=== PATIENT | male | born 1935 ===

== ENCOUNTER 2020-03-21 11:40 | Outpatient (REF) | payer MEDICARE, SELFPAY | END 2020-03-21 11:41 | disposition home or self-care (01) | LOC: HO.HMGCLDS 11:40 | PROVIDERS: PCP Internal Medicine; Visit Provider Internal Medicine | DX: Z20.828 Contact with and (suspected) exposure to other viral communicable diseases (principal) | CPT/HCPCS: 87635 ==

== ENCOUNTER 2020-06-22 03:15 | Emergency (ER) | payer MEDICARE, SELFPAY ==
[2020-06-22 03:22] VITALS: BP 193/87; PULSE 69; RESP 16; TEMP 37.1; O2SAT 98; BMI 27.1
--- NOTE | 2020-06-22 03:47 | ED.HA ---
HPI - Headache General Chief Complaint: Headache Stated Complaint: High Blood Pressure Time Seen by Provider: 06/22/20 03:28 Source: patient Mode of arrival: ambulatory Limitations: no limitations History of Present Illness HPI Narrative: 84 yo male with hx of HTN on linsinopril 40mg, metoprolol 50mg just saw his PCP for headaches due to BP being > 180 over the past week, the patient notes he tried 100mg metoprolol for a couple of days but it didn't work, comes in tonight with c/o headache - he is on eliquis for afib elicited complaint: headache Pertinent past history: hypertension Onset (ago): week(s) (last week or so) Onset description: gradually Location: diffuse Severity: similar to previous episodes Quality & Timing: aching Exacerbating factors: none Relieving factors: nothing Context: occurred at rest Associated symptoms: none Treatments prior to arrival: acetaminophen and other (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) Related Data Home Medications Medication Instructions Recorded Confirmed betamethasone dipropionate 0.05 % 1 applic TOPICAL BID PRN 05/08/20 topical cream acetaminophen 500 mg capsule 500 mg PO Q6H PRN 06/18/20 06/18/20 Previous Rx's Medication Instructions Recorded pantoprazole 40 mg tablet,delayed 40 mg PO DAILY 90 Days #90 tab 03/21/20 release atorvastatin 20 mg tablet 20 mg PO BEDTIME #90 tab 05/08/20 betamethasone dipropionate 0.05 % 1 applic TOPICAL BID PRN #15 g 05/08/20 topical cream glipizide 2.5 mg tablet, extended 2.5 mg PO QAM #90 cap 05/08/20 release 24 hr lisinopril 40 mg tablet 40 mg PO DAILY #90 tab 05/08/20 metformin 500 mg tablet 500 mg PO BID #180 tab 05/08/20 pantoprazole 40 mg tablet,delayed 40 mg PO DAILY #90 tab 05/08/20 release metoprolol succinate 50 mg 50 mg PO DAILY 90 Days #90 tab 05/28/20 tablet,extended release 24 hr amlodipine 5 mg PO DAILY #30 tab 06/22/20 Allergies Allergy/AdvReac Type Severity Reaction Status Date / Time pravastatin Allergy Unknown LEG RASH Verified 06/21/20 13:36 Review of Systems Review of Systems: Constitutional : No Fever, No Chills, No Fatigue ENT/Mouth : No sore throat, No Rhinorrhea Eyes: No Eye Pain, No Swelling, No Redness Cardiovascular : No Chest Pain, No SOB, No Dyspnea on Exertion Respiratory : No Cough, No Sputum Gastrointestinal : No Nausea, No Vomiting, No Diarrhea, No abdominal Pain Genitourinary : No Dysuria, No Urinary Frequency, No Hematuria, Musculoskeletal : No joint pain, No Myalgias, No Joint Swelling Skin : No Skin Lesions, No rash Neuro : No Weakness, No Numbness, No Dizziness, positive Headache Psych : No Anxiety/Panic, No Depression Heme/Lymph: No Bruising, No Bleeding,No Lymphadenopathy Endocrine : No Polyuria, No Polydipsia All other systems reviewed and are negative [facility] Past Medical History Attestation statement: The following information was validated with the patient. Medical History Afib Essential (primary) hypertension Hypertension Normally functioning cardiac pacemaker present Surgical History History of pacemaker Total knee replacement status Family History Family History Father No problems noted. Mother No problems noted. Daughter In good health Social History Social History Alcohol intake: current Alcohol intake frequency: holidays/special occasions only Smoking Status: Never smoker Advance Directives: No Physical Exam Vital Signs: Vital Signs: Last Vital Signs Temp 98.7 F 06/22/20 03:22 Pulse 73 06/22/20 04:27 Resp 18 06/22/20 04:27 BP 177/64 H 06/22/20 04:27 Pulse Ox 97 06/22/20 04:27 Body Mass Index 27.1 Appearance: Alert. Oriented X3. No acute distress. Eyes: Pupils equal, round and reactive to light. ENT: Pharynx normal. Neck: Normal inspection. Neck supple. CVS: Normal heart rate and rhythm. Pulses normal. Respiratory: No respiratory distress. Breath sounds normal. Abdomen: Soft and non-tender. Skin: Skin warm and dry. Normal skin color. Normal skin turgor. Extremities: No lower extremity edema. No calf ttp Neuro: Oriented X 3. No motor deficit. No sensory deficit. Course Course Course Narrative: patient with negative workup, BP stable will start on amlodipine 5mg MDM - Headache MDM Narrative Medical decision making narrative: 84 yo male with increased BP already on CARLOS and metoprolol he c/o some headaches - BP has been up to 180s, will need labs to check Cr and CT head given eliquis use, will attempt pain control but may need to add on 3rd BP medication to his regimen Lab Data Result diagrams: 06/22/20 04:24 Labs: Lab Results 06/22/20 06/22/20 Range/Units 04:24 04:24 WBC 7.6 (4.8-10.8) X10*3/uL RBC 4.29 L (4.60-5.80) X10*6/uL Hgb 13.0 L (14.0-18.0) g/dl Hct 38.2 L (42-52) % MCV 89.0 (80-98) fL MCH 30.3 (27.0-33.0) pg MCHC 34.0 (31.0-36.0) g/dl RDW 12.7 (11.0-16.0) % Plt Count 148 L (160-400) X10*3/uL MPV 9.3 L (9.4-12.4) fL Immature Gran % (Auto) 0.1 (0.0-0.4) % Neut % (Auto) 52.3 (45-73) % Lymph % (Auto) 36.9 (20-40) % [place] % (Auto) 8.0 (2-11) % Eos % (Auto) 2.2 (0-4) % Baso % (Auto) 0.5 (0-2) % Lymph # (Auto) 2.8 (1.2-4.9) X10*3/uL [place] # (Auto) 0.6 (0.1-1.2) X10*3/uL Eos # (Auto) 0.2 (0.0-0.4) X10*3/uL Baso # (Auto) 0.0 (0.0-0.2) X10*3/uL Abs Immat Gran (auto) 0.01 (0.00-0.03) X10*3/uL Absolute Neuts (auto) 4.0 (2.0-8.3) X10*3/uL Absolute Nucleated RBC 0.000 (0.0-0.012) X10*3/uL Nucleated RBC % (auto) 0.0 (0.0-0.2) /100WBC PT 15.2 H (10.8-13.0) SEC INR 1.3 H (0.9-1.1) APTT 40.2 H (24.1-38.0) SEC Discharge Plan Discharge Clinical Impression: Essential (primary) hypertension Headache Qualifiers: Headache type: tension-type Headache chronicity pattern: episodic headache Intractability: not intractable Qualified Code(s): G44.219 - Episodic tension-type headache, not intractable Patient Disposition: Home, Self-Care Instructions: Chronic Hypertension (ED) Additional Instructions: return to ED for any worsening symptoms or concerns continue your lisinopril and metoprolol Prescriptions: New amlodipine 5 mg tablet 5 mg PO DAILY Qty: 30 RF: 0 No Action betamethasone dipropionate 0.05 % cream 1 applic topical BID PRNRF: 0 lisinopril 40 mg tablet 40 mg PO DAILY Qty: 90 RF: 1 glipizide 2.5 mg tablet extended release 24hr 2.5 mg PO QAM Qty: 90 RF: 1 metformin 500 mg tablet 500 mg PO BID Qty: 180 RF: 1 pantoprazole 40 mg tablet,delayed release (DR/EC) 40 mg PO DAILY Qty: 90 RF: 1 betamethasone dipropionate 0.05 % cream 1 applic topical BID PRN (Reason: rash) Qty: 15 RF: 1 atorvastatin 20 mg tablet 20 mg PO BEDTIME Qty: 90 RF: 1 metoprolol succinate 50 mg tablet extended release 24 hr 50 mg PO DAILY 90 Days Qty: 90 RF: 1 acetaminophen 500 mg capsule 500 mg PO Q6H PRNRF: 0 Referrals: Darrius Garcia MD [Primary Care Provider] - 2 days (if not better)
--- NOTE | 2020-06-22 03:56 | CT_ITS ---
EXAMINATION: CT HEAD WITHOUT CONTRAST CLINICAL INFORMATION: Headache, on Eliquis. COMPARISON: None. TECHNIQUE: Contiguous axial imaging was performed from the skull base to vertex without intravenous contrast. This CT examination was performed using dose optimization techniques as appropriate, variously including the following: * Automated exposure control * Adjustment of mA and/or kV according to patient size (this includes techniques or standardized protocols for targeted exams where dose is matched to indication/reason for exam; i.e. extremities or head) Use of iterative reconstruction technique DLP: 664 mGy-cm. FINDINGS: There is no evidence of acute intracranial hemorrhage or territorial infarction. No abnormal mass effect or midline shift is seen. [place] to white matter differentiation is well preserved. No extra-axial fluid collections are identified. No hydrocephalus. Proportional prominence of the ventricles and sulcal spaces is consistent with mild volume loss. Patchy periventricular and deep white matter hypoattenuation is consistent with mild small vessel ischemic changes. The osseous structures and soft tissues are normal. The mastoid air cells and visualized portions of the paranasal sinuses are well aerated. CT/CT head/brain wo con IMPRESSION: No acute intracranial pathology.
--- NOTE | 2020-06-22 04:00 | PC.NURSE ---
pt ambulates to ed room #19 with c/o high b/p and a headache. in room for eval. Pt chg into gown. HL placed to Left AC labs drawn to lab. Pt refused pain meds. aware. Pt awaiting for Ct.
[2020-06-22 04:27] VITALS: BP 177/64; PULSE 73; RESP 18; O2SAT 97
[2020-06-22 04:30] LABS: Basophils Percent Auto 0.5 % (0-2); Eosinophils Absolute Auto 0.2 X10*3/uL (0.0-0.4); Eosinophils Percent Auto 2.2 % (0-4); Hematocrit 38.2 % (42-52); Imm Gran Abs Auto 0.01 X10*3/uL (0.00-0.03); Imm Gran Pct Auto 0.1 % (0.0-0.4); Lymphocytes Absolute Auto 2.8 X10*3/uL (1.2-4.9); Lymphocytes Percent Auto 36.9 % (20-40); MANUAL DIFF FLAG NO; Mean Corpuscular Hemoglobin 30.3 pg (27.0-33.0); Mean Platelet Volume 9.3 fL (9.4-12.4); Monocytes Absolute Auto 0.6 X10*3/uL (0.1-1.2); Neutrophils Percent Auto 52.3 % (45-73); Platelet Count 148 X10*3/uL (160-400); Red Blood Count 4.29 X10*6/uL (4.60-5.80); Red Cell Distribution Width 12.7 % (11.0-16.0); White Blood Count 7.6 X10*3/uL (4.8-10.8)
[2020-06-22 04:37] LABS: INTERNATIONAL NORM RATIO 1.3 (0.9-1.1); Prothrombin Time 15.2 SEC (10.8-13.0)
[2020-06-22 04:40] LABS: Partial Thromboplastin Time 40.2 SEC (24.1-38.0)
== END 2020-06-22 05:00 | disposition home or self-care (01) ==
PROVIDERS: Emergency Provider Emergency Medicine; PCP Internal Medicine
DX: G44.219 Episodic tension-type headache, not intractable (principal); I10 Essential (primary) hypertension; Z79.899 Other long term (current) drug therapy
CPT/HCPCS: 36415; 70450; 85025; 85610; 85730; 96374; 99284

== ENCOUNTER → 2020-08-06 13:19 | Outpatient (BNVA) | payer MEDICARE, SELFPAY | PROVIDERS: PCP Internal Medicine; Visit Provider Internal Medicine | DX: Z45.018 Encounter for adjustment and management of other part of cardiac pacemaker (principal); I48.0 Paroxysmal atrial fibrillation; I35.0 Nonrheumatic aortic (valve) stenosis; I42.8 Other cardiomyopathies; I10 Essential (primary) hypertension | CPT/HCPCS: 99212 ==

== ENCOUNTER 2021-02-01 07:31 | Outpatient (REF) | payer MEDICARE, SELFPAY ==
[2021-02-01 08:18] LABS: Glucose Urine UA NEG (NEG); Leukocyte Esterase Urine NEG (NEG); Nitrite Urine NEG (NEG); Specific Gravity - Urine 1.025 (1.005-1.025); Urine Blood TRACE (NEG); Urine Ketones NEG (NEG); Urine Protein NEG (NEG-TRACE)
[2021-02-01 08:19] LABS: Appearance Urine CLEAR; Color Urine YELLOW
[2021-02-01 08:27] LABS: Hematocrit 39.7 % (42-52); Hemoglobin 13.5 g/dl (14.0-18.0); Mean Corpuscular Hemoglobin 30.1 pg (27.0-33.0); Mean Corpuscular Volume 88.6 fL (80-98); Mean Platelet Volume 9.8 fL (9.4-12.4); Platelet Count 169 X10*3/uL (160-400); Red Blood Count 4.48 X10*6/uL (4.60-5.80); Red Cell Distribution Width 12.8 % (11.0-16.0); White Blood Count 6.2 X10*3/uL (4.8-10.8)
[2021-02-01 08:36] LABS: Calcium Phosphate Crystals Ur TRACE /LPF; Squamous Epithelial Cell Urine TRACE /LPF
[2021-02-01 08:57] LABS: Alanine Aminotransferase 21 U/L (0-40); Albumin Level 4.2 g/dL (3.5-5.0); Alkaline Phosphatase 67 U/L (39-117); Anion Gap 14 (12-20); Aspartate Amino Transferase 12 U/L (5-37); Bilirubin Direct 0.2 mg/dL (0.0-0.5); Bilirubin Total 0.5 mg/dL (0.0-1.0); Blood Urea Nitrogen 17 mg/dL (9-16); Calcium 9.2 mg/dL (8.4-10.2); Carbon Dioxide 23 mmol/L (22-29); Chloride 108 mmol/L (96-108); Cholesterol 159 mg/dL; Estimated Glomerular Filt Rate 59; Glucose Random 139 mg/dL (60-115); HDL Cholesterol 42 mg/dL; LDL Cholesterol Calculated 94 mg/dl; Potassium 4.5 mmol/L (3.3-5.1); Sodium 140 mmol/L (135-145); Total Protein 6.9 g/dL (6.5-8.0); Triglycerides 116 mg/dL
[2021-02-01 09:07] LABS: Thyroid Stimulating Hormone 1.31 uIU/mL (0.32-4.0)
== END 2021-02-01 07:32 | disposition home or self-care (01) ==
LOC: HO.LAB 07:31
PROVIDERS: PCP Internal Medicine; Visit Provider Internal Medicine
DX: L30.8 Other specified dermatitis (principal); I48.0 Paroxysmal atrial fibrillation; I42.9 Cardiomyopathy, unspecified; I10 Essential (primary) hypertension
CPT/HCPCS: 36415; 80048; 80061; 80076; 81001; 84443; 85027

== ENCOUNTER → 2021-07-10 14:45 | Outpatient (REF) | payer MEDICARE, SELFPAY ==
--- NOTE | 2021-07-10 14:50 | CA_ITS ---
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 Mildly reduced LV systolic function with LVEF of 45-50% with elevated filling pressures 2. Mild aortic stenosis 3. Normal RV systolic pressure 4. No gross pericardial effusion Findings Left Ventricle Normal left ventricular cavity size. There is normal left ventricular wall thickness. The left ventricular systolic function is mildly decreased. The visually estimated ejection fraction is between 45-50%. Spectral Doppler is indicative of an impaired relaxation filling pattern. Elevated filling pressures. E/E prime ratio is >15, consistent with elevated filling pressures. Wall Motion Rest Echo Findings The mid inferoseptal segment is hypokinetic. The inferior wall and apical septum segment are akinetic. All other scored wall segments showed normal motion. Right Ventricle Normal right ventricular cavity size and systolic function. There is a pacemaker wire seen in the right ventricle. Atria The left atrium is mildly dilated. The right atrium is normal in size. A pacemaker wire is identified in the right atrium. Aortic Valve There is moderate calcification of the aortic valve. There is moderate thickening of the aortic valve. There is mild aortic valve stenosis. There is no aortic valve regurgitation. Mitral Valve There is mild anterior and moderate posterior mitral leaflet thickening. There is mild mitral valve regurgitation. There is no mitral valve stenosis. Pulmonic Valve The pulmonic valve was not well visualized. Tricuspid Valve Likely normal tricuspid valve structure and function. There is mild tricuspid valve regurgitation. The right ventricular systolic pressure is normal. Normal right atrial pressure. There is no evidence of pulmonary hypertension. Great Vessels All visible segments of the aorta are normal in size. The pulmonary artery was not well visualized. Venous The inferior vena cava is normal in size and collapses greater than 50% with inspiration. Pericardium/Pleural There is no evidence of pericardial effusion. Prior Study Comparison No significant change compared to prior study dated: 07/27/2019. Measurements 2D Linear Measurements IVSd: 0.99 0.6-0.9/0.6-1.0 cm LVIDd: 5.20 3.9-5.3/4.2-5.9 cm LVIDd Index: 2.52 2.4-3.2/2.2-3.1 cm/m2 LVIDs: 3.90 2.0-3.6 cm LVPWd: 1.11 0.7-1.1 cm Ao Root: 3.30 2.1-3.5 cm LA Diam: 3.30 2.7-3.8/3.0-4.0 cm LAIDs Index: 1.60 1.5-2.3 cm/m2 LV Mass: 258.51 67-162/88-224 g LV Mass Index: 125.49 43-95/49-115 g/m2 LVOT Diam: 2.00 3.0+(-)1.3 cm 2D Systolic Function EF 4C: 45.30 >55% EF 2C: 51.90 >55% EF BiP: 48.80 >55% Mitral Valve MV Pk E: 0.78 MV PK A: 1.00 MV Decel Time: 252.00 E/A: 0.80 E'Lateral: 5.98 E'Medial: 3.59 E/E' Med: 21.60 E/E' Lat: 13.00 PHT: 74.00 MVA PHT: 2.97 Decel [place]: 3.08 Aortic Valve AoV Pk John: 1.98 AoV Mn John: 1.45 AoV VTI: 0.38 AoV Pk Grad: 16.00 Aov Mn Grad: 9.00 HEAVEN Cont.VTI: 1.68 LVOT LVOT Pk John: 0.97 LVOT Mn John: 0.71 LVOT VTI: 0.20 LVOT Pk Grad: 4.00 LVOT Mn Grad: 2.00 LVOT Diam: 2.00 LVOT Area: 3.14 Diastolic Function MV Pk E: 0.78 MV Pk A: 1.00 E/A: 0.80 E'Medial: 3.59 E/E' Med: 21.60 E' Laterial: 5.98 E/E' Lat: 13.00 Right Ventricle TAPSE (mm): 2.49 TVS' John: 12.30 Tricuspid Valve TR Pk John: 2.73 TR Pk Grad: 30.00 RA Press: 3.00 RVSP: 33.00 Great Vessels Aorta Ao Root-2D: 3.30 2.0-3.7 cm Ao Asc: 3.30 2.1-3.4 cm Ao Arch: 2.80 Updated in Other Vendor System with Status of Final Abhishek Bernard MD electronically signed on 07/11/2021 8:53:27 AM with status of Final
== END ==
LOC: HO.CARD 14:45
PROVIDERS: Visit Provider Internal Medicine
DX: I42.8 Other cardiomyopathies (principal)
CPT/HCPCS: 93306

== ENCOUNTER → 2021-08-12 12:43 | Outpatient (BNVA) | payer MEDICARE, SELFPAY | PROVIDERS: PCP Internal Medicine; Referring Provider Internal Medicine; Visit Provider Internal Medicine | DX: I48.0 Paroxysmal atrial fibrillation (principal); I35.0 Nonrheumatic aortic (valve) stenosis; I42.8 Other cardiomyopathies; I10 Essential (primary) hypertension; Z95.0 Presence of cardiac pacemaker | CPT/HCPCS: 99212 ==

== ENCOUNTER → 2021-09-09 13:27 | Outpatient (BNVA) | payer MEDICARE, SELFPAY | PROVIDERS: PCP Internal Medicine; Referring Provider Internal Medicine; Visit Provider Internal Medicine | DX: Z13.89 Encounter for screening for other disorder (principal) ==

== ENCOUNTER 2022-04-22 07:34 | Outpatient (REF) | payer MEDICARE, SELFPAY ==
[2022-04-22 10:44] LABS: Hematocrit 38.7 % (42.0-52.0); Mean Corpuscular HGB Conc 33.6 g/dl (31.0-36.0); Mean Corpuscular Volume 89.2 fL (80.0-98.0); Mean Platelet Volume 10.3 fL (9.4-12.4); Platelet Count 196 X10*3/uL (160-400); Red Blood Count 4.34 X10*6/uL (4.60-5.80); Red Cell Distribution Width 12.9 % (11.0-16.0); White Blood Count 6.2 X10*3/uL (4.8-10.8)
[2022-04-22 11:19] LABS: Alanine Aminotransferase 20 U/L (0-40); Albumin Level 4.3 g/dL (3.5-5.0); Alkaline Phosphatase 68 U/L (39-117); Anion Gap 14 (12-20); Aspartate Amino Transferase 12 U/L (5-37); Bilirubin Direct 0.2 mg/dL (0.0-0.5); Bilirubin Total 0.6 mg/dL (0.0-1.0); Blood Urea Nitrogen 25 mg/dL (9-16); Calcium 9.1 mg/dL (8.4-10.2); Carbon Dioxide 23 mmol/L (22-29); Chloride 104 mmol/L (96-108); Cholesterol 159 mg/dL; Estimated Average Glucose 117 mg/dL; Estimated Glomerular Filt Rate 48; Glucose Random 195 mg/dL (60-115); HDL Cholesterol 42 mg/dL; Hemoglobin A1c % 5.7 %; LDL Cholesterol Calculated 91 mg/dl; Potassium 4.2 mmol/L (3.3-5.1); Sodium 137 mmol/L (135-145); Total Protein 7.1 g/dL (6.5-8.0); Triglycerides 131 mg/dL
== END 2022-04-22 07:35 | disposition home or self-care (01) ==
LOC: HO.10HDL 07:34
PROVIDERS: Visit Provider Internal Medicine
DX: I42.9 Cardiomyopathy, unspecified (principal); I48.0 Paroxysmal atrial fibrillation; E11.9 Type 2 diabetes mellitus without complications
CPT/HCPCS: 36415; 80048; 80061; 80076; 83036; 85027

== ENCOUNTER 2022-07-20 16:29 | Emergency (ER) | payer MEDICARE, SELFPAY ==
--- NOTE | ~2022-07-20 | CT_ITS ---
EXAMINATION: CT ABDOMEN AND PELVIS WITHOUT CONTRAST CLINICAL INFORMATION: Hematuria COMPARISON: None TECHNIQUE: Multidetector volumetric imaging was performed from the superior aspect of the liver through the pubic symphysis. Sagittal and coronal reformatted images were obtained on the technologist's workstation. This CT examination was performed using dose optimization techniques as appropriate, variously including the following: *Automated exposure control *Adjustment of mA and/or kV according to patient size (this includes techniques or standardized protocols for targeted exams where dose is matched to indication/reason for exam; i.e. extremities or head) *Use of iterative reconstruction technique DLP: 579 mGy-cm FINDINGS: LUNG BASES: Pacemaker lead in right ventricle. Lung bases normally aerated. No pleural effusion. LIVER, GALLBLADDER, AND BILIARY TREE: The liver is normal in size, shape, and attenuation. No focal hepatic lesion or biliary ductal dilatation is present. The gallbladder is unremarkable with no evidence of radiopaque gallstones, gallbladder wall thickening, or obvious pericholecystic inflammatory changes. PANCREAS: Unremarkable. SPLEEN: Unremarkable. ADRENAL GLANDS: Unremarkable. KIDNEYS AND URETERS: There are lobulations in the kidney bilaterally. No renal mass. Renal cortical thickness maintained. There is no calculus or hydronephrosis. No ureteral stone or hydroureter. There are 3 cortical cyst at the upper pole of the right kidney. No follow-up imaging is recommended for simple renal cyst. BLADDER: Lobulated bladder mass at the posterior left abdominal the liver suspicious for neoplasm. This measures about 4 cm in size. GASTROINTESTINAL TRACT: The small and large bowel are unremarkable. The appendix is unremarkable. ABDOMINAL WALL: No significant hernia is appreciated. LYMPH NODES: Normal. VASCULAR: Scattered vascular calcifications of the abdominal aorta. No aneurysm. PELVIC VISCERA: Prostate enlarged impressing into the bladder base. Prostate measures 5 cm transverse. OSSEOUS STRUCTURES: Multilevel degenerative spondylosis spine. CT/CT abdomen pelvis wo IV con IMPRESSION: 1. Lobulated bladder mass suspicious for neoplasm. 2. Enlarged prostate impressing into the bladder base. Fleischner guidelines were followed.
--- NOTE | 2022-07-20 16:50 | ED_ITS ---
HPI - General Adult General Chief complaint: Urogenital-Male <ZORA Kate - Last Filed: 07/20/22 16:54> Stated complaint: blood in urine <ZORA Kate - Last Filed: 07/20/22 16:54> Time Seen by Provider: 07/20/22 19:58 <ZORA Kate - Last Filed: 07/20/22 16:54> Source: patient <Rossy Ledesma NP - Last Filed: 07/21/22 00:54> Mode of arrival: ambulatory <Rossy Ledesma NP - Last Filed: 07/21/22 00:54> Limitations: no limitations <Rossy Ledesma NP - Last Filed: 07/21/22 00:54> History of Present Illness HPI narrative: 86-year-old male presents with 1 day of bright red hematuria. Does not describe any difficulty voiding, denies fevers, chills, fatigue and weakness. <Rossy Ledesma NP - Last Filed: 07/21/22 00:54> Onset (ago): day(s) (1) <Rossy Ledesma NP - Last Filed: 07/21/22 00:54> Radiation: non-radiation <Rossy Ledesma NP - Last Filed: 07/21/22 00:54> Severity: moderate <Rossy Ledesma NP - Last Filed: 07/21/22 00:54> Associated symptoms: denies other symptoms <SANJAY Epps Last Filed: 07/21/22 00:54> Treatments prior to arrival: none <SANJAY Epps Last Filed: 07/21/22 00:54> Related Data Home medications: Home Medications Medication Instructions Recorded Confirmed acetaminophen 500 mg capsule 500 mg PO Q6H PRN 06/18/20 09/25/21 Previous Rx's Medication Instructions Recorded pantoprazole 40 mg tablet,delayed 40 mg PO DAILY #90 tabs 10/11/21 release apixaban 5 mg tablet (Eliquis) 5 mg PO BID #180 tabs 12/06/21 lisinopril 40 mg tablet 40 mg PO DAILY #90 tabs 03/25/22 metformin 500 mg tablet 500 mg PO BID #180 tabs 03/25/22 betamethasone dipropionate 0.05 % 2 appl topical BID rash #45 grams 04/21/22 topical cream meclizine 12.5 mg tablet 12.5 mg PO DAILY #30 tabs 04/21/22 metoprolol succinate 50 mg 100 mg PO DAILY 90 days #180 tabs 05/01/22 tablet,extended release 24 hr blood sugar diagnostic (FreeStyle #100 ea 06/24/22 Test strips) lancets 28 gauge (FreeStyle #100 ea 06/24/22 Lancets) atorvastatin 20 mg tablet 20 mg PO BEDTIME #90 tabs 07/02/22 <ZORA Kate - Last Filed: 07/20/22 16:54> Allergies/adverse reactions: Allergies Allergy/AdvReac Type Severity Reaction Status Date / Time pravastatin Allergy Unknown LEG RASH Verified 07/20/22 16:52 <ZORA Kate - Last Filed: 07/20/22 16:54> Review of Systems Review of Systems: Constitutional: No Fever, No Chills Cardiovascular: No Chest Pain, No SOB Respiratory: No Cough, No Dyspnea Gastrointestinal: No Nausea, No Vomiting, No Diarrhea, No abdominal Pain Genitourinary: No Dysuria, Positive,Hematuria Musculoskeletal: no joint pain, No Myalgias, No Joint Swelling Skin: No Skin lacerations, No rash Neuro: No Weakness, No Dizziness, No Headache <Rossy Ledesma NP - Last Filed: 07/21/22 00:54> Yes all other systems are reviewed and are negative <Rossy Ledesma NP - Last Filed: 07/21/22 00:54> [facility] Past Medical History Attestation statement: The following information was validated with the patient. <Rossy Ledesma NP - Last Filed: 07/21/22 00:54> Source: old records reviewed <Rossy Ledesma NP - Last Filed: 07/21/22 00:54> Medical History: Medical History Afib Cardiomyopathy Eczema craquele Essential (primary) hypertension Hypertension Non-rheumatic aortic stenosis Normally functioning cardiac pacemaker present PAF (paroxysmal atrial fibrillation) <ZORA Kate - Last Filed: 07/20/22 16:54> Surgical History: Surgical History History of pacemaker Total knee replacement status <ZORA Kate - Last Filed: 07/20/22 16:54> Family History Family History: Family History Father No problems noted. Mother No problems noted. Daughter In good health <ZORA Kate - Last Filed: 07/20/22 16:54> Social History Social History: Social History Housing: Apartment Alcohol intake: never Patient Tobacco Use Status: Never used Tobacco e-Cigarette/Vaping Use: Never Used Second Hand Smoke Exposure: No Advance Directives: No Advance Directives Information Provided: Yes service: No Current occupational status: employed and retired Cognitive needs: No Hearing needs: No Vision needs: Yes (glasses) <ZORA Kate - Last Filed: 07/20/22 16:54> Physical Exam ED Vital Signs: Vital Signs - 24 hr 07/20/22 16:52 07/20/22 20:00 Temperature 98.4 F 98.8 F Pulse Rate 72 93 Respiratory Rate 16 19 Blood Pressure 166/77 H 106/67 Pulse Oximetry 98 100 Oxygen Delivery Method Room Air Room Air BMI result Body Mass Index 25.7 <ZORA Kate - Last Filed: 07/20/22 16:54> Vital Signs - 24 hr 07/20/22 16:52 07/20/22 20:00 Temperature 98.4 F 98.8 F Pulse Rate 72 93 Respiratory Rate 16 19 Blood Pressure 166/77 H 106/67 Pulse Oximetry 98 100 Oxygen Delivery Method Room Air Room Air BMI result Body Mass Index 25.7 <Rossy Ledesma NP - Last Filed: 07/21/22 00:54> Appearance: Alert. Oriented X3. No acute distress. Eyes: Pupils equal, round and reactive to light. ENT: Pharynx normal. Neck: Normal inspection. Neck supple. CVS: Normal heart rate and rhythm. Pulses normal. Respiratory: No respiratory distress. Breath sounds normal. Abdomen: Soft and nontender. Skin: Skin warm and dry. Normal skin color. Normal skin turgor. Extremities: No lower extremity edema. gait well-balanced well coordinated. Neuro: No motor deficit. No sensory deficit. Cranial nerves 2-12 intact. <Rossy Ledesma NP - Last Filed: 07/21/22 00:54> Course Course Course Narrative: RME--86yo M w/PMHx A.fib on Eliquis, HTN, pacemaker, c/o gross hematuria since yesterday w/mild dysuria. Admits started dark/brown and progressed to bright red, denies clots. Denies fever, abdominal pain, N/V, flank pain VSS, NAD Labs, UA ordered in triage <ZORA Kate - Last Filed: 07/20/22 16:54> RME--86yo M w/PMHx A.fib on Eliquis, HTN, pacemaker, c/o gross hematuria since yesterday w/mild dysuria. Admits started dark/brown and progressed to bright red, denies clots. Denies fever, abdominal pain, N/V, flank pain VSS, NAD Labs, UA ordered in triage 86-year-old male presents with 1 day of hematuria. Does not have any other reportable symptoms. Is on Eliquis for AFib, history of hypertension and diabetes. Gross hematuria noted. Order for CT scan of abdomen pelvis. 00:30 CT scan positive for mass in the bladder and enlarged prostate, most concerning for bladder cancer. Will have patient follow-up with Dr. Barrett. Patient does understand that has worsening symptoms, or inability to urine that he must present to the emergency department for evaluation. I did discuss these findings in detail with patient's daughter. Patient verbalized understanding of and agrees to plan of care discharge home. Verbalizes that understanding of signs and symptoms indicating need for emergent intervention. <Rossy Ledesma NP - Last Filed: 07/21/22 00:54> Medications Administered Discontinued Medications Generic Name Dose Route Start Last Admin Trade Name Freq PRN Reason Stop Dose Admin Sodium Chloride 1,000 mls @ 999 mls/hr 07/20/22 20:15 07/20/22 21:31 Ns IVCONT 07/20/22 21:15 Infused .Q1H1M UDAY Infusion <ZORA Kate - Last Filed: 07/20/22 16:54> Medications Administered Discontinued Medications Generic Name Dose Route Start Last Admin Trade Name Lynda PRN Reason Stop Dose Admin Sodium Chloride 1,000 mls @ 999 mls/hr 07/20/22 20:15 07/20/22 21:31 Ns IVCONT 07/20/22 21:15 Infused .Q1H1M UDAY Infusion <Rossy Ledesma NP - Last Filed: 07/21/22 00:54> Medical Decision Making Differential Diagnosis Differential Diagnoses: The differential diagnosis associated with the presentation includes <Rossy Ledesma NP - Last Filed: 07/21/22 00:54> UTI, kidney stone, bladder CA, kidney Ca <Rossy Ledesma NP - Last Filed: 07/21/22 00:54> Consult Healthcare Provider Management of the patient was discussed with: Electric Motor Mechanic <Rossy Ledesma NP - Last Filed: 07/21/22 00:54> Barrett <Rossy Ledesma NP - Last Filed: 07/21/22 00:54> Lab Data MDM Lab Attestation statement: I reviewed the patient's lab results. <Rossy Ledesma NP - Last Filed: 07/21/22 00:54> Result Diagrams: 07/20/22 17:22 07/20/22 17:22 <ZORA Kate - Last Filed: 07/20/22 16:54> Labs: Lab Results 07/20/22 07/20/22 07/20/22 Range/Units 17:22 17:22 17:22 WBC 6.8 (4.8-10.8) X10*3/uL RBC 4.48 L (4.60-5.80) X10*6/uL Hgb 13.2 L (14.0-18.0) g/dl Hct 38.5 L (42.0-52.0) % MCV 85.9 (80.0-98.0) fL MCH 29.5 (27.0-33.0) pg MCHC 34.3 (31.0-36.0) g/dl RDW 12.7 (11.0-16.0) % Plt Count 169 (160-400) X10*3/uL MPV 9.6 (9.4-12.4) fL Immature Gran % (Auto) 0.1 (0.0-0.4) % Neut % (Auto) 44.1 L (45-73) % Lymph % (Auto) 44.3 H (20-40) % [place] % (Auto) 8.5 (2-11) % Eos % (Auto) 2.4 (0-4) % Baso % (Auto) 0.6 (0-2) % Lymph # (Auto) 3.0 (1.2-4.9) X10*3/uL [place] # (Auto) 0.6 (0.1-1.2) X10*3/uL Eos # (Auto) 0.2 (0.0-0.4) X10*3/uL Baso # (Auto) 0.0 (0.0-0.2) X10*3/uL Abs Immat Gran (auto) 0.01 (0.00-0.03) X10*3/uL Absolute Neuts (auto) 3.0 (2.0-8.3) x10*3/uL Absolute Nucleated RBC 0.000 (0.0-0.012) X10*3/uL Nucleated RBC % (auto) 0.0 (0.0-0.2) /100WBC PT 15.1 H (10.0-13.1) SEC INR 1.3 H (0.9-1.1) Sodium 141 (135-145) mmol/L Potassium 5.4 H D (3.3-5.1) mmol/L Chloride 107 (96-108) mmol/L Carbon Dioxide 25 (22-29) mmol/L Anion Gap 14 (12-20) BUN 21 H (9-16) mg/dL Creatinine 1.52 H (0.5-1.4) mg/dL Estim Creat Clear Calc 36.4 Estimated GFR 44 Random Glucose 108 (60-115) mg/dL Calcium 9.6 (8.4-10.2) mg/dL Total Bilirubin 0.6 (0.0-1.0) mg/dL Direct Bilirubin < 0.2 (0.0-0.5) mg/dL AST 12 (5-37) U/L ALT 16 (0-40) U/L Alkaline Phosphatase 64 (39-117) U/L Total Creatine Kinase 122 (38-174) U/L Total Protein 6.7 (6.5-8.0) g/dL Albumin 4.2 (3.5-5.0) g/dL Urine Color Urine Appearance Urine pH (5.0-9.0) Ur Specific [place] (1.005-1.025) Urine Protein (Neg-Trace) mg/dL Urine Glucose (UA) (Negative) mg/dL Urine Ketones (Negative) mg/dL Urine Blood (Negative) Urine Nitrite (Negative) Ur Leukocyte Esterase (Negative) Urine RBC (0-2) /HPF Urine WBC (0-5) /HPF Ur Squamous Epith Cells (0-2) /HPF Urine Bacteria (None Seen) Hyaline Casts (0-2) /LPF 07/20/22 Range/Units 17:22 WBC (4.8-10.8) X10*3/uL RBC (4.60-5.80) X10*6/uL Hgb (14.0-18.0) g/dl Hct (42.0-52.0) % MCV (80.0-98.0) fL MCH (27.0-33.0) pg MCHC (31.0-36.0) g/dl RDW (11.0-16.0) % Plt Count (160-400) X10*3/uL MPV (9.4-12.4) fL Immature Gran % (Auto) (0.0-0.4) % Neut % (Auto) (45-73) % Lymph % (Auto) (20-40) % [place] % (Auto) (2-11) % Eos % (Auto) (0-4) % Baso % (Auto) (0-2) % Lymph # (Auto) (1.2-4.9) X10*3/uL [place] # (Auto) (0.1-1.2) X10*3/uL Eos # (Auto) (0.0-0.4) X10*3/uL Baso # (Auto) (0.0-0.2) X10*3/uL Abs Immat Gran (auto) (0.00-0.03) X10*3/uL Absolute Neuts (auto) (2.0-8.3) x10*3/uL Absolute Nucleated RBC (0.0-0.012) X10*3/uL Nucleated RBC % (auto) (0.0-0.2) /100WBC PT (10.0-13.1) SEC INR (0.9-1.1) Sodium (135-145) mmol/L Potassium (3.3-5.1) mmol/L Chloride (96-108) mmol/L Carbon Dioxide (22-29) mmol/L Anion Gap (12-20) BUN (9-16) mg/dL Creatinine (0.5-1.4) mg/dL Estim Creat Clear Calc Estimated GFR Random Glucose (60-115) mg/dL Calcium (8.4-10.2) mg/dL Total Bilirubin (0.0-1.0) mg/dL Direct Bilirubin (0.0-0.5) mg/dL AST (5-37) U/L ALT (0-40) U/L Alkaline Phosphatase (39-117) U/L Total Creatine Kinase (38-174) U/L Total Protein (6.5-8.0) g/dL Albumin (3.5-5.0) g/dL Urine Color Dark Yellow Urine Appearance Turbid Urine pH 5.5 (5.0-9.0) Ur Specific [place] 1.015 (1.005-1.025) Urine Protein 300 (3+) H (Neg-Trace) mg/dL Urine Glucose (UA) 250 H (Negative) mg/dL Urine Ketones Negative (Negative) mg/dL Urine Blood Large (3+) H (Negative) Urine Nitrite Negative (Negative) Ur Leukocyte Esterase Small (1+) H (Negative) Urine RBC >20 H (0-2) /HPF Urine WBC 21-50 H (0-5) /HPF Ur Squamous Epith Cells >20 (0-2) /HPF Urine Bacteria None Seen (None Seen) Hyaline Casts 0-2 (0-2) /LPF <ZORA Kate - Last Filed: 07/20/22 16:54> Lab Results 07/20/22 07/20/22 07/20/22 Range/Units 17:22 17:22 17:22 WBC 6.8 (4.8-10.8) X10*3/uL RBC 4.48 L (4.60-5.80) X10*6/uL Hgb 13.2 L (14.0-18.0) g/dl Hct 38.5 L (42.0-52.0) % MCV 85.9 (80.0-98.0) fL MCH 29.5 (27.0-33.0) pg MCHC 34.3 (31.0-36.0) g/dl RDW 12.7 (11.0-16.0) % Plt Count 169 (160-400) X10*3/uL MPV 9.6 (9.4-12.4) fL Immature Gran % (Auto) 0.1 (0.0-0.4) % Neut % (Auto) 44.1 L (45-73) % Lymph % (Auto) 44.3 H (20-40) % [place] % (Auto) 8.5 (2-11) % Eos % (Auto) 2.4 (0-4) % Baso % (Auto) 0.6 (0-2) % Lymph # (Auto) 3.0 (1.2-4.9) X10*3/uL [place] # (Auto) 0.6 (0.1-1.2) X10*3/uL Eos # (Auto) 0.2 (0.0-0.4) X10*3/uL Baso # (Auto) 0.0 (0.0-0.2) X10*3/uL Abs Immat Gran (auto) 0.01 (0.00-0.03) X10*3/uL Absolute Neuts (auto) 3.0 (2.0-8.3) x10*3/uL Absolute Nucleated RBC 0.000 (0.0-0.012) X10*3/uL Nucleated RBC % (auto) 0.0 (0.0-0.2) /100WBC PT 15.1 H (10.0-13.1) SEC INR 1.3 H (0.9-1.1) Sodium 141 (135-145) mmol/L Potassium 5.4 H D (3.3-5.1) mmol/L Chloride 107 (96-108) mmol/L Carbon Dioxide 25 (22-29) mmol/L Anion Gap 14 (12-20) BUN 21 H (9-16) mg/dL Creatinine 1.52 H (0.5-1.4) mg/dL Estim Creat Clear Calc 36.4 Estimated GFR 44 Random Glucose 108 (60-115) mg/dL Calcium 9.6 (8.4-10.2) mg/dL Total Bilirubin 0.6 (0.0-1.0) mg/dL Direct Bilirubin < 0.2 (0.0-0.5) mg/dL AST 12 (5-37) U/L ALT 16 (0-40) U/L Alkaline Phosphatase 64 (39-117) U/L Total Creatine Kinase 122 (38-174) U/L Total Protein 6.7 (6.5-8.0) g/dL Albumin 4.2 (3.5-5.0) g/dL Urine Color Urine Appearance Urine pH (5.0-9.0) Ur Specific [place] (1.005-1.025) Urine Protein (Neg-Trace) mg/dL Urine Glucose (UA) (Negative) mg/dL Urine Ketones (Negative) mg/dL Urine Blood (Negative) Urine Nitrite (Negative) Ur Leukocyte Esterase (Negative) Urine RBC (0-2) /HPF Urine WBC (0-5) /HPF Ur Squamous Epith Cells (0-2) /HPF Urine Bacteria (None Seen) Hyaline Casts (0-2) /LPF 07/20/22 Range/Units 17:22 WBC (4.8-10.8) X10*3/uL RBC (4.60-5.80) X10*6/uL Hgb (14.0-18.0) g/dl Hct (42.0-52.0) % MCV (80.0-98.0) fL MCH (27.0-33.0) pg MCHC (31.0-36.0) g/dl RDW (11.0-16.0) % Plt Count (160-400) X10*3/uL MPV (9.4-12.4) fL Immature Gran % (Auto) (0.0-0.4) % Neut % (Auto) (45-73) % Lymph % (Auto) (20-40) % [place] % (Auto) (2-11) % Eos % (Auto) (0-4) % Baso % (Auto) (0-2) % Lymph # (Auto) (1.2-4.9) X10*3/uL [place] # (Auto) (0.1-1.2) X10*3/uL Eos # (Auto) (0.0-0.4) X10*3/uL Baso # (Auto) (0.0-0.2) X10*3/uL Abs Immat Gran (auto) (0.00-0.03) X10*3/uL Absolute Neuts (auto) (2.0-8.3) x10*3/uL Absolute Nucleated RBC (0.0-0.012) X10*3/uL Nucleated RBC % (auto) (0.0-0.2) /100WBC PT (10.0-13.1) SEC INR (0.9-1.1) Sodium (135-145) mmol/L Potassium (3.3-5.1) mmol/L Chloride (96-108) mmol/L Carbon Dioxide (22-29) mmol/L Anion Gap (12-20) BUN (9-16) mg/dL Creatinine (0.5-1.4) mg/dL Estim Creat Clear Calc Estimated GFR Random Glucose (60-115) mg/dL Calcium (8.4-10.2) mg/dL Total Bilirubin (0.0-1.0) mg/dL Direct Bilirubin (0.0-0.5) mg/dL AST (5-37) U/L ALT (0-40) U/L Alkaline Phosphatase (39-117) U/L Total Creatine Kinase (38-174) U/L Total Protein (6.5-8.0) g/dL Albumin (3.5-5.0) g/dL Urine Color Dark Yellow Urine Appearance Turbid Urine pH 5.5 (5.0-9.0) Ur Specific [place] 1.015 (1.005-1.025) Urine Protein 300 (3+) H (Neg-Trace) mg/dL Urine Glucose (UA) 250 H (Negative) mg/dL Urine Ketones Negative (Negative) mg/dL Urine Blood Large (3+) H (Negative) Urine Nitrite Negative (Negative) Ur Leukocyte Esterase Small (1+) H (Negative) Urine RBC >20 H (0-2) /HPF Urine WBC 21-50 H (0-5) /HPF Ur Squamous Epith Cells >20 (0-2) /HPF Urine Bacteria None Seen (None Seen) Hyaline Casts 0-2 (0-2) /LPF <Rossy Ledesma NP - Last Filed: 07/21/22 00:54> Independent Interpretation I performed an independent interpretation of an: CT Scan <Rossy Ledesma NP - Last Filed: 07/21/22 00:54> Radiology Impression Discussion of test interpretation with radiology: I have reviewed the radiologist's reading. <Rossy Ledesma NP - Last Filed: 07/21/22 00:54> Radiologist Impression: FINDINGS: LUNG BASES: Pacemaker lead in right ventricle. Lung bases normally aerated. No pleural effusion.? LIVER, GALLBLADDER, AND BILIARY TREE: The liver is normal in size, shape, and attenuation. No focal hepatic lesion or biliary ductal dilatation is present. The gallbladder is unremarkable with no evidence of radiopaque gallstones, gallbladder wall thickening, or obvious pericholecystic inflammatory changes.? PANCREAS: Unremarkable.? SPLEEN: Unremarkable.? ADRENAL GLANDS: Unremarkable.? KIDNEYS AND URETERS: There are lobulations in the kidney bilaterally. No renal mass. Renal cortical thickness maintained. There is no calculus or hydronephrosis. No ureteral stone or hydroureter. There are 3 cortical cyst at the upper pole of the right kidney. No follow-up imaging is recommended for simple renal cyst. BLADDER: Lobulated bladder mass at the posterior left abdominal the liver suspicious for neoplasm. This measures about 4 cm in size.? GASTROINTESTINAL TRACT: The small and large bowel are unremarkable. The appendix is unremarkable.? ABDOMINAL WALL: No significant hernia is appreciated.? LYMPH NODES: Normal. VASCULAR: Scattered vascular calcifications of the abdominal aorta. No aneurysm. PELVIC VISCERA: Prostate enlarged impressing into the bladder base. Prostate measures 5 cm transverse.? OSSEOUS STRUCTURES: Multilevel degenerative spondylosis spine.? CT/CT abdomen pelvis wo IV con IMPRESSION: 1.? Lobulated bladder mass suspicious for neoplasm. 2.? Enlarged prostate impressing into the bladder base. ? Fleischner guidelines were followed. <SANJAY Epps Last Filed: 07/21/22 00:54> Independent Historian Clinical information obtained from an independent historian. History obtained from or confirmed by: Spouse and Other ( daughter) <Rossy Ledesma NP - Last Filed: 07/21/22 00:54> External Record Review External record reviewed: Outpatient record and Prior outpatient labs <Rossy Ledesma NP - Last Filed: 07/21/22 00:54> Chronic Conditions Patient?s care impacted by: Diabetes and Hypertension <Rossy Ledesma NP - Last Filed: 07/21/22 00:54> Discharge Plan Discharge Clinical Impression: Bladder mass, Enlarged prostate, Hematuria <ZORA Kate - Last Filed: 07/20/22 16:54> Patient Disposition: Home, Self-Care <ZORA Kate - Last Filed: 07/20/22 16:54> Instructions: Enlarged Prostate (BPH) (ED), Hematuria (ED) <ZORA Kate - Last Filed: 07/20/22 16:54> Additional Instructions: you were evaluated for hematuria. Your CT scan of abdomen and pelvis indicates a lobulated bladder mass suspicious for neoplasm. This mass measures about 4 cm in diameter. Your prostate is also enlarged, measuring approximately 5 cm transversely. Please follow-up with urologist, Dr. Barrett. Please call and request an appointment for evaluation. Drink plenty of fluids. if you have difficulty emptying Your bladder, or you have not voided in several hours please return to the emergency department for obstruction. Thank you for choosing this emergency department for evaluation. Please follow-up with primary care physician as needed. Return to the emergency department for any new, concerning, or worsening symptoms. <ZORA Kate - Last Filed: 07/20/22 16:54> Prescriptions: No Action pantoprazole 40 mg tablet,delayed release (DR/EC) 40 mg PO DAILY Qty: 90 1RF Eliquis 5 mg tablet 5 mg PO BID Qty: 180 3RF metformin 500 mg tablet 500 mg PO BID Qty: 180 1RF lisinopril 40 mg tablet 40 mg PO DAILY Qty: 90 1RF metoprolol succinate 50 mg tablet extended release 24 hr 100 mg PO DAILY 90 Days Qty: 180 3RF (DME) lancets [FreeStyle Lancets] 28 gauge misc See Rx Instructions .Route Qty: 100 0RF Rx Instructions: Test 2 times daily (DME) FreeStyle Test Strip See Rx Instructions .Route Qty: 100 0RF Rx Instructions: Test 2 times daily atorvastatin 20 mg tablet 20 mg PO BEDTIME Qty: 90 1RF acetaminophen 500 mg capsule 500 mg PO Q6H PRN betamethasone dipropionate 0.05 % cream 2 appl topical BID Qty: 45 0RF meclizine 12.5 mg tablet 12.5 mg PO DAILY Qty: 30 0RF <ZORA Kate - Last Filed: 07/20/22 16:54> Referrals: Adalid Barrett MD [Physician] - 1 day ( bladder mass and large prostate with hematuria) Darrius Garcia MD [Primary Care Provider] - 1 week ( suspicion of bladder cancer) <ZORA Kate - Last Filed: 07/20/22 16:54> Interventions: ED Discharge Assessment Last Done: 07/21/22 00:44 <ZORA Kate - Last Filed: 07/20/22 16:54> Discharge Date/Time: 07/21/22 00:44 <ZORA Kate - Last Filed: 07/20/22 16:54>
[2022-07-20 16:52] VITALS: BP 166/77; PULSE 72; RESP 16; TEMP 36.9; O2SAT 98; BMI 25.7
[2022-07-20 17:31] LABS: MANUAL DIFF FLAG NO
[2022-07-20 17:32] LABS: Basophils Percent Auto 0.6 % (0-2); Eosinophils Absolute Auto 0.2 X10*3/uL (0.0-0.4); Eosinophils Percent Auto 2.4 % (0-4); Hematocrit 38.5 % (42.0-52.0); Hemoglobin 13.2 g/dl (14.0-18.0); Imm Gran Abs Auto 0.01 X10*3/uL (0.00-0.03); Imm Gran Pct Auto 0.1 % (0.0-0.4); Lymphocytes Percent Auto 44.3 % (20-40); Mean Corpuscular HGB Conc 34.3 g/dl (31.0-36.0); Mean Corpuscular Hemoglobin 29.5 pg (27.0-33.0); Mean Corpuscular Volume 85.9 fL (80.0-98.0); Mean Platelet Volume 9.6 fL (9.4-12.4); Monocytes Absolute Auto 0.6 X10*3/uL (0.1-1.2); Monocytes Percent Auto 8.5 % (2-11); Neutrophils Percent Auto 44.1 % (45-73); Platelet Count 169 X10*3/uL (160-400); Red Blood Count 4.48 X10*6/uL (4.60-5.80); Red Cell Distribution Width 12.7 % (11.0-16.0); White Blood Count 6.8 X10*3/uL (4.8-10.8)
[2022-07-20 17:43] LABS: INTERNATIONAL NORM RATIO 1.3 (0.9-1.1); Prothrombin Time 15.1 SEC (10.0-13.1)
[2022-07-20 17:47] LABS: Alanine Aminotransferase 16 U/L (0-40); Albumin Level 4.2 g/dL (3.5-5.0); Alkaline Phosphatase 64 U/L (39-117); Anion Gap 14 (12-20); Aspartate Amino Transferase 12 U/L (5-37); Bilirubin Direct < 0.2 mg/dL (0.0-0.5); Bilirubin Total 0.6 mg/dL (0.0-1.0); Blood Urea Nitrogen 21 mg/dL (9-16); Calcium 9.6 mg/dL (8.4-10.2); Carbon Dioxide 25 mmol/L (22-29); Chloride 107 mmol/L (96-108); Creatinine Clr Calc Pharmacy 36.4; Estimated Glomerular Filt Rate 44; Glucose Random 108 mg/dL (60-115); Potassium 5.4 mmol/L (3.3-5.1); Sodium 141 mmol/L (135-145); Total Protein 6.7 g/dL (6.5-8.0)
[2022-07-20 18:00] LABS: Appearance Urine Turbid; Color Urine Dark Yellow; Glucose Urine UA 250 mg/dL (Negative); Leukocyte Esterase Urine Small (1+) (Negative); Nitrite Urine Negative (Negative); PH 5.5 (5.0-9.0); Specific Gravity - Urine 1.015 (1.005-1.025); UMIC TRIGGER UACC YES; Urine Blood Large (3+) (Negative); Urine Ketones Negative (Negative); Urine Protein 300 (3+) mg/dL (Neg-Trace)
[2022-07-20 18:02] LABS: Bacteria Urine None Seen (None Seen); Hyaline Casts Urine 0-2 /LPF (0-2); RBC Urine >20 /HPF (0-2); Squamous Epithelial Cell Urine >20 /HPF (0-2); UACC Culture Trigger YES; WBC Urine 21-50 /HPF (0-5)
[2022-07-20 20:00] VITALS: BP 106/67; PULSE 93; RESP 19; TEMP 37.1; O2SAT 100
[2022-07-20] MEDS: 0.9 % Sodium Chloride 1,000 ML 999 ML IVCONT (20:29)
== END 2022-07-21 00:44 | disposition home or self-care (01) ==
PROVIDERS: Physician Assistant; Emergency Provider Internal Medicine; PCP Internal Medicine
DX: R31.9 Hematuria, unspecified (principal); N40.0 Benign prostatic hyperplasia without lower urinary tract symptoms; Z79.899 Other long term (current) drug therapy
CPT/HCPCS: 36415; 51798; 74176; 80048; 80076; 81001; 82550; 85025; 85610; 87086; 99284

== ENCOUNTER 2022-07-24 10:37 | Outpatient (REF) | payer MEDICARE, SELFPAY ==
[2022-07-24 16:54] LABS: Urine Cytology See Pathology rpt
== END 2022-07-24 10:38 | disposition home or self-care (01) ==
LOC: HO.LAB 10:37
PROVIDERS: PCP Internal Medicine; Visit Provider Urology
DX: C67.9 Malignant neoplasm of bladder, unspecified (principal); N39.0 Urinary tract infection, site not specified; R31.0 Gross hematuria; Z79.899 Other long term (current) drug therapy; Z79.01 Long term (current) use of anticoagulants; Z79.84 Long term (current) use of oral hypoglycemic drugs
CPT/HCPCS: 52000; 87086; 88112; 99202

== ENCOUNTER 2022-08-11 11:45 | Day surgery (SDC) | payer MEDICARE, SELFPAY ==
[2022-08-07 14:22] VITALS: BMI 26.3
[2022-08-11] VITALS (17 sets, daily range): BP systolic 144–199; BP diastolic 48–101; PULSE 58–84; RESP 15–20; TEMP 36.1–37; O2SAT 95–100; BMI 26.0
[2022-08-11 12:51] LABS: Anion Gap 12 (12-20); Carbon Dioxide 27 mmol/L (22-29); Chloride 107 mmol/L (96-108); Potassium 3.9 mmol/L (3.3-5.1); Sodium 142 mmol/L (135-145)
[2022-08-11] MEDS: Lactated Ringers 1,000 ML 50 ML IVCONT ×2 (12:58→20:04)
[2022-08-11 13:09] LABS: COVID-19 Test Negative (Negative); IDNOW Serial# 9DD0AD1C
[2022-08-11 13:14] LABS: Glucose, Whole Blood 136 mg/dL (60-115)
--- NOTE | 2022-08-11 14:02 | HO.ANESPROP2 ---
[facility] Active Problems Active Problems: All Active Problems (Updated 08/07/22 @ 11:47 by Roxana Méndez RN) Tick bite of forearm (Acute) Diabetes mellitus (Acute) Bladder cancer (Acute) Recurrent UTI (Acute) Hypertension (Acute) Eczema craquele (Acute) Cardiomyopathy (Acute) Non-rheumatic aortic stenosis (Acute) PAF (paroxysmal atrial fibrillation) (Acute) Essential (primary) hypertension (Acute) Normally functioning cardiac pacemaker present (Acute) Past Medical History Medical History (Updated 08/07/22 @ 11:47 by Roxana Méndez RN) Afib Cardiomyopathy Eczema craquele Essential (primary) hypertension History of COVID-19 Hypertension Non-rheumatic aortic stenosis Normally functioning cardiac pacemaker present PAF (paroxysmal atrial fibrillation) Family History Family History Father No problems noted. Mother No problems noted. Daughter In good health Family history of problems with anesthesia: No Surgical History Surgical History (Updated 08/07/22 @ 11:46 by Roxana Méndez RN) History of pacemaker Hx of right inguinal hernia repair Total knee replacement status History of Problems with Anesthesia: No Social History Social History Housing: Apartment Alcohol intake: never Patient Tobacco Use Status: Never used Tobacco e-Cigarette/Vaping Use: Never Used Second Hand Smoke Exposure: No Are you DNR?: No Advance Directives: No Advance Directives Information Provided: Yes Nutrition Risks: No Nutritional Risk service: No Current occupational status: employed and retired Cognitive needs: No Hearing needs: No Vision needs: Yes (glasses) Meds Allergies Allergy/AdvReac Type Severity Reaction Status Date / Time pravastatin Allergy Unknown LEG RASH Verified 07/20/22 16:52 Active Medications: Current Medications Lactated Ringer's (Lr) 1,000 mls @ 50 mls/hr IVCONT .Q20H UDAY Last Admin: 08/11/22 12:58 Dose: 50 mls/hr Gemcitabine HCl 1,000 mg/ (Sodium Chloride) 50 mls @ 50 mls/hr INTRAVESIC ONCE UDAY Stop: 08/11/22 23:59 Gemcitabine HCl 1,000 mg/ (Sodium Chloride) 50 mls @ 50 mls/hr INTRAVESIC ONCE UDAY Stop: 08/11/22 23:59 Levofloxacin (Levaquin) 500 mg in 100 mls @ 100 mls/hr IV PREOP ONE Stop: 08/11/22 14:02 Lidocaine HCl (Lidocaine Hcl 2 % Urojet 10 Ml Jel.Pf.Edilma) 10 ml TOPICAL ONCE UDAY Stop: 08/11/22 23:59 Home Medications Medication Instructions Recorded Confirmed Last Taken Type acetaminophen 500 mg capsule 500 mg PO Q6H PRN Pain 06/18/20 08/07/22 08/11/22 History fluticasone propionate 50 2 spray intranasal BID 08/11/22 08/11/22 08/11/22 History mcg/actuation nasal spray,suspension Exam Exam Date and Time: August 11, 2022 1402 Height,Weight and Vital Signs: Height 5 ft 11 in Weight 84.822 kg Last Vital Signs Temp 98.4 F 08/11/22 12:25 Pulse 84 08/11/22 12:25 Resp 20 08/11/22 12:25 BP 163/92 H 08/11/22 12:25 Pulse Ox 98 08/11/22 12:25 O2 Del Method 08/11/22 12:25 Pertinent Lab Results Pertinent Lab Results: Laboratory Tests 08/11/22 08/11/22 08/11/22 12:18 12:30 12:38 Sodium 142 Potassium 3.9 D Chloride 107 Carbon Dioxide 27 Anion Gap 12 POC Glucose 136 H COVID-19 (LENNY) Negative COVID-19 Clin Com See Note Airway Mallampati Class: II (No teeth on bottom) TM Dist: >3cm Neck ROM: Full Denture: Upper Heart: rrr Lungs: cta Assessment and Plan Assessment Anesthesia Assessment: Anesthesia Plan Discussed and Chart Reviewed Final Anesthetic Review Family History of Problems with Anesthesia: No History of Problems with Anesthesia: No NPO: Yes ASA Class: III Final Preanesthetic Review: No Changes in Pt Med Stat, Meds/Allgs Chart Reviewed and Consent Obtained/Reviewed Patient Risk: Intermediate Procedure Risk: Intermediate Anesthetic Plan Anesthetic Plan: GA Disposition: Standard PACU
--- NOTE | 2022-08-11 14:33 | MHC.SHP ---
Pre-Procedural Eval Section A Date of Service: 08/11/22 The patient is an INPATIENT: No Changes since office visit: No Cold of Flu in the past 2 weeks, No New Medical Problems, No Changes in Medication and No Patient answered all questions The History & Physical has been completed within 30 days and I have reviewed it.: Yes Section B Chief Complaint: Malignant neoplasm of bladder, unspecified Allergies: Allergies Allergy/AdvReac Type Severity Reaction Status Date / Time pravastatin Allergy Unknown LEG RASH Verified 07/20/22 16:52 Plan Diagnosis/Plan: Unchanged ( TURBT - with gemcitabine) I have reviewed the history and physical and performed a pertinent physical examination on my patient. No changes have occurred unless specified. Time Spent With Patient Time: Total time managing care of this patient today ____ minutes.
--- NOTE | 2022-08-11 16:00 | W.PM.OPN ---
Operative Note Operative Note Date of Service: 08/11/22 Narrative: PreOperative Diagnosis: large bladder cancer Post Operative Diagnosis: large bladder cancer Procedure: large TURBT- Modifier 22 and Gemcitabine installation - Left stent placement Surgeon: Dr Adalid Barrett Anesthesia: general Indications for procedure: hematuria seen in emergency room [address] scan recommend resection with gemcitabine Procedure: After informed consent was verified the patient was brought to the operating room and placed in a supine position. Anesthesia was administered per protocol. The patient was placed in a modified dorsal lithotomy position and prepped and draped in a sterile fashion. Safety pause time-out was performed. Antibiotics were confirmed. A 26 Greenlandic continuous flow resectoscope was inserted per urethra. The visual obturator was used in order to minimize potential for urethral damage. there were multiple lesions with inside the bladder. The main lesion 4 cm coming off the left sidewall. There were multiple diverticula. There were multiple superficial lesions within diverticula. There was extensive changes throughout the left upper sidewall and the right upper sidewall. Approximately 1/3 of the total area of the bladder appeared to be covered with superficial bladder cancer. There was also superficial bladder cancer extending down over the left ureteric orifice. there were changes within proximity of the right ureteric orifice. extensive superficial resection was performed. Bladder was irrigated. This took approximately 150% longer than typical - approximately 75 minutes. Resection was performed over left ureteric orifice. Left ureteric orifice within located and using a 22 Greenlandic cystoscope a 6 Greenlandic by 28 cm double-J stent was placed. This remain for approximately 4 weeks. At the completion of the procedure the bladder was irrigated. The cystoscope was removed. A [address] Moses catheter was inserted into the bladder. 10 cc was placed in the balloon. 2 g of gemcitabine in 100 cc of normal saline was instilled into the bladder. The flow from the catheter was left clamped. The inflow to the catheter was attached to a 3 L normal saline bag. The patient tolerated the procedure well. They were extubated in the operating room and transferred in stable condition to the recovery area. Gemcitabine will remain in the bladder for 1 hour. At the completion of 1 hour the clamp will be removed. The gemcitabine will be allowed to egress to the urine collection bag. The 3 L bag of normal saline will be run at maximum rate through the bladder in order to dilute any residual gemcitabine. Based on the extensive nature of the changes within the bladder and dissection was performed to the Moses catheter will remain in place. Pathology: bladder cancer Drains: Moses catheter with left stent placement
[2022-08-11] MEDS: fentaNYL citrate/PF 100 MCG/2 ML VIAL 50 MCG IVPUSH (17:50)
[2022-08-11] MEDS: traMADoL HCL 50 MG TABLET PO (18:22)
--- NOTE | 2022-08-11 19:05 | PC.NURSE ---
CBI #2 bag empted 1700 ml. draining pink tinged urine patent. patient eating a muffin, awake conversing. resp easy regular. patient reports pain has subsided tolerable at this time.
[2022-08-11] MEDS: Atorvastatin Calcium 20 MG TABLET PO (19:59)
[2022-08-11] MEDS: Acetaminophen 325 MG TABLET 975 MG PO (19:59)
[2022-08-11] MEDS: lisinopriL 40 MG TABLET PO (19:59)
[2022-08-11] MEDS: Fluticasone Propionate Nasal 16 GM SPRAY 2 SPRAY NOSTRIL-B (20:03)
[2022-08-11] MEDS: oxyCODONE HCl Immed Release 5 MG TABLET PO (21:52)
[2022-08-12 03:18] VITALS: BP 146/63; PULSE 61; RESP 17; TEMP 36.4; O2SAT 96
[2022-08-12 07:57] VITALS: BP 164/70; PULSE 70; RESP 18; TEMP 37.1; O2SAT 95
--- NOTE | 2022-08-12 09:00 | PM.UROPN ---
Subjective Subjective Date of Service: 08/12/22 Interval history: Significant improvement hematuria overnight Will be able to discharge after lunch today with catheter and bag Discussed findings again with patient Will need repeat TURBT in 4 weeks Physical Exam Vital Signs: Vital Signs: Last Vital Signs Temp 98.8 F 08/12/22 07:57 Pulse 70 08/12/22 07:57 Resp 18 08/12/22 07:57 BP 164/70 H 08/12/22 07:57 Pulse Ox 95 08/12/22 07:57 O2 Del Method 08/12/22 07:57 BMI result Body Mass Index 26.0 Const: General: cooperative, healthy appearing, comfortable and no acute distress Orientation/consciousness: patient oriented x3 HEENT: Face and sinus: Yes normal facial exam Mouth: moist mucous membranes Neck: Neck: Yes normal visual inspection, Yes full ROM and Yes trachea midline Chest: Chest palpation & inspection: normal inspection of the chest Resp: Effort & Inspection: normal respiratory effort, able to speak in complete sentences and no respiratory distress GI: Inspection: Yes normal to inspection Back/Spine/Pelvis: Cervical Spine: normal cervical lordosis Thoracic/Lumbar Spine: thoracic and lumbar spine normal to inspection Skin: General skin exam: no rashes or lesions noted Neuro: General: patient oriented x3, tone normal and moves all extremities Extrem: General: Yes normal to inspection and Yes capillary refill normal Urology Results Labs 08/11/22 12:30 Labs: Laboratory Results - last 24 hr 08/11/22 08/11/22 08/11/22 12:18 12:30 12:38 Sodium 142 Potassium 3.9 D Chloride 107 Carbon Dioxide 27 Anion Gap 12 POC Glucose 136 H COVID-19 (LENNY) Negative COVID-19 Clin Com See Note Progress Note: A&P Assessment and plan (1) Bladder cancer: Status: Acute (2) Gross hematuria: Status: Acute Plan Discharge after lunch Time Spent With Patient Time: Total time managing care of this patient today ____ minutes.
--- NOTE | 2022-08-12 09:06 | MHC.CM.PN ---
Patient is here under EXTENDED STAY. CM met with Patient at bedside. Patient lives in an apartment with his /HCP and he required no services nor DME TRAVEL GUIDE. Home/self care is the goal and CM has initiated and will follow for dc planning. Patient has received Covid/vax 5 and his PCP is Dr. Garcia.
[2022-08-12] MEDS: Meclizine HCl 12.5 MG TABLET PO (09:24)
[2022-08-12] MEDS: Acetaminophen 325 MG TABLET 975 MG PO (09:24)
[2022-08-12] MEDS: lisinopriL 40 MG TABLET PO (09:25)
[2022-08-12] MEDS: Fluticasone Propionate Nasal 16 GM SPRAY 2 SPRAY NOSTRIL-B (09:25)
[2022-08-12] MEDS: Metoprolol Succinate ER 100 MG TAB.ER.24H PO (09:25)
--- NOTE | 2022-08-12 12:18 | MHC.CM.PN ---
Patient has been medically cleared for dc to home today, self care. CM has confirmed with Dr. Barrett, who has indicated that he will not be ordering VNA.
--- NOTE | 2022-08-12 13:28 | HO.POSTANES ---
Post Anesthesia Evaluation Post Anesthesia Evaluation Vital Signs: Vital Signs Temp Pulse Resp BP Pulse Ox O2 Del Method 08/12/22 07:57 98.8 F 70 18 164/70 H 95 Room Air 08/12/22 03:18 97.5 F 61 17 146/63 H 96 Room Air Anesthesia: General Mental Status: Awake Pain Control: Satisfactory Nausea/Vomiting: None Hydration: Adequate Anesthesia-Related Issues: No Anes. Related Issues
== END 2022-08-12 14:14 | disposition home or self-care (01) ==
LOC: HO.SSS 16:06 → HO.SSSA 20:11 → HO.S3 20:11
PROVIDERS: Anesthesiology; PCP Internal Medicine; Visit Provider Urology
PROC: 0TBB8ZZ Excision of Bladder, Via Natural or Artificial Opening Endoscopic (ICD-10-PCS; CPT 52240; principal; 2022-08-11 14:00)
DX: C67.9 Malignant neoplasm of bladder, unspecified (principal); R31.0 Gross hematuria; I10 Essential (primary) hypertension; I35.0 Nonrheumatic aortic (valve) stenosis; I42.9 Cardiomyopathy, unspecified; I48.0 Paroxysmal atrial fibrillation; Z95.0 Presence of cardiac pacemaker; N39.0 Urinary tract infection, site not specified; E11.9 Type 2 diabetes mellitus without complications; Z20.822 Contact with and (suspected) exposure to COVID-19; Z79.84 Long term (current) use of oral hypoglycemic drugs; Z79.01 Long term (current) use of anticoagulants; Z79.899 Other long term (current) drug therapy; Z88.8 Allergy status to other drugs, medicaments and biological substances
CPT/HCPCS: 52240; 52332; 51720; 36415; 80051; 82947; 87635; 88307; C1758; C1769; C2617; J0131; J1956; J2250; J2405; J3010; J9201

== ENCOUNTER → 2022-08-14 11:19 | Outpatient (BNVA) | payer MEDICARE, SELFPAY | PROVIDERS: PCP Internal Medicine; Visit Provider Urology | DX: Z13.89 Encounter for screening for other disorder (principal) ==

== ENCOUNTER 2022-08-26 11:06 | Outpatient (REF) | payer MEDICARE, SELFPAY ==
[2022-08-26 16:48] LABS: Urine Cytology See Pathology rpt
== END 2022-08-26 11:07 | disposition home or self-care (01) ==
LOC: HO.LAB 11:06
PROVIDERS: PCP Internal Medicine; Visit Provider Urology
DX: C67.9 Malignant neoplasm of bladder, unspecified (principal); I48.91 Unspecified atrial fibrillation; Z79.01 Long term (current) use of anticoagulants
CPT/HCPCS: 88112; 99212

== ENCOUNTER → 2022-09-04 14:00 | Outpatient (BNVA) | payer MEDICARE, SELFPAY | PROVIDERS: PCP Internal Medicine; Visit Provider Urology | DX: C67.9 Malignant neoplasm of bladder, unspecified (principal) | CPT/HCPCS: 51798 ==

== ENCOUNTER → 2022-09-08 13:21 | Outpatient (BNVA) | payer MEDICARE, SELFPAY | PROVIDERS: PCP Internal Medicine; Visit Provider Internal Medicine | DX: Z45.018 Encounter for adjustment and management of other part of cardiac pacemaker (principal); Z01.810 Encounter for preprocedural cardiovascular examination; I48.0 Paroxysmal atrial fibrillation; I42.8 Other cardiomyopathies; I35.0 Nonrheumatic aortic (valve) stenosis; I10 Essential (primary) hypertension | CPT/HCPCS: 93005; 93280; 99212 ==

== ENCOUNTER → 2022-09-11 07:44 | Outpatient (REF) | payer MEDICARE, SELFPAY ==
--- NOTE | ~2022-09-11 | NM_ITS ---
Lexiscan Myocardial perfusion study Indication: Preoperative cardiovascular evaluation, coronary artery disease Technique: The patient was brought in for a Lexiscan perfusion study on 09/11/2022 and was injected 0.4 mg of Lexiscan intravenously. Within a minute of this injection 30 mCi of sestamibi was given intravenously. Images were obtained using the SPECT gamma camera interlaced with the gating device. Images were obtained in supine position. Resting perfusion study was performed on 09/12/2022. Patient was administered 30 mCi of sestamibi intravenously at rest. Images were then obtained in supine position. Images were processed with the software and compared side to side in short axis, horizontal long axis and vertical long axis views. Total DLP 83mGy-cm. Findings: Raw acquisition reviewed. The stress perfusion study showed diminished tracer uptake along the inferior wall, inferior septum. There is also adjacent GI tracer uptake. With CT attenuation correction, there is more prominent GI tracer uptake. Possibly some improvement in inferior wall uptake but difficult to comment. The gated study shows low normal LV systolic function with calculated LVEF of 51%. LV cavity is normal in size. The gated study shows diminished contractility along the inferior wall/septum. Resting study shows diminished tracer uptake along the inferior wall and parts of inferior septum. There is adjacent tracer uptake. There is overall improved uptake of the myocardium and this could be from or correction. Gating at rest with ejection fraction at 49%. Some suggestion of inferior/septal hypokinesis. The findings are consistent with no clear reversible defects. Fixed defect along the inferior wall, basal inferior septum. NM/NM joselin perf SPECT rest & str Impression: 1. Myocardial perfusion imaging study shows no clear evidence of ischemia. 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 2. Gated LVEF is 51% during stress and 50% during rest. 3. Transient ischemic dilatation not present. EKG component of the test reported separately.
--- NOTE | 2022-09-11 07:49 | CA_ITS ---
Acquisition Time: 2022-09-11 08:03:07 Total Exercise Time: 00:02:00 Test Indications: Pre-Op Evaluation CARDIOMYOPATHY Medications: Protocol: LEXISCAN Max HR: 125 BPM 94% of Pred: 132 BPM Max BP: 160/074 mmHG Max Work Load: 1.0 METS Pharmacological stress test with Lexiscan injection, while sitting and Not moving achieving 94% MPHR, without anginal symptoms, with isolated PVCs, normotensive response to injection, with non-diagnostic EKG for ischemia. In recovery heart rate remained elevated and was treated with Aminophylline 75mg IVP to reverse Lexiscan with gradual improvment in heart rate. Nuclear images pending. Test reviewed with Dr. Manriquez. Referred By: Mat Manriquez Overread By: JUAN ANTONIO SMITH
== END ==
LOC: HO.CARD 07:44
PROVIDERS: PCP Internal Medicine; Visit Provider Internal Medicine
DX: Z01.810 Encounter for preprocedural cardiovascular examination (principal)
CPT/HCPCS: 78452; 93017; A9500; J0280; J2785

== ENCOUNTER 2022-09-15 08:45 | Day surgery (SDC) | payer MEDICARE, SELFPAY ==
[2022-09-09 14:25] VITALS: BMI 25.0
--- NOTE | 2022-09-12 10:12 | P.CONAN_ITS ---
Documented by User: Joan Sinclair NP 09/12/22 13:31 HPI - Anesthesia Eval Consult details Narrative: 87yo M for TUR Bladder Tumor Cardiac cleared Eliquis for afib PMFSH Active Problems Active Problems: All Active Problems (Updated 09/09/22 @ 14:01 by Tracy Hercules, RN) Tick bite of forearm (Acute) Diabetes mellitus (Acute) Recurrent UTI (Acute) Preoperative cardiovascular examination (Acute) Bladder cancer (Acute) Hypertension (Acute) Eczema craquele (Acute) Cardiomyopathy (Acute) Non-rheumatic aortic stenosis (Acute) PAF (paroxysmal atrial fibrillation) (Acute) Essential (primary) hypertension (Acute) Normally functioning cardiac pacemaker present (Acute) Past Medical History Medical History (Updated 09/15/22 @ 09:07 by Jennifer Castro RN) Afib Bladder cancer Cardiomyopathy Diabetes Eczema craquele Enlarged prostate Essential (primary) hypertension History of COVID-19 Hypertension Non-rheumatic aortic stenosis Normally functioning cardiac pacemaker present On anticoagulant therapy On beta cierra at home PAF (paroxysmal atrial fibrillation) Psoriasis Family History Family History Father No problems noted. Mother No problems noted. Daughter In good health Family history of problems with anesthesia: No Surgical History Surgical History History of bladder surgery History of pacemaker History of transurethral resection of bladder tumor (TURBT) Hx of right inguinal hernia repair Total knee replacement status History of Problems with Anesthesia: No Social History Social History Household Members: Spouse Housing: Apartment Do you presently have visiting nurse or other home services: No Alcohol intake: never Patient Tobacco Use Status: Never used Tobacco e-Cigarette/Vaping Use: Never Used Second Hand Smoke Exposure: No Have you been hit, kicked, punched, or otherwise hurt by someone within the past year? If so, by whom?: No Are you DNR?: No Advance Directives: No Advance Directives Information Provided: Yes Advance Directives on File: No Recently lost weight without trying: No Eating poorly because of decreased appetite: No Nutrition Risks: No Nutritional Risk service: No Current occupational status: retired Cognitive needs: No Hearing needs: No Vision needs: Yes (glasses) Meds Allergies Allergy/AdvReac Type Severity Reaction Status Date / Time pravastatin Allergy Unknown LEG RASH Verified 09/09/22 10:46 Home Medications Medication Instructions Recorded Confirmed Last Taken Type acetaminophen 500 mg capsule 500 mg PO Q6H PRN Pain 06/18/20 09/09/22 08/11/22 History fluticasone propionate 50 2 spray intranasal BID 08/11/22 09/09/22 08/11/22 History mcg/actuation nasal spray,suspension meclizine 12.5 mg tablet 12.5 mg PO DAILY PRN Dizziness 09/08/22 09/09/22 Unknown History Exam Exam Date and Time: September 12, 2022 1012 Height,Weight and Vital Signs: Height 5 ft 11 in Weight 81.465 kg Pertinent Lab Results Pertinent Lab Results: Laboratory Tests 04/21/22 07/20/22 07/20/22 09:36 17:22 17:22 WBC 6.8 Hgb 13.2 L Hct 38.5 L Plt Count 169 PT 15.1 H INR 1.3 H Sodium Potassium Chloride Carbon Dioxide Hgb A1c (Clinic) 5.9 08/11/22 12:30 WBC Hgb Hct Plt Count PT INR Sodium 142 Potassium 3.9 D Chloride 107 Carbon Dioxide 27 Hgb A1c (Clinic) Narrative Narrative: NM joselin perf SPECT rest & str 08/2022 Impression: ? 1.? Myocardial perfusion imaging study shows no clear evidence of ischemia. 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 2.? Gated LVEF is 51% during stress and 50% during rest. 3. Transient ischemic dilatation not present. ? EKG component of the test reported separately. Cardiac Device Check 08/2022 Details: Pacemaker interrogated today.? Dual-chamber device, programmed DDDR mode.? Battery status at least 6 years.? Normal lead parameters.? Atrial pacing 37%.? Ventricular pacing 62%.? He had only 1 episode of atrial fibrillation lasting about a minute or so.? Overall, normal device function. [id number] Cardiac Device Check, pacemaker dual lead Procedure code (CPT) selection complete EKG 08/2022 Details: EKG with sinus rhythm at 63/Min; AR prolongation to 260 millisecond; left bundle-branch block pattern.? Downsloping STs in the inferior leads the T inversions.? That change seems to be new compared to prior EKG. Assessment and Plan Assessment Anesthesia Assessment: Chart Reviewed Final Anesthetic Review Family History of Problems with Anesthesia: No History of Problems with Anesthesia: No Documented by User: Bahman Sarkar MD 09/15/22 10:01 [facility] Past Medical History Medical History (Updated 09/15/22 @ 09:07 by Jennifer Castro, RN) Afib Bladder cancer Cardiomyopathy Diabetes Eczema craquele Enlarged prostate Essential (primary) hypertension History of COVID-19 Hypertension Non-rheumatic aortic stenosis Normally functioning cardiac pacemaker present On anticoagulant therapy On beta cierra at home PAF (paroxysmal atrial fibrillation) Psoriasis Family History Family History Father No problems noted. Mother No problems noted. Daughter In good health Surgical History Surgical History History of bladder surgery History of pacemaker History of transurethral resection of bladder tumor (TURBT) Hx of right inguinal hernia repair Total knee replacement status Social History Social History Household Members: Spouse Housing: Apartment Do you presently have visiting nurse or other home services: No Alcohol intake: never Patient Tobacco Use Status: Never used Tobacco e-Cigarette/Vaping Use: Never Used Second Hand Smoke Exposure: No Have you been hit, kicked, punched, or otherwise hurt by someone within the past year? If so, by whom?: No Are you DNR?: No Advance Directives: No Advance Directives Information Provided: Yes Advance Directives on File: No Recently lost weight without trying: No Eating poorly because of decreased appetite: No Nutrition Risks: No Nutritional Risk service: No Current occupational status: retired Cognitive needs: No Hearing needs: No Vision needs: Yes (glasses) Meds Allergies Allergy/AdvReac Type Severity Reaction Status Date / Time pravastatin Allergy Unknown LEG RASH Verified 09/09/22 10:46 Home Medications Medication Instructions Recorded Confirmed Last Taken Type acetaminophen 500 mg capsule 500 mg PO Q6H PRN Pain 06/18/20 09/09/22 08/11/22 History fluticasone propionate 50 2 spray intranasal BID 08/11/22 09/09/22 08/11/22 History mcg/actuation nasal spray,suspension meclizine 12.5 mg tablet 12.5 mg PO DAILY PRN Dizziness 09/08/22 09/09/22 Unknown History Exam Airway Mallampati Class: II TM Dist: >3cm Neck ROM: Limited Heart: rrr Lungs: cta Assessment and Plan Final Anesthetic Review NPO: Yes ASA Class: III and IV Final Preanesthetic Review: No Changes in Pt Med Stat, Meds/Allgs Chart Reviewed, Consent Obtained/Reviewed and Anes Risks/Benef Reviewed Patient Risk: Intermediate Procedure Risk: Intermediate Anesthetic Plan Anesthetic Plan: Agree w/ Assess. and Plan Disposition: Standard PACU
[2022-09-15] VITALS (8 sets, daily range): BP systolic 145–175; BP diastolic 60–69; PULSE 60–68; RESP 16–18; TEMP 36.1–36.8; O2SAT 96–100
[2022-09-15] MEDS: Lactated Ringers 1,000 ML 50 ML IVCONT (09:30)
[2022-09-15 09:39] LABS: Glucose, Whole Blood 123 mg/dL (60-115)
[2022-09-15 09:54] LABS: COVID-19 Test Negative (Negative); IDNOW Serial# 9DB6401D
--- NOTE | 2022-09-15 11:55 | MHC.SHP ---
Pre-Procedural Eval Section A Date of Service: 09/15/22 The patient is an INPATIENT: No Changes since office visit: No Cold of Flu in the past 2 weeks, No New Medical Problems, No Changes in Medication and No Patient answered all questions The History & Physical has been completed within 30 days and I have reviewed it.: No Section B Chief Complaint: Malignant neoplasm of bladder, unspecified Details of Present Illness: repeat TURBT for high-grade bladder cancer Medical History: No relevant PMH History of Previous Operations: Relevant previous surgery/procedure and date(s) Allergies: Allergies Allergy/AdvReac Type Severity Reaction Status Date / Time pravastatin Allergy Unknown LEG RASH Verified 09/09/22 10:46 Review of Systems Sugical H&P ROS: Negative: Constitution, Cardiovascular, Respiratory, Neurological, Psychiatric, Hem-Onc, Allergic/Immunologic, Gastrointestinal, Genitourinary, Musculoskeletal, Integumentary, Endocrine and Eyes/Ears/Nose/Throat Exam Surgical H&P Exam: Normal: HEENT, Normal: Heart, Normal: Lungs, Normal: Extremities, Normal: Abdomen, Normal: Skin and Normal: Neurological Plan Diagnosis/Plan: Unchanged ( repeat TURBT for high-grade bladder cancer) I have reviewed the history and physical and performed a pertinent physical examination on my patient. No changes have occurred unless specified. Time Spent With Patient Time: Total time managing care of this patient today ____ minutes.
[2022-09-15] MEDS: Phenazopyridine HCL 100 MG TABLET PO (13:41)
[2022-09-15] MEDS: Acetaminophen 325 MG TABLET 650 MG PO (13:42)
--- NOTE | 2022-09-15 13:56 | W.PM.OPN ---
Operative Note Operative Note Date of Service: 09/15/22 Narrative: PreOperative Diagnosis: bladder cancer with stent removal Post Operative Diagnosis: bladder cancer with stent removal Procedure: cystoscopy - TURBT medium, left stent removal Surgeon: Dr Adalid Barrett Anesthesia: general Indications for procedure: prior procedure with extensive resection and left stent placement Procedure: After informed consent was verified the patient was brought to the operating room and placed in a supine position. Anesthesia was administered per protocol. The patient was placed in a modified dorsal lithotomy position and prepped and draped in a sterile fashion. Safety pause time-out was performed. Antibiotics were confirmed. A 26 Pashto continuous flow resectoscope was inserted per urethra. The visual obturator was used in order to minimize potential for urethral damage. left stent in place healing areas from prior resection with eschar resection of eschar from multiple areas around the bladder. Fulguration of superficial change around prior resection areas. Re-examination of bladder with no other discrete lesions seen. 30 degree and 70 degree scope used. Left indwelling stent removed Pathology: bladder cancer Drains: none
--- NOTE | 2022-09-16 15:25 | MHC.HEMONC ---
Pt scheduled for Gemcitabine bladder treatment on 10/03/22, 10/10/22, 10/17/22, 10/24/22, 10/31/22, 11/07/22 at 1000-pt called and notified
== END 2022-09-15 14:20 | disposition home or self-care (01) ==
PROVIDERS: PCP Internal Medicine; Visit Provider Urology
PROC: 0TBB8ZZ Excision of Bladder, Via Natural or Artificial Opening Endoscopic (ICD-10-PCS; CPT 52235; principal; 2022-09-15 10:40)
DX: C67.9 Malignant neoplasm of bladder, unspecified (principal); Z46.6 Encounter for fitting and adjustment of urinary device; I42.9 Cardiomyopathy, unspecified; I48.0 Paroxysmal atrial fibrillation; I35.0 Nonrheumatic aortic (valve) stenosis; Z95.0 Presence of cardiac pacemaker; I10 Essential (primary) hypertension; L30.8 Other specified dermatitis; L40.9 Psoriasis, unspecified; E11.9 Type 2 diabetes mellitus without complications; Z79.01 Long term (current) use of anticoagulants; Z86.16 Personal history of COVID-19; Z88.8 Allergy status to other drugs, medicaments and biological substances; Z79.51 Long term (current) use of inhaled steroids; Z20.822 Contact with and (suspected) exposure to COVID-19
CPT/HCPCS: 52235; 82947; 87635; J1100; J1956; J2405; J3010

== ENCOUNTER 2022-09-30 11:13 | Outpatient (REF) | payer MEDICARE, SELFPAY ==
[2022-09-30 16:52] LABS: Urine Cytology See Pathology rpt
== END 2022-09-30 11:14 | disposition home or self-care (01) ==
LOC: HO.LAB 11:13
PROVIDERS: PCP Internal Medicine; Visit Provider Urology
DX: C67.9 Malignant neoplasm of bladder, unspecified (principal)
CPT/HCPCS: 88112; 99212

== ENCOUNTER 2022-12-08 11:17 | Day surgery (SDC) | payer MEDICARE, SELFPAY ==
--- NOTE | 2022-12-05 09:40 | HO.ANESPROP2 ---
Documented by User: Joan Sinclair NP 12/05/22 09:42 HPI - Anesthesia Eval Consult details Narrative: 87yo M for Cystoscopy & Bladder Biopsy Eliquis for afib s/p TURBT 09/2022 with GA-LMA 5. Cardiac optimized prior. COUNTS INCLUDE 234 BEDS AT THE [facility] Active Problems Active Problems: All Active Problems (Updated 09/15/22 @ 09:07 by Jennifer Castro, RN) Tick bite of forearm (Acute) Diabetes mellitus (Acute) Recurrent UTI (Acute) Preoperative cardiovascular examination (Acute) Bladder cancer (Acute) Hypertension (Acute) Eczema craquele (Acute) Cardiomyopathy (Acute) Non-rheumatic aortic stenosis (Acute) PAF (paroxysmal atrial fibrillation) (Acute) Essential (primary) hypertension (Acute) Normally functioning cardiac pacemaker present (Acute) Past Medical History Medical History Afib Bladder cancer Cardiomyopathy Diabetes Eczema craquele Enlarged prostate Essential (primary) hypertension History of COVID-19 Hypertension Non-rheumatic aortic stenosis Normally functioning cardiac pacemaker present On anticoagulant therapy On beta cierra at home PAF (paroxysmal atrial fibrillation) Psoriasis Family History Family History Father No problems noted. Mother No problems noted. Daughter In good health Family history of problems with anesthesia: No Surgical History Surgical History History of bladder surgery History of pacemaker History of transurethral resection of bladder tumor (TURBT) Hx of right inguinal hernia repair Total knee replacement status History of Problems with Anesthesia: No Social History Social History Household Members: Spouse Housing: Apartment Do you presently have visiting nurse or other home services: No Alcohol intake: never Patient Tobacco Use Status: Never used Tobacco e-Cigarette/Vaping Use: Never Used Second Hand Smoke Exposure: No Are you DNR?: No Advance Directives: No Advance Directives Information Provided: Yes Nutrition Risks: No Nutritional Risk service: No Current occupational status: retired Cognitive needs: No Hearing needs: No Vision needs: Yes (glasses) Meds Allergies Allergy/AdvReac Type Severity Reaction Status Date / Time pravastatin Allergy Unknown LEG RASH Verified 12/08/22 11:35 Home Medications Medication Instructions Recorded Confirmed Last Taken Type acetaminophen 500 mg capsule 500 mg PO Q6H PRN Pain 06/18/20 12/05/22 08/11/22 History meclizine 12.5 mg tablet 12.5 mg PO DAILY PRN Dizziness 09/08/22 12/05/22 Unknown History apixaban 5 mg tablet (Eliquis) 5 mg PO BID 09/15/22 12/05/22 09/07/22 History Exam Exam Date and Time: December 05, 2022 0940 Pertinent Lab Results Pertinent Lab Results: Laboratory Tests 04/21/22 07/20/22 07/20/22 09:36 17:22 17:22 WBC 6.8 Hgb 13.2 L Hct 38.5 L Plt Count 169 PT 15.1 H INR 1.3 H Sodium Potassium Chloride Carbon Dioxide Hgb A1c (Clinic) 5.9 08/11/22 12:30 WBC Hgb Hct Plt Count PT INR Sodium 142 Potassium 3.9 D Chloride 107 Carbon Dioxide 27 Hgb A1c (Clinic) Narrative Narrative: NM joselin perf SPECT rest & str 08/2022 Impression: ? 1.? Myocardial perfusion imaging study shows no clear evidence of ischemia. 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 2.? Gated LVEF is 51% during stress and 50% during rest. 3. Transient ischemic dilatation not present. ? EKG component of the test reported separately. Cardiac Device Check 08/2022 Details: Pacemaker interrogated today.? Dual-chamber device, programmed DDDR mode.? Battery status at least 6 years.? Normal lead parameters.? Atrial pacing 37%.? Ventricular pacing 62%.? He had only 1 episode of atrial fibrillation lasting about a minute or so.? Overall, normal device function. [id number] Cardiac Device Check, pacemaker dual lead Procedure code (CPT) selection complete EKG 08/2022 Details: EKG with sinus rhythm at 63/Min; OK prolongation to 260 millisecond; left bundle-branch block pattern.? Downsloping STs in the inferior leads the T inversions.? That change seems to be new compared to prior EKG. Assessment and Plan Assessment Anesthesia Assessment: Chart Reviewed Final Anesthetic Review Family History of Problems with Anesthesia: No History of Problems with Anesthesia: No Documented by User: Manju Florence MD 12/08/22 14:14 COUNTS INCLUDE 234 BEDS AT THE [facility] Past Medical History Medical History Afib Bladder cancer Cardiomyopathy Diabetes Eczema craquele Enlarged prostate Essential (primary) hypertension History of COVID-19 Hypertension Non-rheumatic aortic stenosis Normally functioning cardiac pacemaker present On anticoagulant therapy On beta cierra at home PAF (paroxysmal atrial fibrillation) Psoriasis Family History Family History Father No problems noted. Mother No problems noted. Daughter In good health Surgical History Surgical History History of bladder surgery History of pacemaker History of transurethral resection of bladder tumor (TURBT) Hx of right inguinal hernia repair Total knee replacement status Social History Social History Household Members: Spouse Housing: Apartment Do you presently have visiting nurse or other home services: No Alcohol intake: never Patient Tobacco Use Status: Never used Tobacco e-Cigarette/Vaping Use: Never Used Second Hand Smoke Exposure: No Are you DNR?: No Advance Directives: No Advance Directives Information Provided: Yes Nutrition Risks: No Nutritional Risk service: No Current occupational status: retired Cognitive needs: No Hearing needs: No Vision needs: Yes (glasses) Meds Allergies Allergy/AdvReac Type Severity Reaction Status Date / Time pravastatin Allergy Unknown LEG RASH Verified 12/08/22 11:35 Home Medications Medication Instructions Recorded Confirmed Last Taken Type acetaminophen 500 mg capsule 500 mg PO Q6H PRN Pain 06/18/20 12/05/22 08/11/22 History meclizine 12.5 mg tablet 12.5 mg PO DAILY PRN Dizziness 09/08/22 12/05/22 Unknown History apixaban 5 mg tablet (Eliquis) 5 mg PO BID 09/15/22 12/05/22 09/07/22 History Exam Airway Mallampati Class: II TM Dist: >3cm Neck ROM: Full Denture: Upper Heart: rr Lungs: cta Assessment and Plan Final Anesthetic Review NPO: Yes ASA Class: II Final Preanesthetic Review: No Changes in Pt Med Stat, Meds/Allgs Chart Reviewed, Consent Obtained/Reviewed and Anes Risks/Benef Reviewed Patient Risk: Low Procedure Risk: Low Anesthetic Plan Anesthetic Plan: GA Disposition: Standard PACU
[2022-12-08] VITALS (7 sets, daily range): BP systolic 155–214; BP diastolic 65–94; PULSE 60–69; RESP 16–18; TEMP 36.2–36.8; O2SAT 95–97; BMI 25.0
[2022-12-08] MEDS: Lactated Ringers 1,000 ML 50 ML IVCONT (11:38)
[2022-12-08 11:55] LABS: Glucose, Whole Blood 146 mg/dL (60-115)
--- NOTE | 2022-12-08 11:59 | PC.NURSE ---
Dr. kohler updated regarding first bp result. also aware of second bp result. patient had brought morning metoprolol and lisinopril with him. dr. kohler had patient take them both in sss. dr. kohler aware of last Eliquis dose which patient states was over two months ago per dr. oconnor and procedures that he has been having. 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
--- NOTE | 2022-12-08 14:11 | MHC.SHP ---
Pre-Procedural Eval Section A Date of Service: 12/08/22 The patient is an INPATIENT: No Changes since office visit: No Cold of Flu in the past 2 weeks, No New Medical Problems, No Changes in Medication and No Patient answered all questions The History & Physical has been completed within 30 days and I have reviewed it.: Yes Section B Chief Complaint: Malignant neoplasm of bladder, unspecified Details of Present Illness: high-grade superficial bladder cancer 3 month initial follow-up Relevant Social History: None Present Medications: None Medical History: Significant History History of Previous Operations: Relevant previous surgery/procedure and date(s) Allergies: Allergies Allergy/AdvReac Type Severity Reaction Status Date / Time pravastatin Allergy Unknown LEG RASH Verified 12/08/22 11:35 Review of Systems Sugical H&P ROS: Negative: Constitution, Cardiovascular, Respiratory, Neurological, Psychiatric, Hem-Onc, Allergic/Immunologic, Gastrointestinal, Genitourinary, Musculoskeletal, Integumentary, Endocrine and Eyes/Ears/Nose/Throat Exam Surgical H&P Exam: Normal: HEENT, Normal: Heart, Normal: Lungs, Normal: Extremities, Normal: Abdomen, Normal: Skin and Normal: Neurological Plan Diagnosis/Plan: Unchanged ( cystoscopy, bladder biopsy, fulguration) I have reviewed the history and physical and performed a pertinent physical examination on my patient. No changes have occurred unless specified. Time Spent With Patient Time: Total time managing care of this patient today ____ minutes.
--- NOTE | 2022-12-08 14:44 | W.PM.OPN ---
Operative Note Operative Note Date of Service: 12/08/22 Narrative: PreOperative Diagnosis: bladder cancer Post Operative Diagnosis: bladder cancer Procedure: cystoscopy, bladder biopsy, fulguration Surgeon: Dr Adalid Barrett Anesthesia: LMA Indications for procedure: Superficial bladder cancer. completed induction immunotherapy.Here for cystoscopy, bladder biopsy. Evaluation. Procedure: After informed consent was verified the patient was brought to the operating room and placed in a supine position. Anesthesia was administered per protocol. The patient was placed in modified dorsal lithotomy position and prepped and draped in a sterile fashion. Safety pause time-out was performed. Antibiotics being given. Cystoscopy was performed. Trabeculation grade 3/4 Areas of slow healing within bladder. Biopsy taken adjacent to Primary area on left posterior wall. Fulguration performed. The patient tolerated the procedure well. They were extubated in operating room and transferred in stable conditions recovery area. Pathology: Bladder biopsies Drains: None
== END 2022-12-08 15:32 | disposition home or self-care (01) ==
PROVIDERS: PCP Internal Medicine; Visit Provider Urology
PROC: (CPT 52234; principal; 2022-12-08 12:10)
DX: C67.9 Malignant neoplasm of bladder, unspecified (principal); N30.80 Other cystitis without hematuria; N32.89 Other specified disorders of bladder; E11.9 Type 2 diabetes mellitus without complications; I48.0 Paroxysmal atrial fibrillation; I10 Essential (primary) hypertension; I42.9 Cardiomyopathy, unspecified; I35.0 Nonrheumatic aortic (valve) stenosis; Z79.01 Long term (current) use of anticoagulants; Z79.51 Long term (current) use of inhaled steroids; Z79.84 Long term (current) use of oral hypoglycemic drugs; Z79.899 Other long term (current) drug therapy; Z88.8 Allergy status to other drugs, medicaments and biological substances; Z86.16 Personal history of COVID-19
CPT/HCPCS: 52234; 52204; 82947; 88305; J1956; J3010

== ENCOUNTER → 2022-12-15 23:59 | Outpatient (BNV) | payer MEDICARE, SELFPAY ==
--- NOTE | 2022-12-24 13:58 | MHC.OFFVIS ---
Intake Intake Visit Reasons: Remote Device Check- Biotronik Allergies pravastatin Allergy (Unknown, Verified 12/23/22 09:52) LEG RASH PFSH Medical History Afib Bladder cancer Cardiomyopathy Diabetes Eczema craquele Enlarged prostate Essential (primary) hypertension History of COVID-19 Hypertension Non-rheumatic aortic stenosis Normally functioning cardiac pacemaker present On anticoagulant therapy On beta cierra at home PAF (paroxysmal atrial fibrillation) Psoriasis Surgical History History of bladder surgery History of pacemaker History of transurethral resection of bladder tumor (TURBT) Hx of right inguinal hernia repair Total knee replacement status Family History Father No problems noted. Mother No problems noted. Daughter In good health Social History Household Members: Spouse Housing: Apartment Do you presently have visiting nurse or other home services: No Alcohol intake: never Patient Tobacco Use Status: Never used Tobacco e-Cigarette/Vaping Use: Never Used Second Hand Smoke Exposure: No service: No Current occupational status: retired Cognitive needs: No Hearing needs: No Vision needs: Yes (glasses) Office Procedures Cardiac Device Check Cardiac Device Check Details: Date of service- 12/15/2022 ; Battery life 60%; normal lead parameters; AP 46%; SUPERVISOR ACCOUNTS RECEIVABLE 63%; no significant arrhythmias. Overall normal device function. [id number] Cardiac Device Interrogation, pacemaker Procedure code (CPT) selection complete Assessment & Plan Assessment & Plan (1) PAF (paroxysmal atrial fibrillation): Code(s): I48.0 - Paroxysmal atrial fibrillation (2) Non-rheumatic aortic stenosis: Code(s): I35.0 - Nonrheumatic aortic (valve) stenosis Coding Level of Care Code Procedure Only Diagnoses PAF (paroxysmal atrial fibrillation) I48.0 Non-rheumatic aortic stenosis I35.0 CPT Codes Cardiac Device Check - Cardiac Device 12: [id number] Cardiac Device Interrogation, pacemaker ([id number])
== END ==
PROVIDERS: PCP Internal Medicine; Visit Provider Internal Medicine
DX: I48.0 Paroxysmal atrial fibrillation (principal); Z95.0 Presence of cardiac pacemaker
CPT/HCPCS: 93294

== ENCOUNTER 2022-12-23 09:50 | Outpatient (AMB) | payer MEDICARE, SELFPAY ==
--- NOTE | 2022-12-23 09:51 | MHC.OFFVIS ---
Intake Intake Visit Reasons: Post op biopsy results Intake Note: Patient is present for Telephone Biopsy results Urology Med: Tamsulosin Antibiotic Allergy: None Blood Thinner: Eliquis Allergies pravastatin Allergy (Unknown, Verified 12/23/22 09:52) LEG RASH HPI HPI Comments History of Present Illness Details Elton is a pleasant male. He is a patient of . 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 Therapeutic Plan - surveillance [facility] Medical History Afib Bladder cancer Cardiomyopathy Diabetes Eczema craquele Enlarged prostate Essential (primary) hypertension History of COVID-19 Hypertension Non-rheumatic aortic stenosis Normally functioning cardiac pacemaker present On anticoagulant therapy On beta cierra at home PAF (paroxysmal atrial fibrillation) Psoriasis Surgical History History of bladder surgery History of pacemaker History of transurethral resection of bladder tumor (TURBT) Hx of right inguinal hernia repair Total knee replacement status Family History Father No problems noted. Mother No problems noted. Daughter In good health Social History Household Members: Spouse Housing: Apartment Do you presently have visiting nurse or other home services: No Alcohol intake: never Patient Tobacco Use Status: Never used Tobacco e-Cigarette/Vaping Use: Never Used Second Hand Smoke Exposure: No service: No Current occupational status: retired Cognitive needs: No Hearing needs: No Vision needs: Yes (glasses) Review of Systems Const Denies chills and Denies fever(s) Card Reports no additional complaints and Denies syncope Resp Denies cough GI Denies abdominal pain and Denies heartburn Reports as per HPI and Denies change in libido Neuro Denies syncope Psych Denies change in libido Endo Denies change in libido Assessment & Plan Assessment & Plan (1) Bladder cancer: Comment: 09/04 - high-grade T1 Code(s): C67.9 - Malignant neoplasm of bladder, unspecified Plan Bladder surveillance Patient Instructions: Imaging studies, laboratory and physical exam results were discussed and reviewed in detail. No major barriers to patient understanding were identified. An opportunity to ask questions regarding the treatment plan was provided. All questions were answered. The patient expressed understanding and agreement with the above treatment plan. The patient is aware they should contact our office by phone for worsening of their current condition or the appearance of new urologic symptoms. Compliance is encouraged with any medications and followup testing that is ordered. It is a privilege to participate in the urologic care of your patient. If you have any questions or concerns regarding treatment for the above conditions, or other urologic issues, please do not hesitate to contact me. The office telephone contact is [phone]. This note is constructed using voice recognition software. While every effort has been made to ensure accuracy associate dean of students errors may have been included. Yours sincerely, Dr Adalid Barrett MD, [facility] - Urology Providers of Expert, Compassionate Care for the Genitourinary System Telehealth Telehealth Location of provider rendering services: practice address Location of patient: address on file Patient Identification confirmed using: Name, : Yes Telehealth method: video Patient verbally consented to treatment: Yes Patient verbally consented to billing insurance company: Yes Patient informed of any privacy concerns related to visit: Yes Coding Level of Care Code Tele Est Pt Level 3 (13802) Diagnoses Bladder cancer C67.9
== END 2022-12-23 11:17 | disposition home or self-care (01) ==
LOC: HO.HUSH 09:50
PROVIDERS: PCP Internal Medicine; Visit Provider Urology
DX: C67.2 Malignant neoplasm of lateral wall of bladder (principal)
CPT/HCPCS: 99213

== ENCOUNTER → 2022-12-23 09:50 | Outpatient (BNVA) | payer MEDICARE, SELFPAY | PROVIDERS: PCP Internal Medicine; Visit Provider Urology | DX: C67.9 Malignant neoplasm of bladder, unspecified (principal) | CPT/HCPCS: Q3014 ==

== ENCOUNTER 2023-03-05 12:39 | Outpatient (AMB) | payer MEDICARE, SELFPAY ==
--- NOTE | 2023-03-05 12:40 | MHC.OFFVIS ---
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: No Accompanied by: Self / Same As Patient Allergies pravastatin Allergy (Unknown, Verified 03/05/23 12:43) LEG RASH Medication List - Last Reconciled 03/05/23 by Mat Manriquez MD apixaban (Eliquis) 5 mg PO BID atorvastatin 20 mg PO BEDTIME betamethasone dipropionate 0.05% 2 appl topical BID blood sugar diagnostic (FreeStyle Test strips) Test 2 times daily lancets (FreeStyle Lancets) Test 2 times daily lisinopril 40 mg PO DAILY meclizine 12.5 mg PO DAILY PRN metformin 500 mg PO BID metoprolol succinate ER 100 mg (2 x 50 mg) PO DAILY 90 days pantoprazole 40 mg PO DAILY tamsulosin 0.4 mg PO DAILY 90 days HPI HPI Comments History of Present Illness Details Neal returns for follow-up. Overall, doing fine. No complaints like angina or shortness of breath or palpitations or in fact anything cardiac sounding. [facility] Medical History Afib Bladder cancer Cardiomyopathy Diabetes Eczema craquele Enlarged prostate Essential (primary) hypertension History of COVID-19 Hypertension Non-rheumatic aortic stenosis Normally functioning cardiac pacemaker present On anticoagulant therapy On beta cierra at home PAF (paroxysmal atrial fibrillation) Psoriasis Surgical History History of transurethral resection of bladder tumor (TURBT) History of bladder surgery Hx of right inguinal hernia repair Total knee replacement status History of pacemaker Family History Father No problems noted. Mother No problems noted. Daughter In good health Social History Household Members: Spouse Housing: Apartment Do you presently have visiting nurse or other home services: No Alcohol intake: never Patient Tobacco Use Status: Never used Tobacco e-Cigarette/Vaping Use: Never Used Second Hand Smoke Exposure: No service: No Current occupational status: retired Cognitive needs: No Hearing needs: No Vision needs: Yes (glasses) Review of Systems Const Denies weakness ENT Denies dizziness Card Denies chest pain, Denies chest pain with activity, Denies syncope, Denies rapid heart rate, Denies pedal edema, Denies edema, Denies leg edema, Denies lightheadedness, Denies palpitations, Denies dyspnea, Denies dyspnea on exertion and Denies orthopnea Resp Denies cough, Denies dyspnea and Denies dyspnea on exertion GI Denies hematochezia and Denies change in stool character Musc Denies abnormal gait, Denies muscle cramps, Denies muscle weakness, Denies numbness, Denies radiating pain into limb and Denies tingling Neuro Denies abnormal gait, Denies dizziness, Denies syncope, Denies numbness, Denies tingling and Denies weakness Endo Denies palpitations Physical Exam Vital Signs: Last Vital Signs Pulse 76 03/05/23 12:41 BP 160/70 H 03/05/23 12:41 BMI result Body Mass Index 26.1 Const General: comfortable and no acute distress Orientation/consciousness: patient oriented x3 HEENT Other: Unremarkable Head: Yes normal to inspection Neck Neck: Yes normal visual inspection Chest Chest palpation & inspection: normal inspection of the chest Resp Auscultation: clear to auscultation bilaterally Cardio Palpation: normal PMI Heart sounds: S1 normal heart sound present, S2 normal heart sound present, no gallops, no murmurs and no rubs GI Palpation (GI): Soft to palpation Back/Spine/Pelvis Other: unremarkable Skin General skin exam: no rashes or lesions noted Neuro General: patient oriented x3 Extrem General: Yes normal to inspection Psych Mental Status: mental status grossly normal Assessment & Plan Assessment & Plan (1) PAF (paroxysmal atrial fibrillation): Code(s): I48.0 - Paroxysmal atrial fibrillation Plan: Continue metoprolol and Eliquis. Check BMP. If creatinine is high, may need to decrease Eliquis dose. (2) Cardiomyopathy: Code(s): I42.9 - Cardiomyopathy, unspecified Qualifiers: Cardiomyopathy type: ischemic Qualified Code(s): I25.5 - Ischemic cardiomyopathy Plan: Echocardiogram with LVEF of 45-50% with inferior akinesis. Myocardial perfusion imaging study shows no ischemia. Infarct in the inferior wall. Clinically, no symptoms or signs of congestive heart failure or coronary disease. Stable on the current meds. (3) Non-rheumatic aortic stenosis: Code(s): I35.0 - Nonrheumatic aortic (valve) stenosis Plan: Mild aortic stenosis on the echocardiogram. Not hemodynamically significant at this time. (4) Essential (primary) hypertension: Code(s): I10 - Essential (primary) hypertension Plan: Blood pressure on the higher side. We can add amlodipine 5 mg daily. Discussed with patient. Orders: Orders Basic Metabolic Panel Today I48.0 - Paroxysmal atrial fibrillation Medications: New amlodipine 5 mg PO DAILY 90 tabs 3RF Coding Level of Care Code Est Pt Level 4 (77895) Diagnoses PAF (paroxysmal atrial fibrillation) I48.0 Ischemic cardiomyopathy I25.5 Cardiomyopathy type: ischemic Non-rheumatic aortic stenosis I35.0 Essential (primary) hypertension I10
[2023-03-05 12:41] VITALS: BP 160/70; PULSE 76; BMI 26.1
== END 2023-03-05 13:01 | disposition home or self-care (01) ==
PROVIDERS: PCP Internal Medicine; Visit Provider Internal Medicine
DX: I48.0 Paroxysmal atrial fibrillation (principal); I25.5 Ischemic cardiomyopathy; I35.0 Nonrheumatic aortic (valve) stenosis; I10 Essential (primary) hypertension
CPT/HCPCS: 99214

== ENCOUNTER → 2023-03-05 12:39 | Outpatient (BNVA) | payer MEDICARE, SELFPAY | PROVIDERS: PCP Internal Medicine; Visit Provider Internal Medicine | DX: I48.0 Paroxysmal atrial fibrillation (principal); I25.5 Ischemic cardiomyopathy; I35.0 Nonrheumatic aortic (valve) stenosis; I10 Essential (primary) hypertension; Z79.01 Long term (current) use of anticoagulants; Z79.899 Other long term (current) drug therapy | CPT/HCPCS: 99212 ==

== ENCOUNTER 2023-03-07 18:57 | Emergency (ER) | payer MEDICARE, SELFPAY ==
--- NOTE | ~2023-03-07 | US_ITS ---
EXAMINATION: US SCROTUM CLINICAL INFORMATION: Right scrotal pain/swelling. COMPARISON: CT abdomen/pelvis 07/20/2022. TECHNIQUE: A sonogram of the scrotum was performed assessing melo-scale appearance and color Doppler flow. Spectral Doppler analysis of the arterial and venous flow were performed in the testes bilaterally. FINDINGS: RIGHT: Right testicle measures 3.8 x 2.8 x 3.2 cm, volume 18 mL. Several sub-2 mm calcifications are noted projecting over the testicular capsule. Spectral Doppler analysis of the arterial and venous flow is normal in the right testis. Right epididymal head is normal in size. There are 2 simple appearing epididymal cysts largest measuring 1 cm. No right hydrocele or varicocele is seen. Right epididymal Doppler flow is normal. LEFT: Left testicle measures 3.8 x 1.5 x 2.9 cm, volume 11 mL. No focal testicular parenchymal lesions are visualized. Spectral Doppler analysis of the arterial and venous flow is normal in the left testis. Left epididymal head is normal in size. There are 2 simple appearing epididymal cysts, largest measuring 0.3 cm. No left hydrocele or varicocele is seen. Left epididymal Doppler flow is normal. ADDITIONAL FINDINGS: Targeted sonographic images in the area of pain as pointed by the patient over the right inguinal region without discrete measurable mass or collection. US/US scrotum doppler IMPRESSION: 1. No evidence of testicular torsion at the moment of this examination. 2. Several sub-2 mm calcifications projecting over the right testicular capsule, nonspecific and of uncertain clinical significance. 3. Simple appearing bilateral epididymal cysts. 4. No discrete measurable mass or collection in the area of pain in the right inguinal region.
--- NOTE | ~2023-03-07 | US_ITS ---
EXAMINATION: US SCROTUM CLINICAL INFORMATION: Right scrotal pain/swelling. COMPARISON: CT abdomen/pelvis 07/20/2022. TECHNIQUE: A sonogram of the scrotum was performed assessing melo-scale appearance and color Doppler flow. Spectral Doppler analysis of the arterial and venous flow were performed in the testes bilaterally. FINDINGS: RIGHT: Right testicle measures 3.8 x 2.8 x 3.2 cm, volume 18 mL. Several sub-2 mm calcifications are noted projecting over the testicular capsule. Spectral Doppler analysis of the arterial and venous flow is normal in the right testis. Right epididymal head is normal in size. There are 2 simple appearing epididymal cysts largest measuring 1 cm. No right hydrocele or varicocele is seen. Right epididymal Doppler flow is normal. LEFT: Left testicle measures 3.8 x 1.5 x 2.9 cm, volume 11 mL. No focal testicular parenchymal lesions are visualized. Spectral Doppler analysis of the arterial and venous flow is normal in the left testis. Left epididymal head is normal in size. There are 2 simple appearing epididymal cysts, largest measuring 0.3 cm. No left hydrocele or varicocele is seen. Left epididymal Doppler flow is normal. ADDITIONAL FINDINGS: Targeted sonographic images in the area of pain as pointed by the patient over the right inguinal region without discrete measurable mass or collection. US/US scrotum IMPRESSION: 1. No evidence of testicular torsion at the moment of this examination. 2. Several sub-2 mm calcifications projecting over the right testicular capsule, nonspecific and of uncertain clinical significance. 3. Simple appearing bilateral epididymal cysts. 4. No discrete measurable mass or collection in the area of pain in the right inguinal region.
[2023-03-07 19:04] VITALS: BP 209/72; PULSE 88; RESP 18; TEMP 36.8; O2SAT 97; BMI 26.1
--- NOTE | 2023-03-07 19:05 | ED_ITS ---
HPI - General Adult General Chief complaint: Extremity Injury, Lower Stated complaint: Fell & twisted leg, leg/groin pain Time Seen by Provider: 03/07/23 21:33 Source: patient, family () and RN notes reviewed Mode of arrival: ambulatory Limitations: no limitations History of Present Illness HPI narrative: 87-year-old male presents for evaluation of pain to his right groin. He [place] that [place] He went to turn around and he accidentally stepped on ?a bottle. ? He states that the bottle slipped out from under him causing his leg to stretch and twist He describes an external rotation of the right lower extremity He has pain to his right groin that is worse with external rotation Patient is able to ambulate without difficulty Denies any testicular pain or swelling Of note, when the patient's leg slipped, he was able to grab hold of a machine so he did not fall to the ground Related Data Home Medications Medication Instructions Recorded Confirmed meclizine 12.5 mg tablet 12.5 mg PO DAILY PRN Dizziness 09/08/22 03/05/23 apixaban 5 mg tablet (Eliquis) 5 mg PO BID 09/15/22 03/05/23 Previous Rx's Medication Instructions Recorded metoprolol succinate 50 mg 100 mg (2 x 50 mg) PO DAILY 90 05/01/22 tablet,extended release 24 hr days #180 tabs blood sugar diagnostic (FreeStyle #100 ea 06/24/22 Test strips) lancets 28 gauge (FreeStyle #100 ea 06/24/22 Lancets) lisinopril 40 mg tablet 40 mg PO DAILY #90 tabs 09/18/22 metformin 500 mg tablet 500 mg PO BID #180 tabs 09/18/22 betamethasone dipropionate 0.05 % 2 appl topical BID rash #45 grams 11/21/22 topical cream atorvastatin 20 mg tablet 20 mg PO BEDTIME #90 tabs 01/02/23 tamsulosin 0.4 mg capsule 0.4 mg PO DAILY 90 days #90 caps 03/02/23 pantoprazole 40 mg tablet,delayed 40 mg PO DAILY #90 tabs 03/03/23 release amlodipine 5 mg tablet 5 mg PO DAILY #90 tabs 03/05/23 baclofen 10 mg tablet 10 mg PO BEDTIME PRN muscle spasm 03/07/23 #7 tabs Allergies Allergy/AdvReac Type Severity Reaction Status Date / Time pravastatin Allergy Unknown LEG RASH Verified 03/05/23 12:43 Review of Systems Constitutional: Constitutional: Reports as per HPI, Denies chills, Denies fatigue, Denies fever(s) and Denies headache(s) ENT: Denies headache(s) Cardiovascular: Cardiovascular: Denies chest pain and Denies dyspnea Respiratory: Respiratory: Denies cough and Denies dyspnea Gastrointestinal: Gastrointestinal: Denies abdominal pain, Denies constipation and Denies vomiting Genitourinary: Genitourinary: Denies difficulty urinating and Denies dysuria Neurologic: Denies headache(s) and Denies focal weakness Endocrine: Endocrine: Denies fatigue PMFSH Past Medical History Medical History Afib Bladder cancer Cardiomyopathy Diabetes Eczema craquele Enlarged prostate Essential (primary) hypertension History of COVID-19 Hypertension Non-rheumatic aortic stenosis Normally functioning cardiac pacemaker present On anticoagulant therapy On beta cierra at home PAF (paroxysmal atrial fibrillation) Psoriasis Surgical History History of transurethral resection of bladder tumor (TURBT) History of bladder surgery Hx of right inguinal hernia repair Total knee replacement status History of pacemaker Family History Family History Father No problems noted. Mother No problems noted. Daughter In good health Social History Social History Household Members: Spouse Housing: Apartment Do you presently have visiting nurse or other home services: No Alcohol intake: never Patient Tobacco Use Status: Never used Tobacco e-Cigarette/Vaping Use: Never Used Second Hand Smoke Exposure: No Advance Directives: No Advance Directives Information Provided: No service: No Current occupational status: retired Cognitive needs: No Hearing needs: No Vision needs: Yes (glasses) Physical Exam ED Vital Signs: Vital Signs - 24 hr 03/07/23 19:04 Temperature 98.2 F Pulse Rate 88 Respiratory Rate 18 Blood Pressure 209/72 H Pulse Oximetry 97 Oxygen Delivery Method Room Air BMI result Body Mass Index 26.1 Const General: healthy appearing, comfortable, no acute distress, alert and awake Nutritional Appearance: well nourished Orientation/consciousness: patient oriented x3 HENMT Head: Yes normocephalic and Yes atraumatic Eyes Eyelids: Yes eyelids normal Conjunctivae: conjunctivae normal Sclerae: sclerae normal Corneas: corneas normal Pupils: Equal, round and reactive pupils present EOM: EOMs intact bilaterally Neck Neck: Yes full ROM Resp Effort & Inspection: normal respiratory effort, able to speak in complete sentences and not labored GI Inspection: No distended Palpation (GI): Soft to palpation, not firm, nontender, no guarding and not rigid Skin General skin exam: elasticity normal Neuro General: patient oriented x3 Cranial nerves: Yes Equal, round and reactive pupils present and Yes Bilaterally intact EOM present Cognition (Neuro): normal cognition Extrem Other: Moving all extremities well without any obvious deformities. No tenderness of the right hip. The patient is able to lift the right lower extremity off the bed without difficulty. He has some pain in the right groin with external rotation of the right lower extremity Course Course Course Narrative: This is an RME: Additional HPI, ROS, PE not included below will be deferred to primary provider. This is a 79-kzdf-lcr-male, with a hx of a. fib on Eliquis, cardiomyopathy, hypertension, aortic stenosis, presenting to the emergency department with a complaint of right testicular pain. Pt states that [place], [place] a [place], he tripped over a beer bottle and twisted his right leg. He states that he strained something in his right testicle and has had pain since. This pain has been constant since 3:30PM this afternoon. Hx of inguinal hernia with surgical mesh performed 2 days ago. BP 209/72 Plan: scrotal US ordered. Medical Decision Making Medical Decision Making [facility] Narrative: 87-year-old male presents for evaluation of right groin pain after a stretching injury. History exam is consistent with a pulled muscle/muscle strain. He has no tenderness to the right hip or knee. There is no scrotal edema or tenderness. No inguinal tenderness or edema. Patient on ultrasound of the scrotum I did not show any traumatic injury. Patient will be treated with conservative management Differential Diagnosis Differential Diagnoses: The differential diagnosis associated with the presentation includes Muscle strain Hip fracture less likely Contusion Scrotal injury Inguinal hernia Radiology Impression Discussion of test interpretation with radiology: I have reviewed the radiologist's reading. (No evidence of testicular torsion. Several sub 2 mm calcifications projecting over the right testicular capsule. Simple appearing bilateral epididymal cyst) Discharge Plan Discharge Clinical Impression: Muscle strain Patient Disposition: Home, Self-Care Instructions: Muscle Strain (ED) Additional Instructions: Your ultrasound did not show any concerning findings. Your pain is most likely related to a pulled muscle You may continue to walk around and weightbear as tolerated I recommend walking around with a cane for the next 1-2 weeks will your healing to prevent falls Use Tylenol as needed for pain. You may also use warm compresses or heating pads Take baclofen as needed for muscle spasms. This may make you sleepy, did not drink alcohol or drive after taking it And may help to take this before bed if you have trouble sleeping because of the pain Prescriptions: New baclofen 10 mg tablet 10 mg PO BEDTIME PRN (Reason: muscle spasm) Qty: 7 0RF No Action metoprolol succinate 50 mg tablet extended release 24 hr 100 mg PO DAILY 90 Days Qty: 180 3RF (DME) lancets [FreeStyle Lancets] 28 gauge misc See Rx Instructions .Route Qty: 100 0RF Rx Instructions: Test 2 times daily (DME) FreeStyle Test Strip See Rx Instructions .Route Qty: 100 0RF Rx Instructions: Test 2 times daily lisinopril 40 mg tablet 40 mg PO DAILY Qty: 90 1RF metformin 500 mg tablet 500 mg PO BID Qty: 180 1RF betamethasone dipropionate 0.05 % cream 2 appl topical BID Qty: 45 3RF atorvastatin 20 mg tablet 20 mg PO BEDTIME Qty: 90 1RF tamsulosin 0.4 mg capsule 0.4 mg PO DAILY 90 Days Qty: 90 1RF pantoprazole 40 mg tablet,delayed release (DR/EC) 40 mg PO DAILY Qty: 90 1RF Eliquis 5 mg tablet 5 mg PO BID meclizine 12.5 mg tablet 12.5 mg PO DAILY PRN (Reason: Dizziness) amlodipine 5 mg tablet 5 mg PO DAILY Qty: 90 3RF
--- NOTE | 2023-03-07 21:54 | PC.NURSE ---
pt oob w/o assistance, ambulating with balanced symmetric gait, no limp noted- pt to be discharged with self care instructions
== END 2023-03-07 22:20 | disposition home or self-care (01) ==
PROVIDERS: Emergency Provider Internal Medicine; PCP Internal Medicine
DX: S39.011A Strain of muscle, fascia and tendon of abdomen, initial encounter (principal); W18.40XA Slipping, tripping and stumbling without falling, unspecified, initial encounter; E11.9 Type 2 diabetes mellitus without complications; I10 Essential (primary) hypertension; I48.0 Paroxysmal atrial fibrillation; Z95.0 Presence of cardiac pacemaker; Z79.01 Long term (current) use of anticoagulants; Z79.84 Long term (current) use of oral hypoglycemic drugs; Z79.899 Other long term (current) drug therapy; Y93.89 Activity, other specified; Y92.59 Other trade areas as the place of occurrence of the external cause; Y99.9 Unspecified external cause status
CPT/HCPCS: 76870; 93975; 99282; 99284

== ENCOUNTER 2023-03-10 11:59 | Outpatient (REF) | payer MEDICARE, SELFPAY ==
[2023-03-10 13:54] LABS: Anion Gap 13 (12-20); Blood Urea Nitrogen 25 mg/dL (9-16); Calcium 9.9 mg/dL (8.4-10.2); Carbon Dioxide 23 mmol/L (22-29); Chloride 106 mmol/L (96-108); Estimated Glomerular Filt Rate 33; Glucose Random 134 mg/dL (60-115); Potassium 4.4 mmol/L (3.3-5.1); Sodium 138 mmol/L (135-145)
== END 2023-03-10 12:00 | disposition home or self-care (01) ==
LOC: HO.LAB 11:59
PROVIDERS: PCP Internal Medicine; Visit Provider Internal Medicine
DX: I48.0 Paroxysmal atrial fibrillation (principal)
CPT/HCPCS: 36415; 80048

== ENCOUNTER → 2023-03-16 23:59 | Outpatient (BNV) | payer MEDICARE, SELFPAY ==
--- NOTE | 2023-03-17 14:11 | MHC.OFFVIS ---
Intake Intake Visit Reasons: Remote Device Check- [employer] Allergies pravastatin Allergy (Unknown, Verified 03/05/23 12:43) LEG RASH PFSH Medical History Afib Bladder cancer Cardiomyopathy Diabetes Eczema craquele Enlarged prostate Essential (primary) hypertension History of COVID-19 Hypertension Non-rheumatic aortic stenosis Normally functioning cardiac pacemaker present On anticoagulant therapy On beta cierra at home PAF (paroxysmal atrial fibrillation) Psoriasis Surgical History History of transurethral resection of bladder tumor (TURBT) History of bladder surgery Hx of right inguinal hernia repair Total knee replacement status History of pacemaker Family History Father No problems noted. Mother No problems noted. Daughter In good health Social History Household Members: Spouse Housing: Apartment Do you presently have visiting nurse or other home services: No Alcohol intake: never Patient Tobacco Use Status: Never used Tobacco e-Cigarette/Vaping Use: Never Used Second Hand Smoke Exposure: No service: No Current occupational status: retired Cognitive needs: No Hearing needs: No Vision needs: Yes (glasses) Office Procedures Cardiac Device Check Cardiac Device Check Details: Date of service- 03/16/2023 ; Battery life 60%; normal lead parameters; AP 47%; [employer] 62%; no significant arrhythmias. Overall normal device function. [id number] Cardiac Device Interrogation, pacemaker Procedure code (CPT) selection complete Assessment & Plan Assessment & Plan (1) PAF (paroxysmal atrial fibrillation): Code(s): I48.0 - Paroxysmal atrial fibrillation Coding Level of Care Code Procedure Only Diagnoses PAF (paroxysmal atrial fibrillation) I48.0 CPT Codes Cardiac Device Check - Cardiac Device 12: [id number]-Netsec Cardiac Device Interrogation, pacemaker ([id number])
== END ==
PROVIDERS: PCP Internal Medicine; Visit Provider Internal Medicine
DX: I48.0 Paroxysmal atrial fibrillation (principal); Z95.0 Presence of cardiac pacemaker
CPT/HCPCS: 93294

== ENCOUNTER 2023-03-23 09:03 | Outpatient (AMB) | payer MEDICARE, SELFPAY ==
--- NOTE | 2023-03-23 09:04 | MHC.OFFWIV ---
Intake Vital Signs 03/23/23 09:08 Weight 187 lb BP 120/68 Blood Pressure Location Lt brachial Position Sitting Pulse 70 Pulse Source Pulse Oximeter Temp 97.5 F Temp Source Temporal Artery Scan Pulse Oximetry (%) 98 Oxygen Delivery Method Room Air Intake Visit Reasons: EP Tick bite Intake Note: Patient here because he had a tick bite that he was unaware of. He noticed it yesterday when he bumped his hand and took out what was left of the tick. Patient Tobacco Use Status: Never used Tobacco Allergies pravastatin Allergy (Unknown, Verified 03/23/23 09:43) LEG RASH Medication List - Last Reconciled 03/23/23 by Darrius Garcia MD amlodipine 5 mg PO DAILY apixaban 2.5 mg PO BID atorvastatin 20 mg PO BEDTIME baclofen 10 mg PO BEDTIME PRN betamethasone dipropionate 0.05% 2 appl topical BID blood sugar diagnostic (FreeStyle Test strips) Test 2 times daily lancets (FreeStyle Lancets) Test 2 times daily lisinopril 40 mg PO DAILY meclizine 12.5 mg PO DAILY PRN metformin 500 mg PO BID metoprolol succinate ER 100 mg (2 x 50 mg) PO DAILY 90 days pantoprazole 40 mg PO DAILY tamsulosin 0.4 mg PO DAILY 90 days Do you need a note to return to daycare/school/sports/work: No HPI EP Tick bite HPI Details 87-year-old male presents to the office for a sick visit. Patient noticed a tick on his left wrist yesterday. He does not recall the duration the tick was on the skin. [facility] Medical History Afib Bladder cancer Cardiomyopathy Diabetes Eczema craquele Enlarged prostate Essential (primary) hypertension History of COVID-19 Hypertension Non-rheumatic aortic stenosis Normally functioning cardiac pacemaker present On anticoagulant therapy On beta cierra at home PAF (paroxysmal atrial fibrillation) Psoriasis Surgical History History of transurethral resection of bladder tumor (TURBT) History of bladder surgery Hx of right inguinal hernia repair Total knee replacement status History of pacemaker Family History Father No problems noted. Mother No problems noted. Daughter In good health Social History Household Members: Spouse Housing: Apartment Do you presently have visiting nurse or other home services: No Alcohol intake: never Patient Tobacco Use Status: Never used Tobacco e-Cigarette/Vaping Use: Never Used Second Hand Smoke Exposure: No service: No Current occupational status: retired Cognitive needs: No Hearing needs: No Vision needs: Yes (glasses) Physical Exam Vital Signs: Last Vital Signs Temp 97.5 F 03/23/23 09:08 Pulse 70 03/23/23 09:08 BP 120/68 03/23/23 09:08 Pulse Ox 98 03/23/23 09:08 Oxygen Delivery Method Room Air 03/23/23 09:08 Extrem Other: Left wrist: Tiny erythematous area. No evidence of the tick Assessment & Plan Assessment & Plan (1) Tick bite of forearm: Code(s): S50.869A - Insect bite (nonvenomous) of unspecified forearm, initial encounter; W57.XXXA - Bitten or stung by nonvenomous insect and other nonvenomous arthropods, initial encounter Qualifiers: Encounter type: initial encounter Laterality: left Qualified Code(s): S50.862A - Insect bite (nonvenomous) of left forearm, initial encounter; W57.XXXA - Bitten or stung by nonvenomous insect and other nonvenomous arthropods, initial encounter Plan: Signs and symptoms of Lyme disease explained. Lyme titer in 3 weeks. No antibiotics needed currently. Coding Level of Care Code Est Pt Level 3 (68721) Diagnoses Tick bite of left forearm, initial encounter S50.862A; W57.XXXA Encounter type: initial encounter Laterality: left
[2023-03-23 09:08] VITALS: BP 120/68; PULSE 70; TEMP 36.4; O2SAT 98
== END 2023-03-23 10:00 | disposition home or self-care (01) ==
PROVIDERS: PCP Internal Medicine; Visit Provider Internal Medicine
DX: S50.862A Insect bite (nonvenomous) of left forearm, initial encounter (principal); W57.XXXA Bitten or stung by nonvenomous insect and other nonvenomous arthropods, initial encounter
CPT/HCPCS: 99213

== ENCOUNTER 2023-03-25 10:44 | Outpatient (AMB) | payer MEDICARE, SELFPAY ==
--- NOTE | 2023-03-25 10:59 | A.OFFVIS_ITS ---
Intake Intake Visit Reasons: Cyst(Bladder CA) Intake Note: Patient is Present for Cystoscopy Urology Med:Tamsulosin Antibiotic Allergy: None Blood Thinner: Apixaban [facility]: [facility] G Disposable Cystoscope lot:[id number] exp:10/26/2024 Allergies pravastatin Allergy (Unknown, Verified 03/31/23 11:17) LEG RASH HPI HPI Comments History of Present Illness Details Elton is a pleasant male. He is a patient of . 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 Cytology - 04/06 NAD Therapeutic Plan - surveillance PFSH Medical History Diabetes On anticoagulant therapy On beta cierra at home Psoriasis Enlarged prostate History of COVID-19 Bladder cancer Eczema craquele Cardiomyopathy Non-rheumatic aortic stenosis PAF (paroxysmal atrial fibrillation) Afib Essential (primary) hypertension Hypertension Normally functioning cardiac pacemaker present Surgical History History of transurethral resection of bladder tumor (TURBT) History of bladder surgery Hx of right inguinal hernia repair Total knee replacement status History of pacemaker Family History Father No problems noted. Mother No problems noted. Daughter In good health Social History Household Members: Spouse Housing: Apartment Do you presently have visiting nurse or other home services: No Alcohol intake: never Patient Tobacco Use Status: Never used Tobacco e-Cigarette/Vaping Use: Never Used Second Hand Smoke Exposure: No service: No Current occupational status: retired Cognitive needs: No Hearing needs: No Vision needs: Yes (glasses) Review of Systems Const Denies chills and Denies fever(s) Card Reports no additional complaints and Denies syncope Resp Denies cough GI Denies abdominal pain and Denies heartburn Reports as per HPI and Denies change in libido Neuro Denies syncope Psych Denies change in libido Endo Denies change in libido Physical Exam Const General: cooperative, healthy appearing, comfortable and no acute distress Orientation/consciousness: patient oriented x3 HEENT Face and sinus: Yes normal facial exam Mouth: moist mucous membranes Neck Neck: Yes normal visual inspection, Yes full ROM and Yes trachea midline Chest Chest palpation & inspection: normal inspection of the chest Resp Effort & Inspection: normal respiratory effort, able to speak in complete sentences and no respiratory distress GI Inspection: Yes normal to inspection Back/Spine/Pelvis Cervical Spine: normal cervical lordosis Thoracic/Lumbar Spine: thoracic and lumbar spine normal to inspection Skin General skin exam: no rashes or lesions noted Neuro General: patient oriented x3, gait normal, tone normal and moves all extremities Extrem General: Yes normal to inspection and Yes capillary refill normal Office Procedures Cystoscopy Consent Discussed risk and benefit or proposed procedure with the patient. Information consent for procedure given to the patient. Discussed technical aspects, risks, benefits and alternatives in full. Addressed all of the patient's questions and concerns regarding the procedure. The patient demonstrated knowledge and understanding. They wish to proceed with this procedure. Preparation The patient was prepped in the usual manner. A medication nurse was present and in the room. Genitalia was prepped with betadine solution in a sterile manner. Lidocaine Jelly 2% was placed into the urethra and 16Fr flexible Olympus cystoscope was inserted into the meatus after adequate lubrication. Procedure Meatus circumcised Urethra anterior and posterior urethra normal Prostatic Urethra unremarkable Bladder examination with retroflexion of cystoscope Bladder Orifices normal shape and position Bladder Capacity medium Trabeculations grade 3 Cellule Formation yes Diverticulum Formation - Mucosal Erythema - Bladder Tumor - 63060-[id number] DISPOSABLE SCOPE URO-G FLEXIBLE SCOPE Procedure code (CPT) selection complete Office Meds lidocaine HCl 2 % mucosal jelly in applicator Performing Provider: Adalid Barrett MD [facility] Administered by: Brady Gonzalez LPN on 03/25/23 11:26 Dose Route Admin Location Dispensed Lot Number Expiration Date [facility] Environmental Professional 10 mL intra-urethral 10 mL nitrofurantoin monohydrate/macrocrystals 100 mg capsule Performing Provider: Adalid Barrett MD Performing Location: [facility] Administered by: Brady Gonzalez LPN on 03/25/23 11:26 Dose Route Admin Location Dispensed Lot Number Expiration Date [employer] 100 mg PO 1 cap naproxen 500 mg tablet Performing Provider: Adalid Barrett MD Performing Location: [facility] Administered by: Brady Gonzalez LPN on 03/25/23 11:26 Dose Route Admin Location Dispensed Lot Number Expiration Date [employer] 500 mg PO 1 tab Results AMB Urinalysis, Automated UA Leukoctes 0 Mata/uL Last Edit by Stacy Johnson [facility] on 03/25/23 11:20 UA Nitrite Negative Last Edit by Stacy Johnson [facility] on 03/25/23 11:20 UA Urobilinogen 0.2 mg/dL Last Edit by Stacy Johnson A on 03/25/23 11:2 0 UA Protein 0 mg/dL Last Edit by Stacy Johnson [facility] on 03/25/23 11:20 UA pH 6.0 Last Edit by Stacy Johnson A on 03/25/23 11:20 UA Blood 0 Bud/uL Last Edit by Stacy Johnson [facility] on 03/25/23 11:20 UA Specific [place] 1.015 Last Edit by Stacy Johnson [facility] on 03/25/23 11: 20 UA Ketone Negative Last Edit by Stacy Johnson [facility] on 03/25/23 11:20 UA Bilirubin 0 mg/dL Last Edit by Stacy Johnson [facility] on 03/25/23 11:20 UA Glucose 0 mg/dL Last Edit by Stacy Johnson [facility] on 03/25/23 11:20 Results Reviewed Results Reviewed: Laboratory Last Values Urine pH (Auto) 6.0 03/25/23 11:19 Specific [place] (Auto) 1.015 03/25/23 11:19 Urine Protein (Auto) 0 mg/dL 03/25/23 11:19 Glucose (UA)(Auto) 0 mg/dL 03/25/23 11:19 Urine Ketones (Auto) Negative 03/25/23 11:19 Urine Blood (Auto) 0 Bud/uL 03/25/23 11:19 Urine Nitrite (Auto) Negative 03/25/23 11:19 Urine Bilirubin (Auto) 0 mg/dL 03/25/23 11:19 Urine Urobilinogen (Auto) 0.2 mg/dL 03/25/23 11:19 Leukocyte Esterase (Auto) 0 Mata/uL 03/25/23 11:19 Assessment & Plan Assessment & Plan (1) Bladder cancer: Comment: 09/04 - high-grade T1 Code(s): C67.9 - Malignant neoplasm of bladder, unspecified Qualifiers: Bladder location: posterior wall Qualified Code(s): C67.4 - Malignant neoplasm of posterior wall of bladder Plan Plan for boost immunotherapy Orders: Orders AMB Cystoscopy 03/25/23 C67.9 - Malignant neoplasm of bladder, unspecified Urine Cytology 03/25/23 C67.9 - Malignant neoplasm of bladder, unspecified AMB Urinalysis Automated 03/25/23 Z13.9 - Encounter for screening, unspecified Patient Instructions: Imaging studies, laboratory and physical exam results were discussed and reviewed in detail. No major barriers to patient understanding were identified. An opportunity to ask questions regarding the treatment plan was provided. All questions were answered. The patient expressed understanding and agreement with the above treatment plan. The patient is aware they should contact our office by phone for worsening of their current condition or the appearance of new urologic symptoms. Compliance is encouraged with any medications and followup testing that is ordered. It is a privilege to participate in the urologic care of your patient. If you have any questions or concerns regarding treatment for the above conditions, or other urologic issues, please do not hesitate to contact me. The office telephone contact is [phone]. This note is constructed using voice recognition software. While every effort has been made to ensure accuracy test technician errors may have been included. Yours sincerely, Dr Adalid Barrett MD, [facility] - Urology Providers of Expert, Compassionate Care for the Genitourinary System Coding Level of Care Code Est Pt Level 3 (75339) Diagnoses Malignant neoplasm of posterior wall of urinary bladder C67.4 Bladder location: posterior wall CPT Codes Cystoscopy - CPT: 99167-[id number] ([id number])
== END 2023-03-25 12:19 | disposition home or self-care (01) ==
PROVIDERS: PCP Internal Medicine; Visit Provider Urology
DX: C67.4 Malignant neoplasm of posterior wall of bladder (principal)
CPT/HCPCS: 52000; 99213

== ENCOUNTER 2023-03-25 10:44 | Outpatient (REF) | payer MEDICARE, SELFPAY ==
[2023-03-25 16:53] LABS: Urine Cytology See Pathology rpt
== END 2023-03-25 10:45 | disposition home or self-care (01) ==
LOC: HO.LAB 10:44
PROVIDERS: PCP Internal Medicine; Visit Provider Urology
DX: C67.4 Malignant neoplasm of posterior wall of bladder (principal)
CPT/HCPCS: 52000; 81003; 88112; 99212

== ENCOUNTER 2023-03-30 15:15 | Outpatient (AMB) | payer MEDICARE, SELFPAY ==
--- NOTE | 2023-03-30 16:34 | AM.OFFWIN_ITS ---
Intake Vital Signs 03/30/23 16:35 Weight 185 lb BP 150/72 H Blood Pressure Location Rt brachial Position Sitting Pulse 80 Pulse Source Pulse Oximeter Temp 99.2 F Temp Source Oral Pulse Oximetry (%) 97 Oxygen Delivery Method Room Air Intake Visit Reasons: EP Cold Symptoms Intake Note: Patient here for fatigue and sleeping a lot, chills, headaches and light headed. He mentioned he did get bit by a tick about 1 week. Patient Tobacco Use Status: Never used Tobacco Allergies pravastatin Allergy (Unknown, Verified 03/31/23 11:17) LEG RASH Do you need a note to return to daycare/school/sports/work: No HPI EP Cold Symptoms HPI Details 87-year-old male presents to the office for a sick visit. Patient is reporting symptoms of chills, increased somnolence for the past few days. He had a cystoscopy on Thursday and symptoms have started since. No headaches or blurred vision. No symptoms of cough. [facility] Medical History Diabetes On anticoagulant therapy On beta cierra at home Psoriasis Enlarged prostate History of COVID-19 Bladder cancer Eczema craquele Cardiomyopathy Non-rheumatic aortic stenosis PAF (paroxysmal atrial fibrillation) Afib Essential (primary) hypertension Hypertension Normally functioning cardiac pacemaker present Surgical History History of transurethral resection of bladder tumor (TURBT) History of bladder surgery Hx of right inguinal hernia repair Total knee replacement status History of pacemaker Family History Father No problems noted. Mother No problems noted. Daughter In good health Social History Household Members: Spouse Housing: Apartment Do you presently have visiting nurse or other home services: No Alcohol intake: never Patient Tobacco Use Status: Never used Tobacco e-Cigarette/Vaping Use: Never Used Second Hand Smoke Exposure: No service: No Current occupational status: retired Cognitive needs: No Hearing needs: No Vision needs: Yes (glasses) Physical Exam Vital Signs: Last Vital Signs Temp 99.2 F 03/30/23 16:35 Pulse 80 03/30/23 16:35 BP 150/72 H 03/30/23 16:35 Pulse Ox 97 03/30/23 16:35 Oxygen Delivery Method Room Air 03/30/23 16:35 Const General: cooperative, healthy appearing and comfortable HEENT Head: Yes normal to inspection and Yes atraumatic Eyes General: appearance normal, both eyes and all related structures Neck Neck: Yes normal visual inspection and Yes full ROM Chest Chest palpation & inspection: normal inspection of the chest and crepitus Resp Effort & Inspection: normal respiratory effort Auscultation: clear to auscultation bilaterally Cardio Jugular venous distension: no JVD Palpation: normal PMI Rate: regular rate Heart sounds: S1 normal heart sound present and S2 normal heart sound present GI Palpation (GI): Soft to palpation, Tenderness to palpation present (GI) and No hepatosplenomegaly present Extrem General: Yes normal to inspection and Yes full ROM Assessment & Plan Assessment & Plan (1) Fever: Code(s): R50.9 - Fever, unspecified Plan: Blood work has been ordered. Looks like a viral illness. However patient had a recent procedure and antibiotics has been started. Will call with results of the COVID test. Orders: Orders SARS-CoV2/FLU/RSV 03/30/23 R43.9 - Unspecified disturbances of smell and taste, R50.9 - Fever, unspecified Erythrocyte Sedimentation Rate 03/30/23 R50.9 - Fever, unspecified Basic Metabolic Panel 03/30/23 R50.9 - Fever, unspecified Lyme IgG/IgM w/reflex to WB 03/30/23 R50.9 - Fever, unspecified Complete Blood Count no Diff 03/30/23 R50.9 - Fever, unspecified Medications: New azithromycin take 500 mg today (day 1), then 250 mg for 4 days (days 2-5) PO 6 tabs 0RF Coding Level of Care Code Est Pt Level 3 (88195) Diagnoses Fever R50.9
[2023-03-30 16:35] VITALS: BP 150/72; PULSE 80; TEMP 37.3; O2SAT 97
== END 2023-03-30 16:58 | disposition home or self-care (01) ==
PROVIDERS: PCP Internal Medicine; Visit Provider Internal Medicine
DX: R50.9 Fever, unspecified (principal)
CPT/HCPCS: 99213

== ENCOUNTER 2023-03-31 12:03 | Outpatient (REF) | payer MEDICARE, SELFPAY ==
[2023-03-31 12:45] LABS: Hematocrit 36.8 % (42.0-52.0); Hemoglobin 12.6 g/dl (14.0-18.0); Mean Corpuscular HGB Conc 34.2 g/dl (31.0-36.0); Mean Corpuscular Hemoglobin 30.1 pg (27.0-33.0); Mean Corpuscular Volume 87.8 fL (80.0-98.0); Mean Platelet Volume 9.5 fL (9.4-12.4); Platelet Count 170 X10*3/uL (160-400); Red Blood Count 4.19 X10*6/uL (4.60-5.80); Red Cell Distribution Width 12.9 % (11.0-16.0); White Blood Count 12.2 X10*3/uL (4.8-10.8)
[2023-03-31 13:14] LABS: Anion Gap 15 (12-20); Blood Urea Nitrogen 32 mg/dL (9-16); Calcium 9.6 mg/dL (8.4-10.2); Carbon Dioxide 21 mmol/L (22-29); Chloride 102 mmol/L (96-108); Estimated Glomerular Filt Rate 32; Glucose Random 157 mg/dL (60-115); Potassium 4.2 mmol/L (3.3-5.1); Sodium 134 mmol/L (135-145)
[2023-03-31 13:32] LABS: Erythrocyte Sedimentation Rate 49 MM/HR (0-15)
[2023-03-31 14:41] LABS: Influenza A PCR NEGATIVE (Negative); Influenza B PCR NEGATIVE (Negative); Resp Syncy Virus RNA Qual PCR NEGATIVE (Negative); SARS COV2 PCR INHOUSE NEGATIVE (Negative)
[2023-04-02 02:58] LABS: Lyme Abs Screen <0.90 index
== END 2023-03-31 12:04 | disposition home or self-care (01) ==
LOC: HO.LAB 12:03
PROVIDERS: PCP Internal Medicine; Visit Provider Internal Medicine
DX: R50.9 Fever, unspecified (principal); R43.9 Unspecified disturbances of smell and taste; S50.869A Insect bite (nonvenomous) of unspecified forearm, initial encounter; W57.XXXA Bitten or stung by nonvenomous insect and other nonvenomous arthropods, initial encounter; Y93.9 Activity, unspecified; Y92.9 Unspecified place or not applicable; Y99.9 Unspecified external cause status
CPT/HCPCS: 0241U; 36415; 80048; 85027; 85652; 86617; 86618

== ENCOUNTER 2023-04-02 09:35 | Outpatient (AMB) | payer MEDICARE, SELFPAY ==
--- NOTE | 2023-04-02 09:57 | A.OFFPC_ITS ---
Vital Signs 04/02/23 09:58 04/02/23 10:08 Height 5 ft 11 in Weight 181 lb 6 oz BMI 25.3 BP 140/60 H 110/60 Blood Pressure Location Lt brachial Lt brachial Position Sitting Sitting Pulse 74 Pulse Source Pulse Oximeter Pulse Oximetry (%) 97 Oxygen Delivery Method Room Air Intake Visit Reasons: 3mth f/u Intake Note: Patient is here to follow up on DM. Technical Project Coordinator Required: No Paintings Restorer: Present Accompanied by: Spouse Allergies pravastatin Allergy (Unknown, Verified 04/02/23 10:33) LEG RASH Medication List - Last Reconciled 04/02/23 by Darrius Garcia MD amlodipine 5 mg PO DAILY apixaban 2.5 mg PO BID atorvastatin 20 mg PO BEDTIME azithromycin take 500 mg today (day 1), then 250 mg for 4 days (days 2-5) PO baclofen 10 mg PO BEDTIME PRN betamethasone dipropionate 0.05% 2 appl topical BID blood sugar diagnostic (FreeStyle Test strips) Test 2 times daily lancets (FreeStyle Lancets) Test 2 times daily lisinopril 40 mg PO DAILY meclizine 12.5 mg PO DAILY PRN metformin 500 mg PO BID metoprolol succinate ER 100 mg (2 x 50 mg) PO DAILY 90 days pantoprazole 40 mg PO DAILY tamsulosin 0.4 mg PO DAILY 90 days Tobacco use date assessed: 04/02/23 Fall risk assessment: No Falls in past year Last assessed Fall Risk: 04/02/23 Dental Screening Dental Screen Date: 04/02/23 Did you have a dental visit in the last 12 months?: Yes Did you have a dental problem in the last 6 months where you did not have access to dental care?: No Was dental information given to patient?: Patient has dentist HPI 3mth f/u HPI Details 87-year-old male presents to the office for a sick visit. Patient continues to feel suboptimal. He has occasional chills, continues to feel weak. He has 2 more days on the antibiotic remaining. Is using a walker to ambulate as he is unsteady on his feet. Able to answer questions appropriately. His appetite is poor. Patient was brought to the office by his . [facility] Medical History Diabetes On anticoagulant therapy On beta cierra at home Psoriasis Enlarged prostate History of COVID-19 Bladder cancer Eczema craquele Cardiomyopathy Non-rheumatic aortic stenosis PAF (paroxysmal atrial fibrillation) Afib Essential (primary) hypertension Hypertension Normally functioning cardiac pacemaker present Surgical History History of transurethral resection of bladder tumor (TURBT) History of bladder surgery Hx of right inguinal hernia repair Total knee replacement status History of pacemaker Family History Father No problems noted. Mother No problems noted. Daughter In good health Social History Household Members: Spouse Housing: Apartment Do you presently have visiting nurse or other home services: No Alcohol intake: never Patient Tobacco Use Status: Never used Tobacco e-Cigarette/Vaping Use: Never Used Second Hand Smoke Exposure: No service: No Current occupational status: retired Cognitive needs: No Hearing needs: No Vision needs: Yes (glasses) Questionnaire Thrive Questionnaire Date Thrive assessed: 09/08/22 MALKA-7 AMB Questionnaire MALKA-7 Date MALKA - 7 assessed: 09/08/22 Source: Developed by Drs. Angel Rodríguez, Sandra Nickerson, Placido Tubbs and colleagues, with an educational bhavana from [employer]. Physical exam (Primary Care) Vital Signs: Last Vital Signs Pulse 74 04/02/23 09:58 BP 110/60 04/02/23 10:08 Pulse Ox 97 04/02/23 09:58 Oxygen Delivery Method Room Air 04/02/23 09:58 BMI result Body Mass Index 25.3 Tobacco/Smoking Status: Tobacco use Status Tobacco use date assessed 04/02/23 04/02/23 10:04 Patient Tobacco Use Status Never used Tobacco 04/02/23 09:57 e-Cigarette/Vaping Use Never Used 04/02/23 09:57 Thrive Assessment: Date of Thrive Assessment Date Thrive assessed 09/08/22 04/02/23 09:57 Const Other: Patient is alert and oriented. Able to answer all questions appropriately. Slightly unsteady on her gait. General: cooperative and healthy appearing Nutritional Appearance: well nourished Orientation/consciousness: patient oriented x3 Limitations: no limitations HENMT Head: Yes normal to inspection Eyes General: appearance normal, both eyes and all related structures Neck Neck: Yes normal visual inspection Chest Chest palpation & inspection: normal palpation of entire chest wall Resp Effort & Inspection: normal respiratory effort Neuro General: patient oriented x3 Results AMB Hemoglobin A1c AMB Hemoglobin A1c 6.8 % Last Edit by ELIE Freitas on 04/02/23 10:22 Results Reviewed Results Reviewed: Laboratory Last Values Hgb A1c (Clinic) 6.8 % (4.0-6.0) H 04/02/23 10:22 Assessment and Plan Assessment & Plan (1) Fever: Code(s): R50.9 - Fever, unspecified Plan: Vitals are stable. There is no fever. Blood work reviewed. Viral flu swab was negative lab work shows mild elevation of white count. Lyme titer is negative. Continue and complete the antibiotic course. Patient lives alone with elderly spouse. They need nursing help at home. I encouraged him to talk to his daughter to give them supportive care for at least 1 week. Patient will be followed up if symptoms do not improve. Orders: Orders AMB Hemoglobin A1c Today E11.9 - Type 2 diabetes mellitus without complications Coding Level of Care Code Est Pt Level 4 (14845) Diagnoses Fever R50.9
[2023-04-02 09:58] VITALS: BP 140/60; PULSE 74; O2SAT 97; BMI 25.3
[2023-04-02 10:08] VITALS: BP 110/60
== END 2023-04-02 10:45 | disposition home or self-care (01) ==
PROVIDERS: PCP Internal Medicine; Visit Provider Internal Medicine
DX: E11.9 Type 2 diabetes mellitus without complications (principal); R50.9 Fever, unspecified; I48.0 Paroxysmal atrial fibrillation
CPT/HCPCS: 83036; 99214

== ENCOUNTER → 2023-04-06 12:38 | Outpatient (BNVA) | payer MEDICARE, SELFPAY | PROVIDERS: PCP Internal Medicine; Visit Provider Urology | DX: Z13.9 Encounter for screening, unspecified (principal) | CPT/HCPCS: 51798 ==

== ENCOUNTER 2023-06-12 14:14 | Outpatient (AMB) | payer MEDICARE, SELFPAY ==
[2023-06-12 15:12] VITALS: BP 130/66; PULSE 76; TEMP 36.7; O2SAT 98
--- NOTE | 2023-06-12 15:12 | MHC.OFFWIV ---
Intake Vital Signs 06/12/23 15:12 Height 5 ft 11 in BP 130/66 Blood Pressure Location Rt brachial Position Sitting Pulse 76 Pulse Source Pulse Oximeter Temp 98.1 F Temp Source Oral Pulse Oximetry (%) 98 Oxygen Delivery Method Room Air Intake Visit Reasons: EP Cough (masked) with Intake Note: pt is here for c/o cough Patient Tobacco Use Status: Never used Tobacco Allergies pravastatin Allergy (Unknown, Verified 06/12/23 15:12) LEG RASH Do you need a note to return to daycare/school/sports/work: Yes HPI HPI Comments History of Present Illness Details Patient is an 87yo M who presents with cough He said cough x 2 weeks Dry; was previously productive No fever, chills, CP, SOB He denies congestion, ear pain or ST Taking Mucinex Wanted to be seen because cough still present. No other symptoms PFSH Medical History Diabetes On anticoagulant therapy On beta cierra at home Psoriasis Enlarged prostate History of COVID-19 Bladder cancer Eczema craquele Cardiomyopathy Non-rheumatic aortic stenosis PAF (paroxysmal atrial fibrillation) Afib Essential (primary) hypertension Hypertension Normally functioning cardiac pacemaker present Surgical History History of transurethral resection of bladder tumor (TURBT) History of bladder surgery Hx of right inguinal hernia repair Total knee replacement status History of pacemaker Family History Father No problems noted. Mother No problems noted. Daughter In good health Social History Household Members: Spouse Housing: Apartment Do you presently have visiting nurse or other home services: No Alcohol intake: never Patient Tobacco Use Status: Never used Tobacco e-Cigarette/Vaping Use: Never Used Second Hand Smoke Exposure: No service: No Current occupational status: retired Cognitive needs: No Hearing needs: No Vision needs: Yes (glasses) Review of Systems Const Denies body aches, Denies chills, Denies fatigue and Denies fever(s) ENT Denies otalgia, Denies nasal congestion, Denies nasal discharge, Denies sinus pressure and Denies sore throat Card Denies chest pain, Denies rapid heart rate and Denies dyspnea Resp Denies change in phlegm color, Denies chest congestion, Reports cough, Denies pain on inspiration, Denies pain with cough and Denies dyspnea GI Denies abdominal pain Endo Denies fatigue Physical Exam Vital Signs: Last Vital Signs Temp 98.1 F 06/12/23 15:12 Pulse 76 06/12/23 15:12 BP 130/66 06/12/23 15:12 Pulse Ox 98 06/12/23 15:12 Oxygen Delivery Method Room Air 06/12/23 15:12 General: Non-toxic, NAD. Speaking full sentences. Skin: Warm dry throughout Eye: EOMI HENT: Airway patent. Uvula midline. No pharyngeal erythema or edema. No MANAGER LABOR DELIVERY. Bilateral canals clear. TM non-erythematous, non-bulging. No TM perforation or hemotympanum noted. Respiratory: CTA bilaterally. No wheezes, rales or rhonchi Cardiac: RRR. No murmur MSK: Full ROM extremities. Neurology: A/O. No aphasia or facial droop. Gait without abnormality Psych: Good mood and affect Assessment & Plan Assessment & Plan (1) Cough: Code(s): R05.9 - Cough, unspecified Qualifiers: Cough type: acute Qualified Code(s): R05.1 - Acute cough Plan: Patient seen and evaluated. Lungs CTA Tessalon for cough F/U with PCP ER if worse Patient gave verbal understanding and had no additional questions or concerns at time of discharge All questions answered Medications: New benzonatate 100 mg PO BID-TID PRN 14 caps 0RF cough R05.9 - Cough, unspecified Coding Level of Care Code Est Pt Level 3 (44960) Diagnoses Acute cough R05.1 Cough type: acute
== END 2023-06-12 16:36 | disposition home or self-care (01) ==
PROVIDERS: PCP Internal Medicine; Visit Provider Physician Assistant
DX: R05.1 Acute cough (principal)
CPT/HCPCS: 99213

== ENCOUNTER → 2023-06-16 23:59 | Outpatient (BNV) | payer MEDICARE, SELFPAY ==
--- NOTE | 2023-06-16 15:35 | MHC.OFFVIS ---
Intake Intake Visit Reasons: Remote Device Check- [employer] Allergies pravastatin Allergy (Unknown, Verified 06/12/23 15:12) LEG RASH PFSH Medical History Diabetes On anticoagulant therapy On beta cierra at home Psoriasis Enlarged prostate History of COVID-19 Bladder cancer Eczema craquele Cardiomyopathy Non-rheumatic aortic stenosis PAF (paroxysmal atrial fibrillation) Afib Essential (primary) hypertension Hypertension Normally functioning cardiac pacemaker present Surgical History History of transurethral resection of bladder tumor (TURBT) History of bladder surgery Hx of right inguinal hernia repair Total knee replacement status History of pacemaker Family History Father No problems noted. Mother No problems noted. 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 Overall normal device function. [id number] Cardiac Device Interrogation, pacemaker Procedure code (CPT) selection complete Assessment & Plan Assessment & Plan (1) PAF (paroxysmal atrial fibrillation): Code(s): I48.0 - Paroxysmal atrial fibrillation (2) Cardiomyopathy: Code(s): I42.9 - Cardiomyopathy, unspecified Qualifiers: Cardiomyopathy type: ischemic Qualified Code(s): I25.5 - Ischemic cardiomyopathy Plan x Coding Level of Care Code Procedure Only Diagnoses PAF (paroxysmal atrial fibrillation) I48.0 Ischemic cardiomyopathy I25.5 Cardiomyopathy type: ischemic CPT Codes Cardiac Device Check - Cardiac Device 12: [id number] Cardiac Device Interrogation, pacemaker ([id number])
== END ==
PROVIDERS: PCP Internal Medicine; Visit Provider Internal Medicine
DX: I48.0 Paroxysmal atrial fibrillation (principal); Z95.0 Presence of cardiac pacemaker
CPT/HCPCS: 93294

== ENCOUNTER 2023-07-02 10:11 | Outpatient (AMB) | payer MEDICARE, SELFPAY ==
--- NOTE | 2023-07-02 10:22 | MHC.PC.OV ---
Vital Signs 07/02/23 10:24 Height 5 ft 11 in Weight 188 lb 2 oz BMI 26.2 BP 130/60 Blood Pressure Location Lt brachial Position Sitting Pulse 60 Pulse Source Pulse Oximeter Pulse Oximetry (%) 97 Oxygen Delivery Method Room Air Intake Visit Reasons: 3 month f/u Intake Note: Patient is here to follow up on DM, HTN, PAF. 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 Patient would like to reduce his metformin to once a day. He reports symptoms of feeling dizzy 2 hours after taking the morning dose. He records blood pressure around that time and it is in the 80s range. Appetite is normal and he is able to function and do all activities of daily living. Eczema in the legs continue to bother him. Patient was seen by the resolution rep. The initial treatment did not treat the rash but made it worse. Patient is not able to afford the medications prescribed. He has canceled all further dermatology appointments. He would like for me to continue the steroid prescription that I had initially started him on. Taking Eliquis for atrial fibrillation. [facility] Medical History Diabetes On anticoagulant therapy On beta cierra at home Psoriasis Enlarged prostate History of COVID-19 Bladder cancer Eczema craquele Cardiomyopathy Non-rheumatic aortic stenosis PAF (paroxysmal atrial fibrillation) Afib Essential (primary) hypertension Hypertension Normally functioning cardiac pacemaker present Surgical History History of transurethral resection of bladder tumor (TURBT) History of bladder surgery Hx of right inguinal hernia repair Total knee replacement status History of pacemaker Family History Father No problems noted. Mother No problems noted. Daughter In good health Social History Household Members: Spouse Housing: Apartment Do you presently have visiting nurse or other home services: No Alcohol intake: never Patient Tobacco Use Status: Never used Tobacco e-Cigarette/Vaping Use: Never Used Second Hand Smoke Exposure: No service: No Current occupational status: employed and retired Cognitive needs: No Hearing needs: No Vision needs: Yes (glasses) Questionnaire PHQ-9 Over the last 2 weeks, how often have you been bothered by any of the following problems? 1. Little interest or pleasure in doing things: not at all 2. Feeling down, depressed, or hopeless: not at all 3. Trouble falling or staying asleep, or sleeping too much: not at all 4. Feeling tired or having little energy: not at all 5. Poor appetite or overeating: not at all 6. Feeling bad about yourself - or that you are a failure or have let yourself or your family down: not at all 7. Trouble concentrating on things, such as reading the newspaper or watching television: not at all 8. Moving or speaking so slowly that other people could have noticed. Or the opposite - being so fidgety or restless that you have been moving around a lot more than usual: not at all 9. Thoughts that you would be better off or of hurting yourself in some way: not at all Total score: 0 Depression Screening Interpretation: Negative Depression Screening Done: Yes Source: Developed by Drs. Angel Rodríguez, Sandra Nickerson, Placido Tubbs and colleagues, with an educational bhavana from [employer]. Thrive Questionnaire Date Thrive assessed: 07/02/23 I am a: Patient What is your living situation today?: I have a steady place to live Within the past 12 months, did the food you bought not last and you didn't have the money to get more?: Never true Within the past 12 months, did you worry whether your food would run out before you got money to buy more?: Never true Do you have trouble paying for medicines?: No Do you have trouble getting transportation to medical appointments?: No Do you have trouble paying your heating and electricity bill?: No Do you have trouble taking care of your child, family member or friend?: No Do you have trouble with day-to-day activities such as bathing, preparing meals, shopping, managing finances, etc.?: No Are you currently unemployed and looking for a job?: No Are you interested in more education?: No Currently or been in a relationship where the following occur: no concerns reported AUDIT C Alcohol Use Questionnaire (AUDIT-C) 1. How often do you have a drink containing alcohol?: Never Total Score: 0 MALKA-7 AMB Questionnaire MALKA-7 Date MALKA - 7 assessed: 07/02/23 Feeling nervous, anxious, or on edge: 0 = Not at all Not being able to stop or control worryin = Not at all Worrying too much about different things: 0 = Not at all Trouble relaxin = Not at all Being so restless that it is hard to sit still: 0 = Not at all Becoming easily annoyed or irritable: 0 = Not at all Feeling afraid as if something awful might happen: 0 = Not at all Total MALKA-7 score (0-4 normal; 5-9 mild; 10-14 moderate; 15-21 severe): 0 Source: Developed by Drs. Angel Rodríguez, Sandra Nickerson, Placido Tubbs and colleagues, with an educational bhavana from [employer]. Physical exam (Primary Care) Vital Signs: Last Vital Signs Pulse 60 07/02/23 10:24 BP 130/60 07/02/23 10:24 Pulse Ox 97 07/02/23 10:24 Oxygen Delivery Method Room Air 07/02/23 10:24 BMI result Body Mass Index 26.2 Tobacco/Smoking Status: Tobacco use Status Tobacco use date assessed 07/02/23 07/02/23 10:34 Patient Tobacco Use Status Never used Tobacco 07/02/23 10:34 e-Cigarette/Vaping Use Never Used 07/02/23 10:34 PHQ-9: PHQ-9 Score PHQ-9: Total score 0 07/02/23 10:39 Depression Screening Interpretation: Negative Thrive Assessment: Date of Thrive Assessment Date Thrive assessed 07/02/23 07/02/23 10:34 Currently or been in a relationship where the following occur: no concerns reported Const General: cooperative and healthy appearing Nutritional Appearance: well nourished Orientation/consciousness: patient oriented x3 Limitations: no limitations HENMT Head: Yes normal to inspection Eyes General: appearance normal, both eyes and all related structures Neck Neck: Yes normal visual inspection Chest Chest palpation & inspection: normal palpation of entire chest wall Resp Effort & Inspection: normal respiratory effort Skin Other: Left lower extremity: Scaly lesion on the leg representing chronic eczema. Neuro General: patient oriented x3 Results AMB Hemoglobin A1c AMB Hemoglobin A1c 6.5 % Last Edit by ELIE Freitas on 07/02/23 10:40 Results Reviewed Results Reviewed: Laboratory Last Values Hgb A1c (Clinic) 6.5 % (4.0-6.0) H 07/02/23 10:21 Assessment and Plan Assessment & Plan (1) Hypertension: Code(s): I10 - Essential (primary) hypertension Plan: Blood pressure is in range. Continue current medications. (2) PAF (paroxysmal atrial fibrillation): Code(s): I48.0 - Paroxysmal atrial fibrillation Plan: Anticoagulant dosage reduced by 50% due to decreased renal function (3) Diabetes mellitus: Code(s): E11.9 - Type 2 diabetes mellitus without complications Plan: Metformin reduced to once a day. Orders: Orders AMB Hemoglobin A1c Today E11.9 - Type 2 diabetes mellitus without complications Medications: Refilled betamethasone dipropionate 0.05% 2 appl topical BID 45 grams 3RF rash Coding Level of Care Code Est Pt Level 4 (16745) Diagnoses Hypertension I10 PAF (paroxysmal atrial fibrillation) I48.0 Diabetes mellitus E11.9
[2023-07-02 10:24] VITALS: BP 130/60; PULSE 60; O2SAT 97; BMI 26.2
== END 2023-07-02 11:25 | disposition home or self-care (01) ==
PROVIDERS: PCP Internal Medicine; Visit Provider Internal Medicine
DX: I10 Essential (primary) hypertension (principal); I48.0 Paroxysmal atrial fibrillation; E11.9 Type 2 diabetes mellitus without complications
CPT/HCPCS: 83036; 99214

== ENCOUNTER 2023-07-06 07:05 | Outpatient (REF) | payer MEDICARE, SELFPAY ==
[2023-07-07 12:49] LABS: Lyme Abs Screen <0.90 index
== END 2023-07-06 07:06 | disposition home or self-care (01) ==
LOC: HO.LAB 07:05
PROVIDERS: PCP Internal Medicine; Visit Provider Internal Medicine
DX: R50.9 Fever, unspecified (principal)
CPT/HCPCS: 36415; 86617; 86618

== ENCOUNTER 2023-07-14 14:58 | Outpatient (AMB) | payer MEDICARE, SELFPAY ==
--- NOTE | 2023-07-14 15:17 | A.OFFVIS_ITS ---
Intake Intake Visit Reasons: 3m cysto(Bladder Ca) Intake Note: Patient is Present for Cystoscopy Urology Med:Tamsulosin Antibiotic Allergy: None Blood Thinner: Apixaban Pharmacy: [facility] Disposable Cystoscope lot:[id number] exp:10/26/2024 Director Of Home Care Hospice Required: No Accompanied by: Significant Other Allergies pravastatin Allergy (Unknown, Verified 07/14/23 15:35) LEG RASH HPI HPI Comments History of Present Illness Details Elton is a pleasant male. He is a patient of . 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 3 week gemcitabine Cytology - 04/06 NAD Therapeutic Plan - surveillance PFS Medical History Diabetes On anticoagulant therapy On beta cierra at home Psoriasis Enlarged prostate History of COVID-19 Bladder cancer Eczema craquele Cardiomyopathy Non-rheumatic aortic stenosis PAF (paroxysmal atrial fibrillation) Afib Essential (primary) hypertension Hypertension Normally functioning cardiac pacemaker present Surgical History History of transurethral resection of bladder tumor (TURBT) History of bladder surgery Hx of right inguinal hernia repair Total knee replacement status History of pacemaker Family History Father No problems noted. Mother No problems noted. Daughter In good health Social History Household Members: Spouse Housing: Apartment Do you presently have visiting nurse or other home services: No Alcohol intake: never Patient Tobacco Use Status: Never used Tobacco e-Cigarette/Vaping Use: Never Used Second Hand Smoke Exposure: No service: No Current occupational status: employed and retired Cognitive needs: No Hearing needs: No Vision needs: Yes (glasses) Review of Systems Const Denies chills and Denies fever(s) Card Reports no additional complaints and Denies syncope Resp Denies cough GI Denies abdominal pain and Denies heartburn Reports as per HPI and Denies change in libido Neuro Denies syncope Psych Denies change in libido Endo Denies change in libido Physical Exam Const General: cooperative, healthy appearing, comfortable and no acute distress Orientation/consciousness: patient oriented x3 HEENT Face and sinus: Yes normal facial exam Mouth: moist mucous membranes Neck Neck: Yes normal visual inspection, Yes full ROM and Yes trachea midline Chest Chest palpation & inspection: normal inspection of the chest Resp Effort & Inspection: normal respiratory effort, able to speak in complete sentences and no respiratory distress GI Inspection: Yes normal to inspection Back/Spine/Pelvis Cervical Spine: normal cervical lordosis Thoracic/Lumbar Spine: thoracic and lumbar spine normal to inspection Skin General skin exam: no rashes or lesions noted Neuro General: patient oriented x3, gait normal, tone normal and moves all extremities Extrem General: Yes normal to inspection and Yes capillary refill normal Office Procedures Cystoscopy Consent Discussed risk and benefit or proposed procedure with the patient. Information consent for procedure given to the patient. Discussed technical aspects, risks, benefits and alternatives in full. Addressed all of the patient's questions and concerns regarding the procedure. The patient demonstrated knowledge and understanding. They wish to proceed with this procedure. Preparation The patient was prepped in the usual manner. A back tufter was present and in the room. Genitalia was prepped with betadine solution in a sterile manner. Lidocaine Jelly 2% was placed into the urethra and 16Fr flexible Olympus cystoscope was inserted into the meatus after adequate lubrication. Procedure Meatus circumcised Urethra anterior and posterior urethra normal Prostatic Urethra unremarkable Bladder examination with retroflexion of cystoscope Bladder Orifices normal shape and position Bladder Capacity medium Trabeculations - Cellule Formation - Diverticulum Formation - Mucosal Erythema - Bladder Tumor - [id number] DISPOSABLE SCOPE URO-G FLEXIBLE SCOPE Procedure code (CPT) selection complete Office Meds lidocaine HCl 2 % mucosal jelly in applicator Performing Provider: Adalid Barrett MD Performing Location: [facility] [place] [facility] Administered by: Ghislaine Nelson RN on 07/14/23 15:18 Dose Route Admin Location Dispensed Lot Number Expiration Date [employer] 10 mL intra-urethral 10 mL nitrofurantoin monohydrate/macrocrystals 100 mg capsule Performing Provider: Adalid Barrett MD Performing Location: [facility] [place] [facility] Administered by: Ghislaine Nelson RN on 07/14/23 15:18 Dose Route Admin Location Dispensed Lot Number Expiration Date [employer] 100 mg PO 1 cap naproxen 500 mg tablet Performing Provider: Adalid Barrett MD Performing Location: [facility] [place] [facility] Administered by: Ghislaine Nelson RN on 07/14/23 15:18 2 Dose Route Admin Location Dispensed Lot Number Expiration Date [employer] 500 mg PO 1 tab Results AMB Urinalysis, Automated UA Leukoctes 70 Mata/uL Last Edit by Dana Gomes [facility] on 07/14/23 15:14 UA Nitrite Negative Last Edit by Dana Gomes [facility] on 07/14/23 15: 14 UA Urobilinogen 0.2 mg/dL Last Edit by Dana Gomes [facility] [address] on 4 15:14 UA Protein 15 mg/dL Last Edit by Dana Gomes [facility] [address] on 07/14/23 15:1 4 UA pH 6.0 Last Edit by Dana Gomes [facility] on 07/14/23 15:14 UA Blood 25 Bud/uL Last Edit by Dana Gomes [facility] [address] on 07/14/23 15:14 UA Specific [place] 1.020 Last Edit by Dana Gomes [facility] on 15:14 UA Ketone Negative Last Edit by Dana Gomes CMA on 07/14/23 15:1 4 UA Bilirubin 1 mg/dL Last Edit by Dana Gomes [facility] on 07/14/23 15: 14 UA Glucose 0 mg/dL Last Edit by Dana Gomes CMA on 07/14/23 15:14 Results Reviewed Results Reviewed: Laboratory Last Values Urine pH (Auto) 6.0 07/14/23 15:12 Specific [place] (Auto) 1.020 07/14/23 15:12 Urine Protein (Auto) 15 mg/dL 07/14/23 15:12 Glucose (UA)(Auto) 0 mg/dL 07/14/23 15:12 Urine Ketones (Auto) Negative 07/14/23 15:12 Urine Blood (Auto) 25 Bud/uL 07/14/23 15:12 Urine Nitrite (Auto) Negative 07/14/23 15:12 Urine Bilirubin (Auto) 1 mg/dL 07/14/23 15:12 Urine Urobilinogen (Auto) 0.2 mg/dL 07/14/23 15:12 Leukocyte Esterase (Auto) 70 Mata/uL 07/14/23 15:12 Assessment & Plan Assessment & Plan (1) Bladder cancer: Comment: 09/04 - high-grade T1 Code(s): C67.9 - Malignant neoplasm of bladder, unspecified Qualifiers: Bladder location: posterior wall Qualified Code(s): C67.4 - Malignant neoplasm of posterior wall of bladder Plan Three-month follow-up cystoscopy Orders: Orders AMB Urinalysis Automated 07/14/23 R33.9 - Retention of urine, unspecified FISH Bladder Cancer 07/14/23 C67.9 - Malignant neoplasm of bladder, unspecified AMB Cystoscopy 07/14/23 C67.9 - Malignant neoplasm of bladder, unspecified Patient Instructions: Imaging studies, laboratory and physical exam results were discussed and reviewed in detail. No major barriers to patient understanding were identified. An opportunity to ask questions regarding the treatment plan was provided. All questions were answered. The patient expressed understanding and agreement with the above treatment plan. The patient is aware they should contact our office by phone for worsening of their current condition or the appearance of new urologic symptoms. Compliance is encouraged with any medications and followup testing that is ordered. It is a privilege to participate in the urologic care of your patient. If you have any questions or concerns regarding treatment for the above conditions, or other urologic issues, please do not hesitate to contact me. The office telephone contact is [phone]. This note is constructed using voice recognition software. While every effort has been made to ensure accuracy grain combine driver errors may have been included. Yours sincerely, Dr Adalid Barrett MD, [facility] - Urology Providers of Expert, Compassionate Care for the Genitourinary System Coding Level of Care Code Est Pt Level 3 (19884) Diagnoses Malignant neoplasm of posterior wall of urinary bladder C67.4 Bladder location: posterior wall CPT Codes Cystoscopy - CPT: 22712-[id number] ([id number])
== END 2023-07-14 15:39 | disposition home or self-care (01) ==
PROVIDERS: PCP Internal Medicine; Visit Provider Urology
DX: R33.9 Retention of urine, unspecified (principal); C67.9 Malignant neoplasm of bladder, unspecified
CPT/HCPCS: 52000; 99213

== ENCOUNTER 2023-07-14 14:58 | Outpatient (REF) | payer MEDICARE, SELFPAY | END 2023-07-14 14:59 | disposition home or self-care (01) | LOC: HO.LNP 14:58 | PROVIDERS: PCP Internal Medicine; Visit Provider Urology | DX: C67.4 Malignant neoplasm of posterior wall of bladder (principal); R33.9 Retention of urine, unspecified; Z79.01 Long term (current) use of anticoagulants; Z79.899 Other long term (current) drug therapy | CPT/HCPCS: 52000; 81003; 88121; 99212 ==

== ENCOUNTER 2023-09-07 13:18 | Outpatient (REF) | payer MEDICARE, SELFPAY ==
[2023-09-07 15:19] LABS: Anion Gap 12 (12-20); Blood Urea Nitrogen 27 mg/dL (9-16); Calcium 9.3 mg/dL (8.4-10.2); Carbon Dioxide 26 mmol/L (22-29); Chloride 106 mmol/L (96-108); Estimated Glomerular Filt Rate 31; Glucose Random 109 mg/dL (60-115); Potassium 4.2 mmol/L (3.3-5.1); Sodium 140 mmol/L (135-145)
== END 2023-09-07 13:19 | disposition home or self-care (01) ==
LOC: HO.LAB 13:18
PROVIDERS: PCP Internal Medicine; Visit Provider Internal Medicine
DX: I48.0 Paroxysmal atrial fibrillation (principal); I25.5 Ischemic cardiomyopathy; I35.0 Nonrheumatic aortic (valve) stenosis; I12.9 Hypertensive chronic kidney disease with stage 1 through stage 4 chronic kidney disease, or unspecified chronic kidney disease; N18.9 Chronic kidney disease, unspecified; Z45.018 Encounter for adjustment and management of other part of cardiac pacemaker; Z79.899 Other long term (current) drug therapy
CPT/HCPCS: 36415; 80048; 93005; 93280; 99212

== ENCOUNTER 2023-09-07 13:18 | Outpatient (AMB) | payer MEDICARE, SELFPAY ==
--- NOTE | 2023-09-07 13:30 | A.OFFVIS_ITS ---
Intake Vital Signs 09/07/23 13:31 Height 5 ft 11 in BMI Reason not done Patient refused/unable BP 128/54 L Blood Pressure Location Lt brachial Position Sitting Pulse 60 Intake Visit Reasons: 6 mth w/ biotronic ck Intake Note: 6 month follow up w/ device check Drainlayer Required: No Accompanied by: Self / Same As Patient Allergies pravastatin Allergy (Unknown, Verified 09/07/23 13:30) LEG RASH Medication List - Last Reconciled 09/07/23 by Mat Manriquez MD amlodipine 5 mg PO DAILY apixaban 2.5 mg PO .Q daily atorvastatin 20 mg PO BEDTIME benzonatate 100 mg PO BID-TID PRN betamethasone dipropionate 0.05% 2 appl topical BID blood sugar diagnostic (FreeStyle Test strips) Test 2 times daily lancets (FreeStyle Lancets) Test 2 times daily lisinopril 40 mg PO DAILY meclizine 12.5 mg PO DAILY PRN metformin 500 mg PO DAILY metoprolol succinate ER 100 mg (2 x 50 mg) PO DAILY 90 days pantoprazole 40 mg PO DAILY tamsulosin 0.4 mg PO BID 90 days HPI HPI Comments History of Present Illness Details Neal returns for follow-up. He states he is doing fine. No complaints like angina or shortness of breath or in fact anything cardiac sounding. Seems to be getting along okay. [facility] Medical History Diabetes On anticoagulant therapy On beta cierra at home Psoriasis Enlarged prostate History of COVID-19 Bladder cancer Eczema craquele Cardiomyopathy Non-rheumatic aortic stenosis PAF (paroxysmal atrial fibrillation) Afib Essential (primary) hypertension Hypertension Normally functioning cardiac pacemaker present Surgical History History of transurethral resection of bladder tumor (TURBT) History of bladder surgery Hx of right inguinal hernia repair Total knee replacement status History of pacemaker Family History Father No problems noted. Mother No problems noted. Daughter In good health Social History Household Members: Spouse Housing: Apartment Do you presently have visiting nurse or other home services: No Alcohol intake: never Patient Tobacco Use Status: Never used Tobacco e-Cigarette/Vaping Use: Never Used Second Hand Smoke Exposure: No service: No Current occupational status: employed and retired Cognitive needs: No Hearing needs: No Vision needs: Yes (glasses) Review of Systems Const Denies weakness ENT Denies dizziness Card Denies chest pain with activity, Denies syncope, Denies rapid heart rate, Denies pedal edema, Denies edema, Denies leg edema, Denies lightheadedness, Denies palpitations, Denies dyspnea, Denies dyspnea on exertion and Denies orthopnea Resp Denies cough, Denies dyspnea and Denies dyspnea on exertion GI Denies hematochezia and Denies change in stool character Musc Denies abnormal gait, Denies muscle cramps, Denies muscle weakness, Denies numbness, Denies radiating pain into limb and Denies tingling Neuro Denies abnormal gait, Denies dizziness, Denies syncope, Denies numbness, Denies tingling and Denies weakness Endo Denies palpitations Physical Exam Vital Signs: Last Vital Signs Pulse 60 09/07/23 13:31 BP 128/54 L 09/07/23 13:31 Const General: comfortable and no acute distress Orientation/consciousness: patient oriented x3 HEENT Other: Unremarkable Head: Yes normal to inspection Neck Neck: Yes normal visual inspection Chest Chest palpation & inspection: normal inspection of the chest Resp Auscultation: clear to auscultation bilaterally Cardio Palpation: normal PMI Heart sounds: S1 normal heart sound present, S2 normal heart sound present, no gallops, no murmurs and no rubs GI Palpation (GI): Soft to palpation Back/Spine/Pelvis Other: unremarkable Skin General skin exam: no rashes or lesions noted Neuro General: patient oriented x3 Extrem General: Yes normal to inspection Psych Mental Status: mental status grossly normal Office Procedures Cardiac Device Check Cardiac Device Check Details: Pacemaker interrogated today. Dual-chamber device, programmed DDDR mode. Battery status 5 years in 6 months. Normal lead parameters. Atrial pacing 39% ventricular 63%. Brief atrial fibrillation. Overall, normal device function. [id number] Cardiac Device Check, pacemaker dual lead Procedure code (CPT) selection complete EKG Details: EKG with atrial paced rhythm. Not clear if it is ventricular paced or left bundle-branch block. [id number], Complete Assessment & Plan Assessment & Plan (1) PAF (paroxysmal atrial fibrillation): Code(s): I48.0 - Paroxysmal atrial fibrillation Plan: Continue metoprolol and Eliquis. Check BMP. (2) Cardiomyopathy: Code(s): I42.9 - Cardiomyopathy, unspecified Qualifiers: Cardiomyopathy type: ischemic Qualified Code(s): I25.5 - Ischemic cardiomyopathy Plan: Echocardiogram in the past with LVEF of 45-50% with inferior akinesis. Myocardial perfusion imaging study shows no ischemia. Infarct in the inferior wall. Clinically stable with no symptoms. (3) Non-rheumatic aortic stenosis: Code(s): I35.0 - Nonrheumatic aortic (valve) stenosis Plan: In 2021, had mild aortic stenosis. May recheck with next visit. (4) Essential (primary) hypertension: Code(s): I10 - Essential (primary) hypertension Plan: Stable. (5) CKD (chronic kidney disease): Code(s): N18.9 - Chronic kidney disease, unspecified Plan: Last creatinine from March 2023 was 1.97. Needs recheck. If necessary, refer to Nephrology. Orders: Orders CA echo transthoracic complete 6 Months I35.0 - Nonrheumatic aortic (valve) stenosis Basic Metabolic Panel Today N18.9 - Chronic kidney disease, unspecified Coding Level of Care Code Est Pt Level 4 (75829) Diagnoses PAF (paroxysmal atrial fibrillation) I48.0 Ischemic cardiomyopathy I25.5 Cardiomyopathy type: ischemic Non-rheumatic aortic stenosis I35.0 Essential (primary) hypertension I10 CKD (chronic kidney disease) N18.9 CPT Codes Cardiac Device Check - Cardiac Device 2: [id number] Cardiac Device Check, pacemaker dual lead ([id number]) EKG - CPT: 57341-[id number], Complete ([id number])
[2023-09-07 13:31] VITALS: BP 128/54; PULSE 60
== END 2023-09-07 13:48 | disposition home or self-care (01) ==
PROVIDERS: PCP Internal Medicine; Visit Provider Internal Medicine
DX: I48.0 Paroxysmal atrial fibrillation (principal); I25.5 Ischemic cardiomyopathy; I35.0 Nonrheumatic aortic (valve) stenosis; I12.9 Hypertensive chronic kidney disease with stage 1 through stage 4 chronic kidney disease, or unspecified chronic kidney disease; N18.9 Chronic kidney disease, unspecified
CPT/HCPCS: 93010; 93280; 99214

== ENCOUNTER → 2023-09-15 23:59 | Outpatient (BNV) | payer MEDICARE, SELFPAY ==
--- NOTE | 2023-09-17 12:26 | A.OFFVIS_ITS ---
Intake Intake Visit Reasons: Remote Device Check- [employer] Allergies pravastatin Allergy (Unknown, Verified 09/16/23 13:31) LEG RASH PFSH Medical History Diabetes On anticoagulant therapy On beta cierra at home Psoriasis Enlarged prostate History of COVID-19 Bladder cancer Eczema craquele Cardiomyopathy Non-rheumatic aortic stenosis PAF (paroxysmal atrial fibrillation) Afib Essential (primary) hypertension Hypertension Normally functioning cardiac pacemaker present Surgical History History of transurethral resection of bladder tumor (TURBT) History of bladder surgery Hx of right inguinal hernia repair Total knee replacement status History of pacemaker Family History Father No problems noted. Mother No problems noted. Daughter In good health Social History Household Members: Spouse Housing: Apartment Do you presently have visiting nurse or other home services: No Alcohol intake: never Patient Tobacco Use Status: Never used Tobacco e-Cigarette/Vaping Use: Never Used Second Hand Smoke Exposure: No service: No Current occupational status: employed and retired Cognitive needs: No Hearing needs: No Vision needs: Yes (glasses) Office Procedures Cardiac Device Check Cardiac Device Check Details: Date of service- 09/15/2023 ; Battery life 55%; normal lead parameters; AP 43%; LOOSE HAND PACKER 94%; atrial burden 17%. No high ventricular rates. Overall, normal device function. [id number] Cardiac Device Interrogation, pacemaker Procedure code (CPT) selection complete Assessment & Plan Assessment & Plan (1) PAF (paroxysmal atrial fibrillation): Code(s): I48.0 - Paroxysmal atrial fibrillation Plan x Coding Level of Care Code Procedure Only Diagnoses PAF (paroxysmal atrial fibrillation) I48.0 CPT Codes Cardiac Device Check - Cardiac Device 12: [id number] Cardiac Device Interrogation, pacemaker ([id number])
== END ==
PROVIDERS: PCP Internal Medicine; Visit Provider Internal Medicine
DX: I48.0 Paroxysmal atrial fibrillation (principal); Z95.0 Presence of cardiac pacemaker
CPT/HCPCS: 93294

== ENCOUNTER 2023-09-16 13:15 | Outpatient (AMB) | payer MEDICARE, SELFPAY ==
[2023-09-16 13:29] VITALS: BP 148/60; PULSE 60; O2SAT 98; BMI 26.2
--- NOTE | 2023-09-16 13:29 | HO.NEPHOV ---
Vital Signs 09/16/23 13:29 Height 5 ft 11 in Weight 188 lb 2 oz BMI 26.2 BP 148/60 H Blood Pressure Location Lt brachial Position Sitting Pulse 60 Pulse Source Pulse Oximeter Pulse Oximetry (%) 98 Oxygen Delivery Method Room Air Intake Visit Reasons: CKD/ Confirmed Cobol Mainframe Developer Required: No Accompanied by: Spouse Allergies pravastatin Allergy (Unknown, Verified 10/08/23 15:30) LEG RASH HPI Comments Details: I had the privilege of seeing Elton who is a 88-year-old male, in consultation for his acute on chronic kidney disease. He has been a diabetic and has been on metformin. He has ischemic cardiomyopathy and has been on CARLOS inhibitor. He is known to have aortic stenosis. He has been feeling dizzy couple of hours after his medication taken in the morning. He denies any hypoglycemia, chest pain, shortness of breath, paroxysmal nocturnal dyspnea, orthopnea, pedal edema or urinary symptoms. He denies any nausea, vomiting, diarrhea, hematuria, sore throat, orthostatic symptoms, sinusitis or any new systemic complaints. He has been taking PPI for a long time. He has prostatic symptoms and takes tamsulosin. He has history of atrial fibrillation with good heart rate control now. He remains on anticoagulation. His serum creatinine has gone up lately. [facility] Medical History Diabetes On anticoagulant therapy On beta cierra at home Psoriasis Enlarged prostate History of COVID-19 Bladder cancer Eczema craquele Cardiomyopathy Non-rheumatic aortic stenosis PAF (paroxysmal atrial fibrillation) Afib Essential (primary) hypertension Hypertension Normally functioning cardiac pacemaker present Surgical History History of transurethral resection of bladder tumor (TURBT) History of bladder surgery Hx of right inguinal hernia repair Total knee replacement status History of pacemaker Family History Father No problems noted. Mother No problems noted. Daughter In good health Social History Household Members: Spouse Housing: Apartment Do you presently have visiting nurse or other home services: No Alcohol intake: never Patient Tobacco Use Status: Never used Tobacco e-Cigarette/Vaping Use: Never Used Second Hand Smoke Exposure: No service: No Current occupational status: employed and retired Cognitive needs: No Hearing needs: No Vision needs: Yes (glasses) Physical Exam Vital Signs: Last Vital Signs Pulse 60 09/16/23 13:29 BP 148/60 H 09/16/23 13:29 Pulse Ox 98 09/16/23 13:29 Oxygen Delivery Method Room Air 09/16/23 13:29 BMI result Body Mass Index 26.2 Const General: comfortable and no acute distress Orientation/consciousness: patient oriented x3 HEENT Head: Yes normocephalic Mouth: Normal oral and palatal mucosa present Eyes EOM: EOMs intact bilaterally Neck Neck: Yes supple Resp Auscultation: clear to auscultation bilaterally Cardio Jugular venous distension: no JVD Rate: regular rate Heart sounds: Murmur heart sound present GI Palpation (GI): Soft to palpation Auscultation: normal bowel sounds General: Yes no CVA tenderness Back/Spine/Pelvis Back: no CVA tenderness Skin General skin exam: no rashes or lesions noted Neuro General: patient oriented x3 and moves all extremities Results Reviewed Nephrology Results: Sodium 140 mmol/L (135-145) 09/07/23 Potassium 4.2 mmol/L (3.3-5.1) 09/07/23 Chloride 106 mmol/L (96-108) 09/07/23 Carbon Dioxide 26 mmol/L (22-29) 09/07/23 BUN 27 mg/dL (9-16) H 09/07/23 Creatinine 2.01 mg/dL (0.5-1.4) H 09/07/23 Calcium 9.3 mg/dL (8.4-10.2) 09/07/23 Assessment & Plan Assessment & Plan (1) Acute kidney injury superimposed on CKD: Code(s): N17.9 - Acute kidney failure, unspecified; N18.9 - Chronic kidney disease, unspecified Category: Medical (2) CKD (chronic kidney disease) stage 3, GFR 30-59 ml/min: Code(s): N18.30 - Chronic kidney disease, stage 3 unspecified Category: Medical Qualifiers: Chronic kidney disease stage 3 subtype: stage 3b (GFR 30-44) Qualified Code(s): N18.32 - Chronic kidney disease, stage 3b (3) Essential (primary) hypertension: Code(s): I10 - Essential (primary) hypertension Category: Medical Plan Elton has RASHEEDA on CKD likely due to tubular injury. He is known to have chronic kidney disease stage 3 at baseline which has been slowly progressive. He has prostatic symptoms. He is on tamsulosin. I have ordered renal ultrasound to rule out hydronephrosis. He has not known to have any significant proteinuria. He denies any new systemic complaints. He has history of aortic stenosis and takes CARLOS inhibitor. I wonder whether he has any renal hypoperfusion due to his current cardiac status. I have ordered extensive workup. I may cut back on his CARLOS inhibitor to see whether that will improve his serum creatinine. I did not make any medication changes at this visit but rather discussed the etiologies, investigations and management strategies of his RASHEEDA on CKD. All questions answered. Follow-up appointment given Orders: Orders IRON PROFILE 09/16/23 N18.30 - Chronic kidney disease, stage 3 unspecified, N17.9 - Acute kidney failure, unspecified, N18.9 - Chronic kidney disease, unspecified, I10 - Essential (primary) hypertension Creatinine 09/16/23 N18.30 - Chronic kidney disease, stage 3 unspecified, N17.9 - Acute kidney failure, unspecified, N18.9 - Chronic kidney disease, unspecified, I10 - Essential (primary) hypertension Blood Urea Nitrogen 09/16/23 N18.30 - Chronic kidney disease, stage 3 unspecified, N17.9 - Acute kidney failure, unspecified, N18.9 - Chronic kidney disease, unspecified, I10 - Essential (primary) hypertension Electrolytes 09/16/23 N18.30 - Chronic kidney disease, stage 3 unspecified, N17.9 - Acute kidney failure, unspecified, N18.9 - Chronic kidney disease, unspecified, I10 - Essential (primary) hypertension Phosphorus 09/16/23 N18.30 - Chronic kidney disease, stage 3 unspecified, N17.9 - Acute kidney failure, unspecified, N18.9 - Chronic kidney disease, unspecified, I10 - Essential (primary) hypertension Immunofixation Pnl, Serum 09/16/23 N18.30 - Chronic kidney disease, stage 3 unspecified, N17.9 - Acute kidney failure, unspecified, N18.9 - Chronic kidney disease, unspecified, I10 - Essential (primary) hypertension Parathyroid Hormone Intact 09/16/23 N18.30 - Chronic kidney disease, stage 3 unspecified, N17.9 - Acute kidney failure, unspecified, N18.9 - Chronic kidney disease, unspecified, I10 - Essential (primary) hypertension US renal doppler 09/16/23 N18.30 - Chronic kidney disease, stage 3 unspecified, N17.9 - Acute kidney failure, unspecified, N18.9 - Chronic kidney disease, unspecified, I10 - Essential (primary) hypertension ANCA Vasculitides 09/16/23 N18.30 - Chronic kidney disease, stage 3 unspecified, N17.9 - Acute kidney failure, unspecified, N18.9 - Chronic kidney disease, unspecified Complete Blood Count Auto Diff 09/16/23 N18.30 - Chronic kidney disease, stage 3 unspecified, N17.9 - Acute kidney failure, unspecified, N18.9 - Chronic kidney disease, unspecified, I10 - Essential (primary) hypertension Calcium 09/16/23 N18.30 - Chronic kidney disease, stage 3 unspecified, N17.9 - Acute kidney failure, unspecified, N18.9 - Chronic kidney disease, unspecified, I10 - Essential (primary) hypertension Vitamin D 25-OH Total 09/16/23 N18.30 - Chronic kidney disease, stage 3 unspecified, N17.9 - Acute kidney failure, unspecified, N18.9 - Chronic kidney disease, unspecified, I10 - Essential (primary) hypertension US renal BI 09/16/23 N17.9 - Acute kidney failure, unspecified, N18.9 - Chronic kidney disease, unspecified, N18.30 - Chronic kidney disease, stage 3 unspecified, I10 - Essential (primary) hypertension Coding Level of Care Code New Pt Level 4 (06096) Diagnoses Acute kidney injury superimposed on CKD N17.9; N18.9 Stage 3b chronic kidney disease N18.32 Chronic kidney disease stage 3 subtype: stage 3b (GFR 30-44) Essential (primary) hypertension I10
== END 2023-09-16 14:17 | disposition home or self-care (01) ==
LOC: HO.HKA 13:15
PROVIDERS: PCP Internal Medicine; Visit Provider Internal Medicine Nephrology
DX: N17.9 Acute kidney failure, unspecified (principal); I12.9 Hypertensive chronic kidney disease with stage 1 through stage 4 chronic kidney disease, or unspecified chronic kidney disease; N18.9 Chronic kidney disease, unspecified; N18.32 Chronic kidney disease, stage 3b
CPT/HCPCS: 99204

== ENCOUNTER → 2023-09-16 13:15 | Outpatient (BNVA) | payer MEDICARE, SELFPAY | PROVIDERS: PCP Internal Medicine; Visit Provider Internal Medicine Nephrology | DX: I12.9 Hypertensive chronic kidney disease with stage 1 through stage 4 chronic kidney disease, or unspecified chronic kidney disease (principal); E11.22 Type 2 diabetes mellitus with diabetic chronic kidney disease; N18.31 Chronic kidney disease, stage 3a; N17.9 Acute kidney failure, unspecified; I25.5 Ischemic cardiomyopathy; I35.0 Nonrheumatic aortic (valve) stenosis; Z79.84 Long term (current) use of oral hypoglycemic drugs | CPT/HCPCS: 99202 ==

== ENCOUNTER 2023-10-08 15:23 | Outpatient (AMB) | payer MEDICARE, SELFPAY ==
--- NOTE | 2023-10-08 15:29 | A.OFFPC_ITS ---
Vital Signs 10/08/23 15:30 Height 5 ft 11 in Weight 192 lb BMI 26.8 BP 120/66 Blood Pressure Location Lt brachial Position Sitting Pulse 74 Pulse Source Pulse Oximeter Pulse Oximetry (%) 96 Oxygen Delivery Method Room Air Intake Visit Reasons: 3 month f/u Intake Note: Patient is here to follow up on CKD,DM, HTN, PAF. Crystalizer Tender Required: No Urgent Care Physician Assistant: Not Required per policy Accompanied by: Self / Same As Patient Allergies pravastatin Allergy (Unknown, Verified 10/15/23 07:01) LEG RASH Medication List - Last Reconciled 10/15/23 by Darrius Garcia MD amlodipine 5 mg PO DAILY apixaban 5 mg PO DAILY atorvastatin 20 mg PO BEDTIME betamethasone dipropionate 0.05% 2 appl topical BID blood sugar diagnostic (FreeStyle Test strips) Test 2 times daily lancets (FreeStyle Lancets) Test 2 times daily levofloxacin 250 mg PO DAILY 10 days lisinopril 40 mg PO DAILY meclizine 12.5 mg PO DAILY PRN metformin 500 mg PO DAILY metoprolol succinate ER 100 mg (2 x 50 mg) PO DAILY 90 days pantoprazole 40 mg PO DAILY tamsulosin 0.4 mg PO BID 90 days Tobacco use date assessed: 10/08/23 Fall risk assessment: No Falls in past year Last assessed Fall Risk: 10/08/23 Dental Screening Dental Screen Date: 07/02/23 HPI 3 month f/u HPI Details 88 yr old male presents to the office to discuss his chronic medical conditions. Patient is at baseline state of health. Compliant with medications and not reporting any side effects. Able to function and do all ADL's. [facility] Medical History Diabetes On anticoagulant therapy On beta cierra at home Psoriasis Enlarged prostate History of COVID-19 Bladder cancer Eczema craquele Cardiomyopathy Non-rheumatic aortic stenosis PAF (paroxysmal atrial fibrillation) Afib Essential (primary) hypertension Hypertension Normally functioning cardiac pacemaker present Surgical History History of transurethral resection of bladder tumor (TURBT) History of bladder surgery Hx of right inguinal hernia repair Total knee replacement status History of pacemaker Family History Father No problems noted. Mother No problems noted. Daughter In good health Social History Household Members: Spouse Housing: Apartment Do you presently have visiting nurse or other home services: No Alcohol intake: never Patient Tobacco Use Status: Never used Tobacco e-Cigarette/Vaping Use: Never Used Second Hand Smoke Exposure: No service: No Current occupational status: employed and retired Cognitive needs: No Hearing needs: No Vision needs: Yes (glasses) Questionnaire Thrive Questionnaire Date Thrive assessed: 07/02/23 MALKA-7 AMB Questionnaire MALKA-7 Date MALKA - 7 assessed: 07/02/23 Source: Developed by Drs. Angel Rodríguez, Sandra Nickerson, Placido Tubbs and colleagues, with an educational bhavana from [employer]. Physical exam (Primary Care) Vital Signs: Last Vital Signs Pulse 74 10/08/23 15:30 BP 120/66 10/08/23 15:30 Pulse Ox 96 10/08/23 15:30 Oxygen Delivery Method Room Air 10/08/23 15:30 BMI result Body Mass Index 26.8 Tobacco/Smoking Status: Tobacco use Status Tobacco use date assessed 10/08/23 10/08/23 15:38 Patient Tobacco Use Status Never used Tobacco 10/08/23 15:38 e-Cigarette/Vaping Use Never Used 10/08/23 15:38 Thrive Assessment: Date of Thrive Assessment Date Thrive assessed 07/02/23 10/08/23 15:38 Const General: cooperative and healthy appearing Nutritional Appearance: well nourished Orientation/consciousness: patient oriented x3 Limitations: no limitations HENMT Head: Yes normal to inspection Eyes General: appearance normal, both eyes and all related structures Neck Neck: Yes normal visual inspection Chest Chest palpation & inspection: normal palpation of entire chest wall Resp Effort & Inspection: normal respiratory effort Neuro General: patient oriented x3 Results AMB Hemoglobin A1c AMB Hemoglobin A1c 7.0 % Last Edit by ELIE Freitas on 10/08/23 15:52 Results Reviewed Results Reviewed: Laboratory Last Values Hgb A1c (Clinic) 7.0 % (4.0-6.0) H 10/08/23 15:29 Assessment and Plan Assessment & Plan (1) Diabetes mellitus: Code(s): E11.9 - Type 2 diabetes mellitus without complications Plan: BW revd. A1c is in range. Continue medications at same dosage. Orders: Orders AMB Hemoglobin A1c 10/08/23 E11.9 - Type 2 diabetes mellitus without complications Coding Level of Care Code Est Pt Level 3 (22638) Diagnoses Diabetes mellitus E11.9
[2023-10-08 15:30] VITALS: BP 120/66; PULSE 74; O2SAT 96; BMI 26.8
== END 2023-10-08 16:25 | disposition home or self-care (01) ==
PROVIDERS: PCP Internal Medicine; Visit Provider Internal Medicine
DX: E11.9 Type 2 diabetes mellitus without complications (principal)
CPT/HCPCS: 83036; 99213

== ENCOUNTER 2023-10-09 13:57 | Outpatient (AMB) | payer MEDICARE, SELFPAY ==
--- NOTE | 2023-10-09 14:08 | MHC.OFFVIS ---
Intake Visit Reasons: cysto Intake Note: Patient is Present for Cystoscopy Urology Med: Antibiotic Allergy: Blood Thinner: URO- G Disposable Cystoscope lot: [id number] exp: 04/23/2024 Allergies pravastatin Allergy (Unknown, Verified 10/08/23 15:30) LEG RASH HPI Comments Details: Elton is a pleasant male. He is a patient of . 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 present - 11/04 6 week induction - 04/06 3 week gemcitabine Cytology - 04/06 NAD Therapeutic Plan - surveillance PFSH Medical History Diabetes On anticoagulant therapy On beta cierra at home Psoriasis Enlarged prostate History of COVID-19 Bladder cancer Eczema craquele Cardiomyopathy Non-rheumatic aortic stenosis PAF (paroxysmal atrial fibrillation) Afib Essential (primary) hypertension Hypertension Normally functioning cardiac pacemaker present Surgical History History of transurethral resection of bladder tumor (TURBT) History of bladder surgery Hx of right inguinal hernia repair Total knee replacement status History of pacemaker Family History Father No problems noted. Mother No problems noted. Daughter In good health Social History Household Members: Spouse Housing: Apartment Do you presently have visiting nurse or other home services: No Alcohol intake: never Patient Tobacco Use Status: Never used Tobacco e-Cigarette/Vaping Use: Never Used Second Hand Smoke Exposure: No service: No Current occupational status: employed and retired Cognitive needs: No Hearing needs: No Vision needs: Yes (glasses) Office Procedures Cystoscopy Consent Discussed risk and benefit or proposed procedure with the patient. Information consent for procedure given to the patient. Discussed technical aspects, risks, benefits and alternatives in full. Addressed all of the patient's questions and concerns regarding the procedure. The patient demonstrated knowledge and understanding. They wish to proceed with this procedure. Preparation The patient was prepped in the usual manner. A sales force administrator was present and in the room. Genitalia was prepped with betadine solution in a sterile manner. Lidocaine Jelly 2% was placed into the urethra and 16Fr flexible Olympus cystoscope was inserted into the meatus after adequate lubrication. Procedure Cystoscopy performed using a disposable Urovue digital 16 Brazilian cystoscope. Meatus circumcised Urethra anterior and posterior urethra normal Prostatic Urethra unremarkable Bladder examination with retroflexion of cystoscope Bladder Orifices normal shape and position Bladder Capacity large Trabeculations grade 2/3 Cellule Formation - Diverticulum Formation - Mucosal Erythema irritation around bladder consistent with chronic cystitis Bladder Tumor - [id number]-[id number] DISPOSABLE SCOPE URO-G FLEXIBLE SCOPE Procedure code (CPT) selection complete Office Meds lidocaine HCl 2 % mucosal jelly in applicator Performing Provider: Adalid Barrett MD Performing Location: [facility] Administered by: Ghislaine Nelson RN on 10/09/23 14:26 Dose Route Admin Location Dispensed Lot Number Expiration Date ND Certified Registered Nurse Practitioner 10 mL intra-urethral 10 mL nitrofurantoin monohydrate/macrocrystals 100 mg capsule Performing Provider: Adalid Barrett MD Performing Location: [facility] Administered by: Ghislaine Nelson RN on 10/09/23 14:26 Dose Route Admin Location Dispensed Lot Number Expiration Date ND Certified Registered Nurse Practitioner 100 mg PO 1 cap naproxen 500 mg tablet Performing Provider: Adalid Barrett MD Performing Location: [facility] Administered by: Ghislaine Nelson RN on 10/09/23 14:26 Dose Route Admin Location Dispensed Lot Number Expiration Date ND Certified Registered Nurse Practitioner 500 mg PO 1 tab Results AMB Urinalysis, Automated UA Leukoctes 500 Mata/uL Last Edit by ELIE Carrington on 10/09/23 14:25 UA Nitrite Negative Last Edit by ELIE Carrington on 10/09/23 14:25 UA Urobilinogen 0.2 mg/dL Last Edit by Stacy Johnson, RMA on 10/09/23 14:25 UA Protein 30 mg/dL Last Edit by Stacy Johnson, RMA on 10/09/23 14:25 UA pH 5.0 Last Edit by Stacy Johnson, RMA on 10/09/23 14:25 UA Blood 10 Bud/uL Last Edit by Stacy Johnson, RMA on 10/09/23 14:25 UA Specific [place]ber 1.020 Last Edit by Stacy Johnson, RMA on 10/09/23 14:25 UA Ketone Negative Last Edit by Stacy Johnson, RMA on 10/09/23 14:25 UA Bilirubin 0 mg/dL Last Edit by Stacy Johnson, RMA on 10/09/23 14:25 UA Glucose 0 mg/dL Last Edit by Stacy Johnson, RMA on 10/09/23 14:25 Results Reviewed Results Reviewed: Laboratory Last Values Urine pH (Auto) 5.0 10/09/23 14:22 Specific [place]ber (Auto) 1.020 10/09/23 14:22 Urine Protein (Auto) 30 mg/dL 10/09/23 14:22 Glucose (UA)(Auto) 0 mg/dL 10/09/23 14:22 Urine Ketones (Auto) Negative 10/09/23 14:22 Urine Blood (Auto) 10 Bud/uL 10/09/23 14:22 Urine Nitrite (Auto) Negative 10/09/23 14:22 Urine Bilirubin (Auto) 0 mg/dL 10/09/23 14:22 Urine Urobilinogen (Auto) 0.2 mg/dL 10/09/23 14:22 Leukocyte Esterase (Auto) 500 Mata/uL 10/09/23 14:22 Assessment & Plan Assessment & Plan (1) Recurrent UTI: Code(s): N39.0 - Urinary tract infection, site not specified Category: Medical (2) Bladder cancer: Comment: 09/04 - high-grade T1 Code(s): C67.9 - Malignant neoplasm of bladder, unspecified Category: Medical Qualifiers: Bladder location: posterior wall Qualified Code(s): C67.4 - Malignant neoplasm of posterior wall of bladder Plan Chronic urinary tract infection Orders: Orders AMB Cystoscopy Today C67.4 - Malignant neoplasm of posterior wall of bladder AMB Urinalysis Automated Today C67.4 - Malignant neoplasm of posterior wall of bladder, Z13.9 - Encounter for screening, unspecified FISH Bladder Cancer Today C67.4 - Malignant neoplasm of posterior wall of bladder Medications: New levofloxacin 250 mg PO DAILY 10 days 10 tabs 0RF N39.0 - Urinary tract infection, site not specified Patient Instructions: Imaging studies, laboratory and physical exam results were discussed and reviewed in detail. No major barriers to patient understanding were identified. An opportunity to ask questions regarding the treatment plan was provided. All questions were answered. The patient expressed understanding and agreement with the above treatment plan. The patient is aware they should contact our office by phone for worsening of their current condition or the appearance of new urologic symptoms. Compliance is encouraged with any medications and followup testing that is ordered. It is a privilege to participate in the urologic care of your patient. If you have any questions or concerns regarding treatment for the above conditions, or other urologic issues, please do not hesitate to contact me. The office telephone contact is [phone]. This note is constructed using voice recognition software. While every effort has been made to ensure accuracy psychiatric mental health nurse errors may have been included. 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
== END 2023-10-09 14:44 | disposition home or self-care (01) ==
PROVIDERS: PCP Internal Medicine; Visit Provider Urology
DX: N39.0 Urinary tract infection, site not specified (principal); C67.4 Malignant neoplasm of posterior wall of bladder; Z13.9 Encounter for screening, unspecified
CPT/HCPCS: 52000; 99214

== ENCOUNTER 2023-10-09 13:57 | Outpatient (REF) | payer MEDICARE, SELFPAY | END 2023-10-09 13:58 | disposition home or self-care (01) | LOC: HO.LAB 13:57 | PROVIDERS: PCP Internal Medicine; Visit Provider Urology | DX: C67.4 Malignant neoplasm of posterior wall of bladder (principal); N39.0 Urinary tract infection, site not specified | CPT/HCPCS: 52000; 81003; 88121; 99212 ==

== ENCOUNTER 2023-10-22 07:27 | Outpatient (REF) | payer MEDICARE, SELFPAY ==
[2023-10-22 07:42] LABS: MANUAL DIFF FLAG NO
[2023-10-22 08:05] LABS: Basophils Percent Auto 0.7 % (0-2); Eosinophils Absolute Auto 0.2 X10*3/uL (0.0-0.4); Eosinophils Percent Auto 3.6 % (0-4); Hemoglobin 12.2 g/dl (14.0-18.0); Imm Gran Abs Auto 0.01 X10*3/uL (0.00-0.03); Imm Gran Pct Auto 0.2 % (0.0-0.4); Lymphocytes Absolute Auto 2.7 X10*3/uL (1.2-4.9); Lymphocytes Percent Auto 45.3 % (20-40); Mean Corpuscular HGB Conc 33.9 g/dl (31.0-36.0); Mean Corpuscular Hemoglobin 30.3 pg (27.0-33.0); Mean Corpuscular Volume 89.3 fL (80.0-98.0); Mean Platelet Volume 9.6 fL (9.4-12.4); Monocytes Absolute Auto 0.5 X10*3/uL (0.1-1.2); Monocytes Percent Auto 9.1 % (2-11); Neutrophils Absolute Auto 2.4 x10*3/uL (2.0-8.3); Neutrophils Percent Auto 41.1 % (45-73); Platelet Count 168 X10*3/uL (160-400); Red Blood Count 4.03 X10*6/uL (4.60-5.80); Red Cell Distribution Width 12.9 % (11.0-16.0); White Blood Count 5.9 X10*3/uL (4.8-10.8)
[2023-10-22 08:34] LABS: Parathyroid Hormone Intact 77.6 pg/mL (8.7-77.1)
[2023-10-22 08:45] LABS: Anion Gap 14 (12-20); Blood Urea Nitrogen 24 mg/dL (9-16); Calcium 9.6 mg/dL (8.4-10.2); Carbon Dioxide 23 mmol/L (22-29); Chloride 108 mmol/L (96-108); Estimated Glomerular Filt Rate 44; Iron 83 mcg/dL (45-160); Percent Iron Saturation 28 % (15-50); Phosphorus 3.2 mg/dL (2.7-4.5); Potassium 4.6 mmol/L (3.3-5.1); Sodium 140 mmol/L (135-145); Total Iron Binding Capacity 292 mcg/dL (228-428); Unsaturated Iron Binding 209 ug/dL
[2023-10-22 08:51] LABS: Vitamin D 25-OH Total 31.9 ng/mL (>30)
[2023-10-23 22:28] LABS: Myeloperoxidase Antibody <1.0 AI; Proteinase 3 PR3 Antibodies <1.0 AI
[2023-10-26 20:28] LABS: IgA 299 mg/dL (70-320); IgG 1121 mg/dL (600-1540); IgM 29 mg/dL (50-300)
== END 2023-10-22 07:28 | disposition home or self-care (01) ==
LOC: HO.LAB 07:27
PROVIDERS: Visit Provider Internal Medicine Nephrology
DX: I12.9 Hypertensive chronic kidney disease with stage 1 through stage 4 chronic kidney disease, or unspecified chronic kidney disease (principal); N18.30 Chronic kidney disease, stage 3 unspecified; N17.9 Acute kidney failure, unspecified
CPT/HCPCS: 36415; 80051; 82306; 82310; 82565; 82784; 83540; 83970; 84100; 84520; 85025; 86021; 86334

== ENCOUNTER 2023-10-23 10:46 | Outpatient (REF) | payer MEDICARE, SELFPAY ==
--- NOTE | ~2023-10-23 | US_ITS ---
EXAMINATION: US RENAL ARTERY DOPPLER CLINICAL INFORMATION: Acute kidney failure COMPARISON: CT abdomen/pelvis dated 07/20/2022 TECHNIQUE: Renal ultrasound. Doppler ultrasound (spectral analysis and color Doppler) of the renal arteries and aorta were performed. FINDINGS: The right kidney measures 10.8 x 5.9 x 4.9 cm in sagittal, AP and transverse dimensions. The left kidney measures 11.8 x 5.0 x 3.4 cm in sagittal, AP and transverse dimensions. There are two simple cysts in the right kidney that are likely benign and do not require further imaging follow up. The cysts measure 2.0 x 2.3 x 2.1 cm in the upper pole and 2.1 x 2.4 x 2.1 cm in the mid pole. The kidneys show no masses, calculi or hydronephrosis. The corticomedullary differentiation is normal. RENAL ARTERY VELOCITIES: Right: Proximal: 154 cm/s. Mid: 144 cm/s. Distal: 73 cm/s. Left: Proximal: 78.6 cm/s. Mid: 96.5 cm/s. Distal: 78.2 cm/s. SEGMENTAL RESISTIVE INDICES: Right: Upper: 0.65 Mid: 0.84 Lower: 0.80 Left: Upper: 0.81 Mid: 0.85 Lower: 0.85 Mid aortic velocity: 118 cm/s. Renal Aortic Ratio: Right: 1.3 Left: 0.8 As noted renal aortic ratios may be underestimated due to the aortic peak systolic volume being greater than 100 cm/s. US/US renal doppler IMPRESSION: 1. The kidneys are normal in appearance. 2. There is no evidence of renal artery stenosis based off of peak systolic velocities and renal aortic ratios. However, the resistive indices are elevated in the bilateral kidneys, which is associated with renal dysfunction. Criteria: NORMAL: Renal artery peak systolic velocities < 180 cm/s. Renal aortic ratio < 3.5 Normal renal size. < 60% STENOSIS: Renal artery peak systolic velocities > 180 cm/s. Renal aortic ratio < 3.5 Renal size <2 cm difference between sides. > 60% STENOSIS Renal artery peak systolic velocities > 180 cm/s. Renal aortic ratio > 3.5 Renal size >2 cm difference between sides. Aortic PSV > 140 cm/s with normal renal artery PSV may over estimate severity. Aortic PSV > 100 cm/s with normal renal artery PSV may underestimate severity.
== END 2023-10-23 10:47 | disposition home or self-care (01) ==
LOC: HO.US 10:46
PROVIDERS: PCP Internal Medicine; Visit Provider Internal Medicine Nephrology
DX: I12.9 Hypertensive chronic kidney disease with stage 1 through stage 4 chronic kidney disease, or unspecified chronic kidney disease (principal); N18.30 Chronic kidney disease, stage 3 unspecified; N17.9 Acute kidney failure, unspecified
CPT/HCPCS: 76775; 93975

== ENCOUNTER 2023-10-28 13:49 | Outpatient (AMB) | payer MEDICARE, SELFPAY ==
[2023-10-28 13:58] VITALS: BP 120/60; PULSE 67; O2SAT 97; BMI 26.8
--- NOTE | 2023-10-28 13:58 | HO.NEPHOV ---
Vital Signs 10/28/23 13:58 Height 5 ft 11 in Weight 192 lb 6 oz BMI 26.8 BP 120/60 Blood Pressure Location Lt brachial Position Sitting Pulse 67 Pulse Source Pulse Oximeter Pulse Oximetry (%) 97 Oxygen Delivery Method Room Air Intake Visit Reasons: CKD/ 6 weeks fu/ Confirmed Mineral Surveying Technician Required: No Accompanied by: Spouse Allergies pravastatin Allergy (Unknown, Verified 10/28/23 14:01) LEG RASH Medication List - Last Reconciled 10/28/23 by Galo Lugo MD amlodipine 10 mg PO DAILY apixaban 5 mg PO DAILY atorvastatin 20 mg PO BEDTIME betamethasone dipropionate 0.05% 2 appl topical BID blood sugar diagnostic (FreeStyle Test strips) Test 2 times daily lancets (FreeStyle Lancets) Test 2 times daily levofloxacin 250 mg PO DAILY 10 days lisinopril 20 mg PO DAILY meclizine 12.5 mg PO DAILY PRN metformin 500 mg PO DAILY metoprolol succinate ER 100 mg (2 x 50 mg) PO DAILY 90 days pantoprazole 40 mg PO DAILY tamsulosin 0.4 mg PO BID 90 days HPI Comments Details: I had the privilege of seeing Elton in follow up who is a 88-year-old male in follow up of his chronic kidney disease. He has been a diabetic and has been on metformin. He has ischemic cardiomyopathy and has been on CARLOS inhibitor. He is known to have aortic stenosis. He denies any hypoglycemia, chest pain, shortness of breath, paroxysmal nocturnal dyspnea, orthopnea, pedal edema or urinary symptoms. He denies any nausea, vomiting, diarrhea, hematuria, sore throat, orthostatic symptoms, sinusitis or any new systemic complaints. He has been taking PPI for a long time. He has prostatic symptoms and takes tamsulosin. He has history of atrial fibrillation with good heart rate control now. He remains on anticoagulation. His serum creatinine has improved after cutting back on lisinopril to 20 mg daily. [facility] Medical History Diabetes On anticoagulant therapy On beta cierra at home Psoriasis Enlarged prostate History of COVID-19 Bladder cancer Eczema craquele Cardiomyopathy Non-rheumatic aortic stenosis PAF (paroxysmal atrial fibrillation) Afib Essential (primary) hypertension Hypertension Normally functioning cardiac pacemaker present Surgical History History of transurethral resection of bladder tumor (TURBT) History of bladder surgery Hx of right inguinal hernia repair Total knee replacement status History of pacemaker Family History Father No problems noted. Mother No problems noted. Daughter In good health Social History Household Members: Spouse Housing: Apartment Do you presently have visiting nurse or other home services: No Alcohol intake: never Patient Tobacco Use Status: Never used Tobacco e-Cigarette/Vaping Use: Never Used Second Hand Smoke Exposure: No service: No Current occupational status: employed and retired Cognitive needs: No Hearing needs: No Vision needs: Yes (glasses) Physical Exam Vital Signs: Last Vital Signs Pulse 67 10/28/23 13:58 BP 120/60 10/28/23 13:58 Pulse Ox 97 10/28/23 13:58 Oxygen Delivery Method Room Air 10/28/23 13:58 BMI result Body Mass Index 26.8 Const General: comfortable and no acute distress Orientation/consciousness: patient oriented x3 HEENT Head: Yes normocephalic Mouth: Normal oral and palatal mucosa present Eyes EOM: EOMs intact bilaterally Neck Neck: Yes supple Resp Auscultation: clear to auscultation bilaterally Cardio Jugular venous distension: no JVD Rate: regular rate GI Palpation (GI): Soft to palpation Auscultation: normal bowel sounds General: Yes no CVA tenderness Back/Spine/Pelvis Back: no CVA tenderness Skin General skin exam: no rashes or lesions noted Neuro General: patient oriented x3 and moves all extremities Extrem General: Yes no pedal edema Results Reviewed Nephrology Results: Hgb 12.2 g/dl (14.0-18.0) L 10/22/23 WBC 5.9 X10*3/uL (4.8-10.8) 10/22/23 Plt Count 168 X10*3/uL (160-400) 10/22/23 Sodium 140 mmol/L (135-145) 10/22/23 Potassium 4.6 mmol/L (3.3-5.1) 10/22/23 Chloride 108 mmol/L (96-108) 10/22/23 Carbon Dioxide 23 mmol/L (22-29) 10/22/23 BUN 24 mg/dL (9-16) H 10/22/23 Creatinine 1.51 mg/dL (0.5-1.4) H 10/22/23 Calcium 9.6 mg/dL (8.4-10.2) 10/22/23 Phosphorus 3.2 mg/dL (2.7-4.5) 10/22/23 PTH Intact 77.6 pg/mL (8.7-77.1) H 10/22/23 Renal US 10/23/23 Assessment & Plan Assessment & Plan (1) CKD (chronic kidney disease) stage 3, GFR 30-59 ml/min: Code(s): N18.30 - Chronic kidney disease, stage 3 unspecified Category: Medical Qualifiers: Chronic kidney disease stage 3 subtype: stage 3b (GFR 30-44) Qualified Code(s): N18.32 - Chronic kidney disease, stage 3b (2) Hypertension: Code(s): I10 - Essential (primary) hypertension Category: Medical Qualifiers: Hypertension type: primary hypertension Qualified Code(s): I10 - Essential (primary) hypertension Plan Elton has chronic kidney disease stage 3 at baseline . He had RASHEEDA which has resolved. He has prostatic symptoms. He is on tamsulosin. Renal ultrasound has ruled out hydronephrosis. Doppler showed high resistive indices. He has not known to have any significant proteinuria. He denies any new systemic complaints. He has history of aortic stenosis and takes CARLOS inhibitor. I did not make any medication changes at this visit . F/U blood work ordered. All questions answered. Follow-up appointment given Orders: Orders Blood Urea Nitrogen Today N18.32 - Chronic kidney disease, stage 3b Electrolytes Today N18.32 - Chronic kidney disease, stage 3b Creatinine Today N18.32 - Chronic kidney disease, stage 3b Medications: Changed From amlodipine 10 mg PO DAILY To amlodipine 10 mg PO DAILY 90 days 90 tabs 4RF From lisinopril 20 mg PO DAILY To lisinopril 20 mg PO DAILY 90 days 90 tabs 4RF Coding Level of Care Code Est Pt Level 4 (85296) Diagnoses Stage 3b chronic kidney disease N18.32 Chronic kidney disease stage 3 subtype: stage 3b (GFR 30-44) Primary hypertension I10 Hypertension type: primary hypertension
== END 2023-10-28 14:28 | disposition home or self-care (01) ==
PROVIDERS: PCP Internal Medicine; Visit Provider Internal Medicine Nephrology
DX: N18.32 Chronic kidney disease, stage 3b (principal); I10 Essential (primary) hypertension
CPT/HCPCS: 99214

== ENCOUNTER → 2023-10-28 13:49 | Outpatient (BNVA) | payer MEDICARE, SELFPAY | PROVIDERS: PCP Internal Medicine; Visit Provider Internal Medicine Nephrology | DX: I12.9 Hypertensive chronic kidney disease with stage 1 through stage 4 chronic kidney disease, or unspecified chronic kidney disease (principal); N18.32 Chronic kidney disease, stage 3b | CPT/HCPCS: 99212 ==

== ENCOUNTER → 2023-12-14 23:59 | Outpatient (BNV) | payer MEDICARE, SELFPAY ==
--- NOTE | 2023-12-20 11:18 | A.OFFVIS_ITS ---
Intake Visit Reasons: REmote device check- [employer]ot[employer] Allergies pravastatin Allergy (Unknown, Verified 12/18/23 08:47) LEG RASH PFSH Medical History Diabetes On anticoagulant therapy On beta cierra at home Psoriasis Enlarged prostate History of COVID-19 Bladder cancer Eczema craquele Cardiomyopathy Non-rheumatic aortic stenosis PAF (paroxysmal atrial fibrillation) Afib Essential (primary) hypertension Hypertension Normally functioning cardiac pacemaker present Surgical History History of transurethral resection of bladder tumor (TURBT) History of bladder surgery Hx of right inguinal hernia repair Total knee replacement status History of pacemaker Family History Father No problems noted. Mother No problems noted. Daughter In good health Social History Household Members: Spouse Housing: Apartment Do you presently have visiting nurse or other home services: No Alcohol intake: never Patient Tobacco Use Status: Never used Tobacco e-Cigarette/Vaping Use: Never Used Second Hand Smoke Exposure: No service: No Current occupational status: employed and retired Cognitive needs: No Hearing needs: No Vision needs: Yes (glasses) Office Procedures Cardiac Device Check Cardiac Device Check Details: Date of service- 12/14/2023 ; Battery life 55%; normal lead parameters; AP 43%; PROCESS IMPROVEMENT ANALYST 93%; no significant arrhythmias. Overall normal device function. [id number] Cardiac Device Interrogation, pacemaker Procedure code (CPT) selection complete Assessment & Plan Assessment & Plan (1) PAF (paroxysmal atrial fibrillation): Code(s): I48.0 - Paroxysmal atrial fibrillation Category: Medical (2) Normally functioning cardiac pacemaker present: Code(s): Z95.0 - Presence of cardiac pacemaker Category: Medical (3) Cardiomyopathy: Code(s): I42.9 - Cardiomyopathy, unspecified Category: Medical Qualifiers: Cardiomyopathy type: ischemic Qualified Code(s): I25.5 - Ischemic cardiomyopathy Plan x Coding Level of Care Code Procedure Only Diagnoses PAF (paroxysmal atrial fibrillation) I48.0 Normally functioning cardiac pacemaker present Z95.0 Ischemic cardiomyopathy I25.5 Cardiomyopathy type: ischemic CPT Codes Cardiac Device Check - Cardiac Device 12: [id number] Cardiac Device Interrogation, pacemaker ([id number])
== END ==
PROVIDERS: PCP Internal Medicine; Visit Provider Internal Medicine
DX: I48.0 Paroxysmal atrial fibrillation (principal); I25.5 Ischemic cardiomyopathy; Z95.0 Presence of cardiac pacemaker
CPT/HCPCS: 93294

== ENCOUNTER 2023-12-18 08:12 | Outpatient (AMB) | payer MEDICARE, SELFPAY ==
[2023-12-18 08:47] VITALS: BP 110/58; PULSE 62; TEMP 36.6; O2SAT 97; BMI 26.1
--- NOTE | 2023-12-18 08:47 | MHC.OFFWIV ---
Intake Vital Signs 12/18/23 08:47 Height 5 ft 11 in Weight 187 lb BMI 26.1 BP 110/58 L Blood Pressure Location Lt brachial Position Sitting Pulse 62 Pulse Source Pulse Oximeter Temp 97.8 F Temp Source Oral Pulse Oximetry (%) 97 Oxygen Delivery Method Room Air Intake Visit Reasons: EP LT ear pain Intake Note: pt is here for left ear pain. Started 3 days ago. Fluid drainage. Patient Tobacco Use Status: Never used Tobacco Allergies pravastatin Allergy (Unknown, Verified 12/18/23 08:47) LEG RASH Do you need a note to return to daycare/school/sports/work: No HPI EP LT ear pain HPI Details This is an 88 year old male patient who presents to the walk-in clinic today with report of a 3 day history of left ear pain and drainage. Reports large amount of liquid/waxy drainage from L ear each morning. He also feels sharp zing sensation intermittently on that left side. Denies any fever, chills, sore throat, or other sick symptoms. Has an ENT appointment in February. [facility] Medical History Diabetes On anticoagulant therapy On beta cierra at home Psoriasis Enlarged prostate History of COVID-19 Bladder cancer Eczema craquele Cardiomyopathy Non-rheumatic aortic stenosis PAF (paroxysmal atrial fibrillation) Afib Essential (primary) hypertension Hypertension Normally functioning cardiac pacemaker present Surgical History History of transurethral resection of bladder tumor (TURBT) History of bladder surgery Hx of right inguinal hernia repair Total knee replacement status History of pacemaker Family History Father No problems noted. Mother No problems noted. Daughter In good health Social History Household Members: Spouse Housing: Apartment Do you presently have visiting nurse or other home services: No Alcohol intake: never Patient Tobacco Use Status: Never used Tobacco e-Cigarette/Vaping Use: Never Used Second Hand Smoke Exposure: No service: No Current occupational status: employed and retired Cognitive needs: No Hearing needs: No Vision needs: Yes (glasses) Review of Systems Const All systems reviewed & are unremarkable except as noted in HPI and below Physical Exam Vital Signs: BMI result Body Mass Index 26.1 Const General: cooperative, healthy appearing, comfortable and no acute distress Nutritional Appearance: average body habitus HEENT Head: Yes normal to inspection Ears: hearing grossly normal bilaterally, external ears normal, TM normal on the right, TM normal on the left and Abnormal EAC present (left EAC erythematous, mildly tender, excessive purulent drainage) otic discharge purulent General nose exam: Normal external nose present Mouth: Normal oral and palatal mucosa present Throat: Yes posterior oropharynx normal Neck Neck: Yes no lymphadenopathy Resp Effort & Inspection: normal respiratory effort Auscultation: clear to auscultation bilaterally Cardio Rate: regular rate Rhythm: regular rhythm Skin General skin exam: no rashes or lesions noted Extrem General: Yes no clubbing, cyanosis or edema Psych Appearance: grossly normal Mental Status: mental status grossly normal Speech and movement: Normal speech and movement present Office Procedures Cerumen Removal From which ear canal was the cerumen removed: left Removal: irrigation and cerumen loop/spoon Notes: patient tolerated procedure well, no complications and ear canal clear [id number] Irrigation/Lavage Assessment & Plan Assessment & Plan (1) Left otitis externa: Code(s): H60.92 - Unspecified otitis externa, left ear Qualifiers: Chronicity: acute Otitis externa type: unspecified type Qualified Code(s): H60.502 - Unspecified acute noninfective otitis externa, left ear Plan: Irrigation of left ear performed with good results. Large amount of purulent/waxy discharge removed. Will start patient on acetic acid/hydrocortisone drops for that left ear for otitis externa. Reviewed indications, use, possible s/e of drops. Advised him to f/u with ENT as scheduled or sooner at clinic or PCP if he does not improve with treatment or if symptoms worsen. He agrees to plan. Medications: New hydrocortisone-acetic acid 1-2 % Apply 4 drops to left ear three times a day for 7 days. 4 drps otic (ear) left TID 7 days 10 mL 0RF H60.90 - Unspecified otitis externa, unspecified ear Coding Level of Care Code Est Pt Level 4 (18354) Diagnoses Acute otitis externa of left ear, unspecified type H60.502 Chronicity: acute Otitis externa type: unspecified type CPT Codes Office Procedure - CPT: 47952-Nuh Irrigation/Lavage ([id number])
== END 2023-12-18 09:35 | disposition home or self-care (01) ==
PROVIDERS: PCP Internal Medicine; Visit Provider Nurse Practitioner Family
DX: H60.502 Unspecified acute noninfective otitis externa, left ear (principal); H61.22 Impacted cerumen, left ear
CPT/HCPCS: 69209; 99214

== ENCOUNTER 2024-01-08 14:46 | Outpatient (REF) | payer MEDICARE, SELFPAY ==
[2024-01-08 16:17] LABS: Urine Cytology See Pathology rpt
== END 2024-01-08 14:47 | disposition home or self-care (01) ==
LOC: HO.LAB 14:46
PROVIDERS: PCP Internal Medicine; Visit Provider Urology
DX: C67.4 Malignant neoplasm of posterior wall of bladder (principal); N39.0 Urinary tract infection, site not specified
CPT/HCPCS: 52000; 81003; 88112; 99212

== ENCOUNTER 2024-01-08 14:46 | Outpatient (AMB) | payer MEDICARE, SELFPAY ==
--- NOTE | 2024-01-08 14:57 | A.OFFVIS_ITS ---
Intake Visit Reasons: cysto Intake Note: Patient is Present for Cystoscopy Urology Med: Tamsulosin Antibiotic Allergy: None Blood Thinner:Apixaban URO- G Disposable Cystoscope lot: [id number] exp:08/01/2024 Allergies pravastatin Allergy (Unknown, Verified 01/27/24 14:49) LEG RASH HPI Comments Details: Elton is a pleasant male. He is a patient of . 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, invasive into lamina propria - Muscularis propria present - 11/04 6 week induction, 04/06 3 week gemcitabine, 10/06 3 week gemcitabine Cytology - 04/06 NAD, 10/06 FISH Neg Therapeutic Plan - surveillance PFSH Medical History Diabetes On anticoagulant therapy On beta cierra at home Psoriasis Enlarged prostate History of COVID-19 Bladder cancer Eczema craquele Cardiomyopathy Non-rheumatic aortic stenosis PAF (paroxysmal atrial fibrillation) Afib Essential (primary) hypertension Hypertension Normally functioning cardiac pacemaker present Surgical History History of transurethral resection of bladder tumor (TURBT) History of bladder surgery Hx of right inguinal hernia repair Total knee replacement status History of pacemaker Family History Father No problems noted. Mother No problems noted. Daughter In good health Social History Household Members: Spouse Housing: Apartment Do you presently have visiting nurse or other home services: No Alcohol intake: never Patient Tobacco Use Status: Never used Tobacco e-Cigarette/Vaping Use: Never Used Second Hand Smoke Exposure: No service: No Current occupational status: employed and retired Cognitive needs: No Hearing needs: No Vision needs: Yes (glasses) Review of Systems Const Denies chills and Denies fever(s) Card Reports no additional complaints and Denies syncope Resp Denies cough GI Denies abdominal pain and Denies heartburn Reports as per HPI and Denies change in libido Neuro Denies syncope Psych Denies change in libido Endo Denies change in libido Physical Exam Const General: cooperative, healthy appearing, comfortable and no acute distress Orientation/consciousness: patient oriented x3 HEENT Face and sinus: Yes normal facial exam Mouth: moist mucous membranes Neck Neck: Yes normal visual inspection, Yes full ROM and Yes trachea midline Chest Chest palpation & inspection: normal inspection of the chest Resp Effort & Inspection: normal respiratory effort, able to speak in complete sentences and no respiratory distress GI Inspection: Yes normal to inspection Back/Spine/Pelvis Cervical Spine: normal cervical lordosis Thoracic/Lumbar Spine: thoracic and lumbar spine normal to inspection Skin General skin exam: no rashes or lesions noted Neuro General: patient oriented x3, gait normal, tone normal and moves all extremities Extrem General: Yes normal to inspection and Yes capillary refill normal Office Procedures Cystoscopy Consent Discussed risk and benefit or proposed procedure with the patient. Information consent for procedure given to the patient. Discussed technical aspects, risks, benefits and alternatives in full. Addressed all of the patient's questions and concerns regarding the procedure. The patient demonstrated knowledge and understanding. They wish to proceed with this procedure. Preparation The patient was prepped in the usual manner. A propeller layout worker was present and in the room. Genitalia was prepped with betadine solution in a sterile manner. Lidocaine Jelly 2% was placed into the urethra and 16Fr flexible Olympus cystoscope was inserted into the meatus after adequate lubrication. Procedure Cystoscopy performed using a disposable Urovue digital 16 Serbian cystoscope. Meatus circumcised Urethra anterior posterior throat normal Prostatic Urethra unremarkable Bladder examination with retroflexion of cystoscope Bladder Orifices normal shape and position Bladder Capacity normal Trabeculations grade 2/3 Cellule Formation yes Diverticulum Formation small Mucosal Erythema cystitis cystica Bladder Tumor no evidence of tumor [id number] DISPOSABLE SCOPE URO-G FLEXIBLE SCOPE Procedure code (CPT) selection complete Office Meds lidocaine HCl 2 % mucosal jelly in applicator Performing Provider: Adalid Barrett MD Performing Location[facility] Administered by: Brady Gonzalez LPN on 01/08/24 15:17 Dose Route Admin Location Dispensed Lot Number Expiration Date ND [employer] Janitor 10 mL intra-urethral 10 mL nitrofurantoin monohydrate/macrocrystals 100 mg capsule Performing Provider: Adalid Barrett MD Performing Location: [facility] Administered by: Brady Gonzalez LPN on 01/08/24 15:17 Dose Route Admin Location Dispensed Lot Number Expiration Date NDC [employer] Janitor 100 mg PO 1 cap naproxen 500 mg tablet Performing Provider: Adalid Barrett MD Performing Location: [facility] [place] [facility] Administered by: Brady Gonzalez LPN on 01/08/24 15:17 Dose Route Admin Location Dispensed Lot Number Expiration Date NDC [employer] Janitor 500 mg PO 1 tab Results AMB Urinalysis, Automated UA Leukoctes 0 Mata/uL Last Edit by Stacy Johnson [facility] on 01/08/24 15:15 UA Nitrite Negative Last Edit by Stacy Johnson [facility] on 01/08/24 15:15 UA Urobilinogen 0.2 mg/dL Last Edit by Stacy Johnson [facility] on 01/08/24 15:1 5 UA Protein 15 mg/dL Last Edit by Stacy Johnson [facility] on 01/08/24 15:15 UA pH 5.5 Last Edit by Stacy Johnson [facility] on 01/08/24 15:15 UA Blood 0 Bud/uL Last Edit by Stacy Johnson [facility] on 01/08/24 15:15 UA Specific Liberty 1.020 Last Edit by Stacy Johnson [facility] on 01/08/24 15: 15 UA Ketone Negative Last Edit by Stacy Johnson [facility] on 01/08/24 15:15 UA Bilirubin 1 mg/dL Last Edit by Stacy Johnson [facility] on 01/08/24 15:15 UA Glucose 0 mg/dL Last Edit by Stacy Johnson [facility] on 01/08/24 15:15 Results Reviewed Results Reviewed: Laboratory Last Values Urine pH (Auto) 5.5 01/08/24 15:02 Specific Liberty (Auto) 1.020 01/08/24 15:02 Urine Protein (Auto) 15 mg/dL 01/08/24 15:02 Glucose (UA)(Auto) 0 mg/dL 01/08/24 15:02 Urine Ketones (Auto) Negative 01/08/24 15:02 Urine Blood (Auto) 0 Bud/uL 01/08/24 15:02 Urine Nitrite (Auto) Negative 01/08/24 15:02 Urine Bilirubin (Auto) 1 mg/dL 01/08/24 15:02 Urine Urobilinogen (Auto) 0.2 mg/dL 01/08/24 15:02 Leukocyte Esterase (Auto) 0 Mata/uL 01/08/24 15:02 Assessment & Plan Assessment & Plan (1) Recurrent UTI: Code(s): N39.0 - Urinary tract infection, site not specified Category: Medical (2) Bladder cancer: Comment: 09/04 - high-grade T1 Code(s): C67.9 - Malignant neoplasm of bladder, unspecified Category: Medical Qualifiers: Bladder location: posterior wall Qualified Code(s): C67.4 - Malignant neoplasm of posterior wall of bladder Plan Three week post gemcitabine treatments 3 month follow-up office cystoscopy Orders: Orders AMB Cystoscopy 01/08/24 C67.4 - Malignant neoplasm of posterior wall of bladder Urine Cytology 01/08/24 C67.4 - Malignant neoplasm of posterior wall of bladder AMB Urinalysis Automated 01/08/24 Z13.9 - Encounter for screening, unspecified Patient Instructions: Imaging studies, laboratory and physical exam results were discussed and reviewed in detail. No major barriers to patient understanding were identified. An opportunity to ask questions regarding the treatment plan was provided. All questions were answered. The patient expressed understanding and agreement with the above treatment plan. The patient is aware they should contact our office by phone for worsening of their current condition or the appearance of new urologic symptoms. Compliance is encouraged with any medications and followup testing that is ordered. It is a privilege to participate in the urologic care of your patient. If you have any questions or concerns regarding treatment for the above conditions, or other urologic issues, please do not hesitate to contact me. The office telephone contact is [phone]. This note is constructed using voice recognition software. While every effort has been made to ensure accuracy scanning coordinator errors may have been included. Yours sincerely, Dr Adalid Barrett MD, [facility] - Urology Providers of Expert, Compassionate Care for the Genitourinary System Coding Level of Care Code Est Pt Level 3 (93931) Diagnoses Recurrent UTI N39.0 Malignant neoplasm of posterior wall of urinary bladder C67.4 Bladder location: posterior wall CPT Codes Cystoscopy - CPT: 07162-[id number] ([id number])
== END 2024-01-08 15:42 | disposition home or self-care (01) ==
PROVIDERS: PCP Internal Medicine; Visit Provider Urology
DX: C67.4 Malignant neoplasm of posterior wall of bladder (principal); Z13.9 Encounter for screening, unspecified
CPT/HCPCS: 52000; 99213

== ENCOUNTER 2024-01-13 13:55 | Outpatient (AMB) | payer MEDICARE, SELFPAY ==
--- NOTE | 2024-01-13 14:11 | MHC.PC.OV ---
Vital Signs 01/13/24 14:12 Height 5 ft 11 in Weight 185 lb 8 oz BMI 25.9 BP 110/50 L Blood Pressure Location Lt brachial Position Sitting Pulse 65 Pulse Source Pulse Oximeter Pulse Oximetry (%) 96 Oxygen Delivery Method Room Air Intake Visit Reasons: 3mof\u Intake Note: Patient is here to follow up on CKD, DM, HTN. Instrument Technician Helper Required: No Demurrage Agent: Present Accompanied by: Spouse Allergies pravastatin Allergy (Unknown, Verified 01/13/24 15:08) LEG RASH Medication List - Last Reconciled 01/13/24 by Darrius Garcia MD apixaban (Eliquis) 2.5 mg PO DAILY atorvastatin 20 mg PO BEDTIME betamethasone dipropionate 0.05% 2 appl topical BID blood sugar diagnostic (FreeStyle Test strips) Test 2 times daily [Diabetic shoes As directed] lancets (FreeStyle Lancets) Test 2 times daily lisinopril 20 mg PO DAILY 90 days meclizine 12.5 mg PO DAILY PRN metformin 500 mg PO DAILY metoprolol succinate ER 100 mg (2 x 50 mg) PO DAILY 90 days [id number]-MT 3.5-10,000-1 mg/mL-unit/mL-% 4 drps otic (ear) left Q8H 7 days pantoprazole 40 mg PO DAILY tamsulosin 0.4 mg PO BID 90 days Tobacco use date assessed: 01/13/24 Fall risk assessment: No Falls in past year Last assessed Fall Risk: 01/13/24 Dental Screening Dental Screen Date: 07/02/23 HPI 3mof\u HPI Details 88-year-old male presents to the office to discuss his chronic medical condition. Patient recently saw the orthotic aide who started him on amlodipine 10 mg a day. Patient started feeling dizzy and unsteady on the gait. He reduce the dosage to 5 mg a day. Patient reports that he continues to be symptomatic and feels nervous. Able to do his activities of daily living. No nausea or vomiting. [facility] Medical History Diabetes On anticoagulant therapy On beta cierra at home Psoriasis Enlarged prostate History of COVID-19 Bladder cancer Eczema craquele Cardiomyopathy Non-rheumatic aortic stenosis PAF (paroxysmal atrial fibrillation) Afib Essential (primary) hypertension Hypertension Normally functioning cardiac pacemaker present Surgical History History of transurethral resection of bladder tumor (TURBT) History of bladder surgery Hx of right inguinal hernia repair Total knee replacement status History of pacemaker Family History Father No problems noted. Mother No problems noted. Daughter In good health Social History Household Members: Spouse Housing: Apartment Do you presently have visiting nurse or other home services: No Alcohol intake: never Patient Tobacco Use Status: Never used Tobacco e-Cigarette/Vaping Use: Never Used Second Hand Smoke Exposure: No service: No Current occupational status: employed and retired Cognitive needs: No Hearing needs: No Vision needs: Yes (glasses) Questionnaire Thrive Questionnaire Date Thrive assessed: 07/02/23 MALKA-7 AMB Questionnaire MALKA-7 Date MALKA - 7 assessed: 07/02/23 Source: Developed by Drs. Angel Rodríguez, Sandra Nickerson, Placido Tubbs and colleagues, with an educational bhavana from [employer]. Physical exam (Primary Care) Vital Signs: Last Vital Signs Pulse 65 01/13/24 14:12 BP 110/50 L 01/13/24 14:12 Pulse Ox 96 01/13/24 14:12 Oxygen Delivery Method Room Air 01/13/24 14:12 BMI result Body Mass Index 25.9 Tobacco/Smoking Status: Tobacco use Status Tobacco use date assessed 01/13/24 01/13/24 14:15 Patient Tobacco Use Status Never used Tobacco 01/13/24 14:15 e-Cigarette/Vaping Use Never Used 01/13/24 14:15 Thrive Assessment: Date of Thrive Assessment Date Thrive assessed 07/02/23 01/13/24 14:15 Const General: cooperative and healthy appearing Nutritional Appearance: well nourished Orientation/consciousness: patient oriented x3 Limitations: no limitations HENMT Head: Yes normal to inspection Eyes General: appearance normal, both eyes and all related structures Neck Neck: Yes normal visual inspection Chest Chest palpation & inspection: normal palpation of entire chest wall Resp Effort & Inspection: normal respiratory effort Neuro General: patient oriented x3 Results AMB Hemoglobin A1c AMB Hemoglobin A1c 6.4 % Last Edit by ELIE Freitas on 01/13/24 14:27 Results Reviewed Results Reviewed: Laboratory Last Values Hgb A1c (Clinic) 6.4 % (4.0-6.0) H 01/13/24 13:53 Assessment and Plan Assessment & Plan (1) CKD (chronic kidney disease) stage 3, GFR 30-59 ml/min: Code(s): N18.30 - Chronic kidney disease, stage 3 unspecified Qualifiers: Chronic kidney disease stage 3 subtype: stage 3b (GFR 30-44) Qualified Code(s): N18.32 - Chronic kidney disease, stage 3b Plan: Amlodipine has been on hold. Patient was advised to stop the medication (2) Diabetes mellitus: Code(s): E11.9 - Type 2 diabetes mellitus without complications Plan: A1c is in range. Orders: Orders AMB Hemoglobin A1c Today E11.9 - Type 2 diabetes mellitus without complications Medications: Discontinued amlodipine Discontinued Reason: Doctor's Order 10 mg PO DAILY 90 tabs 4RF 90 days Coding Level of Care Code Est Pt Level 4 (02439) Complex EM visit Add On G2211 Diagnoses Stage 3b chronic kidney disease N18.32 Chronic kidney disease stage 3 subtype: stage 3b (GFR 30-44) Diabetes mellitus E11.9
[2024-01-13 14:12] VITALS: BP 110/50; PULSE 65; O2SAT 96; BMI 25.9
== END 2024-01-13 14:55 | disposition home or self-care (01) ==
PROVIDERS: PCP Internal Medicine; Visit Provider Internal Medicine
DX: E11.22 Type 2 diabetes mellitus with diabetic chronic kidney disease (principal); N18.32 Chronic kidney disease, stage 3b
CPT/HCPCS: 83036; 99214; G2211

== ENCOUNTER 2024-01-27 14:31 | Outpatient (AMB) | payer MEDICARE, SELFPAY ==
--- NOTE | 2024-01-27 14:44 | HO.NEPHOV ---
Vital Signs 01/27/24 14:46 Height 5 ft 11 in Weight 188 lb 2 oz BMI 26.2 BP 154/60 H Blood Pressure Location Lt brachial Position Sitting Pulse 66 Pulse Source Pulse Oximeter Pulse Oximetry (%) 96 Oxygen Delivery Method Room Air Intake Visit Reasons: CKD/ 3 MO FU/ Conf Core Winder Required: No Accompanied by: Spouse Allergies pravastatin Allergy (Unknown, Verified 01/27/24 14:49) LEG RASH HPI Comments Details: I had the privilege of seeing Elton in follow up who is a 88-year-old male in follow up of his chronic kidney disease. He has been a diabetic and has been on metformin. He has ischemic cardiomyopathy and has been on CARLOS inhibitor. He is known to have aortic stenosis. He denies any hypoglycemia, chest pain, shortness of breath, paroxysmal nocturnal dyspnea, orthopnea, pedal edema or urinary symptoms. He denies any nausea, vomiting, diarrhea, hematuria, sore throat, orthostatic symptoms, sinusitis or any new systemic complaints. He has been taking PPI for a long time. He has prostatic symptoms and takes tamsulosin. He has history of atrial fibrillation with good heart rate control now. He remains on anticoagulation. His serum creatinine has improved after cutting back on lisinopril to 20 mg daily. His BP was going low with development of dizziness when he was taking Amldopine. He had bladder cancer and has been seeing Dr Barrett. [facility] Medical History Diabetes On anticoagulant therapy On beta cierra at home Psoriasis Enlarged prostate History of COVID-19 Bladder cancer Eczema craquele Cardiomyopathy Non-rheumatic aortic stenosis PAF (paroxysmal atrial fibrillation) Afib Essential (primary) hypertension Hypertension Normally functioning cardiac pacemaker present Surgical History History of transurethral resection of bladder tumor (TURBT) History of bladder surgery Hx of right inguinal hernia repair Total knee replacement status History of pacemaker Family History Father No problems noted. Mother No problems noted. Daughter In good health Social History Household Members: Spouse Housing: Apartment Do you presently have visiting nurse or other home services: No Alcohol intake: never Patient Tobacco Use Status: Never used Tobacco e-Cigarette/Vaping Use: Never Used Second Hand Smoke Exposure: No service: No Current occupational status: employed and retired Cognitive needs: No Hearing needs: No Vision needs: Yes (glasses) Review of Systems Const All systems reviewed & are unremarkable except as noted in HPI and below Physical Exam Vital Signs: Last Vital Signs Pulse 66 01/27/24 14:46 BP 154/60 H 01/27/24 14:46 Pulse Ox 96 01/27/24 14:46 Oxygen Delivery Method Room Air 01/27/24 14:46 BMI result Body Mass Index 26.2 Const General: comfortable and no acute distress Orientation/consciousness: patient oriented x3 HEENT Head: Yes normocephalic Mouth: Normal oral and palatal mucosa present Eyes EOM: EOMs intact bilaterally Neck Neck: Yes supple Resp Auscultation: clear to auscultation bilaterally Cardio Jugular venous distension: no JVD Rate: regular rate GI Palpation (GI): Soft to palpation Auscultation: normal bowel sounds General: Yes no CVA tenderness Back/Spine/Pelvis Back: no CVA tenderness Skin General skin exam: no rashes or lesions noted Neuro General: patient oriented x3 and moves all extremities Extrem General: Yes no pedal edema Results Reviewed Nephrology Results: Hgb 12.2 g/dl (14.0-18.0) L 10/22/23 WBC 5.9 X10*3/uL (4.8-10.8) 10/22/23 Plt Count 168 X10*3/uL (160-400) 10/22/23 Sodium 140 mmol/L (135-145) 10/22/23 Potassium 4.6 mmol/L (3.3-5.1) 10/22/23 Chloride 108 mmol/L (96-108) 10/22/23 Carbon Dioxide 23 mmol/L (22-29) 10/22/23 BUN 24 mg/dL (9-16) H 10/22/23 Creatinine 1.51 mg/dL (0.5-1.4) H 10/22/23 Calcium 9.6 mg/dL (8.4-10.2) 10/22/23 Phosphorus 3.2 mg/dL (2.7-4.5) 10/22/23 PTH Intact 77.6 pg/mL (8.7-77.1) H 10/22/23 Renal US 10/23/23 Assessment & Plan Assessment & Plan (1) CKD (chronic kidney disease) stage 3, GFR 30-59 ml/min: Code(s): N18.30 - Chronic kidney disease, stage 3 unspecified Category: Medical Qualifiers: Chronic kidney disease stage 3 subtype: stage 3b (GFR 30-44) Qualified Code(s): N18.32 - Chronic kidney disease, stage 3b (2) Hypertension: Code(s): I10 - Essential (primary) hypertension Category: Medical Qualifiers: Hypertension type: primary hypertension Qualified Code(s): I10 - Essential (primary) hypertension Plan Elton has chronic kidney disease stage 3 at baseline . He had RASHEEDA which has resolved. He is on tamsulosin. Renal ultrasound has ruled out hydronephrosis. Doppler showed high resistive indices. He has not known to have any significant proteinuria. He denies any new systemic complaints. He has history of aortic stenosis and takes CARLOS inhibitor. I did not make any medication changes at this visit . F/U blood work ordered. All questions answered. Follow-up appointment given Orders: Orders Creatinine Today N18.32 - Chronic kidney disease, stage 3b Blood Urea Nitrogen 4 Months N18.32 - Chronic kidney disease, stage 3b Blood Urea Nitrogen Today N18.32 - Chronic kidney disease, stage 3b Electrolytes Today N18.32 - Chronic kidney disease, stage 3b Creatinine 4 Months N18.32 - Chronic kidney disease, stage 3b Electrolytes 4 Months N18.32 - Chronic kidney disease, stage 3b Coding Level of Care Code Est Pt Level 4 (64460) Diagnoses Stage 3b chronic kidney disease N18.32 Chronic kidney disease stage 3 subtype: stage 3b (GFR 30-44) Primary hypertension I10 Hypertension type: primary hypertension
[2024-01-27 14:46] VITALS: BP 154/60; PULSE 66; O2SAT 96; BMI 26.2
== END 2024-01-27 15:17 | disposition home or self-care (01) ==
PROVIDERS: PCP Internal Medicine; Visit Provider Internal Medicine Nephrology
DX: N18.32 Chronic kidney disease, stage 3b (principal); I10 Essential (primary) hypertension
CPT/HCPCS: 99214

== ENCOUNTER 2024-01-27 14:31 | Outpatient (REF) | payer MEDICARE, SELFPAY ==
[2024-01-27 17:36] LABS: Anion Gap 13 (12-20); Blood Urea Nitrogen 21 mg/dL (9-16); Carbon Dioxide 24 mmol/L (22-29); Chloride 110 mmol/L (96-108); Estimated Glomerular Filt Rate 38; Potassium 4.5 mmol/L (3.3-5.1); Sodium 142 mmol/L (135-145)
== END 2024-01-27 14:32 | disposition home or self-care (01) ==
LOC: HO.LAB 14:31
PROVIDERS: PCP Internal Medicine; Visit Provider Internal Medicine Nephrology
DX: I12.9 Hypertensive chronic kidney disease with stage 1 through stage 4 chronic kidney disease, or unspecified chronic kidney disease (principal); N18.32 Chronic kidney disease, stage 3b
CPT/HCPCS: 36415; 80051; 82565; 84520; 99212

== ENCOUNTER → 2024-03-02 13:53 | Outpatient (REF) | payer MEDICARE, SELFPAY ==
--- NOTE | 2024-03-02 13:57 | CA_ITS ---
Transthoracic Echocardiogram Patient (Last, First, Middle): Elton De Jesus H Gender: Male Date of : 1935 Age: 88 Procedure Date: 03/02/2024 Procedure Type: Transthoracic Echocardiogram Location: OP Height: 180.34 cm Weight: 74.84 kg BSA: 1.94 m2 Heart Rate: bpm BP: 150 / 70 mmHg It Recruiter: TO Referring MD: Mat Manriquez MD Symptoms: I42.9 - Cardiomyopathy, unspecified Study Quality: Fair/Contrast Conclusions: - The left ventricular systolic function is moderately decreased. The visually estimated ejection fraction is between 35-40%. - The inferolateral wall, the apical inferior, basal inferior, and mid anteroseptal segments are hypokinetic. - The apical septum is akinetic. - There is moderate calcification of the aortic valve. There is mild aortic valve stenosis. Findings Procedure Information Contrast agent, definity, is being given per protocol without apparent complications. Left Ventricle Normal left ventricular cavity size. There is mildly increased left ventricular wall thickness. The left ventricular systolic function is moderately decreased. The visually estimated ejection fraction is between 35 40%. There is moderate global hypokinesis. Evidence suggests grade I (mild) diastolic dysfunction. There is moderate septal asymmetric hypertrophy. Wall Motion Rest Echo Findings The inferolateral wall, the apical inferior, basal inferior, and mid anteroseptal segments are hypokinetic. The apical septum is akinetic. Right Ventricle Mildly increased right ventricular cavity size. There is normal right ventricular systolic function. Atria Both atria are normal in size. Aortic Valve There is moderate calcification of the aortic valve. There is mild aortic valve stenosis. There is no aortic valve regurgitation. Mitral Valve The mitral valve appears normal. There is mild mitral valve regurgitation. There is no mitral valve stenosis. Pulmonic Valve The pulmonic valve is likely normal. Tricuspid Valve There is mild tricuspid valve regurgitation. There is no evidence of pulmonary hypertension. Great Vessels The asc aorta is normal in size. Venous The inferior vena cava is normal in size and collapses greater than 50% with inspiration. Pericardium/Pleural There is no evidence of pericardial effusion. Prior Study Comparison No significant change compared to prior study dated: 07/10/2021. LVEF lower than previously reported. On review of images, wall motion abnormalities seems similar. Measurements 2D Linear Measurements IVSd: 1.26 0.6-0.9/0.6-1.0 cm LVIDd: 4.73 3.9-5.3/4.2-5.9 cm LVIDd Index: 2.44 2.4-3.2/2.2-3.1 cm/m2 LVIDs: 3.52 2.0-3.6 cm LVPWd: 1.04 0.7-1.1 cm LA Diam: 3.70 2.7-3.8/3.0-4.0 cm LAIDs Index: 1.91 1.5-2.3 cm/m2 LV Mass: 251.27 67-162/88-224 g LV Mass Index: 129.52 43-95/49-115 g/m2 LVOT Diam: 2.30 3.0+(-)1.3 cm 2D Systolic Function EF 4C: 32.20 >55% EF 2C: 48.20 >55% EF BiP: 41.40 >55% Mitral Valve MV VTI: 0.37 MV Pk John: 1.09 MV Mn John: 0.66 MV Pk Grad: 5.00 MV Mn Grad: 2.00 MV Pk E: 0.78 MV PK A: 0.92 MV Decel Time: 246.00 E/A: 0.90 E'Lateral: 4.46 E'Medial: 4.68 E/E' Med: 16.70 E/E' Lat: 17.50 PHT: 72.00 MVA PHT: 3.06 MVA Continuity: 2.05 Decel Flagler: 3.17 Aortic Valve AoV Pk John: 1.89 AoV Mn John: 1.47 AoV VTI: 0.51 AoV Pk Grad: 14.00 Aov Mn Grad: 9.00 HEAVEN Cont.VTI: 1.49 LVOT LVOT Pk John: 0.88 LVOT Mn John: 0.51 LVOT VTI: 0.18 LVOT Pk Grad: 3.00 LVOT Mn Grad: 1.00 LVOT Diam: 2.30 LVOT Area: 4.15 Diastolic Function MV Pk E: 0.78 MV Pk A: 0.92 E/A: 0.90 E'Medial: 4.68 E/E' Med: 16.70 E' Laterial: 4.46 E/E' Lat: 17.50 Right Ventricle TAPSE (mm): 24.80 TVS' John: 12.20 Tricuspid Valve TR Pk John: 2.27 TR Pk Grad: 21.00 RA Press: 3.00 RVSP: 24.00 Great Vessels Aorta Sinus of Valsalva: 3.42 2.0-3.5 cm Ao Asc: 3.00 2.1-3.4 cm Updated in Other Vendor System with Status of Final Mat Manriquez MD electronically signed on 03/07/2024 11:14:10 AM with status of Final
== END ==
LOC: HO.CARD 13:53
PROVIDERS: PCP Internal Medicine; Visit Provider Internal Medicine
DX: I35.0 Nonrheumatic aortic (valve) stenosis (principal)
CPT/HCPCS: 93306; Q9957

== ENCOUNTER → 2024-03-02 13:57 | Outpatient (BNV) | payer MEDICARE, SELFPAY | PROVIDERS: PCP Internal Medicine; Visit Provider Internal Medicine | DX: I35.0 Nonrheumatic aortic (valve) stenosis (principal); I42.2 Other hypertrophic cardiomyopathy; I34.0 Nonrheumatic mitral (valve) insufficiency; I36.1 Nonrheumatic tricuspid (valve) insufficiency | CPT/HCPCS: 93306 ==

== ENCOUNTER 2024-03-10 12:38 | Outpatient (AMB) | payer MEDICARE, SELFPAY ==
[2024-03-10 13:15] VITALS: BP 158/58; PULSE 68; BMI 26.1
--- NOTE | 2024-03-10 13:15 | A.OFFVIS_ITS ---
Vital Signs 03/10/24 13:15 Height 5 ft 11 in Weight 186 lb 15.232 oz BMI 26.1 BP 158/58 H Blood Pressure Location Lt brachial Position Sitting Pulse 68 Pulse Source Pulse Oximeter Intake Visit Reasons: 6 mth f/up User Support Specialist Required: No Accompanied by: Spouse Allergies pravastatin Allergy (Unknown, Verified 01/27/24 14:49) LEG RASH Medication List - Last Reconciled 03/10/24 by Mat Manriquez MD apixaban (Eliquis) 2.5 mg PO DAILY atorvastatin 20 mg PO BEDTIME betamethasone dipropionate 0.05% 2 appl topical BID blood sugar diagnostic (FreeStyle Test strips) Test 2 times daily [Diabetic shoes As directed] lancets (FreeStyle Lancets) Test 2 times daily lisinopril 20 mg PO DAILY 90 days meclizine 12.5 mg PO DAILY PRN metformin 500 mg PO DAILY metoprolol succinate ER 100 mg (2 x 50 mg) PO DAILY 90 days pantoprazole 40 mg PO DAILY tamsulosin 0.4 mg PO BID 90 days HPI Comments Details: Neal returns for follow-up. According to him, he is generally doing okay. No clear complaints. He gets some vague discomfort in the left infra-axillary region. That is random and not clear what it is. Could be musculoskeletal but cannot exclude angina either. Otherwise, it seems that his blood pressure is on the higher side. Apparently, due to renal issues, lisinopril was stopped. Then put on amlodipine both 5 mg and 10 mg but he had some dizziness and that was also stopped. [facility] Medical History Diabetes On anticoagulant therapy On beta cierra at home Psoriasis Enlarged prostate History of COVID-19 Bladder cancer Eczema craquele Cardiomyopathy Non-rheumatic aortic stenosis PAF (paroxysmal atrial fibrillation) Afib Essential (primary) hypertension Hypertension Normally functioning cardiac pacemaker present Surgical History History of transurethral resection of bladder tumor (TURBT) History of bladder surgery Hx of right inguinal hernia repair Total knee replacement status History of pacemaker Family History Father No problems noted. Mother No problems noted. Daughter In good health Social History Household Members: Spouse Housing: Apartment Do you presently have visiting nurse or other home services: No Alcohol intake: never Patient Tobacco Use Status: Never used Tobacco e-Cigarette/Vaping Use: Never Used Second Hand Smoke Exposure: No service: No Current occupational status: employed and retired Cognitive needs: No Hearing needs: No Vision needs: Yes (glasses) Review of Systems Const Denies chills, Denies fatigue, Denies fever(s), Denies weight gain and Denies weight loss ENT Denies dizziness Card Denies chest pain, Denies leg edema, Denies lightheadedness, Denies palpitations, Denies dyspnea on exertion, Denies orthopnea and Denies other Resp Denies cough and Denies dyspnea on exertion GI Denies hematochezia and Denies change in stool character Musc Denies abnormal gait, Denies muscle weakness, Denies numbness, Denies radiating pain into limb and Denies tingling Neuro Denies abnormal gait, Denies dizziness, Denies numbness and Denies tingling Endo Denies fatigue and Denies palpitations Physical Exam Vital Signs: Last Vital Signs Pulse 68 03/10/24 13:15 BP 158/58 H 03/10/24 13:15 BMI result Body Mass Index 26.1 Const General: comfortable and no acute distress Orientation/consciousness: patient oriented x3 HEENT Other: Unremarkable Head: Yes normal to inspection Neck Neck: Yes normal visual inspection Chest Chest palpation & inspection: normal inspection of the chest Resp Auscultation: clear to auscultation bilaterally Cardio Palpation: normal PMI Heart sounds: S1 normal heart sound present, S2 normal heart sound present, no gallops, Murmur heart sound present systolic II/ and at the right sternal border and no rubs GI Palpation (GI): Soft to palpation Back/Spine/Pelvis Other: unremarkable Skin General skin exam: no rashes or lesions noted Neuro General: patient oriented x3 Extrem General: Yes normal to inspection Psych Mental Status: mental status grossly normal Assessment & Plan Assessment & Plan (1) PAF (paroxysmal atrial fibrillation): Code(s): I48.0 - Paroxysmal atrial fibrillation Category: Medical Plan: Continue metoprolol and Eliquis. He is taking Eliquis once a day advised him to go up to twice a day. (2) Cardiomyopathy: Code(s): I42.9 - Cardiomyopathy, unspecified Category: Medical Qualifiers: Cardiomyopathy type: ischemic Qualified Code(s): I25.5 - Ischemic cardiomyopathy Plan: In the echocardiogram, LVEF is 35-40% which is lower than before. Wall motion abnormalities likely related to underlying coronary disease. In the myocardial perfusion imaging study from 2022, no ischemia but infarct in the inferior wall. He has many comorbidities, off advanced age and no clear-cut angina. Also has CKD. Issues with bladder cancer and propensity for urinary bleeding. Hence after looking at all aspects, we decided to keep him on only medical therapy for now. If any clear-cut angina or other concerning symptoms, then we can reassess risk benefit ratio. He agrees with this. He can try nitroglycerin as needed when he gets the infra-axillary pain. Again not clear if it is cardiac or not. (3) Non-rheumatic aortic stenosis: Code(s): I35.0 - Nonrheumatic aortic (valve) stenosis Category: Medical Plan: In the echocardiogram, moderate aortic valve calcification with mild stenosis. (4) Essential (primary) hypertension: Code(s): I10 - Essential (primary) hypertension Category: Medical Plan: Lisinopril dose has been cut back because of CKD. Amlodipine was apparently tried but made him dizzy. He tried both 5 mg and 10 mg. We can try possibly nifedipine but not clear if he is going to tolerate that. He is already on a good dose of beta-cierra as well as lisinopril. Other option might be to try some long-acting nitrates. Advised him to check blood pressures in the next few days and contact us. He agrees. (5) CKD (chronic kidney disease): Code(s): N18.9 - Chronic kidney disease, unspecified Category: Medical Plan: Continues to follow-up with nephrology. Medications: New nifedipine ER 30 mg PO DAILY 30 tabs 0RF 30 days nitroglycerin do not exceed 3 doses per episode 0.4 mg sublingual Q5M PRN 30 tabs 5RF chest pain R07.2 - Precordial pain Coding Level of Care Code Est Pt Level 4 (48809) Diagnoses PAF (paroxysmal atrial fibrillation) I48.0 Ischemic cardiomyopathy I25.5 Cardiomyopathy type: ischemic Non-rheumatic aortic stenosis I35.0 Essential (primary) hypertension I10 CKD (chronic kidney disease) N18.9
== END 2024-03-10 13:44 | disposition home or self-care (01) ==
PROVIDERS: PCP Internal Medicine; Visit Provider Internal Medicine
DX: I48.0 Paroxysmal atrial fibrillation (principal); I25.5 Ischemic cardiomyopathy; I35.0 Nonrheumatic aortic (valve) stenosis; I12.9 Hypertensive chronic kidney disease with stage 1 through stage 4 chronic kidney disease, or unspecified chronic kidney disease; N18.9 Chronic kidney disease, unspecified
CPT/HCPCS: 99214

== ENCOUNTER → 2024-03-10 12:38 | Outpatient (BNVA) | payer MEDICARE, SELFPAY | PROVIDERS: PCP Internal Medicine; Visit Provider Internal Medicine | DX: I48.0 Paroxysmal atrial fibrillation (principal); I25.5 Ischemic cardiomyopathy; I35.0 Nonrheumatic aortic (valve) stenosis; I12.9 Hypertensive chronic kidney disease with stage 1 through stage 4 chronic kidney disease, or unspecified chronic kidney disease; N18.9 Chronic kidney disease, unspecified | CPT/HCPCS: 99212 ==

== ENCOUNTER → 2024-03-14 23:59 | Outpatient (BNV) | payer MEDICARE, SELFPAY ==
--- NOTE | 2024-03-14 14:48 | MHC.OFFVIS ---
Intake Visit Reasons: REmote device check- Biotronik Allergies pravastatin Allergy (Unknown, Verified 01/27/24 14:49) LEG RASH PFSH Medical History Diabetes On anticoagulant therapy On beta cierra at home Psoriasis Enlarged prostate History of COVID-19 Bladder cancer Eczema craquele Cardiomyopathy Non-rheumatic aortic stenosis PAF (paroxysmal atrial fibrillation) Afib Essential (primary) hypertension Hypertension Normally functioning cardiac pacemaker present Surgical History History of transurethral resection of bladder tumor (TURBT) History of bladder surgery Hx of right inguinal hernia repair Total knee replacement status History of pacemaker Family History Father No problems noted. Mother No problems noted. Daughter In good health Social History Household Members: Spouse Housing: Apartment Do you presently have visiting nurse or other home services: No Alcohol intake: never Patient Tobacco Use Status: Never used Tobacco e-Cigarette/Vaping Use: Never Used Second Hand Smoke Exposure: No service: No Current occupational status: employed and retired Cognitive needs: No Hearing needs: No Vision needs: Yes (glasses) Office Procedures Cardiac Device Check Cardiac Device Check Details: Date of service- 03/14/2024 ; Battery life 50%; normal lead parameters; AP 48%; FREIGHT TEAM ASSOCIATE 94%; no significant arrhythmias. Overall normal device function. [id number] Cardiac Device Interrogation, pacemaker Procedure code (CPT) selection complete Assessment & Plan Assessment & Plan (1) Normally functioning cardiac pacemaker present: Code(s): Z95.0 - Presence of cardiac pacemaker Category: Medical (2) PAF (paroxysmal atrial fibrillation): Code(s): I48.0 - Paroxysmal atrial fibrillation Category: Medical Plan x Coding Level of Care Code Procedure Only Diagnoses Normally functioning cardiac pacemaker present Z95.0 PAF (paroxysmal atrial fibrillation) I48.0 CPT Codes Cardiac Device Check - Cardiac Device 12: [id number] Cardiac Device Interrogation, pacemaker ([id number])
== END ==
PROVIDERS: PCP Internal Medicine; Visit Provider Internal Medicine
DX: I48.0 Paroxysmal atrial fibrillation (principal); Z95.0 Presence of cardiac pacemaker
CPT/HCPCS: 93294

== ENCOUNTER 2024-04-15 14:57 | Outpatient (AMB) | payer MEDICARE, SELFPAY ==
--- NOTE | 2024-04-15 15:02 | MHC.OFFVIS ---
Intake Visit Reasons: 4M Cystoscopy(Bladder Ca) Intake Note: Patient is Present for Cystoscopy Urology Med: Tamsulosin Antibiotic Allergy: None Blood Thinner: Eliquis Last Cytology: 12/2023 URO- G Disposable Cystoscope lot: [id number] exp:07/16/2026 Automatic Folder Seamer Required: No Accompanied by: Self / Same As Patient Allergies pravastatin Allergy (Unknown, Verified 04/15/24 15:06) LEG RASH HPI Comments Details: Elton is a pleasant male. He is a patient of . He is seen for the following urologic conditions - bladder cancer - recurrent UTI Three month surveillance cystoscopy Chronic cystitis No active cancer Plan three-week boost gemcitabine Bladder cancer 09/04 high-grade superficial Detected after episode of gross hematuria Triggered by initiation of Eliquis for AFib Imaging - CT 08/07 left sidewall bladder mass Cystoscopy - 08/07 left bladder mass, 04/06 NAD, 07/08 NAD, 10/06 NAD TURBT - 09/04 Bladder, transurethral resection - mitomycin-C -?High grade papillary urothelial carcinoma, invasive into lamina propria - Muscularis propria present - 11/04 6 week induction, 04/06 3 week gemcitabine, 10/06 3 week gemcitabine Cytology - 04/06 NAD, 10/06 FISH Neg Therapeutic Plan - surveillance PFSH Medical History Diabetes On anticoagulant therapy On beta cierra at home Psoriasis Enlarged prostate History of COVID-19 Bladder cancer Eczema craquele Cardiomyopathy Non-rheumatic aortic stenosis PAF (paroxysmal atrial fibrillation) Afib Essential (primary) hypertension Hypertension Normally functioning cardiac pacemaker present Surgical History History of transurethral resection of bladder tumor (TURBT) History of bladder surgery Hx of right inguinal hernia repair Total knee replacement status History of pacemaker Family History Father No problems noted. Mother No problems noted. Daughter In good health Social History Household Members: Spouse Housing: Apartment Do you presently have visiting nurse or other home services: No Alcohol intake: never Patient Tobacco Use Status: Never used Tobacco e-Cigarette/Vaping Use: Never Used Second Hand Smoke Exposure: No service: No Current occupational status: employed and retired Cognitive needs: No Hearing needs: No Vision needs: Yes (glasses) Review of Systems Const Denies chills and Denies fever(s) Card Reports no additional complaints and Denies syncope Resp Denies cough GI Denies abdominal pain and Denies heartburn Reports as per HPI and Denies change in libido Neuro Denies syncope Psych Denies change in libido Endo Denies change in libido Physical Exam Const General: cooperative, healthy appearing, comfortable and no acute distress Orientation/consciousness: patient oriented x3 HEENT Face and sinus: Yes normal facial exam Mouth: moist mucous membranes Neck Neck: Yes normal visual inspection, Yes full ROM and Yes trachea midline Chest Chest palpation & inspection: normal inspection of the chest Resp Effort & Inspection: normal respiratory effort, able to speak in complete sentences and no respiratory distress GI Inspection: Yes normal to inspection Back/Spine/Pelvis Cervical Spine: normal cervical lordosis Thoracic/Lumbar Spine: thoracic and lumbar spine normal to inspection Skin General skin exam: no rashes or lesions noted Neuro General: patient oriented x3, gait normal, tone normal and moves all extremities Extrem General: Yes normal to inspection and Yes capillary refill normal Office Procedures Cystoscopy Consent Discussed risk and benefit or proposed procedure with the patient. Information consent for procedure given to the patient. Discussed technical aspects, risks, benefits and alternatives in full. Addressed all of the patient's questions and concerns regarding the procedure. The patient demonstrated knowledge and understanding. They wish to proceed with this procedure. Preparation The patient was prepped in the usual manner. A pit worker power shovel was present and in the room. Genitalia was prepped with betadine solution in a sterile manner. Lidocaine Jelly 2% was placed into the urethra and 16Fr flexible Olympus cystoscope was inserted into the meatus after adequate lubrication. Procedure Cystoscopy performed using a disposable Urovue digital 16 Scottish cystoscope. Meatus circumcised Urethra anterior and posterior urethra normal Prostatic Urethra trilobar hyperplasia Bladder examination with retroflexion of cystoscope Bladder Orifices normal shape and position Bladder Capacity median Trabeculations grade 2 Cellule Formation yes Diverticulum Formation n- Mucosal Erythema chronic cystitis Bladder Tumor none [id number] DISPOSABLE SCOPE URO-G FLEXIBLE SCOPE Procedure code (CPT) selection complete Office Meds lidocaine HCl 2 % mucosal jelly in applicator Performing Provider: Adalid Barrett MD Performing Location: [facility] Administered by: Brady Gonzalez LPN on 04/15/24 15:18 Dose Route Admin Location Dispensed Lot Number Expiration Date ND Skein Washer 10 mL intra-urethral 10 mL nitrofurantoin monohydrate/macrocrystals 100 mg capsule Performing Provider: Adalid Barrett MD Performing Location: [facility] Administered by: Brady Gonzalez LPN on 04/15/24 15:18 Dose Route Admin Location Dispensed Lot Number Expiration Date NDC Skein Washer 100 mg PO 1 cap naproxen 500 mg tablet Performing Provider: Adalid Barrett MD Performing Location: [facility] Administered by: Brady Gonzalez LPN on 04/15/24 15:18 Dose Route Admin Location Dispensed Lot Number Expiration Date NDC Skein Washer 500 mg PO 1 tab Results AMB Urinalysis, Automated UA Leukoctes 0 Mata/uL Last Edit by Stacy Johnson [facility] on 04/15/24 15:16 UA Nitrite Negative Last Edit by Stacy Johnson [facility] on 04/15/24 15:16 UA Urobilinogen 0.2 mg/dL Last Edit by Stacy Johnson [facility] on 04/15/24 15:16 UA Protein 15 mg/dL Last Edit by Stacy Johnson [facility] on 04/15/24 15:16 UA pH 5.5 Last Edit by Stacy Johnson [facility] on 04/15/24 15:16 UA Blood 0 Bud/uL Last Edit by Stacy Johnson [facility] on 04/15/24 15:16 UA Specific [place] 1.015 Last Edit by Stacy Johnson [facility] on 04/15/24 15:16 UA Ketone Negative Last Edit by Stacy Johnson [facility] on 04/15/24 15:16 UA Bilirubin 1 mg/dL Last Edit by Stacy Johnson [facility] on 04/15/24 15:16 UA Glucose 0 mg/dL Last Edit by Stacy Johnson [facility] on 04/15/24 15:16 Assessment & Plan Assessment & Plan (1) Bladder cancer: Comment: 09/04 - high-grade T1 Code(s): C67.9 - Malignant neoplasm of bladder, unspecified Category: Medical Qualifiers: Bladder location: posterior wall Qualified Code(s): C67.4 - Malignant neoplasm of posterior wall of bladder (2) BPH w urinary obs/LUTS: Code(s): N40.1 - Benign prostatic hyperplasia with lower urinary tract symptoms; N13.8 - Other obstructive and reflux uropathy Category: Medical Plan Three-month follow-up immuno suppression Orders: Orders AMB Urinalysis Automated Today Z13.9 - Encounter for screening, unspecified Urine Cytology Today C67.4 - Malignant neoplasm of posterior wall of bladder AMB Cystoscopy Today C67.4 - Malignant neoplasm of posterior wall of bladder Medications: New finasteride 5 mg PO DAILY 90 days 90 tabs 1RF N13.8 - Other obstructive and reflux uropathy, N40.1 - Benign prostatic hyperplasia with lower urinary tract symptoms, R33.9 - Retention of urine, unspecified Refilled tamsulosin 0.4 mg PO BID 90 days 180 caps 1RF Patient Instructions: Imaging studies, laboratory and physical exam results were discussed and reviewed in detail. No major barriers to patient understanding were identified. An opportunity to ask questions regarding the treatment plan was provided. All questions were answered. The patient expressed understanding and agreement with the above treatment plan. The patient is aware they should contact our office by phone for worsening of their current condition or the appearance of new urologic symptoms. Compliance is encouraged with any medications and followup testing that is ordered. It is a privilege to participate in the urologic care of your patient. If you have any questions or concerns regarding treatment for the above conditions, or other urologic issues, please do not hesitate to contact me. The office telephone contact is [phone]. This note is constructed using voice recognition software. While every effort has been made to ensure accuracy banbury mixer operator errors may have been included. Yours sincerely, Dr Adalid Barrett MD, [facility] - Urology Providers of Expert, Compassionate Care for the Genitourinary System Coding Level of Care Code Est Pt Level 4 (75534) Diagnoses Malignant neoplasm of posterior wall of urinary bladder C67.4 Bladder location: posterior wall BPH w urinary obs/LUTS N40.1; N13.8 CPT Codes Cystoscopy - CPT: 80466-[id number] ([id number])
== END 2024-04-15 15:32 | disposition home or self-care (01) ==
LOC: HO.HUSH 14:58
PROVIDERS: PCP Internal Medicine; Visit Provider Urology
DX: C67.4 Malignant neoplasm of posterior wall of bladder (principal); N40.1 Benign prostatic hyperplasia with lower urinary tract symptoms; N13.8 Other obstructive and reflux uropathy; Z13.9 Encounter for screening, unspecified
CPT/HCPCS: 52000; 99214

== ENCOUNTER 2024-04-15 14:57 | Outpatient (REF) | payer MEDICARE, SELFPAY ==
[2024-04-15 15:54] LABS: Urine Cytology See Pathology rpt
== END 2024-04-15 14:58 | disposition home or self-care (01) ==
LOC: HO.LAB 14:57
PROVIDERS: PCP Internal Medicine; Visit Provider Urology
DX: C67.4 Malignant neoplasm of posterior wall of bladder (principal); N40.1 Benign prostatic hyperplasia with lower urinary tract symptoms; N13.8 Other obstructive and reflux uropathy; R33.9 Retention of urine, unspecified; Z79.899 Other long term (current) drug therapy
CPT/HCPCS: 52000; 81003; 88112; 99212

== ENCOUNTER 2024-04-25 13:26 | Outpatient (AMB) | payer MEDICARE, SELFPAY ==
--- NOTE | 2024-04-25 13:30 | MHC.PC.OV ---
Vital Signs 04/25/24 13:32 Height 5 ft 11 in Weight 183 lb 6 oz BMI 25.6 BP 130/60 Blood Pressure Location Lt brachial Position Sitting Pulse 63 Pulse Source Pulse Oximeter Pulse Oximetry (%) 95 Oxygen Delivery Method Room Air Intake Visit Reasons: 3mth f/u berkley 04/20 Intake Note: Patient is here to follow up on DM, CKD, HTN. 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 Patient reports that he is currently on 3 blood pressure medication which include metoprolol 50 mg to be taken b.i.d., lisinopril 20 mg daily and nifedipine 30 mg daily. He reports since he started the nifedipine shortly after he takes this he starts to feel ?headache and woozy?. Then he takes his blood pressure and noticed it his blood pressure is on the lower side. He tried to cut down on the medication and split in half although he was still having the same symptoms. Today when he took the medication he noticed his blood pressure went down to 99/44. He had the similar symptoms of the dizziness and the headache which has resolved at this time. Patient is currently being treated by Dr. Barrett urologist for bladder cancer and is scheduled for washout on ' for 3 series of washout's. Patient reports he is monitoring his blood glucose level daily. He reports he recently obtain the flu and RSV vaccine with his at bedside 2 weeks ago. He has had a Cologuard years ago and is not interested in a colonoscopy. Patient reports he is still driving, grocery shopping, walking daily for exercise. Patient reports he is sleeping well. Patient denies any other symptoms complaints or concerns at this time. [facility] Medical History Diabetes On anticoagulant therapy On beta cierra at home Psoriasis Enlarged prostate History of COVID-19 Bladder cancer Eczema craquele Cardiomyopathy Non-rheumatic aortic stenosis PAF (paroxysmal atrial fibrillation) Afib Essential (primary) hypertension Hypertension Normally functioning cardiac pacemaker present Surgical History History of transurethral resection of bladder tumor (TURBT) History of bladder surgery Hx of right inguinal hernia repair Total knee replacement status History of pacemaker Family History Father No problems noted. Mother No problems noted. Daughter In good health Social History Household Members: Spouse Housing: Apartment Do you presently have visiting nurse or other home services: No Alcohol intake: never Patient Tobacco Use Status: Never used Tobacco e-Cigarette/Vaping Use: Never Used Second Hand Smoke Exposure: No service: No Current occupational status: employed and retired Cognitive needs: No Hearing needs: No Vision needs: Yes (glasses) Questionnaire Thrive Questionnaire Date Thrive assessed: 07/02/23 MALKA-7 AMB Questionnaire MALKA-7 Date MALKA - 7 assessed: 07/02/23 Source: Developed by Drs. Angel Rodríguez, Sandra Nickerson, Placido Tubbs and colleagues, with an educational bhavana from [employer]. Review of Systems Const All systems reviewed & are unremarkable except as noted in HPI and below Physical exam (Primary Care) Vital Signs: Last Vital Signs Pulse 63 04/25/24 13:32 BP 130/60 04/25/24 13:32 Pulse Ox 95 04/25/24 13:32 Oxygen Delivery Method Room Air 04/25/24 13:32 BMI result Body Mass Index 25.6 Tobacco/Smoking Status: Tobacco use Status Tobacco use date assessed 04/25/24 04/25/24 13:43 Patient Tobacco Use Status Never used Tobacco 04/25/24 13:43 e-Cigarette/Vaping Use Never Used 04/25/24 13:43 Thrive Assessment: Date of Thrive Assessment Date Thrive assessed 07/02/23 04/25/24 13:43 Const Other: Appearance: Alert. Oriented X3. No acute distress. ? Head: Normal external exam. Normocephalic. Atraumatic.? Eyes: EOMI. Conjunctiva and sclera normal. Eyelids normal. ? ENT: Pharynx normal. Uvula midline. Moist mucous membranes. Normal Voice. Neck: Normal inspection. Neck supple. FROM. No meningeal signs. CVS: Normal heart rate and rhythm. Heart sound normal. Pulses normal throughout. Respiratory: No respiratory distress. Painless inspiration. Breath sounds normal. No wheezes/rales/rhonchi noted. Chest nontender. ? No accessory muscle usage noted or decreased air movement noted. Abdomen: Soft and nontender. Bowel sounds normal in all 4 quadrants. No distention noted.? No organomegaly noted.? Back: ?No CVA tenderness.? Full range of motion noted. Skin: Skin warm and dry.? Normal skin color.. No rashes noted. Extremities: Extremities exhibit normal range of motion.? Extremities nontender. Neuro: Oriented X 3.? No motor deficit.? No sensory deficit.Normal steady gait. Results AMB Hemoglobin A1c AMB Hemoglobin A1c 6.6 % Last Edit by ELIE Freitas on 04/25/24 13:47 Results Reviewed Results Reviewed: Laboratory Last Values Hgb A1c (Clinic) 6.6 % (4.0-6.0) H 04/25/24 13:30 A1c level today is 6.6. Went up from 6.17 December 2023. Coding Level of Care Code Est Pt Level 4 (73937) Diagnoses Primary hypertension I10 Hypertension type: primary hypertension Assessment & Plan Assessment & Plan (1) Hypertension: Code(s): I10 - Essential (primary) hypertension Category: Medical Qualifiers: Hypertension type: primary hypertension Qualified Code(s): I10 - Essential (primary) hypertension Plan: Patient was instructed to discontinue the nifedipine 30 mg. Patient will continue metoprolol 50 mg b.i.d.. Patient will continue lisinopril 20 mg daily. Plan Patient will receive refill for Eliquis. Orders: Orders AMB Hemoglobin A1c Today E11.9 - Type 2 diabetes mellitus without complications
[2024-04-25 13:32] VITALS: BP 130/60; PULSE 63; O2SAT 95; BMI 25.6
== END 2024-04-25 14:27 | disposition home or self-care (01) ==
PROVIDERS: PCP Internal Medicine; Visit Provider Internal Medicine
DX: I10 Essential (primary) hypertension (principal)

== ENCOUNTER → 2024-04-25 13:26 | Outpatient (BNVA) | payer MEDICARE, SELFPAY | PROVIDERS: PCP Internal Medicine; Visit Provider Internal Medicine | DX: I10 Essential (primary) hypertension (principal); E11.9 Type 2 diabetes mellitus without complications | CPT/HCPCS: 83036; 99212 ==

== ENCOUNTER 2024-05-18 08:25 | Outpatient (REF) | payer MEDICARE, SELFPAY ==
[2024-05-18 09:37] LABS: Anion Gap 10 (12-20); Blood Urea Nitrogen 23 mg/dL (9-16); Carbon Dioxide 25 mmol/L (22-29); Chloride 110 mmol/L (96-108); Estimated Glomerular Filt Rate 38; Potassium 4.2 mmol/L (3.3-5.1); Sodium 141 mmol/L (135-145)
== END 2024-05-18 08:26 | disposition home or self-care (01) ==
LOC: HO.LAB 08:25
PROVIDERS: PCP Internal Medicine; Visit Provider Internal Medicine Nephrology
DX: N18.32 Chronic kidney disease, stage 3b (principal)
CPT/HCPCS: 36415; 80051; 82565; 84520

== ENCOUNTER 2024-05-25 13:24 | Outpatient (AMB) | payer MEDICARE, SELFPAY ==
--- NOTE | 2024-05-25 13:28 | HO.NEPHOV ---
Vital Signs 05/25/24 13:33 Height 5 ft 11 in Weight 187 lb 2 oz BMI 26.1 BP 140/60 H Blood Pressure Location Lt brachial Position Sitting Pulse 67 Pulse Source Pulse Oximeter Pulse Oximetry (%) 95 Oxygen Delivery Method Room Air Intake Visit Reasons: CKD/ Conf Is Manager Required: No Accompanied by: Self / Same As Patient Allergies pravastatin Allergy (Unknown, Verified 05/25/24 13:33) LEG RASH HPI Comments Details: Elton was seen in follow up of his chronic kidney disease. He has been a diabetic and has been on metformin. He has ischemic cardiomyopathy and has been on CARLOS inhibitor. He is known to have aortic stenosis. He denies any hypoglycemia, chest pain, shortness of breath, paroxysmal nocturnal dyspnea, orthopnea, pedal edema or urinary symptoms. He denies any nausea, vomiting, diarrhea, hematuria, sore throat, orthostatic symptoms, sinusitis or any new systemic complaints. He has been taking PPI for a long time. He has prostatic symptoms and takes tamsulosin. He has history of atrial fibrillation with good heart rate control now. He remains on anticoagulation. His serum creatinine has improved and stable after ACEI dose adjustment. He had bladder cancer and has been seeing Dr Barrett. [facility] Medical History Diabetes On anticoagulant therapy On beta cierra at home Psoriasis Enlarged prostate History of COVID-19 Bladder cancer Eczema craquele Cardiomyopathy Non-rheumatic aortic stenosis PAF (paroxysmal atrial fibrillation) Afib Essential (primary) hypertension Hypertension Normally functioning cardiac pacemaker present Surgical History History of transurethral resection of bladder tumor (TURBT) History of bladder surgery Hx of right inguinal hernia repair Total knee replacement status History of pacemaker Family History Father No problems noted. Mother No problems noted. Daughter In good health Social History Household Members: Spouse Housing: Apartment Do you presently have visiting nurse or other home services: No Alcohol intake: never Patient Tobacco Use Status: Never used Tobacco e-Cigarette/Vaping Use: Never Used Second Hand Smoke Exposure: No service: No Current occupational status: employed and retired Cognitive needs: No Hearing needs: No Vision needs: Yes (glasses) Review of Systems Const All systems reviewed & are unremarkable except as noted in HPI and below Physical Exam Vital Signs: Last Vital Signs Pulse 67 05/25/24 13:33 BP 140/60 H 05/25/24 13:33 Pulse Ox 95 05/25/24 13:33 Oxygen Delivery Method Room Air 05/25/24 13:33 BMI result Body Mass Index 26.1 Const General: comfortable and no acute distress Orientation/consciousness: patient oriented x3 HEENT Head: Yes normocephalic Mouth: Normal oral and palatal mucosa present Eyes EOM: EOMs intact bilaterally Neck Neck: Yes supple Resp Auscultation: clear to auscultation bilaterally Cardio Jugular venous distension: no JVD Rate: regular rate GI Palpation (GI): Soft to palpation Auscultation: normal bowel sounds General: Yes no CVA tenderness Back/Spine/Pelvis Back: no CVA tenderness Skin General skin exam: no rashes or lesions noted Neuro General: patient oriented x3 and moves all extremities Extrem General: Yes no pedal edema Results Reviewed Nephrology Results: Sodium 141 mmol/L (135-145) 05/18/24 Potassium 4.2 mmol/L (3.3-5.1) 05/18/24 Chloride 110 mmol/L (96-108) H 05/18/24 Carbon Dioxide 25 mmol/L (22-29) 05/18/24 BUN 23 mg/dL (9-16) H 05/18/24 Creatinine 1.69 mg/dL (0.5-1.4) H 05/18/24 Urine Protein Negative mg/dL (Neg-Trace) 05/19/24 Assessment & Plan Assessment & Plan (1) CKD (chronic kidney disease) stage 3, GFR 30-59 ml/min: Code(s): N18.30 - Chronic kidney disease, stage 3 unspecified Category: Medical Qualifiers: Chronic kidney disease stage 3 subtype: stage 3b (GFR 30-44) Qualified Code(s): N18.32 - Chronic kidney disease, stage 3b (2) Essential (primary) hypertension: Code(s): I10 - Essential (primary) hypertension Category: Medical Plan Elton has chronic kidney disease stage 3 at baseline . He had RASHEEDA which has resolved. He is on tamsulosin. Renal ultrasound has ruled out hydronephrosis. Doppler showed high resistive indices. He has not known to have any significant proteinuria. He denies any new systemic complaints. He has history of aortic stenosis and takes CARLOS inhibitor. His renal functions are stable. I did not make any medication changes at this visit . F/U blood work ordered. All questions answered. Coding Level of Care Code Est Pt Level 4 (91113) Diagnoses Stage 3b chronic kidney disease N18.32 Chronic kidney disease stage 3 subtype: stage 3b (GFR 30-44) Essential (primary) hypertension I10
[2024-05-25 13:33] VITALS: BP 140/60; PULSE 67; O2SAT 95; BMI 26.1
== END 2024-05-25 13:49 | disposition home or self-care (01) ==
PROVIDERS: PCP Internal Medicine; Visit Provider Internal Medicine Nephrology
DX: I12.9 Hypertensive chronic kidney disease with stage 1 through stage 4 chronic kidney disease, or unspecified chronic kidney disease (principal); N18.32 Chronic kidney disease, stage 3b
CPT/HCPCS: 99214

== ENCOUNTER → 2024-05-25 13:24 | Outpatient (BNVA) | payer MEDICARE, SELFPAY | PROVIDERS: PCP Internal Medicine; Visit Provider Internal Medicine Nephrology | DX: E11.22 Type 2 diabetes mellitus with diabetic chronic kidney disease (principal); I12.9 Hypertensive chronic kidney disease with stage 1 through stage 4 chronic kidney disease, or unspecified chronic kidney disease; N18.32 Chronic kidney disease, stage 3b; Z79.84 Long term (current) use of oral hypoglycemic drugs | CPT/HCPCS: 99212 ==

== ENCOUNTER 2024-06-09 13:44 | Outpatient (AMB) | payer MEDICARE, SELFPAY ==
[2024-06-09 13:56] VITALS: BP 120/64; PULSE 64; BMI 26.3
--- NOTE | 2024-06-09 13:56 | MHC.OFFVIS ---
Vital Signs 06/09/24 13:56 Height 5 ft 11 in Weight 188 lb 4.396 oz BMI 26.3 BP 120/64 Blood Pressure Location Lt brachial Position Sitting Pulse 64 Pulse Source Pulse Oximeter Intake Visit Reasons: 3m follow up Pairer Substandard Required: No Accompanied by: Self / Same As Patient Allergies pravastatin Allergy (Unknown, Verified 05/25/24 13:33) LEG RASH Medication List - Last Reconciled 06/09/24 by Mat Manriquez MD apixaban (Eliquis) 2.5 mg PO BID atorvastatin 20 mg PO BEDTIME betamethasone dipropionate 0.05% 2 appl topical BID blood sugar diagnostic (FreeStyle Test strips) Test 2 times daily blood sugar diagnostic (FreeStyle Test strips) Test 2 times daily blood-glucose meter (Freestyle InsuLinx meter) As directed [Diabetic shoes As directed] finasteride 5 mg PO DAILY 90 days lancets (FreeStyle Lancets) Test 2 times daily lisinopril 20 mg PO DAILY 90 days meclizine 12.5 mg PO DAILY PRN metformin 500 mg PO DAILY metoprolol succinate ER 100 mg (2 x 50 mg) PO DAILY 90 days nitroglycerin 0.4 mg sublingual Q5M PRN pantoprazole 40 mg PO DAILY tamsulosin 0.4 mg PO BID 90 days HPI Comments Details: Neal returns for follow-up regarding various cardiac issues. He states he feels fine overall. No clear complaints like angina or shortness of breath. In the past, he had tried different medications including amlodipine, nifedipine for blood pressure but it seems he got dizzy and all these have been stopped. Otherwise, no new concerns. [facility] Medical History Diabetes On anticoagulant therapy On beta cierra at home Psoriasis Enlarged prostate History of COVID-19 Bladder cancer Eczema craquele Cardiomyopathy Non-rheumatic aortic stenosis PAF (paroxysmal atrial fibrillation) Afib Essential (primary) hypertension Hypertension Normally functioning cardiac pacemaker present Surgical History History of transurethral resection of bladder tumor (TURBT) History of bladder surgery Hx of right inguinal hernia repair Total knee replacement status History of pacemaker Family History Father No problems noted. Mother No problems noted. Daughter In good health Social History Household Members: Spouse Housing: Apartment Do you presently have visiting nurse or other home services: No Alcohol intake: never Patient Tobacco Use Status: Never used Tobacco e-Cigarette/Vaping Use: Never Used Second Hand Smoke Exposure: No service: No Current occupational status: employed and retired Cognitive needs: No Hearing needs: No Vision needs: Yes (glasses) Review of Systems Const Denies chills, Denies fatigue, Denies fever(s), Denies frequent falls, Denies weakness, Denies weight gain and Denies weight loss ENT Denies dizziness Card Denies chest pain, Denies leg edema, Denies lightheadedness, Denies palpitations, Denies dyspnea and Denies dyspnea on exertion Resp Denies cough, Denies dyspnea and Denies dyspnea on exertion GI Denies hematochezia Musc Denies abnormal gait, Denies muscle weakness, Denies numbness, Denies radiating pain into limb and Denies tingling Neuro Denies abnormal gait, Denies dizziness, Denies frequent falls, Denies numbness, Denies tingling and Denies weakness Endo Denies fatigue and Denies palpitations Physical Exam Vital Signs: Last Vital Signs Pulse 64 06/09/24 13:56 BP 120/64 06/09/24 13:56 BMI result Body Mass Index 26.3 Const General: comfortable and no acute distress Orientation/consciousness: patient oriented x3 HEENT Other: Unremarkable Head: Yes normal to inspection Neck Neck: Yes normal visual inspection Chest Chest palpation & inspection: normal inspection of the chest Resp Auscultation: clear to auscultation bilaterally Cardio Palpation: normal PMI Heart sounds: S1 normal heart sound present, S2 normal heart sound present, no gallops, Murmur heart sound present systolic II/ and at the right sternal border and no rubs GI Palpation (GI): Soft to palpation Back/Spine/Pelvis Other: unremarkable Skin General skin exam: no rashes or lesions noted Neuro General: patient oriented x3 Extrem General: Yes normal to inspection Psych Mental Status: mental status grossly normal Assessment & Plan Assessment & Plan (1) PAF (paroxysmal atrial fibrillation): Code(s): I48.0 - Paroxysmal atrial fibrillation Category: Medical Plan: Continue metoprolol and Eliquis. No recent issues. (2) Cardiomyopathy: Code(s): I42.9 - Cardiomyopathy, unspecified Category: Medical Qualifiers: Cardiomyopathy type: ischemic Qualified Code(s): I25.5 - Ischemic cardiomyopathy Plan: In the echocardiogram, LVEF is 35-40% which is lower than before. Wall motion abnormalities likely related to underlying coronary disease. In the myocardial perfusion imaging study from 2022, no ischemia but infarct in the inferior wall. He has many comorbidities, of advanced age and no clear-cut angina. Also has CKD. Issues with bladder cancer and propensity for urinary bleeding. After weighing the pros and cons, we decided to just keep him on medical therapy only. If any clear angina, then we can reassess. (3) Non-rheumatic aortic stenosis: Code(s): I35.0 - Nonrheumatic aortic (valve) stenosis Category: Medical Plan: In the echocardiogram, moderate aortic valve calcification with mild stenosis. Can be followed periodically. (4) Essential (primary) hypertension: Code(s): I10 - Essential (primary) hypertension Category: Medical Plan: Lisinopril dose has been cut back because of CKD. Tried amlodipine as well as nifedipine at different times but got dizzy. Blood pressure seems to be quite stable and hence no new changes. (5) CKD (chronic kidney disease): Code(s): N18.9 - Chronic kidney disease, unspecified Category: Medical Plan: Most recent creatinine is 1.69. Coding Level of Care Code Est Pt Level 4 (27051) Diagnoses PAF (paroxysmal atrial fibrillation) I48.0 Ischemic cardiomyopathy I25.5 Cardiomyopathy type: ischemic Non-rheumatic aortic stenosis I35.0 Essential (primary) hypertension I10 CKD (chronic kidney disease) N18.9
== END 2024-06-09 14:17 | disposition home or self-care (01) ==
PROVIDERS: PCP Internal Medicine; Visit Provider Internal Medicine
DX: I48.0 Paroxysmal atrial fibrillation (principal); I25.5 Ischemic cardiomyopathy; I35.0 Nonrheumatic aortic (valve) stenosis; I12.9 Hypertensive chronic kidney disease with stage 1 through stage 4 chronic kidney disease, or unspecified chronic kidney disease; N18.9 Chronic kidney disease, unspecified
CPT/HCPCS: 99214

== ENCOUNTER → 2024-06-09 13:44 | Outpatient (BNVA) | payer MEDICARE, SELFPAY | PROVIDERS: PCP Internal Medicine; Visit Provider Internal Medicine | DX: I48.0 Paroxysmal atrial fibrillation (principal); I25.5 Ischemic cardiomyopathy; I35.0 Nonrheumatic aortic (valve) stenosis; I12.9 Hypertensive chronic kidney disease with stage 1 through stage 4 chronic kidney disease, or unspecified chronic kidney disease; N18.9 Chronic kidney disease, unspecified | CPT/HCPCS: 99212 ==

== ENCOUNTER → 2024-06-13 23:59 | Outpatient (BNV) | payer MEDICARE, SELFPAY ==
--- NOTE | 2024-06-18 12:36 | MHC.OFFVIS ---
Intake Visit Reasons: Remote device check- [employer] Allergies pravastatin Allergy (Unknown, Verified 05/25/24 13:33) LEG RASH PFSH Medical History Diabetes On anticoagulant therapy On beta cierra at home Psoriasis Enlarged prostate History of COVID-19 Bladder cancer Eczema craquele Cardiomyopathy Non-rheumatic aortic stenosis PAF (paroxysmal atrial fibrillation) Afib Essential (primary) hypertension Hypertension Normally functioning cardiac pacemaker present Surgical History History of transurethral resection of bladder tumor (TURBT) History of bladder surgery Hx of right inguinal hernia repair Total knee replacement status History of pacemaker Family History Father No problems noted. Mother No problems noted. Daughter In good health Social History Household Members: Spouse Housing: Apartment Do you presently have visiting nurse or other home services: No Alcohol intake: never Patient Tobacco Use Status: Never used Tobacco e-Cigarette/Vaping Use: Never Used Second Hand Smoke Exposure: No service: No Current occupational status: employed and retired Cognitive needs: No Hearing needs: No Vision needs: Yes (glasses) Office Procedures Cardiac Device Check Cardiac Device Check Details: Date of service- 06/12/2024 ; Battery life 50%; normal lead parameters; AP 50%; MEDICAL SOCIAL WORKER 95%; no significant arrhythmias. Overall normal device function. [id number] Cardiac Device Interrogation, pacemaker Procedure code (CPT) selection complete Assessment & Plan Assessment & Plan (1) Normally functioning cardiac pacemaker present: Code(s): Z95.0 - Presence of cardiac pacemaker Category: Medical (2) PAF (paroxysmal atrial fibrillation): Code(s): I48.0 - Paroxysmal atrial fibrillation Category: Medical (3) Cardiomyopathy: Code(s): I42.9 - Cardiomyopathy, unspecified Category: Medical Qualifiers: Cardiomyopathy type: ischemic Qualified Code(s): I25.5 - Ischemic cardiomyopathy Plan x Coding Level of Care Code Procedure Only Diagnoses Normally functioning cardiac pacemaker present Z95.0 PAF (paroxysmal atrial fibrillation) I48.0 Ischemic cardiomyopathy I25.5 Cardiomyopathy type: ischemic CPT Codes Cardiac Device Check - Cardiac Device : [id number] Cardiac Device Interrogation, pacemaker ([id number])
== END ==
PROVIDERS: PCP Internal Medicine; Visit Provider Internal Medicine
DX: I48.0 Paroxysmal atrial fibrillation (principal); I25.5 Ischemic cardiomyopathy; Z95.0 Presence of cardiac pacemaker
CPT/HCPCS: 93294

== ENCOUNTER 2024-07-12 14:59 | Outpatient (REF) | payer MEDICARE, SELFPAY ==
[2024-07-12 16:19] LABS: Urine Cytology See Pathology rpt
== END 2024-07-12 15:00 | disposition home or self-care (01) ==
LOC: HO.LAB 14:59
PROVIDERS: PCP Internal Medicine; Visit Provider Urology
DX: C67.4 Malignant neoplasm of posterior wall of bladder (principal); N40.1 Benign prostatic hyperplasia with lower urinary tract symptoms; N30.20 Other chronic cystitis without hematuria
CPT/HCPCS: 52000; 81003; 88112; 99212

== ENCOUNTER 2024-07-12 14:59 | Outpatient (AMB) | payer MEDICARE, SELFPAY ==
--- NOTE | 2024-07-12 15:20 | A.OFFVIS_ITS ---
Intake Visit Reasons: cysto(Bladder Ca) Intake Note: Patient is present for Cystoscopy Urology Medication:TAMSULOSIN,FINASTERIDE Antibiotic Allergy:PRAVASTATIN Blood Thinner:APIXABAN Lot:[id number] Exp:04/18/27 Finishing Area Supervisor Required: No Allergies pravastatin Allergy (Unknown, Verified 07/12/24 15:21) LEG RASH HPI Comments Details: Elton is a pleasant male. He is a patient of . 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 - 11/04 6 week induction, 04/06 3 week gemcitabine, 10/06 3 week gemcitabine, 05/08 3 week boost Cytology - 04/06 NAD, 10/06 FISH Neg Therapeutic Plan - surveillance PFSH Medical History Diabetes On anticoagulant therapy On beta cierra at home Psoriasis Enlarged prostate History of COVID-19 Bladder cancer Eczema craquele Cardiomyopathy Non-rheumatic aortic stenosis PAF (paroxysmal atrial fibrillation) Afib Essential (primary) hypertension Hypertension Normally functioning cardiac pacemaker present Surgical History History of transurethral resection of bladder tumor (TURBT) History of bladder surgery Hx of right inguinal hernia repair Total knee replacement status History of pacemaker Family History Father No problems noted. Mother No problems noted. Daughter In good health Social History Household Members: Spouse Housing: Apartment Do you presently have visiting nurse or other home services: No Alcohol intake: never Patient Tobacco Use Status: Never used Tobacco e-Cigarette/Vaping Use: Never Used Second Hand Smoke Exposure: No service: No Current occupational status: employed and retired Cognitive needs: No Hearing needs: No Vision needs: Yes (glasses) Review of Systems Const Denies chills and Denies fever(s) Card Reports no additional complaints and Denies syncope Resp Denies cough GI Denies abdominal pain and Denies heartburn Reports as per HPI and Denies change in libido Neuro Denies syncope Psych Denies change in libido Endo Denies change in libido Physical Exam Const General: cooperative, healthy appearing, comfortable and no acute distress Orientation/consciousness: patient oriented x3 HEENT Face and sinus: Yes normal facial exam Mouth: moist mucous membranes Neck Neck: Yes normal visual inspection, Yes full ROM and Yes trachea midline Chest Chest palpation & inspection: normal inspection of the chest Resp Effort & Inspection: normal respiratory effort, able to speak in complete sentences and no respiratory distress GI Inspection: Yes normal to inspection Back/Spine/Pelvis Cervical Spine: normal cervical lordosis Thoracic/Lumbar Spine: thoracic and lumbar spine normal to inspection Skin General skin exam: no rashes or lesions noted Neuro General: patient oriented x3, gait normal, tone normal and moves all extremities Extrem General: Yes normal to inspection and Yes capillary refill normal Office Procedures Cystoscopy Consent Discussed risk and benefit or proposed procedure with the patient. Information consent for procedure given to the patient. Discussed technical aspects, risks, benefits and alternatives in full. Addressed all of the patient's questions and concerns regarding the procedure. The patient demonstrated knowledge and understanding. They wish to proceed with this procedure. Preparation The patient was prepped in the usual manner. A centerless grinder set up operator was present and in the room. Genitalia was prepped with betadine solution in a sterile manner. Lidocaine Jelly 2% was placed into the urethra and 16Fr flexible Olympus cystoscope was inserted into the meatus after adequate lubrication. Procedure Cystoscopy performed using a disposable Urovue digital 16 Senegalese cystoscope. Meatus normal position Urethra anterior and posterior urethra normal Prostatic Urethra unremarkable Bladder examination with retroflexion of cystoscope Bladder Orifices normal shape and position Bladder Capacity normal Trabeculations grade 2 Cellule Formation - Diverticulum Formation - Mucosal Erythema chronic cystitis Bladder Tumor - 57377-Kozbqyjmey DISPOSABLE SCOPE URO-G FLEXIBLE SCOPE Procedure code (CPT) selection complete Office Meds lidocaine HCl 2 % mucosal jelly in applicator Performing Provider: Adalid Barrett MD [place] [facility] Administered by: Roxana Monroe RN on 07/12/24 15:32 Dose Route Admin Location Dispensed Lot Number Expiration Date NDC Carpenter Maintenance 10 mL intra-urethral 10 mL nitrofurantoin monohydrate/macrocrystals 100 mg capsule Performing Provider: Adalid Barrett MD Per[place] [facility] Administered by: Roxana Monroe RN on 07/12/24 15:32 Dose Route Admin Location Dispensed Lot Number Expiration Date NDC Carpenter Maintenance 100 mg PO 1 cap Results AMB Urinalysis, Automated UA Leukoctes 0 Mata/uL Last Edit by Leila Kebede CCM on 07/12/24 15:26 UA Nitrite Negative Last Edit by Leila Kebede CCM on 07/12/24 15:26 UA Urobilinogen 0.2 mg/dL Last Edit by Leila Kebede CCM on 07/12/24 15:2 6 UA Protein 15 mg/dL Last Edit by Leila Kebede [facility] on 07/12/24 15:26 UA pH 5.5 Last Edit by Leila Kebede [facility] on 07/12/24 15:26 UA Blood 0 Bud/uL Last Edit by Leila Kebede CCM on 07/12/24 15:26 UA Specific [place] 1.025 Last Edit by Leila Kebede [facility] on 07/12/24 15: 26 UA Ketone Negative Last Edit by Leila Kebede CCM on 07/12/24 15:26 UA Bilirubin 0 mg/dL Last Edit by Leila Kebede [facility] on 07/12/24 15:26 UA Glucose 0 mg/dL Last Edit by Leila Kebede [facility] on 07/12/24 15:26 Results Reviewed Results Reviewed: Laboratory Last Values Urine pH (Auto) 5.5 07/12/24 15:25 Specific [place] (Auto) 1.025 07/12/24 15:25 Urine Protein (Auto) 15 mg/dL 07/12/24 15:25 Glucose (UA)(Auto) 0 mg/dL 07/12/24 15:25 Urine Ketones (Auto) Negative 07/12/24 15:25 Urine Blood (Auto) 0 Bud/uL 07/12/24 15:25 Urine Nitrite (Auto) Negative 07/12/24 15:25 Urine Bilirubin (Auto) 0 mg/dL 07/12/24 15:25 Urine Urobilinogen (Auto) 0.2 mg/dL 07/12/24 15:25 Leukocyte Esterase (Auto) 0 Mata/uL 07/12/24 15:25 Assessment & Plan Assessment & Plan (1) Chronic cystitis: Code(s): N30.20 - Other chronic cystitis without hematuria Category: Medical (2) Bladder cancer: Comment: 09/04 - high-grade T1 Code(s): C67.9 - Malignant neoplasm of bladder, unspecified Category: Medical Qualifiers: Bladder location: posterior wall Qualified Code(s): C67.4 - Malignant neoplasm of posterior wall of bladder Plan Start vitamin-C and methenamine for chronic cystitis Check cysto three-month Orders: Orders AMB Cystoscopy Today C67.4 - Malignant neoplasm of posterior wall of bladder, N13.8 - Other obstructive and reflux uropathy, N40.1 - Benign prostatic hyperplasia with lower urinary tract symptoms AMB Urinalysis Automated Today Z13.9 - Encounter for screening, unspecified Urine Cytology Today N39.0 - Urinary tract infection, site not specified Medications: New methenamine hippurate 1 g PO DAILY 90 days 90 tabs 1RF N30.20 - Other chronic cystitis without hematuria, N39.0 - Urinary tract infection, site not specified ascorbic acid (vitamin C) 1 g PO DAILY 90 days 90 tabs 1RF N30.20 - Other chronic cystitis without hematuria, N39.0 - Urinary tract infection, site not specified Patient Instructions: Imaging studies, laboratory and physical exam results were discussed and reviewed in detail. No major barriers to patient understanding were identified. An opportunity to ask questions regarding the treatment plan was provided. All questions were answered. The patient expressed understanding and agreement with the above treatment plan. The patient is aware they should contact our office by phone for worsening of their current condition or the appearance of new urologic symptoms. Compliance is encouraged with any medications and followup testing that is ordered. It is a privilege to participate in the urologic care of your patient. If you have any questions or concerns regarding treatment for the above conditions, or other urologic issues, please do not hesitate to contact me. The office telephone contact is [phone]. This note is constructed using voice recognition software. While every effort has been made to ensure accuracy collision estimator errors may have been included. Yours sincerely, Dr Adalid Barrett MD, [facility] - Urology Providers of Expert, Compassionate Care for the Genitourinary System Coding Level of Care Code Est Pt Level 4 (49406) Diagnoses Chronic cystitis N30.20 Malignant neoplasm of posterior wall of urinary bladder C67.4 Bladder location: posterior wall CPT Codes Cystoscopy - CPT: 38679-Xgqxfxbtlj ([id number])
--- OUTSIDE RECORDS SUMMARY | 2024-07-12 16:01 | XMS_ITS | Patient Health Record ---
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 Name Role Phone Darrius Garcia Primary Care Provider Jac Lopes Unavailable [phone] Allergies No Known Allergies Results Component Value Reference Range Notes HEMOGLOBIN A1C (GLYCOHEMOGLO BIN) Reviewed date:09/15/2023 03:35:27 PM Interpretation: Performing Lab: Notes/Report: HEMOGLOBIN A1C % (HH) 6.8 Reason For Referral No Information Medications Medication SIG (Take, Route, Frequency, Duration) Notes Start Date End Date Status Extra Depth Orthopedic Shoes, (1) Pair With (3) Pair Custom Heat Molded Multidensity Innersoles Dx: NIDDM/PVD(E11.51), Hammertoe Foot Deformity(M20.41,M20.42) , Preulcerative Skin Lesion(s)(L85.1) Wear Daily for 365 days 09/15/2023 Active Pantoprazole Sodium 40 MG 1 tablet Orally Once a day for 30 day(s) Active tylenol PRN Active Eliquis 5 MG as directed Orally Active glipiZIDE ER 2.5 MG 1 tablet with breakf ast Orally Once a day for 30 day(s) Not-Taking metFORMIN HCl 500 MG 1 tablet with a rufus l Orally Once a day for 30 day(s) Active Lisinopril 40 MG 1 tablet Orally Once a day for 30 day(s) Active Meclizine HCl PRN Active Metoprolol Succinate 50 MG 1 capsule Orally Once a day for 30 day(s) Active Immunizations Vaccine Route Administration Date Status Comme nts COVID-19 Pfizer BioNTech Vaccine Unknown 03/27/2022 Administered 1st 08/08/2020,08/22/20 04/12/21 Influenza Unknown 03/20/2022 Administered Influenza Unknown 02/13/2023 Administered Social History Tobacco Use: Social History Observation Description Date Details (start date - stop date) Never Smoker NA - NA Tobacco Use/Smoking Question Answer Notes Are you a: nonsmoker Additional Findings: Tobacco Non-User Current no n-smoker Alcohol Screen Question Answer Notes Did you have a drink containing alcohol in the p ast year? No Points 0 Interpretation Negative Tobacco use other than smoking: Question Answer Notes Are you an other tobacco user? No Problems Problem Type SNOMED Code ICD Code Onset Dates Problem Status W/U Status Risk Notes Problem Acquired hammer toe of right foot (2265541199759 105) Other hammer toe(s) (acquired), right foot (M20.41) Active confirmed Response to treatment,I mprovement Problem Acquired hammer toe of left foot (8514893649446 103) Other hammer toe(s) (acquired), left foot (M20.42) Active confirmed Response to treatment,I mprovement Problem Type 2 diabetes mellitus with peripheral angiopathy (985402885) Type 2 diabetes mellitus with diabetic peripheral angiopathy without gangrene (E11.51) Active confirmed Vital Signs Blood pressure diastolic 60 mm Hg 05/06/2024 Height 5 ft 11 in in 05/06/2024 Blood pressure systolic 150 mm Hg 05/06/2024 Weight 186 lbs 05/06/2024 BMI 25.94 kg/m2 05/06/2024 Procedures Procedure Date Ordered Date Performed Result Body Sit e 54800-VBNXOZI NAIL, 1-09/15/2023 N/A 15804-CRQV SKIN LESIONS, OVER 09/15/2023 N/A F6025-BTGBUYLJ DYSTROPHIC NAILS ANY # 09/15/2023 N/A 53783-SHHKUBZ NAIL, 1-5 11/27/2023 N/A 80473-BJVL SKIN LESIONS, OVER 11/27/2023 N/A K3375-VEAFHLLG DYSTROPHIC NAILS ANY # 11/27/2023 N/A 94198-CFISJXE NAIL, 1-5 02/09/2024 N/A 57949-IFGE SKIN LESIONS, OVER 4 02/09/2024 N/A V9286-GXZYJDSX DYSTROPHIC NAILS ANY # 02/09/2024 N/A 45147-RYLKEBC NAIL, 1-5 05/06/2024 N/A 10892-YRAI SKIN LESIONS, OVER 4 05/06/2024 N/A N1482-QPQADVPL DYSTROPHIC NAILS ANY # 05/06/2024 N/A Encounters Encounter Location Date Provider Diagnosis [address] [address] 09/15/2023 [facility] Type 2 diabetes mellitus with diabetic peripheral angiopathy without gangrene E11.51 ; Onychomycosis B35.1 ; Pain of toe of right foot M79.674 ; Pain of toe of left foot M79.675 ; Other hammer toe(s) (acquired), right foot M20.41 and Other hammer toe(s) (acquired), left foot M20.[address] [address] 11/27/2023 [facility] Type 2 diabetes mellitus with diabetic peripheral angiopathy without gangrene E11.51 ; Tinea unguium B35.1 and Pain in left toe(s) M79.[address] [address] 02/09/2024 Jac Lopes Type 2 diabetes mellitus with diabetic peripheral angiopathy without gangrene E11.51 ; Tinea unguium B35.1 and Pain in left toe(s) M79.[address] [address] 05/06/2024 [facility] Type 2 diabetes mellitus with diabetic peripheral angiopathy without gangrene E11.51 ; Tinea unguium B35.1 ; Pain in left toe(s) M79.675 ; Other hammer toe(s) (acquired), right foot M20.41 and Other hammer toe(s) (acquired), left foot M20.42 Assessments Encounter Date Diagnosis (ICD Code) Assessment Notes Treatment Notes Treatment Clinical Notes Section Notes 09/15/2023 Type 2 diabetes mellitus with diabetic peripheral angiopathy without gangrene (ICD-10 - E11.51) 09/15/2023 Onychomycosis (ICD-10 - B35.1) 11/27/2023 Tinea unguium (ICD-10 - B35.1) 11/27/2023 Type 2 diabetes mellitus with diabetic peripheral angiopathy without gangrene (ICD-10 - E11.51) 02/09/2024 Tinea unguium (ICD-10 - B35.1) 02/09/2024 Type 2 diabetes mellitus with diabetic peripheral angiopathy without gangrene (ICD-10 - E11.51) 05/06/2024 Tinea unguium (ICD-10 - B35.1) 05/06/2024 Type 2 diabetes mellitus with diabetic peripheral angiopathy without gangrene (ICD-10 - E11.51) 09/15/2023 Pain of toe of right foot (ICD-10 - M79.674) 05/06/2024 Pain in left toe(s) (ICD-10 - M79.675) 02/09/2024 Pain in left toe(s) (ICD-10 - M79.675) 11/27/2023 Pain in left toe(s) (ICD-10 - M79.675) 09/15/2023 Pain of toe of left foot (ICD-10 - M79.675) 05/06/2024 Other hammer toe(s) (acquired), right foot (ICD-10 - M20.41) Response to treatment,Impro vement 05/06/2024 Other hammer toe(s) (acquired), left foot (ICD-10 - M20.42) Response to treatment,Impro vement 09/15/2023 Other hammer toe(s) (acquired), right foot (ICD-10 - M20.41) Patient Educated with: DIABETIC FOOT CARE INSTRUCTIONS.p df (DIABETIC FOOT CARE INSTRUCTIONS.p df) 09/15/2023 Other hammer toe(s) (acquired), left foot (ICD-10 - M20.42) Plan Of Treatment Pending Test Test Name Order Date 41810-RWDIOXE NAIL, 1-02/26/2021 57747-THMZVHL NAIL, 1-05/14/2021 71499-OQWCCHE NAIL, 1-07/23/2021 02390-VJHFOAZ NAIL, 1-10/01/2021 14477-HOWGPMP NAIL, 1-5 12/10/2021 35945-FLJOWXG NAIL, 1-5 02/18/2022 05575-BHKUXFR NAIL, 1-5 04/29/2022 64684-IBCVNYL NAIL, 1-5 07/08/2022 21085-VBQGYAL NAIL, 1-5 10/07/2022 46236-JHFPSBK NAIL, 1-5 01/06/2023 49807-BUQCKMB NAIL, 1-5 03/20/2023 68368-PGEWCZP NAIL, 1-5 07/07/2023 24572-GKJADOI NAIL, 1-5 09/15/2023 84314-ZRHTMMO NAIL, 1-5 11/27/2023 33871-ZCCBUYV NAIL, 1-5 02/09/2024 70162-ALIYXPL NAIL, 1-5 05/06/2024 61129-Kfdiutlo Plate 02/18/2022 77653-NUQR SKIN LESIONS, OVER 4 07/23/19 22 99757-QBPG SKIN LESIONS, OVER 4 02/19/20 22 61515-JOBA SKIN LESIONS, OVER 4 12/11/19 22 76677-PJHX SKIN LESIONS, OVER 4 10/02/19 22 23931-ETMJ SKIN LESIONS, OVER 4 02/27/20 21 40113-GMUB SKIN LESIONS, OVER 4 05/14/20 21 40452-SWEZ SKIN LESIONS, OVER 4 09/15/19 24 07447-GJBN SKIN LESIONS, OVER 4 07/07/19 24 01752-DXVS SKIN LESIONS, OVER 4 03/20/20 23 95997-EKML SKIN LESIONS, OVER 4 01/07/20 23 20640-QCPH SKIN LESIONS, OVER 4 10/08/19 23 62098-NBBY SKIN LESIONS, OVER 4 07/08/19 23 65367-ZDOI SKIN LESIONS, OVER 4 04/29/20 02087-NQEA SKIN LESIONS, OVER 4 05/06/20 24 94770-LUVB SKIN LESIONS, OVER 4 11/27/19 24 23891-TXKS SKIN LESIONS, OVER 4 02/09/20 24 31432-Kbwi. Subungual Hematoma X8407-QDEXNDUH DYSTROPHIC NAILS ANY # N9505-QTZNISUN DYSTROPHIC NAILS ANY # T4072-RCBHNMFN DYSTROPHIC NAILS ANY # V7110-UKZHRJOE DYSTROPHIC NAILS ANY # N6373-QERWCSHU DYSTROPHIC NAILS ANY # H0437-KUYDMGYQ DYSTROPHIC NAILS ANY # Q9108-GSZADUJC DYSTROPHIC NAILS ANY # D6744-UIQLGWQI DYSTROPHIC NAILS ANY # L6166-UDYPEWTT DYSTROPHIC NAILS ANY # H8911-ILSIDFAI DYSTROPHIC NAILS ANY # Y4760-PPZWPTDS DYSTROPHIC NAILS ANY # V2040-NZQVBMQU DYSTROPHIC NAILS ANY # N1917-BIXLTPFK DYSTROPHIC NAILS ANY # W3575-PIHCYMDB DYSTROPHIC NAILS ANY # P4877-IOGRMAXQ DYSTROPHIC NAILS ANY # Z7447-WIAZLMOK DYSTROPHIC NAILS ANY # Next Appt Details Provider Name:Jac Lopes , 08/09/2024 02:30:00 PM, [address] [place] [address], [phone], Insurance Providers Payer Name Payer Address Payer Phone Subscriber Number Group Number Insured Name Patient Relationship to Insured Coverage Start Date Coverage End Date Medicare [employer] [address] [place] [address] [id number] Elton De Jesus Self - patient is the insured [employer] [facility] [address] [place] [address] [id number] Elton De Jesus Self - patient is the insured Medical (General) History Medical History History ICD Code High blood pressure Reflux ( GERD) type II diabetes Bladder CA Surgical History Surgery Date(Month/Year) Left Knee replacement Pacemaker Bladder Ca removal and chemotherapy 2023
--- OUTSIDE RECORDS SUMMARY | 2024-07-12 16:01 | XMS_ITS ---
Author Organization [facility] [place] Address [address] [place] [address] Care Team Providers Care Packaging Manager Name Role Phone Darrius Garcia Primary Care Provider Jac Lopes Unavailable [phone] Allergies No Known Allergies REASON FOR VISIT At Risk Footcare, Painful Nail(s) aggrevated by shoes and causing difficulty standing/walking., ToeIrritation Medications Medication SIG (Take, Route, Frequency, Duration) Notes Start Date End Date Status Extra Depth Orthopedic Shoes, (1) Pair With (3) Pair Custom Heat Molded Multidensity Innersoles Dx: NIDDM/PVD(E11.51), Hammertoe Foot Deformity(M20.41,M20.42) , Preulcerative Skin Lesion(s)(L85.1) Wear Daily for 365 days 09/15/2023 Active Pantoprazole Sodium 40 MG 1 tablet Orally Once a day for 30 day(s) Active tylenol PRN Active glipiZIDE ER 2.5 MG 1 tablet with breakf ast Orally Once a day for 30 day(s) Not-Taking Lisinopril 40 MG 1 tablet Orally Once a day for 30 day(s) Active Eliquis 5 MG as directed Orally Active metFORMIN HCl 500 MG 1 tablet with a rufus l Orally Once a day for 30 day(s) Active Meclizine HCl PRN Active Metoprolol Succinate 50 MG 1 capsule Orally Once a day for 30 day(s) Active Social History Tobacco Use: Social History Observation [...] Are you an other tobacco user? No Vital Signs Height 5 ft 11 in in 05/06/2024 Weight 186 lbs 05/06/2024 BMI 25.94 kg/m2 05/06/2024 Blood pressure systolic 150 mm Hg 05/06/20 24 Blood pressure diastolic 60 mm Hg 024 Procedures Procedure Date Ordered Date Performed Result Body Sit e 78884-HTFRCCG NAIL, 1-5 05/06/2024 N/A 32756-DEZG SKIN LESIONS, OVER 4 05/06/2024 N/A Z8460-CVNYHCHD DYSTROPHIC NAILS ANY # 05/06/2024 N/A Encounters Encounter Location Date Provider Diagnosis [facility] [address] [place] [address] 05/06/2024 Jac Lopes Type 2 diabetes mellitus with diabetic peripheral angiopathy without gangrene E11.51 ; Tinea unguium B35.1 ; Pain in left toe(s) M79.675 ; Other hammer toe(s) (acquired), right foot M20.41 and Other hammer toe(s) (acquired), left foot M20.42 Assessments Encounter Date Diagnosis (ICD Code) Assessment Notes Treatment Notes Treatment Clinical Notes Section Notes 05/06/2024 Type 2 diabetes mellitus with diabetic peripheral angiopathy without gangrene (ICD-10 - E11.51) 05/06/2024 Tinea unguium (ICD-10 - B35.1) 05/06/2024 Pain in left toe(s) (ICD-10 - M79.675) 05/06/2024 Other hammer toe(s) (acquired), right foot (ICD-10 - M20.41) Response to treatment,Impro vement 05/06/2024 Other hammer toe(s) (acquired), left foot (ICD-10 - M20.42) Response to treatment,Impro vement Plan Of Treatment Pending Test Test Name Order Date 50637-CLTYKKG NAIL, 1-5 05/06/2024 79734-YPVU SKIN LESIONS, OVER 4 05/06/20 24 X4209-[id number] DYSTROPHIC NAILS ANY # Next Appt Details Follow Up: prn, Reason: Provider Name:Jac Lopes , 08/09/2024 02:30:00 PM, [address] [place] [address], [id number], Procedure Notes * Category Sub-Category Detail Notes Keratoma Treatment Parring or Cutting o f Benign Hyperkeratotic Lesion(s) (-57) More than 4 Lesions - The Benign hyperkeratotic lesions, ( 6) in total, locations as stated and described in exam, were pared, and/or cut utilizing a sterile 15 blade, tissue nippers, and/or power dremel instrumentation - 97221, Q8 Debride Nails 1-5 Procedure: Performance of this nail treatment by a nonprofessional would put this patients foot and overall health at risk. Therefore, debridement to affected nail(s), as described in exam, was performed extensively to reduce/remove overall nail length, girth, thickness, subungual debris, and necrotic tissue, by manual and/or electrical means through the use of a nail nipper and/or dremel-type crystal flat grinder, to a more viable healthy nail plate or bed tissue 5 nails or less in number. Silver nitrate was used for any petechial bleeding as necessary. Definitive antifungal treatment options, both pharmaceutical and surgical, have been reviewed and discussed with the patient. The patient solely prefers the use of intermittent/as needed professional debridement services for their nail condition and understands that additional periodic treatments may be required as necessary to maintain effective symptomatic relief - 29691 Nail Reduction Nail Reduction (-27) Trimming o f all dystrophic nails, locations as stated and described in exam, was performed to reduce/remove overall nail length and girth, by manual and electrical means with use of a nail nipper and/or dremel, to more viable healthy nail plate or bed tissue - G0127, Q8 Progress Notes * Elton CARLISLE HDOB: (88 yo M)Acc No.[id number]:05/06/2024 Progress Note Patient:?Elton CARLISLE Key Provider:?Jac Lopes DPM :[id number]???Age:88 Y???Sex:Male Roel e:05/06/2024 Address:[address] [facility], [facility], [id number] Pcp:Darrius Garcia Subjective: * Chief Complaints: * ???At Risk FootcarePainful N ail(s) aggrevated by shoes and causing difficulty standing/walking.Toe Irritation * HPI: ???At Risk footcare:?Pt States Last PCP Visit:?Date?04/15/2024 ???Toe pain:?Treatments:?Rx shoes.? * ROS:?General/Constitutional:?Nausea?denies.?Vomiting?denies.?Hunger Thirst?denies.?Loss appetite?denies.?Chills?denies.?Fatigue?denies.?Fever?denies.?Night Sweats?denies.?Unexplained weight loss?denies.?Unexplained weight gain?denies.?HEENTM:?Dentures?admits.?Dizziness?denies.?Glasses/contacts?admits.?Retinopathy?de nies.?Blurred/double vision?denies.?TMJ?denies.?Discharge/drainage?denies.?Implants?denies.?Sore throat?denies.?Dental implants?denies.?Hard of hearing ?denies.?Difficulty chewing/swallowing/speaking?denies.?Nose bleeds?denies.?Sore mouth?denies.?Respiratory:?On Oxygen?denies.?Pneumonia/pleurisy?denies.?Bronchitis?denies.?Emphysema?denies.?C oughing?denies.?Cough blood?denies.?Shortness of breath?denies.?Wheezing?denies.?Cardiovascular:?Pacemaker?admits.?MVP?denies.?WPW?denies.?CHF?denies.?Heart attack?denies.?Septal defect?denies.?Rapid beat?denies.?Chest pain ?denies.?Atrial Fib.?denies.?Murmur/Palpitations?denies.?Gastrointestinal:?Hemorrhoids?denies.?Stomach/Abdominal pain?denies.?Dark blood stool?denies.?Irritable bowel ?denies.?Constipation?denies.?Diarrhea?denies.?Hematology:?Swelling?denies.?Clots?denies.?Varicose Veins?denies.?Bruising?admits, on anticoagulants.?Bleeding problem?admits, on anticoagulants.?Genitourinary:?Blood urine?denies.?Frequent/Painfu/urination/bladder control?denies.?Kidney stones?denies.?Infection (UTI)?denies.?Nephropathy?denies.?sex trans dis (STD)?denies.?Prostate?denies.?Musculoskeletal:?Hammertoes?admits.?Bunions?denies.?Back Pain?denies.?Muscle Cramps/ Resting?denies.?Muscle cramps / walking?denies.?Generalized aches and pains?denies.?Weakness?denies.?Integ.:?[place]?denies.?Scars?denies.?Corns/calluses?admits.?Ingrown nails?admits.?Painful nails?admits.?Open Sores?denies.?Rashes?denies.?Neurologic:?Difficulty sleeping?denies.?Brain disorder?denies.?Numbness?denies.?Balance trouble?denies.?Confusion?denies.?Fainting/blackouts?denies.?Tingling?denies.?Tr emors?denies.? * Medical History:? * Surgical History:?Left Knee replacement Pacemaker Bladder Ca removal and chemotherapy 2023 * Hospitalization/Major Diagno stic Procedure:?Denies Past Hospitalization * Family History:?Mother: dece ased.?Father: .? * Social History:?Tobacco Use:?Tobacco Use/Smoking?Are you a:?nonsmoker ?Additional Findings: Tobacco Non-User?Current non-smoker ?Tobacco use other than smoking?Are you an other tobacco user??No ???Drugs/Alcohol:?Drugs?Have you used drugs other than those for medical reasons in the past 12 months??No ?Alcohol Screen?Did you have a drink containing alcohol in the past year??No ?Points?0 ?Interpretation?Negative ???Miscellaneous:?Caffeine: yes, Tea. ?Children: yes, 3. ?Exercise: yes, work. ?Marital status: . 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 * Medications:?TakingEliquis 5 MG Tablet as directed Orally Meclizine HCl , Notes to Pharmacist: PRNMetoprolol Succinate 50 MG Capsule ER 24 Hour Sprinkle 1 capsule Orally Once a day metFORMIN HCl 500 MG Tablet 1 tablet with a meal Orally Once a day Lisinopril 40 MG Tablet 1 tablet Orally Once a day Pantoprazole Sodium 40 MG Tablet Delayed Release 1 tablet Orally Once a day tylenol , Notes to Pharmacist: PRNExtra Depth Orthopedic Shoes, (1) Pair With (3) Pair Custom Heat Molded Multidensity Innersoles . Dx: NIDDM/PVD(E11.51), Hammertoe Foot Deformity(M20.41,M20.42), Preulcerative Skin Lesion(s)(L85.1) Wear Daily Taking Eliquis 5 MG Tablet as directed Orally Taking Meclizine HCl , Notes to Pharmacist: PRNTaking Metoprolol Succinate 50 MG Capsule ER 24 Hour Sprinkle 1 capsule Orally Once a day Taking metFORMIN HCl 500 MG Tablet 1 tablet with a meal Orally Once a day Taking Lisinopril 40 MG Tablet 1 tablet Orally Once a day Taking Pantoprazole Sodium 40 MG Tablet Delayed Release 1 tablet Orally Once a day Taking tylenol , Notes to Pharmacist: PRNTaking Extra Depth Orthopedic Shoes, (1) Pair With (3) Pair Custom Heat Molded Multidensity Innersoles . Dx: NIDDM/PVD(E11.51), Hammertoe Foot Deformity(M20.41,M20.42), Preulcerative Skin Lesion(s)(L85.1) Wear Daily Not-Taking/PRNglipiZIDE ER 2.5 MG Tablet Extended Release 24 Hour 1 tablet with breakfast Orally Once a day Medication List reviewed and reconciled with the patientNot-Taking/PRN glipiZIDE ER 2.5 MG Tablet Extended Release 24 Hour 1 tablet with breakfast Orally Once a day Medication List reviewed and reconciled with the patient * Allergies:?N.K.D.A.yes[Aller ofelia Verified] Objective: * Vitals:?Ht: 5 ft 11 in, Wt:1 86, BMI: 25.94, Shoe size:12, BP:150/60mm Hg, BS:133, Wt-k.37 kg. * Examination: ???Vascular: ?DP PULSES(B):? 1/4, B/L.?PT PULSES(B):? 0/4, B/L.?CAPILLARY FILL TIME:? delayed, all digits, B/L.?TROPHIC CONDITION-TEXTURE/ELASTICITY/TURGOR/HAIR GROWTH(B):?decreased, with sparse to absent hair growth, B/L.?TEMPERTURE GRADIENT(C):? decreased, cool to cool, proximal to distal, B/L.?PIGMENTATION:? pale, B/L.?EDEMA(C):?absent, B/L.?CLAUDICATION(C):?denies, B/L.?REST PAIN:?denies, B/L.?Nails: ?NAILS are:?Elongated, overgrown, dystrophic, lytic, greater than 3mm thick, discolored and friable with crumbly malodorous subungual debris, with pain on palpation, TA, all other nails not described with characteristics as possessing mycosis are elongated, overgrown, and dystrophic.?Dermatologic: ?SKIN FINDINGS:? Skin exam reveals Keratotic lesion(s) located at, SUB MTH (s), 1, B/L , SUB MTH (s), 5, B/L ,Plantar, Heel(s), B/L .?Orthopedic: ?DIGITAL DEFORMITIES:?Digital contracture, PIPJ, 2-5 B/L, incompl-reducible to push-up test, no over, nor underlapping, no longer, with evidence of shoe producing skin irritation.?FOOTWEAR:?good condition, exhibit proper fit and accommodation for pedal deformities. OT were inspected and noted to be worn, but in good condition giving proper support at the present time.? Assessment: * Assessment: 1.?Tinea unguium - B35.1???2 .?Type 2 diabetes mellitus with diabetic peripheral angiopathy without gangrene - E11.51 (Primary)???3.?Pain in left toe(s) - M79.675???4.?Other hammer toe(s) (acquired), right foot - M20.41???Specify :Chronic problem, Stable (1=3,2=4)???Notes :Response to treatment,Improvement???5.?Other hammer toe(s) (acquired), left foot - M20.42???Specify :Chronic problem, Stable (1=3,2=4)???Notes :Response to treatment,Improvement??? Plan: * Treatment: 2.?Tinea unguium?Procedure: 69397-[id number] NAIL, 1-5 * Procedures:?Debride Nails 1-5:?Procedure:?Performance of this nail treatment by a nonprofessional would put this patients foot and overall health at risk. Therefore, debridement to affected nail(s), as described in exam, was performed extensively to reduce/remove overall nail length, girth, thickness, subungual debris, and necrotic tissue, by manual and/or electrical means through the use of a nail nipper and/or dremel-type crystal flat grinder, to a more viable healthy nail plate or bed tissue 5 nails or less in number. Silver nitrate was used for any petechial bleeding as necessary. Definitive antifungal treatment options, both pharmaceutical and surgical, have been reviewed and discussed with the patient. The patient solely prefers the use of intermittent/as needed professional debridement services for their nail condition and understands that additional periodic treatments may be required as necessary to maintain effective symptomatic relief - 82969.?Keratoma Treatment:?Parring or Cutting of Benign Hyperkeratotic Lesion(s)?(-57) More than 4 Lesions - The Benign hyperkeratotic lesions, ( 6) in total, locations as stated and described in exam, were pared, and/or cut utilizing a sterile 15 blade, tissue nippers, and/or power dremel instrumentation - 28572, Q8.?Nail Reduction:?Nail Reduction?(-27) Trimming of all dystrophic nails, locations as stated and described in exam, was performed to reduce/remove overall nail length and girth, by manual and electrical means with use of a nail nipper and/or dremel, to more viable healthy nail plate or bed tissue - G0127, Q8.? * Procedure Codes:?G0127 ALYSE ING DYSTROPHIC NAILS ANY #, Modifiers: XS , [id number] DEBRIDE NAIL, 1-5, Modifiers: XS 72938 TRIM SKIN LESIONS, OVER 4, Modifiers: XS , Q8 * Preventive Medicine:? ??Counseling:?Discussion:?-13: Office or other outpatient visit for the evaluation and management of an established patient, which required a medically appropriate history and/or examination and LOW level of DECISION MAKING for: 1 STABLE ACUTE UNCOMPLICATED PROBLEM, 2 OR MORE MINOR PROBLEMS, OR 1 STABLE CHRONIC PROBLEM, THAT POSE(S) A LOW RISK FOR MORBIDITY/MORTALITY. The visit on the day of the encounter encompassed interpreting the data and educating the patient as to the nature of their condition, treatment options available according to their individual PMH, meds, allergies, and overall health/living conditions, as well as any potential risks or complications that may occur from a failure to adhere to, and participate in, the recommended course of therapy. The discussion included a complete verbal, and/or written explanation of the examination results, any x-rays taken, the proposed diagnosis, and outline of the treatment plan. A schedule for future care needs was also explained. The patient verbalized an understanding of the instructions at this time and agreed to be an active participant in their treatment. If the patient should think of any questions or concerns after the visit, I have encouraged the patient to call the office.?Shoe Gear Counseling:?Patient to obtain shoes hopefully soon, A thorough inspection of the patients Rxed shoegear and inserts was performed and findings communicated. We reviewed the many important medical advantages for adhering to regularly wearing these shoe and insert accomidative devices daily as well as reviewed the fact that a failure in accepting these recommedations may be deleterious, unable to prevent, and disadvantagely result in, many pedal complications such as skin irritation, skin ulceration, infection, and even loss of toe/foot/leg/or even their life. Time was also spent reviewing the proper footcare techniques including daily skin moisturization, daily foot inspection for any interruption in skin integrity, open lesions, or sign of infection such as redness/malodor/drainage/swelling as well as daily shoe inspection for the presence of internal foreign bodies and shoe as well as insert wear. Patient questions re: shoes, inserts, and self foot inspections were answered to their satisfaction as the patient verbally confirmed a full understanding of the above information.? * Follow Up:?prn * Images: * Sign off status: Completed true * Provider:?Jac Lopes DPM Date:?2023 Generated for Josephine corral/Ben/Gerardo on:?07/12/2024 04:01 PM EST History and Physical Notes * HPI (History of Present Illness) Category Sub-Category Detail Notes Category Not es Toe pain Treatments: Rx shoes At Risk footcare Pt States Last PCP Visit: Date: 4 Examination Category Sub-Category Detail Notes Category Not es Dermatologic SKIN FINDINGS: Skin exam reveal s Keratotic lesion(s) located at, SUB MTH (s), 1, B/L , SUB MTH (s), 5, B/L ,Plantar, Heel(s), B/L Orthopedic FOOTWEAR: good condition, exhibit proper fit and accommodation for pedal deformities. OT were inspected and noted to be worn, but in good condition giving proper support at the present time DIGITAL DEFORMITIES: Digital contracture , PIPJ, 2-5 B/L, incompl-reducible to push-up test, no over, nor underlapping, no longer, with evidence of shoe producing skin irritation Vascular DP PULSES (B): 1/4, B/L PT PULSES (B): 0/4, B/L CAPILLARY FILL TIME: delayed, all digits , B/L TEMPERTURE GRADIENT (C): decreased, cool to cool, proximal to distal, B/L TROPHIC CONDITION-TEXTURE/ELASTICITY/TURGOR/HAIR GROWTH (B): decreased, with sparse to absent hair gr owth, B/L EDEMA (C): absent, B/L CLAUDICATION (C): denies, B/L REST PAIN: denies, B/L PIGMENTATION: pale, B/L Nails NAILS are: Elongated, overg rown, dystrophic, lytic, greater than 3mm thick, discolored and friable with crumbly malodorous subungual debris, with pain on palpation, TA, all other nails not described with characteristics as possessing mycosis are elongated, overgrown, and dystrophic
--- OUTSIDE RECORDS SUMMARY | 2024-07-12 16:01 | XMS_ITS ---
Author Organization [facility] key [place] Address [address] [facility] [place] [address] Care Team Providers Care Molding Machine Setter Name Role Phone Darrius Garcia Primary Care Provider Jac Lopes Unavailable [phone] Allergies No Known Allergies REASON FOR VISIT At Risk Footcare, Painful Nail(s) aggrevated by shoes and causing difficulty standing/walking. Medications Medication SIG (Take, Route, Frequency, Duration) Notes Start Date End Date Status Pantoprazole Sodium 40 MG 1 tablet Orally Once a day for 30 day(s) Active Lisinopril 40 MG 1 tablet Orally Once a day for 30 day(s) Active Extra Depth Orthopedic Shoes, (1) Pair With (3) Pair Custom Heat Molded Multidensity Innersoles Dx: NIDDM/PVD(E11.51), Hammertoe Foot Deformity(M20.41,M20.42) , Preulcerative Skin Lesion(s)(L85.1) Wear Daily for 365 days 09/15/2023 Active tylenol PRN Active glipiZIDE ER 2.5 MG 1 tablet with breakf ast Orally Once a day for 30 day(s) Not-Taking metFORMIN HCl 500 MG 1 tablet with a rufus l Orally Once a day for 30 day(s) Active Eliquis 5 MG as directed Orally Active Metoprolol Succinate 50 MG 1 capsule Orally Once a day for 30 day(s) Active Meclizine HCl PRN Active Social History Tobacco Use: Social History [...] Signs Height 5 ft 11 in in 02/09/2024 Weight 186 lbs 02/09/2024 BMI 25.94 kg/m2 02/09/2024 Blood pressure systolic 150 mm Hg 02/09/20 24 Blood pressure diastolic 60 mm Hg 024 Procedures Procedure Date Ordered Date Performed Result Body Sit e 54740-JSMEWZN NAIL, 1-5 02/09/2024 N/A 01233-XHTH SKIN LESIONS, OVER 4 02/09/2024 N/A P8723-GXCKDSRP DYSTROPHIC NAILS ANY # 02/09/2024 N/A Encounters Encounter Location Date Provider Diagnosis [facility] [address] [address] 02/09/2024 Jac Lopes Type 2 diabetes mellitus with diabetic peripheral angiopathy without gangrene E11.51 ; Tinea unguium B35.1 and Pain in left toe(s) M79.675 Assessments Encounter Date Diagnosis (ICD Code) Assessment Notes Treatment Notes Treatment Clinical Notes Section Notes 02/09/2024 Type 2 diabetes mellitus with diabetic peripheral angiopathy without gangrene (ICD-10 - E11.51) 02/09/2024 Tinea unguium (ICD-10 - B35.1) 02/09/2024 Pain in left toe(s) (ICD-10 - M79.675) Plan Of Treatment Pending Test Test Name Order Date 47826-IUEHRFY NAIL, 1-5 02/09/2024 78905-RWWI SKIN LESIONS, OVER 4 02/09/20 24 V7503-BQQCNADA DYSTROPHIC NAILS ANY # Next Appt Details Follow Up: prn, Reason: Provider Name:Jac Lopes , 08/09/2024 02:30:00 PM, [address] [place] [address], [phone], Procedure Notes * Category Sub-Category Detail Notes Keratoma Treatment Parring or Cutting o f Benign Hyperkeratotic Lesion(s) 63275 ( More than 4 Lesions ) - The Benign hyperkeratotic lesions, as described above were pared, and/or cut utilizing a sterile 15 blade, tissue nippers, and/or dremel , Q9 Debride Nails 1-5 Procedure: Performance of this nail treatment by a nonprofessional would put this patients foot and overall health at risk. Therefore, nail debridement was performed extensively to reduce/remove overall nail length, girth, thickness, subungual debris, and necrotic tissue, by manual and/or electrical means through the use of a nail nipper and/or dremel-type inner diameter grinder tool, to a more viable healthy nail plate or bed tissue 1-5. Silver nitrate used for any petechial bleeding as necessary. Definitive antifungal treatment options have been reviewed and discussed with the patient. The patient chooses, no pharmaceutical tx (12355) Nail Reduction Nail Reduction Trimming of dyst rophic nails performed to reduce/remove overall nail length and girth, by manual and electrical means with use of a nail nipper and/or dremel, to more viable healthy nail plate or bed tissue, any number (Y4313-O4) Progress Notes * Elton CARLISLE HDOB: 5 (88 yo M)Acc No.[id number]:02/09/2024 Progress Note Patient:?NealElton Key Provider:?Jac Lopes DPM :1935???Age:88 Y???Sex:Male Roel e:02/09/2024 Address:[address] [place], [place] [address] Pcp:Darrius Garcia Subjective: * Chief Complaints: * ???At Risk FootcarePainful N ail(s) aggrevated by shoes and causing difficulty standing/walking. * HPI: ???At Risk footcare:?Pt States Last PCP Visit:?Date?01/25/2024 ???Toe pain:?Treatments:?Rx shoes , states still needs.? * ROS:?General/Constitutional:?Nausea?denies.?Vomiting?denies.?Hunger Thirst?denies.?Loss appetite?denies.?Chills?denies.?Fatigue?denies.?Fever?denies.?Night Sweats?denies.?Unexplained weight loss?denies.?Unexplained [...] ?Exercise: yes, work. ?Marital status: . 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 * Medications:?TakingEliquis 5 MG Tablet as directed Orally Meclizine HCl , Notes: PRNMetoprolol Succinate 50 MG Capsule ER 24 Hour Sprinkle 1 capsule Orally Once a daymetFORMIN HCl 500 MG Tablet 1 tablet with a meal Orally Once a dayLisinopril 40 MG Tablet 1 tablet Orally Once a dayPantoprazole Sodium 40 MG Tablet Delayed Release 1 tablet Orally Once a daytylenol , Notes: PRNExtra Depth Orthopedic Shoes, (1) Pair With (3) Pair Custom Heat Molded Multidensity Innersoles . 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 * ???Past Orders: Lab:HEMOGLOBIN A1C (GLYCOHEM OGLOBIN) * Order Date 09/15/2023 10/07/2022 04/29/2022 HEMOGLOBIN A1C % (HH) 6.8 6.1 under 7 * Examination: ???Vascular: ?DP PULSES:? 1/4, B/L.?PT PULSES:? 0/4, B/L.?CAPILLARY FILL TIME:? delayed, all digits, B/L.?SKIN TEMPERTURE GRADIENT OF THE LOWER EXTERMITIES:? decreased, cool to cool, proximal to distal, B/L.?HAIR GROWTH/TEXTURE/ELASTICITY/TURGOR:? decreased, B/L.?PIGMENTATION:? pale, B/L.?EDEMA:?absent, B/L.?CLAUDICATION:?denies, B/L.?REST PAIN:?denies, B/L.?Nails: ?NAILS are:?Elongated, overgrown, dystrophic, lytic, greater than 3mm thick, discolored and friable with crumbly malodorous subungual debris, with pain on palpation, TA, remaining nails are elongated, overgrown, dystrophic.?Dermatologic: ?SKIN FINDINGS:? Skin exam reveals Keratotic lesion(s) located at, SUB MTH (s), 1, B/L , SUB MTH (s), 5, B/L , Heel(s), B/L .? Assessment: * Assessment: 1.?Tinea unguium - B35.1?2.? Type 2 diabetes mellitus with diabetic peripheral angiopathy without gangrene - E11.51?3.?Pain in left toe(s) - M79.675? Plan: * Treatment: 2.?Type 2 diabetes mellitus with diabetic peripheral angiopathy without gangrene?Procedure: 86595-TFHA SKIN LESIONS, OVER 4 ?Procedure: P3214-DQOXTGOZ DYSTROPHIC NAILS ANY # * Procedures:?Debride Nails 1-5:?Procedure:?Performance of this nail treatment by a nonprofessional would put this patients foot and overall health at risk. Therefore, nail debridement was performed extensively to reduce/remove overall nail length, girth, thickness, subungual debris, and necrotic tissue, by manual and/or electrical means through the use of a nail nipper and/or dremel-type inner diameter grinder tool, to a more viable healthy nail plate or bed tissue 1-5. Silver nitrate used for any petechial bleeding as necessary. Definitive antifungal treatment options have been reviewed and discussed with the patient. The patient chooses, no pharmaceutical tx (86218).?Keratoma Treatment:?Parring or Cutting of Benign Hyperkeratotic Lesion(s)?70650 ( More than 4 Lesions ) - The Benign hyperkeratotic lesions, as described above were pared, and/or cut utilizing a sterile 15 blade, tissue nippers, and/or dremel , Q9.?Nail Reduction:?Nail Reduction?Trimming of dystrophic nails performed to reduce/remove overall nail length and girth, by manual and electrical means with use of a nail nipper and/or dremel, to more viable healthy nail plate or bed tissue, any number (G1052-H7).? * Procedure Codes:?G0127 ALYSE ING DYSTROPHIC NAILS ANY #, Modifiers: XS , [id number] DEBRIDE NAIL, 1-5, Modifiers: XS 59992 TRIM SKIN LESIONS, OVER 4, Modifiers: XS , Q9 * Preventive Medicine:? ??Counseling:?Shoe Gear Counseling:?Patient to obtain shoes hopefully soon.? * Follow Up:?prn * Images: * Sign off status: Completed true * Provider:?Jac Lopes DPM Date:?2023 Generated for Josephine corral/Ben/Gerardo on:?07/12/2024 04:01 PM EST History and Physical Notes * HPI (History of Present Illness) Category Sub-Category Detail Notes Category Not es Toe pain Treatments: Rx shoes , state s still needs At Risk footcare Pt States Last PCP Visit: Date: 4 Examination Category Sub-Category Detail Notes Category Not es Dermatologic SKIN FINDINGS: Skin exam reveal s Keratotic lesion(s) located at, SUB MTH (s), 1, B/L , SUB MTH (s), 5, B/L , Heel(s), B/L Vascular DP PULSES (B): 1/4, B/L PT PULSES (B): 0/4, B/L CAPILLARY FILL TIME: delayed, all digits , B/L TEMPERTURE GRADIENT (C): decreased, cool to cool, proximal to distal, B/L TROPHIC CONDITION-TEXTURE/ELASTICITY/TURGOR/HAIR GROWTH (B): decreased, B/L EDEMA (C): absent, B/L CLAUDICATION (C): denies, B/L REST PAIN: denies, B/L PIGMENTATION: pale, B/L Nails NAILS are: Elongated, overg rown, dystrophic, lytic, greater than 3mm thick, discolored and friable with crumbly malodorous subungual debris, with pain on palpation, TA, remaining nails are elongated, overgrown, dystrophic
--- OUTSIDE RECORDS SUMMARY | 2024-07-12 16:01 | XMS_ITS ---
Author Organization [facility] james [place] Address [address] [place] [address] Care Team Providers Care Brick Tender Name Role Phone Radha Darrius Primary Care Provider Jac Lopes Unavailable [phone] Allergies No Known Allergies REASON FOR VISIT At Risk Footcare, Painful Nail(s) aggrevated by shoes and causing difficulty standing/walking. 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) , Preulcerative Skin Lesion(s)(L85.1) Wear Daily for 365 days 09/15/2023 Active glipiZIDE ER 2.5 MG 1 tablet with breakf ast Orally Once a day for 30 day(s) Not-Taking Eliquis 5 MG as directed Orally Active Meclizine HCl PRN Active Social History [...] Signs Height 5 ft 11 in in 11/27/2023 Weight 187 lbs 11/27/2023 BMI 26.08 kg/m2 11/27/2023 Blood pressure systolic 144 mm Hg 11/27/19 24 Blood pressure diastolic 60 mm Hg 024 Procedures Procedure Date Ordered Date Performed Result Body Sit e 37221-KQLMJFO NAIL, 1-5 11/27/2023 N/A 50603-KFGB SKIN LESIONS, OVER 4 11/27/2023 N/A Y1515-ZRIODXVK DYSTROPHIC NAILS ANY # 11/27/2023 N/A Encounters Encounter Location Date Provider Diagnosis [facility] [address] [address] 11/27/2023 Jac Lopes Type 2 diabetes mellitus with diabetic peripheral angiopathy without gangrene E11.51 ; Tinea unguium B35.1 and Pain in left toe(s) M79.675 Assessments Encounter Date Diagnosis (ICD Code) Assessment Notes Treatment Notes Treatment Clinical Notes Section Notes 11/27/2023 Type 2 diabetes mellitus with diabetic peripheral angiopathy without gangrene (ICD-10 - E11.51) 11/27/2023 Tinea unguium (ICD-10 - B35.1) 11/27/2023 Pain in left toe(s) (ICD-10 - M79.675) Plan Of Treatment Pending Test Test Name Order Date 64298-QYXLTLJ NAIL, 1-5 11/27/2023 06437-UGGZ SKIN LESIONS, OVER 4 11/27/19 24 I8096-MKCDEUFA DYSTROPHIC NAILS ANY # Next Appt Details Follow Up: prn, Reason: Provider Name:Jac Lopes , 08/09/2024 02:30:00 PM, [address] [place] [address], [phone], Procedure Notes * Category Sub-Category Detail Notes Keratoma Treatment Parring or Cutting o f Benign Hyperkeratotic Lesion(s) 92689 ( >4 Lesions) - The Benign hyperkeratotic lesions, as described above were pared, and/or cut utilizing a sterile #15 blade, tissue nippers, and/or dremel, Q8 Debride Nails 1-5 Procedure: Nail debrideme nt performed extensively to reduce/remove overall nail length, girth, thickness, subungual debris, and necrotic tissue, by manual and electrical means through the use of a nail nipper and/or dremel, to more viable healthy nail plate or bed tissue 1-5. Silver nitrate used for any petechial bleeding as necessary. Patient chooses, no pharmaceutical tx (64698) Nail Reduction Nail Reduction Trimming of dyst rophic nails performed to reduce/remove overall nail length and girth, by manual and electrical means with use of a nail nipper and/or dremel, to more viable healthy nail plate or bed tissue 6-10 (H8043-L4) Progress Notes * Elton DE JESUS HDOB: 5 (88 yo M)Acc No.[id number]:11/27/2023 Progress Note Patient:?Elton De Jesus H Provider:?Jac Lopes DPM :1935???Age:88 Y???Sex:Male Roel e:11/27/2023 Address:[address] [place], [place] [id number] Pcp:Darrius Garcia Subjective: * Chief Complaints: * ???At Risk FootcarePainful N ail(s) aggrevated by shoes and causing difficulty standing/walking. * HPI: ???At Risk footcare:?Pt States Last PCP Visit:?Date?06/25/2023 ???Toe pain:?Treatments:?Rx shoes , states still needs.? [...] History:? * Surgical History:?Left Knee replacement Pacemaker * Hospitalization/Major Diagno stic Procedure:?Denies Past Hospitalization [...] ?Exercise: yes, work. ?Marital status: . 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 * Medications:?TakingEliquis 5 MG Tablet as [...] 1 tablet with breakfast Orally Once a dayNot-Taking/PRN glipiZIDE ER 2.5 MG Tablet Extended Release 24 Hour 1 tablet with breakfast Orally Once a day * Allergies:?N.K.D.A.yes[Aller gies Verified] Objective: * Vitals:?Ht: 5 ft 11 in, Wt:1 87, BMI:26.08, Shoe size:12, BP:144/60 mm Hg, BS:123. * ???Past Orders: ???Lab:HEMOGLOBIN A1C (GLYCO HEMOGLOBIN) (Order Date - 09/15/2023) (Collection Date - 06/17/2023) ? Value Reference Range ?HEMOGLOBIN A1C % (HH) 6.8 * Examination: ???Vascular: ?DP PULSES:? 1/4, B/L.?PT [...] mellitus with diabetic peripheral angiopathy without gangrene?Procedure: 34967-TNEA SKIN LESIONS, OVER 4 ?Procedure: X3182-UZIPHWNP DYSTROPHIC NAILS ANY # * Procedures:?Debride Nails 1-5:?Procedure:?Nail debridement performed extensively to reduce/remove overall nail length, girth, thickness, subungual debris, and necrotic tissue, by manual and electrical means through the use of a nail nipper and/or dremel, to more viable healthy nail plate or bed tissue 1-5. Silver nitrate used for any petechial bleeding as necessary. Patient chooses, no pharmaceutical tx (72594).?Keratoma Treatment:?Parring or Cutting of Benign Hyperkeratotic Lesion(s)?32729 ( >4 Lesions) - The Benign hyperkeratotic lesions, as described above were pared, and/or cut utilizing a sterile #15 blade, tissue nippers, and/or dremel, Q8.?Nail Reduction:?Nail Reduction?Trimming of dystrophic nails performed to reduce/remove overall nail length and girth, by manual and electrical means with use of a nail nipper and/or dremel, to more viable healthy nail plate or bed tissue 6-10 (G0127- Q8).? * Procedure Codes:?G0127 ALYSE ING DYSTROPHIC NAILS ANY #, Modifiers: XS , [id number] DEBRIDE NAIL, 1-5, Modifiers: XS 97657 TRIM SKIN LESIONS, OVER 4, Modifiers: XS , Q8 * Preventive Medicine:? ??Counseling:?Shoe Gear Counseling:?Patient to [...]
== END 2024-07-12 15:51 | disposition home or self-care (01) ==
PROVIDERS: PCP Internal Medicine; Visit Provider Urology
DX: N40.1 Benign prostatic hyperplasia with lower urinary tract symptoms (principal); N13.8 Other obstructive and reflux uropathy; N30.20 Other chronic cystitis without hematuria; C67.4 Malignant neoplasm of posterior wall of bladder; Z13.9 Encounter for screening, unspecified
CPT/HCPCS: 52000; 99214

== ENCOUNTER 2024-07-29 08:30 | Outpatient (AMB) | payer MEDICARE, SELFPAY ==
--- OUTSIDE RECORDS SUMMARY | 2024-07-29 08:46 | XMS_ITS ---
Author Organization [facility] james [place] Address [address] [facility] [address] Care Team Providers Care Citrix Administrator Name Role Phone Radha Darrius Primary Care Provider Jac Lopes Unavailable [phone] Allergies No Known Allergies REASON FOR VISIT [...] Ordered Date Performed Result Body Sit e 62997-FRBCIAV NAIL, 1-5 11/27/2023 N/A 50825-FXNE SKIN LESIONS, OVER 4 11/27/2023 N/A F3350-OXQXICUP DYSTROPHIC NAILS ANY # 11/27/2023 N/A Encounters Encounter Location Date Provider Diagnosis [facility] [address] [address] 11/27/2023 Jac Lopes Type 2 diabetes mellitus [...] Treatment Pending Test Test Name Order Date 27259-KKSJYOX NAIL, 1-5 11/27/2023 20083-YVCV SKIN LESIONS, OVER 4 11/27/19 24 O8330-VCNNPTID DYSTROPHIC NAILS ANY # Next Appt Details Follow Up: prn, Reason: Provider Name:Jac Lopes , 08/09/2024 02:30:00 PM, [address] [place] [address], [phone], Procedure Notes * Category Sub-Category Detail Notes Keratoma Treatment Parring or Cutting o f Benign Hyperkeratotic Lesion(s) 48136 ( >4 Lesions) - The Benign hyperkeratotic [...] as necessary. Patient chooses, no pharmaceutical tx (00224) Nail Reduction Nail Reduction Trimming of dyst rophic nails performed to reduce/remove overall nail length and girth, by manual and electrical means with use of a nail nipper and/or dremel, to more viable healthy nail plate or bed tissue 6-10 (V2901-H4) Progress Notes * Elton DE JESUS HDOB: 5 (88 yo M)Acc No.[id number]:11/27/2023 Progress Note Patient:?Elton De Jesus H Provider:?Jac Lopes DPM :1935???Age:88 Y???Sex:Male Roel e:11/27/2023 Address:[address] [place], [place] [id number] Pcp:Darrius Garcia Subjective: * Chief Complaints: * [...] ?Exercise: yes, work. ?Marital status: . 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 * Medications:?TakingEliquis 5 MG Tablet as [...] mellitus with diabetic peripheral angiopathy without gangrene?Procedure: 79859-ABML SKIN LESIONS, OVER 4 ?Procedure: T0859-QMFRISVR DYSTROPHIC NAILS ANY # * Procedures:?Debride Nails 1-5:?Procedure:?Nail debridement performed extensively to reduce/remove overall nail length, girth, thickness, subungual debris, and necrotic tissue, by manual and electrical means through the use of a nail nipper and/or dremel, to more viable healthy nail plate or bed tissue 1-5. Silver nitrate used for any petechial bleeding as necessary. Patient chooses, no pharmaceutical tx (83874).?Keratoma Treatment:?Parring or Cutting of Benign Hyperkeratotic Lesion(s)?89571 ( >4 Lesions) - The Benign hyperkeratotic [...] DYSTROPHIC NAILS ANY #, Modifiers: XS , [id number] DEBRIDE NAIL, 1-5, Modifiers: XS 73071 TRIM SKIN LESIONS, OVER 4, Modifiers: XS , Q8 * Preventive Medicine:? ??Counseling:?Shoe Gear Counseling:?Patient to obtain shoes hopefully soon.? * Follow Up:?prn * Images: * Sign off status: Completed true * Provider:?Jac Lopes DPM Date:?2023 Generated for Josephine corral/Ben/Gerardo on:?07/29/2024 08:46 AM EST History and Physical Notes * HPI [...]
--- OUTSIDE RECORDS SUMMARY | 2024-07-29 08:46 | XMS_ITS | Patient Health Record ---
Author Organization [facility] Elana james Howe Address [address] [facility] [place] [address] Care Team Providers Care Network Technical Analyst Name Role Phone Darrius Garcia Primary Care Provider [phone] Jca Lopes Unavailable [phone] Allergies No Known Allergies Results Component Value [...] Problem Acquired hammer toe of right foot (5954928047648 105) Other hammer toe(s) (acquired), right foot (M20.41) Active confirmed Response to treatment,I mprovement Problem Acquired hammer toe of left foot (0316925985070 103) Other hammer toe(s) (acquired), left foot (M20.42) Active confirmed Response to treatment,I mprovement Problem Type 2 diabetes mellitus with peripheral angiopathy (344261629) Type 2 diabetes mellitus with diabetic peripheral angiopathy without gangrene (E11.51) Active confirmed Vital Signs Blood pressure diastolic 60 mm Hg 05/06/2024 Height 5 ft 11 in in 05/06/2024 Blood pressure systolic 150 mm Hg 05/06/2024 Weight 186 lbs 05/06/2024 BMI 25.94 kg/m2 05/06/2024 Procedures Procedure Date Ordered Date Performed Result Body Sit e 04124-XXJENUV NAIL, 1-09/15/2023 N/A 83667-KPYI SKIN LESIONS, OVER 09/15/2023 N/A V2048-YQCYMIIV DYSTROPHIC NAILS ANY # 09/15/2023 N/A 36795-QMRLSGI NAIL, 1-5 11/27/2023 N/A 28009-SWDZ SKIN LESIONS, OVER 11/27/2023 N/A P5434-CZNRQBRJ DYSTROPHIC NAILS ANY # 11/27/2023 N/A 09366-LHPRKZK NAIL, 1-5 02/09/2024 N/A 08514-AHJG SKIN LESIONS, OVER 4 02/09/2024 N/A F2633-DTYGRAMN DYSTROPHIC NAILS ANY # 02/09/2024 N/A 96111-GWESSTZ NAIL, 1-5 05/06/2024 N/A 90493-UVTL SKIN LESIONS, OVER 4 05/06/2024 N/A G1177-INIGYCOM DYSTROPHIC NAILS ANY # 05/06/2024 N/A Encounters Encounter Location Date Provider Diagnosis [address] [address] 09/15/2023 [facility]y [facility] Type 2 diabetes mellitus with diabetic peripheral angiopathy without gangrene E11.51 ; Onychomycosis B35.1 ; Pain of toe of right foot M79.674 ; Pain of toe of left foot M79.675 ; Other hammer toe(s) (acquired), right foot M20.41 and Other hammer toe(s) (acquired), left foot M20.[address] [address] 11/27/2023 [facility]gey [facility] Type 2 diabetes mellitus with diabetic peripheral angiopathy without gangrene E11.51 ; Tinea unguium B35.1 and Pain in left toe(s) M79.[address] [address] 02/09/2024 Jac Lopes Type 2 diabetes mellitus with diabetic peripheral angiopathy without gangrene E11.51 ; Tinea unguium B35.1 and Pain in left toe(s) M79.[address] [address] 05/06/2024 [facility]sergey [facility] Type 2 diabetes mellitus [...] Treatment Pending Test Test Name Order Date 68485-GLZRGNK NAIL, 1-02/26/2021 91444-SUUIRNR NAIL, 1-05/14/2021 33607-WLTMCJX NAIL, 1-07/23/2021 73281-YDNBIBA NAIL, 1-10/01/2021 63687-NTYQSXK NAIL, 1-5 12/10/2021 36898-OHBYGSB NAIL, 1-5 02/18/2022 18872-RSAKFFR NAIL, 1-5 04/29/2022 47284-NNYZAMS NAIL, 1-5 07/08/2022 47230-DYPRFKA NAIL, 1-5 10/07/2022 20895-XBOILMA NAIL, 1-5 01/06/2023 65974-JKBFCFD NAIL, 1-5 03/20/2023 21705-NGJAUGI NAIL, 1-5 07/07/2023 01919-CEZRDAZ NAIL, 1-5 09/15/2023 27266-BMNEHVP NAIL, 1-5 11/27/2023 13166-YUTZPCY NAIL, 1-5 02/09/2024 34441-QQDXKMK NAIL, 1-5 05/06/2024 01652-Zbtvcrox Plate 02/18/2022 37572-CMYA SKIN LESIONS, OVER 4 07/23/19 22 03028-TQRO SKIN LESIONS, OVER 4 02/19/20 22 60597-THKD SKIN LESIONS, OVER 4 12/11/19 22 78953-MJRA SKIN LESIONS, OVER 4 10/02/19 22 78312-QJJW SKIN LESIONS, OVER 4 02/27/20 21 45113-JTZD SKIN LESIONS, OVER 4 05/14/20 21 40919-OEDX SKIN LESIONS, OVER 4 09/15/19 24 86319-NJXD SKIN LESIONS, OVER 4 07/07/19 24 67840-AQIB SKIN LESIONS, OVER 4 03/20/20 23 78193-UDWW SKIN LESIONS, OVER 4 01/07/20 23 23304-ZJBJ SKIN LESIONS, OVER 4 10/08/19 23 44458-CFKZ SKIN LESIONS, OVER 4 07/08/19 23 43672-KLYI SKIN LESIONS, OVER 4 04/29/20 78649-AWZG SKIN LESIONS, OVER 4 05/06/20 24 17419-MZKL SKIN LESIONS, OVER 4 11/27/19 24 37951-VHJH SKIN LESIONS, OVER 4 02/09/20 24 07842-Cgpy. Subungual Hematoma Z8012-SUBFCBQV DYSTROPHIC NAILS ANY # I4096-VRKYGTTC DYSTROPHIC NAILS ANY # R5052-QETLTNJF DYSTROPHIC NAILS ANY # D6118-QOZLJKGQ DYSTROPHIC NAILS ANY # C2931-ZRDOCHTT DYSTROPHIC NAILS ANY # C5175-RIXPCBZW DYSTROPHIC NAILS ANY # N3226-FIEALYZB DYSTROPHIC NAILS ANY # I9056-DBQUIEOB DYSTROPHIC NAILS ANY # M2967-UTGHPNMZ DYSTROPHIC NAILS ANY # J9796-RHCOZIWC DYSTROPHIC NAILS ANY # C8015-USOOSKGQ DYSTROPHIC NAILS ANY # X0498-SFVYMALE DYSTROPHIC NAILS ANY # H3561-WZOBVJBU DYSTROPHIC NAILS ANY # Y5954-GGDCLXLB DYSTROPHIC NAILS ANY # X4836-LQVPOVXJ DYSTROPHIC NAILS ANY # V4275-OQDZIKAB DYSTROPHIC NAILS ANY # Next Appt Details Provider Name:Jac Lopes , 08/09/2024 02:30:00 PM, [address] [place] [address], [phone], Insurance Providers Payer Name Payer Address Payer Phone Subscriber Number Group Number Insured Name Patient Relationship to Insured Coverage Start Date Coverage End Date Medicare National Govt Sv[employer] [address] [place] [address] [id number] Elton De Jesus Self - patient is the insured Med[employer] [facility] [address] [place] [address] [phone] [id number] Elton De Jesus Self - patient is the insured Medical (General) History Medical History History ICD Code High blood pressure Reflux ( GERD) type II diabetes Bladder CA Surgical History Surgery Date(Month/Year) Left Knee replacement Pacemaker Bladder Ca removal and chemotherapy 2023
--- OUTSIDE RECORDS SUMMARY | 2024-07-29 08:47 | XMS_ITS ---
Author Organization [facility] key [place] Address [address] [facility] [place] [address] Care Team Providers Care Cattle Care Worker Name Role Phone Darrisu Garcia Primary Care Provider Jac Lopes Unavailable [phone] Allergies No Known Allergies REASON FOR VISIT [...] Ordered Date Performed Result Body Sit e 09699-QXRIRNR NAIL, 1-5 05/06/2024 N/A 52541-GXNH SKIN LESIONS, OVER 4 05/06/2024 N/A U3700-IBUXDIJL DYSTROPHIC NAILS ANY # 05/06/2024 N/A Encounters Encounter Location Date Provider Diagnosis [facility] [place] [address] [place] [address] 05/06/2024 Jac Lopes Type 2 diabetes mellitus [...] Treatment Pending Test Test Name Order Date 12629-SFENEVA NAIL, 1-5 05/06/2024 42257-SBQS SKIN LESIONS, OVER 4 05/06/20 24 Z3324-ZMYPTNWD DYSTROPHIC NAILS ANY # Next Appt Details Follow Up: prn, Reason: Provider Name:Jac Lopes , 08/09/2024 02:30:00 PM, [address] [place] [address], [phone], Procedure Notes * Category Sub-Category Detail Notes Keratoma Treatment Parring or Cutting o f Benign Hyperkeratotic Lesion(s) (-57) More than 4 Lesions - The Benign hyperkeratotic lesions, ( 6) in total, locations as stated and described in exam, were pared, and/or cut utilizing a sterile 15 blade, tissue nippers, and/or power dremel instrumentation - 45891, Q8 Debride Nails 1-5 Procedure: Performance of this nail treatment by a nonprofessional would put this patients foot and overall health at risk. Therefore, debridement to affected nail(s), as described in exam, was performed extensively to reduce/remove overall nail length, girth, thickness, subungual debris, and necrotic tissue, by manual and/or electrical means through the use of a nail nipper and/or dremel-type paint grinder stone mill, to a more viable healthy nail plate [...] necessary to maintain effective symptomatic relief - 57451 Nail Reduction Nail Reduction (-27) Trimming o f all dystrophic nails, locations as stated and described in exam, was performed to reduce/remove overall nail length and girth, by manual and electrical means with use of a nail nipper and/or dremel, to more viable healthy nail plate or bed tissue - G0127, Q8 Progress Notes * Etlon CARLISLE HDOB: (88 yo M)Acc No.[id number]:05/06/2024 Progress Note Patient:?Elton CARLISLE Key Provider:?Jac Lopes DPM :1935???Age:88 Y???Sex:Male Roel e:05/06/2024 Address:[address] [facility] [place], [place] Pcp:Darrius Garcia Subjective: * Chief Complaints: * [...] yes, work. ?Marital status: . 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 * Medications:?TakingEliquis 5 MG Tablet as [...] to treatment,Improvement??? Plan: * Treatment: 2.?Tinea unguium?Procedure: 24300-BBUPAVN NAIL, 1-5 * Procedures:?Debride Nails 1-5:?Procedure:?Performance of this nail treatment by a nonprofessional would put this patients foot and overall health at risk. Therefore, debridement to affected nail(s), as described in exam, was performed extensively to reduce/remove overall nail length, girth, thickness, subungual debris, and necrotic tissue, by manual and/or electrical means through the use of a nail nipper and/or dremel-type paint grinder stone mill, to a more viable healthy nail plate [...] necessary to maintain effective symptomatic relief - 45448.?Keratoma Treatment:?Parring or Cutting of Benign Hyperkeratotic Lesion(s)?(-57) More than 4 Lesions - The Benign hyperkeratotic lesions, ( 6) in total, locations as stated and described in exam, were pared, and/or cut utilizing a sterile 15 blade, tissue nippers, and/or power dremel instrumentation - 67016, Q8.?Nail Reduction:?Nail Reduction?(-27) Trimming of all dystrophic nails, locations as stated and described in exam, was performed to reduce/remove overall nail length and girth, by manual and electrical means with use of a nail nipper and/or dremel, to more viable healthy nail plate or bed tissue - G0127, Q8.? * Procedure Codes:?G0127 ALYSE ING DYSTROPHIC NAILS ANY #, Modifiers: XS , [id number] DEBRIDE NAIL, 1-5, Modifiers: XS 55467 TRIM SKIN LESIONS, OVER 4, Modifiers: XS [...]
--- OUTSIDE RECORDS SUMMARY | 2024-07-29 08:47 | XMS_ITS ---
Author Organization [facility] key [place] Address [address] [place] [address] Care Team Providers Care Customer Development Representative Name Role Phone Darrius Garcia Primary Care Provider Jac Lopes Unavailable [phone] Allergies No Known Allergies REASON FOR VISIT [...] Ordered Date Performed Result Body Sit e 19159-DAJQNAK NAIL, 1-5 02/09/2024 N/A 67024-EQAJ SKIN LESIONS, OVER 4 02/09/2024 N/A I8109-VMBVGEVI DYSTROPHIC NAILS ANY # 02/09/2024 N/A Encounters Encounter Location Date Provider Diagnosis [facility] [address] [address] 02/09/2024 Jac Lopes Type 2 diabetes mellitus [...] Treatment Pending Test Test Name Order Date 34986-ELBOMIS NAIL, 1-5 02/09/2024 06645-WSWR SKIN LESIONS, OVER 4 02/09/20 24 H1336-KEEOISZL DYSTROPHIC NAILS ANY # Next Appt Details Follow Up: prn, Reason: Provider Name:Jac Lopes , 08/09/2024 02:30:00 PM, [address] [place] [address], [phone], Procedure Notes * Category Sub-Category Detail Notes Keratoma Treatment Parring or Cutting o f Benign Hyperkeratotic Lesion(s) 32886 ( More than 4 Lesions ) - [...] use of a nail nipper and/or dremel-type tool grinder set up operator gear, to a more viable healthy nail plate or bed tissue 1-5. Silver nitrate used for any petechial bleeding as necessary. Definitive antifungal treatment options have been reviewed and discussed with the patient. The patient chooses, no pharmaceutical tx (65374) Nail Reduction Nail Reduction Trimming of dyst rophic nails performed to reduce/remove overall nail length and girth, by manual and electrical means with use of a nail nipper and/or dremel, to more viable healthy nail plate or bed tissue, any number (G0574-L6) Progress Notes * Elton CARLISLE HDOB: 5 (88 yo M)Acc No.[id number]:02/09/2024 Progress Note Patient:?NealElton Key Provider:?Jac Lopes DPM :1935???Age:88 Y???Sex:Male Roel e:02/09/2024 Address:[address] [place], [place] [address] Pcp:Darrius Garcia Subjective: * Chief Complaints: * [...] ?Exercise: yes, work. ?Marital status: . 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 * Medications:?TakingEliquis 5 MG Tablet as [...] mellitus with diabetic peripheral angiopathy without gangrene?Procedure: 68614-WARP SKIN LESIONS, OVER 4 ?Procedure: O2883-OQZUFRRB DYSTROPHIC NAILS ANY # * Procedures:?Debride Nails 1-5:?Procedure:?Performance of this nail treatment by a nonprofessional would put this patients foot and overall health at risk. Therefore, nail debridement was performed extensively to reduce/remove overall nail length, girth, thickness, subungual debris, and necrotic tissue, by manual and/or electrical means through the use of a nail nipper and/or dremel-type tool grinder set up operator gear, to a more viable healthy nail plate or bed tissue 1-5. Silver nitrate used for any petechial bleeding as necessary. Definitive antifungal treatment options have been reviewed and discussed with the patient. The patient chooses, no pharmaceutical tx (70189).?Keratoma Treatment:?Parring or Cutting of Benign Hyperkeratotic Lesion(s)?42712 ( More than 4 Lesions ) - [...] nail plate or bed tissue, any number (R2800-N2).? * Procedure Codes:?G0127 ALYSE ING DYSTROPHIC NAILS ANY #, Modifiers: XS , [id number] DEBRIDE NAIL, 1-5, Modifiers: XS 85414 TRIM SKIN LESIONS, OVER 4, Modifiers: XS [...]
--- NOTE | 2024-07-29 08:58 | AM.OFFWIN_ITS ---
Intake Vital Signs 07/29/24 08:59 Weight 187 lb BP 136/82 Blood Pressure Location Lt brachial Position Sitting Pulse 85 Pulse Source Pulse Oximeter Temp 99.8 F Temp Source Oral Pulse Oximetry (%) 94 Oxygen Delivery Method Room Air Intake Visit Reasons: EP Cough, chest congestion Intake Note: Patient here for cough and chest congestion that has been present for about 2 days. Patient Tobacco Use Status: Never used Tobacco Allergies pravastatin Allergy (Unknown, Verified 07/29/24 09:03) LEG RASH Do you need a note to return to daycare/school/sports/work: No HPI EP Cough, chest congestion HPI Details 88 year old patient presents to the [facility] today for a 2-3 day history of productive cough with thick white sputum. is sick with similar symptoms. He states he is coughing non-stop and this is keeping him up at night. Has tried rubitussin and Tylenol at home without relief. Denies fever/chills or GI symptoms. Covid test at home was negative x2. PFSH Medical History Diabetes On anticoagulant therapy On beta cierra at home Psoriasis Enlarged prostate History of COVID-19 Bladder cancer Eczema craquele Cardiomyopathy Non-rheumatic aortic stenosis PAF (paroxysmal atrial fibrillation) Afib Essential (primary) hypertension Hypertension Normally functioning cardiac pacemaker present Surgical History History of transurethral resection of bladder tumor (TURBT) History of bladder surgery Hx of right inguinal hernia repair Total knee replacement status History of pacemaker Family History Father No problems noted. Mother No problems noted. Daughter In good health Social History Household Members: Spouse Housing: Apartment Do you presently have visiting nurse or other home services: No Alcohol intake: never Patient Tobacco Use Status: Never used Tobacco e-Cigarette/Vaping Use: Never Used Second Hand Smoke Exposure: No service: No Current occupational status: employed and retired Cognitive needs: No Hearing needs: No Vision needs: Yes (glasses) Review of Systems Const All systems reviewed & are unremarkable except as noted in HPI and below Physical Exam Vital Signs: Last Vital Signs Temp 99.8 F 07/29/24 08:59 Pulse 85 07/29/24 08:59 BP 136/82 07/29/24 08:59 Pulse Ox 94 07/29/24 08:59 Oxygen Delivery Method Room Air 07/29/24 08:59 Const General: cooperative and healthy appearing Limitations: no limitations HEENT Head: Yes normal to inspection Ears: hearing grossly normal bilaterally General nose exam: Normal external nose present Face and sinus: Yes normal facial exam Mouth: Normal oral and palatal mucosa present Throat: Yes posterior oropharynx normal Neck Neck: Yes no lymphadenopathy Resp Effort & Inspection: normal respiratory effort and Actively coughing (product jemma) Quality: actively coughing Auscultation: clear to auscultation bilaterally Cardio Rate: regular rate Rhythm: regular rhythm Skin General skin exam: no rashes or lesions noted Extrem General: Yes capillary refill normal and Yes no clubbing, cyanosis or edema Psych Appearance: grossly normal Mental Status: mental status grossly normal Speech and movement: Normal speech and movement present Assessment & Plan Assessment & Plan (1) Productive cough: Code(s): R05.8 - Other specified cough Plan: Will start patient on a short course of prednisone. Patient states he has taken this in prior years with good effect. Reviewed indications, use, possible s/e of medication. Declines viral testing. Recommended cough/deep breathing exercises. Advised him to return to the clinic if he does not improve with time and treatment, and to go to ED if he develops any worsening symptoms, shortness of breath or fever. Patient verbalizes understanding and agrees to plan. Medications: New prednisone Take one tablet twice a day for 5 days. 10 mg PO BID 5 days 10 tabs 0RF R05.8 - Other specified cough Coding Level of Care Code Est Pt Level 4 (54278) Diagnoses Productive cough R05.8
[2024-07-29 08:59] VITALS: BP 136/82; PULSE 85; TEMP 37.7; O2SAT 94
== END 2024-07-29 09:46 | disposition home or self-care (01) ==
PROVIDERS: PCP Internal Medicine; Visit Provider Nurse Practitioner Family
DX: R05.8 Other specified cough (principal)

== ENCOUNTER → 2024-07-29 08:30 | Outpatient (BNVA) | payer MEDICARE, SELFPAY | PROVIDERS: PCP Internal Medicine | DX: R05.8 Other specified cough (principal) | CPT/HCPCS: 99212 ==

== ENCOUNTER 2024-08-01 08:54 | Outpatient (AMB) | payer MEDICARE, SELFPAY ==
--- OUTSIDE RECORDS SUMMARY | 2024-08-01 08:57 | XMS_ITS ---
Author Organization [facility] james Bono Address [address] [place] [address] Care Team Providers Care Salvage Clerk Name Role Phone Radha Darrius Primary Care Provider [phone] Jac Lopes Unavailable [phone] Allergies No Known Allergies REASON FOR VISIT [...] Ordered Date Performed Result Body Sit e 83355-BGQRCPM NAIL, 1-5 11/27/2023 N/A 30784-EDOD SKIN LESIONS, OVER 4 11/27/2023 N/A H0670-LKNWJTPI DYSTROPHIC NAILS ANY # 11/27/2023 N/A Encounters Encounter Location Date Provider Diagnosis [facility] [address] [address] 11/27/2023 Jac Lopes Type 2 diabetes mellitus [...] Treatment Pending Test Test Name Order Date 61569-HCYOXUH NAIL, 1-5 11/27/2023 02922-EIAU SKIN LESIONS, OVER 4 11/27/19 24 G0958-EMETENHU DYSTROPHIC NAILS ANY # Next Appt Details Follow Up: prn, Reason: Provider Name:Jac Lopes , 08/09/2024 02:30:00 PM, [address] [place] [address], [phone], Procedure Notes * Category Sub-Category Detail Notes Keratoma Treatment Parring or Cutting o f Benign Hyperkeratotic Lesion(s) 14213 ( >4 Lesions) - The Benign hyperkeratotic [...] as necessary. Patient chooses, no pharmaceutical tx (39375) Nail Reduction Nail Reduction Trimming of dyst rophic nails performed to reduce/remove overall nail length and girth, by manual and electrical means with use of a nail nipper and/or dremel, to more viable healthy nail plate or bed tissue 6-10 (T8407-Z8) Progress Notes * Elton DE JESUS HDOB: 5 (88 yo M)Acc No.[id number]:11/27/2023 Progress Note Patient:?Elton De Jesus H Provider:?Jac Lopes DPM :1935???Age:88 Y???Sex:Male Roel e:11/27/2023 Address:[address] [place], [place] [address] Pcp:Darrius Garcia Subjective: * Chief Complaints: * [...] ?Exercise: yes, work. ?Marital status: . 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 * Medications:?TakingEliquis 5 MG Tablet as directed [...] mellitus with diabetic peripheral angiopathy without gangrene?Procedure: 37485-UXEJ SKIN LESIONS, OVER 4 ?Procedure: E0744-CMQSGUYG DYSTROPHIC NAILS ANY # * Procedures:?Debride Nails 1-5:?Procedure:?Nail debridement performed extensively to reduce/remove overall nail length, girth, thickness, subungual debris, and necrotic tissue, by manual and electrical means through the use of a nail nipper and/or dremel, to more viable healthy nail plate or bed tissue 1-5. Silver nitrate used for any petechial bleeding as necessary. Patient chooses, no pharmaceutical tx (25917).?Keratoma Treatment:?Parring or Cutting of Benign Hyperkeratotic Lesion(s)?88198 ( >4 Lesions) - The Benign hyperkeratotic [...] DYSTROPHIC NAILS ANY #, Modifiers: XS , [id number] DEBRIDE NAIL, 1-5, Modifiers: XS 86411 TRIM SKIN LESIONS, OVER 4, Modifiers: XS , Q8 * Preventive Medicine:? ??Counseling:?Shoe Gear Counseling:?Patient to obtain shoes hopefully soon.? * Follow Up:?prn * Images: * Sign off status: Completed true * Provider:?Jac Lopes DPM Date:?2023 Generated for Josephine corral/Ben/Gerardo on:?08/01/2024 08:57 AM EST History and Physical Notes * [...]
--- OUTSIDE RECORDS SUMMARY | 2024-08-01 08:57 | XMS_ITS ---
Author Organization [facility] key [place] Address [address] [facility] [place] [address] Care Team Providers Care Tow Motor Operator Name Role Phone Darrius Garcia Primary Care Provider Jac Lopes Unavailable [phone] Allergies No Known Allergies REASON FOR VISIT [...] Ordered Date Performed Result Body Sit e 14258-DMQRGTV NAIL, 1-5 02/09/2024 N/A 75643-DTZX SKIN LESIONS, OVER 4 02/09/2024 N/A Q6233-AVCWBBEH DYSTROPHIC NAILS ANY # 02/09/2024 N/A Encounters Encounter Location Date Provider Diagnosis [facility] [address] [address] 02/09/2024 Jac Lopes Type 2 diabetes mellitus [...] Treatment Pending Test Test Name Order Date 32113-WYKOKTU NAIL, 1-5 02/09/2024 56507-VMJF SKIN LESIONS, OVER 4 02/09/20 24 U9437-HHEQXLTZ DYSTROPHIC NAILS ANY # Next Appt Details Follow Up: prn, Reason: Provider Name:Jac Lopes , 08/09/2024 02:30:00 PM, [address] [place] [address], [phone], Procedure Notes * Category Sub-Category Detail Notes Keratoma Treatment Parring or Cutting o f Benign Hyperkeratotic Lesion(s) 32117 ( More than 4 Lesions ) - [...] use of a nail nipper and/or dremel-type drier and grinder tender, to a more viable healthy nail plate or bed tissue 1-5. Silver nitrate used for any petechial bleeding as necessary. Definitive antifungal treatment options have been reviewed and discussed with the patient. The patient chooses, no pharmaceutical tx (74992) Nail Reduction Nail Reduction Trimming of dyst rophic nails performed to reduce/remove overall nail length and girth, by manual and electrical means with use of a nail nipper and/or dremel, to more viable healthy nail plate or bed tissue, any number (E6154-A0) Progress Notes * Elton CARLISLE HDOB: 5 (88 yo M)Acc No.[id number]:02/09/2024 Progress Note Patient:?NealElton Key Provider:?Jac Lopes DPM :1935???Age:88 Y???Sex:Male Roel e:02/09/2024 Address:[address] [place], [place] [address] Pcp:Darrius aGrcia Subjective: * Chief Complaints: * ???At Risk [...] ?Exercise: yes, work. ?Marital status: . 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 * Medications:?TakingEliquis 5 MG Tablet as [...] mellitus with diabetic peripheral angiopathy without gangrene?Procedure: 60117-YOOG SKIN LESIONS, OVER 4 ?Procedure: T6774-ELCTIOIZ DYSTROPHIC NAILS ANY # * Procedures:?Debride Nails 1-5:?Procedure:?Performance of this nail treatment by a nonprofessional would put this patients foot and overall health at risk. Therefore, nail debridement was performed extensively to reduce/remove overall nail length, girth, thickness, subungual debris, and necrotic tissue, by manual and/or electrical means through the use of a nail nipper and/or dremel-type drier and grinder tender, to a more viable healthy nail plate or bed tissue 1-5. Silver nitrate used for any petechial bleeding as necessary. Definitive antifungal treatment options have been reviewed and discussed with the patient. The patient chooses, no pharmaceutical tx (54667).?Keratoma Treatment:?Parring or Cutting of Benign Hyperkeratotic Lesion(s)?00313 ( More than 4 Lesions ) - [...] nail plate or bed tissue, any number (H4413-Y1).? * Procedure Codes:?G0127 ALYSE ING DYSTROPHIC NAILS ANY #, Modifiers: XS , [id number] DEBRIDE NAIL, 1-5, Modifiers: XS 53450 TRIM SKIN LESIONS, OVER 4, Modifiers: XS [...]
--- OUTSIDE RECORDS SUMMARY | 2024-08-01 08:57 | XMS_ITS | Patient Health Record ---
Author Organization [facility] Elana james [place] Address [address] [place] [address] Care Team Providers Care Feeder Catcher Tobacco Name Role Phone Darrius Garcia Primary Care Provider [phone] Jac Lopes Unavailable [phone] Allergies No Known Allergies Results Component Value [...] Problem Acquired hammer toe of right foot (3255889360615 105) Other hammer toe(s) (acquired), right foot (M20.41) Active confirmed Response to treatment,I mprovement Problem Acquired hammer toe of left foot (1645858650951 103) Other hammer toe(s) (acquired), left foot (M20.42) Active confirmed Response to treatment,I mprovement Problem Type 2 diabetes mellitus with peripheral angiopathy (364878156) Type 2 diabetes mellitus with diabetic peripheral angiopathy without gangrene (E11.51) Active confirmed Vital Signs Blood pressure diastolic 60 mm Hg 05/06/2024 Height 5 ft 11 in in 05/06/2024 Blood pressure systolic 150 mm Hg 05/06/2024 Weight 186 lbs 05/06/2024 BMI 25.94 kg/m2 05/06/2024 Procedures Procedure Date Ordered Date Performed Result Body Sit e 17831-CPAGHZB NAIL, 1-09/15/2023 N/A 86972-JAJP SKIN LESIONS, OVER 09/15/2023 N/A L1166-GTTFYCTW DYSTROPHIC NAILS ANY # 09/15/2023 N/A 87834-RNHGHLU NAIL, 1-5 11/27/2023 N/A 54614-LCWI SKIN LESIONS, OVER 11/27/2023 N/A N8627-GRHBBHFD DYSTROPHIC NAILS ANY # 11/27/2023 N/A 52341-HRABNZS NAIL, 1-5 02/09/2024 N/A 62797-SNWD SKIN LESIONS, OVER 4 02/09/2024 N/A P6336-ARIVMZVM DYSTROPHIC NAILS ANY # 02/09/2024 N/A 76269-ONWJHGF NAIL, 1-5 05/06/2024 N/A 59731-BAOZ SKIN LESIONS, OVER 4 05/06/2024 N/A R7049-BRSDBVLR DYSTROPHIC NAILS ANY # 05/06/2024 N/A Encounters Encounter Location Date Provider Diagnosis [address] [address] 09/15/2023 [facility]y [facility] Type 2 diabetes mellitus with diabetic peripheral angiopathy without gangrene E11.51 ; Onychomycosis B35.1 ; Pain of toe of right foot M79.674 ; Pain of toe of left foot M79.675 ; Other hammer toe(s) (acquired), right foot M20.41 and Other hammer toe(s) (acquired), left foot M20.[address] [address] 11/27/2023 [facility]sergey [facility] Type 2 diabetes mellitus with diabetic peripheral angiopathy without gangrene E11.51 ; Tinea unguium B35.1 and Pain in left toe(s) M79.[address] [address] 02/09/2024 Jac Lopes Type 2 diabetes mellitus with diabetic peripheral angiopathy without gangrene E11.51 ; Tinea unguium B35.1 and Pain in left toe(s) M79.[address] [address] 05/06/2024 [facility]sergey [facility] Type 2 diabetes mellitus [...] Treatment Pending Test Test Name Order Date 74128-KXYBKXR NAIL, 1-02/26/2021 40044-REZNAWJ NAIL, 1-05/14/2021 23263-NQVPBSO NAIL, 1-07/23/2021 31847-KRNOZSK NAIL, 1-10/01/2021 06410-ZHNALDH NAIL, 1-5 12/10/2021 63159-HGASSLM NAIL, 1-5 02/18/2022 06743-ZZICYGR NAIL, 1-5 04/29/2022 20945-QNQAHER NAIL, 1-5 07/08/2022 49981-JWYJGNE NAIL, 1-5 10/07/2022 59097-NTRCAZL NAIL, 1-5 01/06/2023 52414-GDJKOZY NAIL, 1-5 03/20/2023 75316-KXYBMEG NAIL, 1-5 07/07/2023 64441-PSDGKHO NAIL, 1-5 09/15/2023 55360-TLIUGBM NAIL, 1-5 11/27/2023 37788-AVRZXDE NAIL, 1-5 02/09/2024 04328-MEZYQOM NAIL, 1-5 05/06/2024 53981-Zuwpumhs Plate 02/18/2022 40541-QRKV SKIN LESIONS, OVER 4 07/23/19 22 36273-DYPM SKIN LESIONS, OVER 4 02/19/20 22 73986-HDWP SKIN LESIONS, OVER 4 12/11/19 22 73546-DMJD SKIN LESIONS, OVER 4 10/02/19 22 00352-IBOX SKIN LESIONS, OVER 4 02/27/20 21 29488-VGSM SKIN LESIONS, OVER 4 05/14/20 21 92286-XARB SKIN LESIONS, OVER 4 09/15/19 24 04779-IFAR SKIN LESIONS, OVER 4 07/07/19 24 16396-HBZU SKIN LESIONS, OVER 4 03/20/20 23 12758-GRTP SKIN LESIONS, OVER 4 01/07/20 23 18882-WQKP SKIN LESIONS, OVER 4 10/08/19 23 25980-KEWR SKIN LESIONS, OVER 4 07/08/19 23 04369-QCPI SKIN LESIONS, OVER 4 04/29/20 77806-TGRI SKIN LESIONS, OVER 4 05/06/20 24 60537-ZIVW SKIN LESIONS, OVER 4 11/27/19 24 64779-KTVK SKIN LESIONS, OVER 4 02/09/20 24 87047-Yzby. Subungual Hematoma V2029-CZDUOMVI DYSTROPHIC NAILS ANY # F7168-YYSXPNBT DYSTROPHIC NAILS ANY # U3037-FHZRMRCT DYSTROPHIC NAILS ANY # E9633-QVFKVUSO DYSTROPHIC NAILS ANY # H1755-MEAKHURD DYSTROPHIC NAILS ANY # W2221-ZUEAQYZY DYSTROPHIC NAILS ANY # R2339-NLMBCMES DYSTROPHIC NAILS ANY # I9692-SPIDMXZB DYSTROPHIC NAILS ANY # O2081-SFFLEKJG DYSTROPHIC NAILS ANY # N1427-IETSFDND DYSTROPHIC NAILS ANY # E9949-DZJTQQOV DYSTROPHIC NAILS ANY # L8846-UIRFBWSQ DYSTROPHIC NAILS ANY # Y4966-IAYQGQTH DYSTROPHIC NAILS ANY # W6399-RXQERCBI DYSTROPHIC NAILS ANY # O1788-DDWWTCAL DYSTROPHIC NAILS ANY # M6286-KSIKKKFD DYSTROPHIC NAILS ANY # Next Appt Details Provider Name:Jac Lopes , 08/09/2024 02:30:00 PM, [address] [place] [address], [phone], Insurance Providers Payer Name Payer Address Payer Phone Subscriber Number Group Number Insured Name Patient Relationship to Insured Coverage Start Date Coverage End Date Medicare National [employer] [address] [place] [address] [id number] Elton De Jesus Self - patient is the insured [employer] [facility] [address] [place] [address] [phone] [id number] Elton De Jesus Self - patient is the insured Medical (General) History Medical History History ICD Code High blood pressure Reflux ( GERD) type II diabetes Bladder CA Surgical History Surgery Date(Month/Year) Left Knee replacement Pacemaker Bladder Ca removal and chemotherapy 2023
--- OUTSIDE RECORDS SUMMARY | 2024-08-01 08:58 | XMS_ITS ---
Author Organization [facility] [place] Address [address] [facility] [place] [address] Care Team Providers Care Business Solutions Consultant Name Role Phone Darrius Garcia Primary Care Provider Jac Lopes Unavailable [phone] Allergies No Known Allergies REASON FOR VISIT [...] Ordered Date Performed Result Body Sit e 83713-TUQVDAC NAIL, 1-5 05/06/2024 N/A 52228-LQHT SKIN LESIONS, OVER 4 05/06/2024 N/A E4247-HCVXHFTH DYSTROPHIC NAILS ANY # 05/06/2024 N/A Encounters Encounter Location Date Provider Diagnosis [facility] [place] [address] [place] [address] 05/06/2024 Jac Lopes Type 2 diabetes mellitus [...] Treatment Pending Test Test Name Order Date 96298-EOVOGRM NAIL, 1-5 05/06/2024 45267-RPQT SKIN LESIONS, OVER 4 05/06/20 24 M4900-GLRAJNWO DYSTROPHIC NAILS ANY # Next Appt Details Follow Up: prn, Reason: Provider Name:Jac Lopes , 08/09/2024 02:30:00 PM, [address] [place] [address], [phone], Procedure Notes * Category Sub-Category Detail Notes Keratoma Treatment Parring or Cutting o f Benign Hyperkeratotic Lesion(s) (-57) More than 4 Lesions - The Benign hyperkeratotic lesions, ( 6) in total, locations as stated and described in exam, were pared, and/or cut utilizing a sterile 15 blade, tissue nippers, and/or power dremel instrumentation - 78020, Q8 Debride Nails 1-5 Procedure: Performance of this nail treatment by a nonprofessional would put this patients foot and overall health at risk. Therefore, debridement to affected nail(s), as described in exam, was performed extensively to reduce/remove overall nail length, girth, thickness, subungual debris, and necrotic tissue, by manual and/or electrical means through the use of a nail nipper and/or dremel-type burr grinder, to a more viable healthy nail [...] necessary to maintain effective symptomatic relief - 25094 Nail Reduction Nail Reduction (-27) Trimming o f all dystrophic nails, locations as stated and described in exam, was performed to reduce/remove overall nail length and girth, by manual and electrical means with use of a nail nipper and/or dremel, to more viable healthy nail plate or bed tissue - G0127, Q8 Progress Notes * Elton CARLISLE HDOB: (88 yo M)Acc No.[id number]:05/06/2024 Progress Note Patient:?Elton CARLISLE Key Provider:?Jac Lopes DPM :[id number]???Age:88 Y???Sex:Male Roel e:05/06/2024 Address:[address] [facility] [facility], [place] Pcp:Darrius Garcia Subjective: * Chief Complaints: * [...] yes, work. ?Marital status: . 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 * Medications:?TakingEliquis 5 MG Tablet as [...] to treatment,Improvement??? Plan: * Treatment: 2.?Tinea unguium?Procedure: 27874-OSMJTHF NAIL, 1-5 * Procedures:?Debride Nails 1-5:?Procedure:?Performance of this nail treatment by a nonprofessional would put this patients foot and overall health at risk. Therefore, debridement to affected nail(s), as described in exam, was performed extensively to reduce/remove overall nail length, girth, thickness, subungual debris, and necrotic tissue, by manual and/or electrical means through the use of a nail nipper and/or dremel-type burr grinder, to a more viable healthy nail [...] necessary to maintain effective symptomatic relief - 38704.?Keratoma Treatment:?Parring or Cutting of Benign Hyperkeratotic Lesion(s)?(-57) More than 4 Lesions - The Benign hyperkeratotic lesions, ( 6) in total, locations as stated and described in exam, were pared, and/or cut utilizing a sterile 15 blade, tissue nippers, and/or power dremel instrumentation - 45653, Q8.?Nail Reduction:?Nail Reduction?(-27) Trimming of all dystrophic nails, locations as stated and described in exam, was performed to reduce/remove overall nail length and girth, by manual and electrical means with use of a nail nipper and/or dremel, to more viable healthy nail plate or bed tissue - G0127, Q8.? * Procedure Codes:?G0127 ALYSE ING DYSTROPHIC NAILS ANY #, Modifiers: XS , [id number] DEBRIDE NAIL, 1-5, Modifiers: XS 97170 TRIM SKIN LESIONS, OVER 4, Modifiers: XS [...]
--- NOTE | 2024-08-01 09:01 | AM.OFFWIN_ITS ---
Intake Vital Signs 08/01/24 09:18 BP 110/74 Pulse 67 Temp 98.1 F Temp Source Oral Pulse Oximetry (%) 96 Oxygen Delivery Method Room Air Intake Visit Reasons: EP cough, chest due to cough Intake Note: Patient here for worsening cough, chest pain from cough. Patient Tobacco Use Status: Never used Tobacco Allergies pravastatin Allergy (Unknown, Verified 08/01/24 09:18) LEG RASH Do you need a note to return to daycare/school/sports/work: No HPI HPI Comments History of Present Illness Details History - The patient is an 88-year-old male pre senting with a persistent cough and respiratory symptoms. - Initiation of symptoms occurred on Antonia rsday, and the course of illness prevented the patient from attending work for several consecutive days. - He has experienced a persistent cough without accompanying fever, ear pain, or sinus pain. - Twice performed home COVID-19 tests yakut elded negative results. Present symptoms have not resolved entirely with prednisone, which provided temporary relief. - A medical history inclusive of childho od asthma, possibly induced by environmental allergens, was documented, with no history of smoking but exposure to secondhand smoke. - He regularly incorporates Tylenol into his regimen to manage symptoms of pain or discomfort, using the arthritis-specific variant. 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 Physical Exam General: Cooperative, healthy appearing, comfortable and no acute distress Orientation/consciousness: Patient oriented x3 Limitations: No limitations Head: Normal to inspection Ears: Hearing grossly normal bilaterally, external ears normal and TM's normal bilaterally Nose: Normal external nose present, Normal nares present and No nasal discharge present Face and sinus: Normal facial exam and Yes sinuses nontender Mouth: Normal oral and palatal mucosa present and moist mucous membranes Throat: Yes tonsils normal, Yes uvula midline. Posterior oropharynx erythema Eyes: Appearance normal, both eyes and all related structures Neck: Normal visual inspection Respiratory: Clear to auscultation bilaterally. Normal respiratory effort, able to speak in complete sentences, Actively coughing, no respiratory distress, not tachypneic, no tripod positioning and no use of accessory muscles Cardiovascular: Regular rate and rhythm. Normal S1 and S2 Skin: No rashes or lesions noted Neuro: Patient oriented x3 Extremities: Normal to inspection and Yes no clubbing, cyanosis or edema [facility] Medical History Diabetes On anticoagulant therapy On beta cierra at home Psoriasis Enlarged prostate History of COVID-19 Bladder cancer Eczema craquele Cardiomyopathy Non-rheumatic aortic stenosis PAF (paroxysmal atrial fibrillation) Afib Essential (primary) hypertension Hypertension Normally functioning cardiac pacemaker present Surgical History History of transurethral resection of bladder tumor (TURBT) History of bladder surgery Hx of right inguinal hernia repair Total knee replacement status History of pacemaker Family History Father No problems noted. Mother No problems noted. Daughter In good health Social History Household Members: Spouse Housing: Apartment Do you presently have visiting nurse or other home services: No Alcohol intake: never Patient Tobacco Use Status: Never used Tobacco e-Cigarette/Vaping Use: Never Used Second Hand Smoke Exposure: No service: No Current occupational status: employed and retired Cognitive needs: No Hearing needs: No Vision needs: Yes (glasses) Review of Systems Const All systems reviewed & are unremarkable except as noted in HPI and below Physical Exam Vital Signs: Last Vital Signs Temp 98.1 F 08/01/24 09:18 Pulse 67 08/01/24 09:18 BP 110/74 08/01/24 09:18 Pulse Ox 96 08/01/24 09:18 Oxygen Delivery Method Room Air 08/01/24 09:18 Assessment & Plan Assessment & Plan (1) URI, acute: Code(s): J06.9 - Acute upper respiratory infection, unspecified Plan: Tylenol administration will continue for pain and fever management. The patient's test results will direct further intervention, with reevaluation if needed based on symptom progression. Rest, hydrate and I have sent Tesselon Pearles to the pharmacy to be used at night. Will send Zpak if flu, covid and rsv testing is negative. Patient was informed and verbally consented to the use of an ambient scribe for clinic note documentation during this visit Orders: Orders SARS-CoV2/FLU/RSV Today J06.9 - Acute upper respiratory infection, unspecified Medications: New benzonatate 200 mg PO TID PRN 14 caps 0RF cough Coding Level of Care Code Est Pt Level 3 (21717) Diagnoses URI, acute J06.9
[2024-08-01 09:18] VITALS: BP 110/74; PULSE 67; TEMP 36.7; O2SAT 96
== END 2024-08-01 10:00 | disposition home or self-care (01) ==
PROVIDERS: PCP Internal Medicine; Visit Provider Physician Assistant
DX: J06.9 Acute upper respiratory infection, unspecified (principal)

== ENCOUNTER 2024-08-01 08:54 | Outpatient (REF) | payer MEDICARE, SELFPAY ==
[2024-08-01 13:41] LABS: Influenza A PCR POSITIVE (Negative); Influenza B PCR NEGATIVE (Negative); Resp Syncy Virus RNA Qual PCR NEGATIVE (Negative); SARS COV2 PCR INHOUSE NEGATIVE (Negative)
== END 2024-08-01 08:55 | disposition home or self-care (01) ==
LOC: HO.LAB 08:54
PROVIDERS: PCP Internal Medicine; Visit Provider Physician Assistant
DX: J06.9 Acute upper respiratory infection, unspecified (principal)
CPT/HCPCS: 0241U; 99212

== ENCOUNTER 2024-08-11 11:42 | Outpatient (AMB) | payer MEDICARE, SELFPAY ==
[2024-08-11 11:43] VITALS: BP 134/70; PULSE 81; O2SAT 97
--- NOTE | 2024-08-11 11:43 | MHC.PC.OV ---
Vital Signs 08/11/24 11:43 Height 5 ft 11 in BP 134/70 Blood Pressure Location Lt brachial Position Sitting Pulse 81 Pulse Source Pulse Oximeter Pulse Oximetry (%) 97 Oxygen Delivery Method Room Air Intake Visit Reasons: cough Allergies pravastatin Allergy (Unknown, Verified 08/11/24 14:01) LEG RASH Medication List - Last Reconciled 08/11/24 by Leilani Trinidad PA-C albuterol sulfate 90 mcg/actuation 1 inh inhalation QID PRN amoxicillin-pot clavulanate 875-125 mg 1 tab PO BID 10 days apixaban (Eliquis) 2.5 mg PO BID ascorbic acid (vitamin C) 1 g PO DAILY 90 days atorvastatin 20 mg PO BEDTIME azithromycin For 250 mg dose pack: take 500 mg today (day 1), then 250 mg for 4 days (days 2-5) PO benzonatate 200 mg PO TID PRN betamethasone dipropionate 0.05% 2 appl topical BID blood sugar diagnostic (FreeStyle Test strips) Test 2 times daily blood sugar diagnostic (FreeStyle Test strips) Test 2 times daily blood-glucose meter (Freestyle [employer] meter) As directed [Diabetic shoes As directed] finasteride 5 mg PO DAILY 90 days lancets (FreeStyle Lancets) Test 2 times daily lisinopril 20 mg PO DAILY 90 days meclizine 12.5 mg PO DAILY PRN metformin 500 mg PO DAILY methenamine hippurate 1 g PO DAILY 90 days metoprolol succinate ER 100 mg (2 x 50 mg) PO DAILY nitroglycerin 0.4 mg sublingual Q5M PRN pantoprazole 40 mg PO DAILY prednisone 40 mg (2 x 20 mg) PO DAILY 5 days prednisone 10 mg PO BID 5 days tamsulosin 0.4 mg PO BID 90 days Tobacco use date assessed: 08/11/24 Fall risk assessment: No Falls in past year Last assessed Fall Risk: 08/11/24 Dental Screening Dental Screen Date: 08/11/24 Did you have a dental visit in the last 12 months?: Yes Did you have a dental problem in the last 6 months where you did not have access to dental care?: No Was dental information given to patient?: Patient has dentist [facility] Medical History (Updated 08/11/24 @ 14:03 by Leilani Trinidad PA-C) Bronchitis Diabetes On anticoagulant therapy On beta cierra at home Psoriasis Enlarged prostate History of COVID-19 Bladder cancer Eczema craquele Cardiomyopathy Non-rheumatic aortic stenosis PAF (paroxysmal atrial fibrillation) Afib Essential (primary) hypertension Hypertension Normally functioning cardiac pacemaker present Surgical History History of transurethral resection of bladder tumor (TURBT) History of bladder surgery Hx of right inguinal hernia repair Total knee replacement status History of pacemaker Family History Father No problems noted. Mother No problems noted. Daughter In good health Social History Household Members: Spouse Housing: Apartment Do you presently have visiting nurse or other home services: No Alcohol intake: never Patient Tobacco Use Status: Never used Tobacco Tobacco use type: Cigarette e-Cigarette/Vaping Use: Never Used Second Hand Smoke Exposure: No service: No Current occupational status: employed and retired Cognitive needs: No Hearing needs: No Vision needs: Yes (glasses) Questionnaire PHQ-9 Over the last 2 weeks, how often have you been bothered by any of the following problems? 1. Little interest or pleasure in doing things: not at all 2. Feeling down, depressed, or hopeless: not at all 3. Trouble falling or staying asleep, or sleeping too much: not at all 4. Feeling tired or having little energy: not at all 5. Poor appetite or overeating: not at all 6. Feeling bad about yourself - or that you are a failure or have let yourself or your family down: not at all 7. Trouble concentrating on things, such as reading the newspaper or watching television: not at all 8. Moving or speaking so slowly that other people could have noticed. Or the opposite - being so fidgety or restless that you have been moving around a lot more than usual: not at all 9. Thoughts that you would be better off or of hurting yourself in some way: not at all Total score: 0 Depression Screening Interpretation: Negative Depression Screening Done: Yes 83294 - PHQ-9 Billing: Yes Source: Developed by Drs. Agnel Rodríguez, Sandra B.W. Placido Nickerson and colleagues, with an educational bhavana from [employer] Thrive Questionnaire Date Thrive assessed: 07/02/23 MALKA-7 AMB Questionnaire MALKA-7 Date MALKA - 7 assessed: 07/02/23 Source: Developed by Drs. Angel Rodríguez, Placido Womack and colleagues, with an educational bhavana from [employer] Physical exam (Primary Care) Vital Signs: Last Vital Signs Pulse 81 08/11/24 11:43 BP 134/70 08/11/24 11:43 Pulse Ox 97 08/11/24 11:43 Oxygen Delivery Method Room Air 08/11/24 11:43 Care Plan Goal for BP management: <130/80 at Goal Tobacco/Smoking Status: Tobacco use Status Tobacco use date assessed 08/11/24 08/11/24 11:45 Patient Tobacco Use Status Never used Tobacco 08/11/24 11:45 Tobacco use type Cigarette 08/11/24 11:45 e-Cigarette/Vaping Use Never Used 08/11/24 11:45 PHQ-9: PHQ-9 Score PHQ-9: Total score 0 08/11/24 11:57 Depression Screening Interpretation: Negative Thrive Assessment: Date of Thrive Assessment Date Thrive assessed 07/02/23 08/11/24 11:45 Coding Level of Care Code Est Pt Level 4 (22065) Complex EM visit Add On G2211 Diagnoses Bronchitis J40 Essential (primary) hypertension I10 PAF (paroxysmal atrial fibrillation) I48.0 Ischemic cardiomyopathy I25.5 Cardiomyopathy type: ischemic Non-rheumatic aortic stenosis I35.0 Normally functioning cardiac pacemaker present Z95.0 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 Oxygen 97% on room air. He is afebrile. Patient most likely bronchitis. Will send for labs, chest x-ray. Patient will be started on Augmentin, Z-Sal, prednisone, albuterol inhaler. Condition is stable will continue to monitor. (2) Essential (primary) hypertension: Code(s): I10 - Essential (primary) hypertension Category: Medical Plan: Goal 130/80 at goal today. Patient to continue lisinopril 20 mg daily, continue new metoprolol extended release 100 mg daily. Condition is chronic and stable continue to monitor. (3) PAF (paroxysmal atrial fibrillation): Code(s): I48.0 - Paroxysmal atrial fibrillation Category: Medical Plan: Patient to continue Eliquis 2.5 mg p.o. b.i.d. daily. Condition is chronic and stable continue to monitor. (4) Cardiomyopathy: Code(s): I42.9 - Cardiomyopathy, unspecified Category: Medical Qualifiers: Cardiomyopathy type: ischemic Qualified Code(s): I25.5 - Ischemic cardiomyopathy Plan: Condition is chronic and stable continue to monitor. (5) Non-rheumatic aortic stenosis: Code(s): I35.0 - Nonrheumatic aortic (valve) stenosis Category: Medical Plan: Condition is chronic and stable continue to monitor. (6) Normally functioning cardiac pacemaker present: Code(s): Z95.0 - Presence of cardiac pacemaker Category: Medical Plan: Condition is chronic and stable continue to monitor. (7) CKD (chronic kidney disease) stage 3, GFR 30-59 ml/min: Code(s): N18.30 - Chronic kidney disease, stage 3 unspecified Category: Medical Qualifiers: Chronic kidney disease stage 3 subtype: stage 3b (GFR 30-44) Qualified Code(s): N18.32 - Chronic kidney disease, stage 3b Plan: Last BUN and creatinine 20 and 1.37 today. Condition is chronic and stable continue to monitor. Plan Plan Given the diagnosis of acute bronchitis and the confirmation of Influenza A, the patient is prescribed Augmentin, a Z-Sal azithromycin), prednisone, and an albuterol inhaler. Imaging with a chest X-ray and basic blood tests have been ordered to further assess the patient's condition. The treatment plan will be adjusted based on the outcomes of these investigations. The patient is advised to monitor symptoms and expect a follow-up call regarding the test results. Patient Instructions: Patient Instructions - Begin the prescribed medications: Augmentin, Z-Sal, prednisone, and albuterol inhaler as instructed. - Undergo the scheduled chest X-ray and blood work. - Monitor symptoms, and expect a follow-up call for further instructions and results. - Do not return for follow-up today unless symptoms worsen. Scribe Plan - Not visible on output: History of Present Illness The patient is an 88-year-old male presenting with a persistent cough. The cough commenced approximately on July 27. The patient reports the absence of fever or chest pain but mentions having experienced a headache that resolved without further intervention. On August 01, Influenza A was diagnosed following a positive test result obtained at the emergency room. The current status of the cough remains unchanged from the initial presentation. Review of Systems - Respiratory System: Reports persistent cough without associated fever or chest pain. - Neurological System: Reports a headache that has resolved. Physical Exam Appearance: Alert. Oriented X3. No acute distress. Head: Normal external exam. Normocephalic. Atraumatic. Eyes: Pupils are equal, round, and reactive to light. Extraocular movements intact. Conjunctiva and sclera normal. Eyelids normal. Ears: External auditory canal normal. Tympanic membranes normal. Throat: Pharynx normal. Uvula midline. Moist mucous membranes. Neck: Normal inspection. Neck supple. Full range of motion. No adenopathy. Thyroid Normal. No meningeal signs. No neck mass noted. Cardiovascular: Normal heart rate and rhythm. Heart sound normal. No murmurs noted. Pulses normal throughout. Respiratory: No respiratory distress. Painless inspiration. Breath sounds normal. No wheezes/rales/rhonchi noted. Chest nontender. No accessory muscle usage noted or decreased air movement noted. Abdomen: Soft and nontender. Bowel sounds normal in all 4 quadrants. No distention noted. No organomegaly noted. No visible injury noted. Back: No costovertebral angle tenderness. Full range of motion noted. Skin: Skin warm and dry. Normal skin color. Normal skin turgor. No rashes/lesions/lacerations noted. Extremities: No lower extremity edema. Extremities exhibit normal range of motion. Extremities nontender. Neuro: Oriented X 3. No motor deficit. No sensory deficit. Reflexes normal. Results - Tests: Positive result for Influenza A on August 01. Patient was informed and verbally consented to the use of an ambient scribe for clinic note documentation during this visit. Discussion Notes I have informed the patient of the current diagnosis of acute bronchitis and the prior positive result for Influenza A. I discussed the management plan which includes the prescription of Augmentin, a Z-Sal, prednisone, and an albuterol inhaler. The plan also involves obtaining a chest X-ray and basic blood work to refine and guide treatment. I reassured the patient that the management plan would be adjusted based on the follow-up results and emphasized monitoring symptoms carefully.
--- OUTSIDE RECORDS SUMMARY | 2024-08-11 14:13 | XMS_ITS ---
Author Organization [facility] james Castalia Address [address] [facility] [place] [address] Care Team Providers Care Behavior Management Specialist Name Role Phone Radha Darrius Primary Care Provider [phone] Jac Lopes Unavailable [phone] Allergies No Known Allergies REASON FOR VISIT At Risk Footcare, Painful Nail(s) aggravated by shoes and causing difficulty standing/walking. Medications [...] 365 days 09/15/2023 Active tylenol PRN Active Metoprolol Succinate 50 MG 1 capsule Orally Once a day for 30 day(s) Active glipiZIDE ER 2.5 MG 1 tablet with breakf ast Orally Once a day for 30 day(s) Not-Taking Meclizine HCl PRN Active Eliquis 5 MG as directed Orally Active Social History Tobacco Use: Social History Observation Description Date Details (start date - stop date) Never Smoker NA - NA Tobacco use other than smoking: Question Answer Notes Are you an other tobacco user? No Tobacco Control (Standard) Question Answer Notes Tobacco use: Nonsmoker Additional Findings: Tobacco non-user Current no nsmoker AUDIT-C (Standard) Question Answer Notes Did you have a drink containing alcohol in the p ast year? No Points 0 Interpretation Negative Vital Signs Height 5 ft 11 in in 08/09/2024 Weight 186 lbs 08/09/2024 BMI 25.94 kg/m2 08/09/2024 Blood pressure systolic 140 mm Hg 08/09/19 Blood pressure diastolic 60 mm Hg 025 Procedures Procedure Date Ordered Date Performed Result Body Sit e 55456-BRUULFI NAIL, 1-5 08/09/2024 N/A 17425-HZQT SKIN LESIONS, OVER 4 08/09/2024 N/A S3987-KOFAIUGQ DYSTROPHIC NAILS ANY # 08/09/2024 N/A Encounters Encounter Location Date Provider Diagnosis [facility] [address] [address] 08/09/2024 Jac Lopes Type 2 diabetes mellitus with diabetic peripheral angiopathy without gangrene E11.51 ; Tinea unguium B35.1 and Pain in left toe(s) M79.675 Assessments Encounter Date Diagnosis (ICD Code) Assessment Notes Treatment Notes Treatment Clinical Notes Section Notes 08/09/2024 Type 2 diabetes mellitus with diabetic peripheral angiopathy without gangrene (ICD-10 - E11.51) Q7(A), Q8(2B), Q9(1B,2C) 08/09/2024 Tinea unguium (ICD-10 - B35.1) 08/09/2024 Pain in left toe(s) (ICD-10 - M79.675) Plan Of Treatment Pending Test Test Name Order Date 79239-GRUCIPB NAIL, 1-5 08/09/2024 74355-FXIV SKIN LESIONS, OVER 4 08/09/19 E3906-QLHQHISG DYSTROPHIC NAILS ANY # Next Appt Details Follow Up: prn, Reason: Provider Name:Jac Lopes , 11/11/2024 01:30:00 PM, [address] [place] [address], [phone], Procedure Notes * Category Sub-Category Detail Notes Keratoma Treatment Parring or Cutting o f Benign Hyperkeratotic Lesion(s) (-57) More than 4 Lesions - Due to the at risk nature of the patients medical condition as documented in the exam findings, performance of this keratoderma treatment is medically necessary as its management by an unskilled/untrained nonprofessional would put this patients foot and overall health at risk. Therefore, the benign hyperkeratotic lesions, ( 6 ) in total, locations as stated and described in the exam ( SUB MTH (s), 1, B/L , SUB MTH (s), 5, B/L ,Plantar, Heel(s), B/L ), were pared, and/or cut utilizing a sterile 15 blade, tissue nippers, and/or power dremel instrumentation by the physician of record - 96551, Q8 Debride Nails 1-5 Procedure: Due to the cli nical pathology outlined in the exam findings, performance of this nail treatment is medically necessary as its management by an unskilled/untrained nonprofessional would put this patients foot and overall health at risk. Therefore, debridement to affected nail(s), as described in exam ( TA ), was performed exclusively by the physician of record to reduce/remove overall nail length, girth, thickness, subungual debris, and necrotic tissue, by manual and/or electrical means through the use of a nail nipper and/or dremel stylegrinder, to a more viable healthy nail plate or bed tissue 5 nails or fewer in number. Silver nitrate was used for any petechial bleeding as necessary. Definitive antifungal treatment options, both pharmaceutical and surgical, have been reviewed and discussed with the patient. The patient solely prefers the use of intermittent/as needed professional debridement services for their nail condition and understands that additional periodic treatments may be required as necessary to maintain effective symptomatic relief - 96384 Nail Reduction Nail Reduction (-27) Trimming o f all dystrophic nails - Due to the at risk nature of the patients medical condition as documented in the exam findings, performance of this nail treatment is medically necessary as its management by an unskilled/untrained nonprofessional would put this patients foot and overall health at risk. Therefore, the dystrophic nails, in locations as stated and described in the exam ( T1, T2, T3, T4, T5, T6, T7, T8, T9 ), were debrided by the phisician of record to reduce/remove overall nail length and girth, by manual and electrical means with use of a nail nipper and/or dremel, to more viable healthy nail plate or bed tissue - G0127, Q8 Progress Notes * Elton DE JESUS HDOB: 5 (88 yo M)Acc No.[id number]:08/09/2024 Progress Note Patient:?Elton DE JESUS Provider:?Jac Lopes DPM :1935???Age:88 Y???Sex:Male Roel e:08/09/2024 Address:[address] [place], [place] [id number] Pcp:Darrius Garcia Subjective: * Chief Complaints: * ???At Risk FootcarePainful N ail(s) aggravated by shoes and causing difficulty standing/walking. * HPI: ???At Risk footcare:?Pt States Last PCP Visit:?Date?04/15/2024 * ROS:?General/Constitutional:?Nausea?denies.?Vomiting?denies.?Hunger Thirst?denies.?Loss appetite?denies.?Chills?denies.?Fatigue?denies.?Fever?denies.?Night Sweats?denies.?Unexplained weight loss?denies.?Unexplained weight gain?denies.?HEENTM:?Dentures?admits.?Dizziness?denies.?Glasses/contacts?admits.?Retinopathy?den ies.?Blurred/double vision?denies.?TMJ?denies.?Discharge/drainage?denies.?Implants?denies.?Sore throat?denies.?Dental implants?denies.?Hard of hearing ?denies.?Difficulty chewing/swallowing/speaking?denies.?Nose bleeds?denies.?Sore mouth?denies.?Respiratory:?On O xygen?denies.?Pneumonia/pleurisy?denies.?Bronchitis?denies.?Emphysema?denies.?Co ughing?denies.?Cough blood?denies.?Shortness of breath?denies.?Wheezing?denies.?Cardiovascular:?Pacemaker?admits.?MVP?denies.?WPW?denies.?CHF?denies.?Heart attack?denies.?Septal defect?denies.?Rapid beat?denies.?Chest pain ?denies.?Atrial Fib.?denies.?Murmur/Palpitations?denies.?Gastrointestinal:?Hemorrhoids?denies.?Stomach/Abdominal pain?denies.?Dark blood stool?denies.?Irritable bowel ?denies.?Constipation?denies.?Diarrhea?denies.?Hematology:?Swelling?denies.?Clots?denies.?Varicose Veins?denies.?Bruising?admits, on anticoagulants.?Bleeding problem?admits, on anticoagulants.?Genitourinary:?Blood urine?denies.?Frequent/Painfu/urination/bladder control?denies.?Kidney stones?denies.?Infection (UTI)?denies.?Nephropathy?denies.?sex trans dis (STD)?denies.?Prostate?denies.?Musculoskeletal:?Hammertoes?admits.?Bunions?denies.?Back Pain?denies.?Muscle Cramps/ Resting?denies.?Muscle cramps / walking?denies.?Generalized aches and pains?denies.?Weakness?denies.?Integ.:?Medina?denies.?Scars?denies.?Corns/calluses?admits.?Ingrown nails?admits.?Painful nails?admits.?Open Sores?denies.?Rashes?denies.?Neurologic:?Difficulty sleeping?denies.?Brain disorder?denies.?Numbness?denies.?Balance t rouble?denies.?Confusion?denies.?Fainting/blackouts?denies.?Tingling?denies.?Hilario mors?denies.? * Medical History:? * Surgical History:?Left Knee replacement Pacemaker Bladder Ca removal and chemotherapy 2023 * Hospitalization/Major Diagno stic Procedure:?Denies Past Hospitalization * Family History:?Mother: dece ased.?Father: .? * Social History:?Tobacco Use:?Tobacco use other than smoking?Are you an other tobacco user??No ?Tobacco Control (Standard)?Tobacco use:?Nonsmoker ?Additional Findings: Tobacco non-user?Current nonsmoker ???Drugs/Alcohol:?Drugs?Have you used drugs other than those for medical reasons in the past 12 months??No ???Miscellaneous:?Caffeine: yes, Tea. ?Children: yes, 3. ?Exercise: yes, work. ?Marital status: . 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 ???Drug/Alcohol:?AUDIT-C (Standard)?Did you have a drink containing alcohol in the past year??No ?Points?0 ?Interpretation?Negative * Medications:?TakingEliquis 5 MG Tablet as directed [...] reviewed and reconciled with the patient * Allergies:?N.K.D.A.yes[Gabe gilbert Verified] Objective: * Vitals:?Ht: 5 ft 11 in, Wt:1 86, BMI: 25.94, Shoe size:12, BP:140/60mm Hg, BS:113, Wt-k.37 kg. * ???Past Orders: ???Lab:HEMOGLOBIN A1C (GLYCO HEMOGLOBIN) (Order Date - 09/15/2023) (Collection Date & Time - 06/17/2023) ? Value Reference Range ?HEMOGLOBIN A1C % (HH) 6.8 * Examination: ???Ophthalmology Referral: ?DIABETES EYE EXAM?Procedure Performed:?Yes ?Date of Exam Performed?05/17/2024 ?Diabetic Retinopathy Screening:?Yes ?Retinal Screening Performed:?Yes ?Findings of Diabetic Eye Exam:?no retinopathy?Vascular: ?DP PULSES (B):? 1/4, B/L.?PT PULSES (B):? 0/4, B/L.?CAPILLARY FILL TIME:? delayed, all digits, B/L.?TROPHIC CONDITION-TEXTURE/ELASTICITY/TURGOR/HAIR GROWTH (B):?decreased, with sparse to absent hair growth, B/L.?TEMPERTURE GRADIENT (C):? decreased, cool to cool, proximal to distal, B/L.?PIGMENTATION:? pale, B/L.?EDEMA (C):?absent, B/L.?CLAUDICATION (C):?denies, B/L.?REST PAIN:?denies, B/L.?Nails: ?NAILS are:?Elongated, overgrown, dystrophic, lytic, greater than 3mm thick, discolored and friable with crumbly malodorous subungual debris, with pain on palpation, TA , all other nails not described with characteristics as possessing mycosis are elongated, overgrown, and dystrophic ( T1, T2, T3, T4, T5, T6, T7, T8, T9?).?Dermatologic: ?SKIN FINDINGS:? Skin exam reveals Keratotic lesion(s) located at, SUB MTH (s), 1, B/L , SUB MTH (s), 5, B/L ,Plantar, Heel(s), B/L .? Assessment: * Assessment: 1.?Tinea unguium - B35.1???2 .?Type 2 diabetes mellitus with diabetic peripheral angiopathy without gangrene - E11.51 (Primary)???Notes :Q7(A), Q8(2B), Q9(1B,2C)???3.?Pain in left toe(s) - M79.675??? Plan: * Treatment: 2.?Tinea unguium?Procedure: 58086-VUZKJUE NAIL, 1-5 * Procedures:?Debride Nails 1-5:?Procedure:?Due to the clinical pathology outlined in the exam findings, performance of this nail treatment is medically necessary as its management by an unskilled/untrained nonprofessional would put this patients foot and overall health at risk. Therefore, debridement to affected nail(s), as described in exam ( TA ), was performed exclusively by the physician of record to reduce/remove overall nail length, girth, thickness, subungual debris, and necrotic tissue, by manual and/or electrical means through the use of a nail nipper and/or dremel stylegrinder, to a more viable healthy nail plate or bed tissue 5 nails or fewer in number. Silver nitrate was used for any petechial bleeding as necessary. Definitive antifungal treatment options, both pharmaceutical and surgical, have been reviewed and discussed with the patient. The patient solely prefers the use of intermittent/as needed professional debridement services for their nail condition and understands that additional periodic treatments may be required as necessary to maintain effective symptomatic relief - 74493.?Keratoma Treatment:?Parring or Cutting of Benign Hyperkeratotic Lesion(s)?(-57) More than 4 Lesions - Due to the at risk nature of the patients medical condition as documented in the exam findings, performance of this keratoderma treatment is medically necessary as its management by an unskilled/untrained nonprofessional would put this patients foot and overall health at risk. Therefore, the benign hyperkeratotic lesions, ( 6 ) in total, locations as stated and described in the exam (?SUB MTH (s),?1,?B/L?,?SUB MTH (s),?5,?B/L?,Plantar,?Heel(s),?B/L?), were pared, and/or cut utilizing a sterile 15 blade, tissue nippers, and/or power dremel instrumentation by the physician of record - 29002, Q8.?Nail Reduction:?Nail Reduction?(-27) Trimming of all dystrophic nails - Due to the at risk nature of the patients medical condition as documented in the exam findings, performance of this nail treatment is medically necessary as its management by an unskilled/untrained nonprofessional would put this patients foot and overall health at risk. Therefore, the dystrophic nails, in locations as stated and described in the exam ( T1, T2, T3, T4, T5, T6, T7, T8, T9 ), were debrided by the phisician of record to reduce/remove overall nail length and girth, by manual and electrical means with use of a nail nipper and/or dremel, to more viable healthy nail plate or bed tissue - G0127, Q8.? * Procedure Codes:?G0127 ALYSE ING DYSTROPHIC NAILS ANY #, Modifiers: XS , [id number] DEBRIDE NAIL, 1-5, Modifiers: XS 99979 TRIM SKIN LESIONS, OVER 4, Modifiers: XS , Q8 * Follow Up:?prn * Images: * Sign off status: Completed true * Provider:?Jac Lopes DPM Date:?2024 Generated for Josephine corral/Ben/Gerardo on:?08/11/2024 02:13 PM EST History and Physical Notes * HPI (History of Present Illness) Category Sub-Category Detail Notes Category Not es At Risk footcare Pt States Last PCP Visit: Date: Examination Category Sub-Category Detail Notes Category Not es Dermatologic SKIN FINDINGS: Skin exam reveal s Keratotic lesion(s) located at, SUB MTH (s), 1, B/L , SUB MTH (s), 5, B/L ,Plantar, Heel(s), B/L Ophthalmology Referral DIABETES EYE EXAM Procedu re Performed:: Yes ?Date of Exam Performed: 05/17/2024 Diabetic Retinopathy Screening:: Yes Retinal Screening Performed:: Yes Findings of Diabetic Eye Exam:: no retin opathy Vascular DP PULSES (B): 1/4, B/L PT [...] malodorous subungual debris, with pain on palpation, TA , all other nails not described with characteristics as possessing mycosis are elongated, overgrown, and dystrophic ( T1, T2, T3, T4, T5, T6, T7, T8, T9 )
--- OUTSIDE RECORDS SUMMARY | 2024-08-11 14:13 | XMS_ITS ---
Author Organization [facility] key [place] Address [address] [facility] [place] [address] Care Team Providers Care Automobile Repossessor Name Role Phone Darrius Garcia Primary Care Provider Jac Lopes Unavailable [phone] Allergies No Known Allergies REASON FOR VISIT [...] Ordered Date Performed Result Body Sit e 32703-ZZHQNAL NAIL, 1-5 05/06/2024 N/A 81325-PMUA SKIN LESIONS, OVER 4 05/06/2024 N/A U6447-QJWWPVXZ DYSTROPHIC NAILS ANY # 05/06/2024 N/A Encounters Encounter Location Date Provider Diagnosis [facility] [place] [address] [place] [address] 05/06/2024 Jac Lopes Type 2 diabetes mellitus [...] Treatment Pending Test Test Name Order Date 25293-GSDTWYG NAIL, 1-5 05/06/2024 83078-OAZA SKIN LESIONS, OVER 4 05/06/20 24 H3552-WNCOUABD DYSTROPHIC NAILS ANY # Next Appt Details Follow Up: prn, Reason: Provider Name:Jac Lopes , 11/11/2024 01:30:00 PM, [address] [place] [address], [phone], Procedure Notes * Category Sub-Category Detail Notes Keratoma Treatment Parring or Cutting o f Benign Hyperkeratotic Lesion(s) (-57) More than 4 Lesions - The Benign hyperkeratotic lesions, ( 6) in total, locations as stated and described in exam, were pared, and/or cut utilizing a sterile 15 blade, tissue nippers, and/or power dremel instrumentation - 89664, Q8 Debride Nails 1-5 Procedure: Performance of this nail treatment by a nonprofessional would put this patients foot and overall health at risk. Therefore, debridement to affected nail(s), as described in exam, was performed extensively to reduce/remove overall nail length, girth, thickness, subungual debris, and necrotic tissue, by manual and/or electrical means through the use of a nail nipper and/or dremel-type thread grinder, to a more viable healthy nail [...] necessary to maintain effective symptomatic relief - 71400 Nail Reduction Nail Reduction (-27) Trimming o f all dystrophic nails, locations as stated and described in exam, was performed to reduce/remove overall nail length and girth, by manual and electrical means with use of a nail nipper and/or dremel, to more viable healthy nail plate or bed tissue - G0127, Q8 Progress Notes * Elton CARLISLE HDOB: (88 yo M)Acc No.[id number]:05/06/2024 Progress Note Patient:?Elton CARLISLE Key Provider:?Jac Lopes DPM :1935???Age:88 Y???Sex:Male Roel e:05/06/2024 Address:[address] [facility] [place] Pcp:Darrius Garcia Subjective: * Chief Complaints: * [...] yes, work. ?Marital status: . 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 * Medications:?TakingEliquis 5 MG Tablet as directed [...] to treatment,Improvement??? Plan: * Treatment: 2.?Tinea unguium?Procedure: 48552-CBRYAAK NAIL, 1-5 * Procedures:?Debride Nails 1-5:?Procedure:?Performance of this nail treatment by a nonprofessional would put this patients foot and overall health at risk. Therefore, debridement to affected nail(s), as described in exam, was performed extensively to reduce/remove overall nail length, girth, thickness, subungual debris, and necrotic tissue, by manual and/or electrical means through the use of a nail nipper and/or dremel-type thread grinder, to a more viable healthy nail [...] necessary to maintain effective symptomatic relief - 97942.?Keratoma Treatment:?Parring or Cutting of Benign Hyperkeratotic Lesion(s)?(-57) More than 4 Lesions - The Benign hyperkeratotic lesions, ( 6) in total, locations as stated and described in exam, were pared, and/or cut utilizing a sterile 15 blade, tissue nippers, and/or power dremel instrumentation - 77369, Q8.?Nail Reduction:?Nail Reduction?(-27) Trimming of all dystrophic nails, locations as stated and described in exam, was performed to reduce/remove overall nail length and girth, by manual and electrical means with use of a nail nipper and/or dremel, to more viable healthy nail plate or bed tissue - G0127, Q8.? * Procedure Codes:?G0127 ALYSE ING DYSTROPHIC NAILS ANY #, Modifiers: XS , [id number] DEBRIDE NAIL, 1-5, Modifiers: XS 73212 TRIM SKIN LESIONS, OVER 4, Modifiers: XS [...] Lopes DPM Date:?2023 Generated for Josephine corral/Ben/Gerardo on:?08/11/2024 02:13 PM [...]
--- OUTSIDE RECORDS SUMMARY | 2024-08-11 14:13 | XMS_ITS ---
Author Organization [facility] key [place] Address [address] [facility] [place] [address] Care Team Providers Care Mental Health Tech Name Role Phone Darrius Garcia Primary Care Provider [phone] Jac Lopes Unavailable [phone] Allergies No Known Allergies REASON FOR VISIT [...] Ordered Date Performed Result Body Sit e 24580-QILEHAW NAIL, 1-5 02/09/2024 N/A 75915-CKBS SKIN LESIONS, OVER 4 02/09/2024 N/A B3467-ISAHKSBO DYSTROPHIC NAILS ANY # 02/09/2024 N/A Encounters Encounter Location Date Provider Diagnosis [facility] [address] [address] 02/09/2024 Jac Lopes Type 2 diabetes mellitus [...] Treatment Pending Test Test Name Order Date 38702-XZBWWBI NAIL, 1-5 02/09/2024 86166-FGRL SKIN LESIONS, OVER 4 02/09/20 24 L7198-LDYHZZFY DYSTROPHIC NAILS ANY # Next Appt Details Follow Up: prn, Reason: Provider Name:Jac Lopes , 11/11/2024 01:30:00 PM, [address] [place] [address], [phone], Procedure Notes * Category Sub-Category Detail Notes Keratoma Treatment Parring or Cutting o f Benign Hyperkeratotic Lesion(s) 68327 ( More than 4 Lesions ) - [...] of a nail nipper and/or dremel-type tool grinder, to a more viable healthy nail plate or bed tissue 1-5. Silver nitrate used for any petechial bleeding as necessary. Definitive antifungal treatment options have been reviewed and discussed with the patient. The patient chooses, no pharmaceutical tx (79695) Nail Reduction Nail Reduction Trimming of dyst rophic nails performed to reduce/remove overall nail length and girth, by manual and electrical means with use of a nail nipper and/or dremel, to more viable healthy nail plate or bed tissue, any number (O0083-W1) Progress Notes * Elton CARLISLE HDOB: 5 (88 yo M)Acc No.[id number]:02/09/2024 Progress Note Patient:?NealElton Key Provider:?Jac Lopes DPM :1935???Age:88 Y???Sex:Male Roel e:02/09/2024 Address:[address] [place], [place] [id number] Pcp:Darrius Garcia Subjective: * Chief Complaints: * [...] ?Exercise: yes, work. ?Marital status: . 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 * Medications:?TakingEliquis 5 MG Tablet as [...] mellitus with diabetic peripheral angiopathy without gangrene?Procedure: 70988-VMJB SKIN LESIONS, OVER 4 ?Procedure: Y9420-TXOIQCED DYSTROPHIC NAILS ANY # * Procedures:?Debride Nails 1-5:?Procedure:?Performance of this nail treatment by a nonprofessional would put this patients foot and overall health at risk. Therefore, nail debridement was performed extensively to reduce/remove overall nail length, girth, thickness, subungual debris, and necrotic tissue, by manual and/or electrical means through the use of a nail nipper and/or dremel-type tool grinder, to a more viable healthy nail plate or bed tissue 1-5. Silver nitrate used for any petechial bleeding as necessary. Definitive antifungal treatment options have been reviewed and discussed with the patient. The patient chooses, no pharmaceutical tx (71144).?Keratoma Treatment:?Parring or Cutting of Benign Hyperkeratotic Lesion(s)?72757 ( More than 4 Lesions ) - [...] nail plate or bed tissue, any number ([id number]).? * Procedure Codes:?G0127 ALYSE ING DYSTROPHIC NAILS ANY #, Modifiers: XS , [id number] DEBRIDE NAIL, 1-5, Modifiers: XS 76784 TRIM SKIN LESIONS, OVER 4, Modifiers: XS [...]
--- OUTSIDE RECORDS SUMMARY | 2024-08-11 14:13 | XMS_ITS | Patient Health Record ---
Author Organization [facility] Elana james [place] Address [address] 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 No Points 0 Interpretation Negative Problems Problem Type SNOMED Code ICD Code Onset Dates Problem Status W/U Status Risk Notes Problem Acquired hammer toe of right foot (6150994913901 105) Other hammer toe(s) (acquired), right foot (M20.41) Active confirmed Response to treatment,I mprovement Problem Acquired hammer toe of left foot (9901029585360 103) Other hammer toe(s) (acquired), left foot (M20.42) Active confirmed Response to treatment,I mprovement Problem Type 2 diabetes mellitus with peripheral angiopathy (765233721) Type 2 diabetes mellitus with diabetic peripheral angiopathy without gangrene (E11.51) Active confirmed Q7(A), Q8(2B), Q9(1B,2C) Vital Signs Blood pressure diastolic 60 mm Hg 08/09/2024 Height 5 ft 11 in in 08/09/2024 Blood pressure systolic 140 mm Hg 08/09/2024 Weight 186 lbs 08/09/2024 BMI 25.94 kg/m2 08/09/2024 Procedures Procedure Date Ordered Date Performed Result Body Sit e 67039-BZPBRXT NAIL, 1-5 09/15/2023 N/A 68286-MZYI SKIN LESIONS, OVER 4 09/15/2023 N/A O6135-GBEPETGH DYSTROPHIC NAILS ANY # 09/15/2023 N/A 57016-NAEQECO NAIL, 1-5 11/27/2023 N/A 38800-RYNZ SKIN LESIONS, OVER 4 11/27/2023 N/A W2866-QYMNZSQA DYSTROPHIC NAILS ANY # 11/27/2023 N/A 00873-ZVSCVEH NAIL, 1-5 02/09/2024 N/A 14015-QTCJ SKIN LESIONS, OVER 4 02/09/2024 N/A E8453-OPLYJWZK DYSTROPHIC NAILS ANY # 02/09/2024 N/A 14122-IGILVOG NAIL, 1-5 05/06/2024 N/A 46744-WGUL SKIN LESIONS, OVER 4 05/06/2024 N/A T9303-VKLVSIOM DYSTROPHIC NAILS ANY # 05/06/2024 N/A 77490-EMYPTRT NAIL, 1-5 08/09/2024 N/A 60487-KEKL SKIN LESIONS, OVER 4 08/09/2024 N/A E9616-BKNIRSFD DYSTROPHIC NAILS ANY # 08/09/2024 N/A Encounters Encounter Location Date Provider Diagnosis [address] [address] 09/15/2023 Jac Lopes Type 2 diabetes mellitus with diabetic peripheral angiopathy without gangrene E11.51 ; Onychomycosis B35.1 ; Pain of toe of right foot M79.674 ; Pain of toe of left foot M79.675 ; Other hammer toe(s) (acquired), right foot M20.41 and Other hammer toe(s) (acquired), left foot M20.[address] [address] 11/27/2023 Jac Lopes Type 2 diabetes mellitus with diabetic peripheral angiopathy without gangrene E11.51 ; Tinea unguium B35.1 and Pain in left toe(s) M79.[address] [address] 02/09/2024 Jac Lopes Type 2 diabetes mellitus with diabetic peripheral angiopathy without gangrene E11.51 ; Tinea unguium B35.1 and Pain in left toe(s) M79.[address] [address] 05/06/2024 Jac Lopes Type 2 diabetes mellitus with diabetic peripheral angiopathy without gangrene E11.51 ; Tinea unguium B35.1 ; Pain in left toe(s) M79.675 ; Other hammer toe(s) (acquired), right foot M20.41 and Other hammer toe(s) (acquired), left foot M20.42 [facility] [place] [address] [place] [address] 08/09/2024 Jac Graciaunier Type 2 diabetes mellitus with diabetic peripheral [...] peripheral angiopathy without gangrene (ICD-10 - E11.51) 08/09/2024 Tinea unguium (ICD-10 - B35.1) 08/09/2024 Type 2 diabetes mellitus with diabetic peripheral angiopathy without gangrene (ICD-10 - E11.51) Q7(A), Q8(2B), Q9(1B,2C) 09/15/2023 Pain of toe of right foot (ICD-10 - M79.674) 08/09/2024 Pain in left toe(s) (ICD-10 - M79.675) 05/06/2024 Pain in left toe(s) (ICD-10 - [...] Treatment Pending Test Test Name Order Date 83576-GZMRGJD NAIL, -02/26/2021 52547-DOEKIGO NAIL, -05/14/2021 33194-POEPTLW NAIL, -07/23/2021 95954-ZAFRSOV NAIL, -10/01/2021 65367-NWXIQIH NAIL, -12/10/2021 90014-AFPWORY NAIL, -02/18/2022 76736-QDNLYAB NAIL, -04/29/2022 50270-HXSJOWY NAIL, -07/08/2022 59541-OSLIKCI NAIL, -10/07/2022 37822-RAEZLIO NAIL, -01/06/2023 27941-QKOWUST NAIL, -03/20/2023 00925-LHWEXYF NAIL, -07/07/2023 32509-SYVOKOA NAIL, -5 09/15/2023 41471-ARUOIGL NAIL, -11/27/2023 05757-ZIOJGLQ NAIL, -02/09/2024 20403-KOXDQGH NAIL, -05/06/2024 40713-XGWKGAU NAIL, -08/09/2024 44424-Yxqrilkt Plate 02/18/2022 04981-YQFI SKIN LESIONS, OVER 4 07/23/19 42306-QNJD SKIN LESIONS, OVER 4 09/06/20 22 18945-DKOY SKIN LESIONS, OVER 4 12/11/19 88945-SUCZ SKIN LESIONS, OVER 4 10/02/19 95249-SKSG SKIN LESIONS, OVER 4 02/27/20 15172-MROH SKIN LESIONS, OVER 4 05/14/20 53913-EPVK SKIN LESIONS, OVER 4 09/15/19 65852-HELQ SKIN LESIONS, OVER 4 07/07/19 42297-HNYO SKIN LESIONS, OVER 4 03/20/20 31327-URVG SKIN LESIONS, OVER 4 01/07/20 26105-NUWN SKIN LESIONS, OVER 4 10/08/19 94391-TROO SKIN LESIONS, OVER 4 07/08/19 79795-OHYJ SKIN LESIONS, OVER 4 04/29/20 05564-JQRX SKIN LESIONS, OVER 4 05/06/20 08792-WCWZ SKIN LESIONS, OVER 4 02/09/20 56957-QXTJ SKIN LESIONS, OVER 4 11/27/19 29736-WCNB SKIN LESIONS, OVER 4 08/09/19 13406-Nuff. Subungual Hematoma Z1318-SFRORWFW DYSTROPHIC NAILS ANY # S7527-NAVMTKIH DYSTROPHIC NAILS ANY # Y2719-TNIYKKZI DYSTROPHIC NAILS ANY # B3768-BITHGDOI DYSTROPHIC NAILS ANY # S7457-OJAREEFZ DYSTROPHIC NAILS ANY # M6029-VZKGSPIY DYSTROPHIC NAILS ANY # Q9317-UDTDQQWB DYSTROPHIC NAILS ANY # D9374-LTXSQEKV DYSTROPHIC NAILS ANY # A0730-LPTWNUBN DYSTROPHIC NAILS ANY # N4212-WVFKAWKQ DYSTROPHIC NAILS ANY # P0875-TRVCGQMD DYSTROPHIC NAILS ANY # C1946-JTTXRVQU DYSTROPHIC NAILS ANY # N0648-LDRMRFTC DYSTROPHIC NAILS ANY # J9363-BWWTSHUO DYSTROPHIC NAILS ANY # W3963-MASJDRVU DYSTROPHIC NAILS ANY # A3488-DQCTGJDI DYSTROPHIC NAILS ANY # B9806-ADYKMYBK DYSTROPHIC NAILS ANY # Next Appt Details Provider Name:Jac Lopes , 11/11/2024 01:30:00 PM, [address] [place], [address], Insurance Providers Payer Name Payer Address Payer Phone Subscriber Number Group Number Insured Name Patient Relationship to Insured Coverage Start Date Coverage End Date Medicare [employer] [address] [place] [address] [id number] Elton De Jesus Self - patient is the insured [employer] [address] [place] [address] [id number] Elton De Jesus Self - patient is the insured Medical (General) History Medical History History ICD Code High blood pressure Reflux ( GERD) type II diabetes Bladder CA Surgical History Surgery Date(Month/Year) Left Knee replacement Pacemaker Bladder Ca removal and chemotherapy 2023
== END 2024-08-11 11:59 | disposition home or self-care (01) ==
LOC: HO.HMCH 11:42
PROVIDERS: PCP Internal Medicine; Visit Provider Physician Assistant Medical
DX: I12.9 Hypertensive chronic kidney disease with stage 1 through stage 4 chronic kidney disease, or unspecified chronic kidney disease (principal); I48.0 Paroxysmal atrial fibrillation; N18.32 Chronic kidney disease, stage 3b; J40 Bronchitis, not specified as acute or chronic; I25.5 Ischemic cardiomyopathy; I35.0 Nonrheumatic aortic (valve) stenosis; Z95.0 Presence of cardiac pacemaker